=== PATIENT | female | born 2000 | race Caucasian/White ===

== ENCOUNTER 2023-09-09 22:02 | Emergency (ER) | payer OTHER, SELFPAY ==
[2023-09-09] VITALS (13 sets, daily range): BP systolic 96–128; BP diastolic 59–80; PULSE 71–100; TEMP 37.1; O2SAT 96–99; BMI 19.8
--- NOTE | 2023-09-09 22:48 | ECG_ITS ---
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
--- NOTE | 2023-09-09 22:49 | ED_ITS ---
HPI - Dizziness General Chief Complaint: Syncope Stated Complaint: Syncope Time Seen by Provider: 09/09/23 22:14 Source: patient and family Mode of arrival: walk-in History of Present Illness HPI Narrative: This 22-year-old female, nonsmoker who is on control and doubts the possibility of presents for evaluation of several episodes of dizziness/lightheadedness throughout the day. She did not pass out. She did not fall to the ground. Her mother states that she called her at home stating that she was feeling dizzy and has episodes of dizziness when she changes positions. She does not smoke. She is not having any chest pain or shortness of breath. She denies any abdominal pain or back pain. She has no lower extremity pain or swelling. She has not had a fever or any urinary symptoms. The mother states that after having a baby she was told by Dr. Christianson that her iron levels were low. She is not currently taking any iron or other supplements. I asked this patient if she knew what it meant to pass out and she said she did not know. After describing it to her she admits that she did not pass out. She does not have any headache or focal neurologic symptoms. At the time of my exam she denies that she is having any dizziness. Related Data Home Medications ?Medication ?Instructions ?Recorded ?Confirmed norethindrone 1 mg-ethinyl 1 tab PO DAILY 09/09/23 09/09/23 estradiol 20 mcg (21)-iron 75 mg (7) tablet (Marybel Fe 06/19 (28)) Allergies Allergy/AdvReac Type Severity Reaction Status Date / Time No Known Drug Allergies Allergy Verified 09/09/23 22:23 Review of Systems ROS Status of ROS 10 or more systems reviewed and unremark able except as noted in history and below Exam Narrative Exam Narrative: Nurses note and vital signs reviewed and patient is not hypoxic. General: The patient appears well and in no apparent distress. Patient is resting comfortably on cart. Skin: Warm, dry, no pallor noted. There is no rash noted. Head: Normocephalic, atraumatic Eye: Normal conjunctiva, no drainage, EOMI. PERRL Ears, Nose, Mouth, and Throat: oral mucosa is moist. Nares patent. Mouth without vesicles. Cardiovascular: Regular Rate and Rhythm S1S2, no murmurs, rubs or gallops Respiratory: Patient is in no distress, no accessory muscle use, lungs are clear to auscultation, no wheezing, rales or rhonchi Back: non-tender, no CVA tenderness bilaterally to percussion. GI: Normal bowel sounds, no tenderness to palpation, no masses appreciated. No rebound, guarding, or rigidity noted. Musculoskeletal: The patient has no evidence of calf tenderness, no pitting edema, symmetrical pulses noted bilaterally Neurological: A&O x4, normal speech, Upper and lower external he strength and sensation is intact, ambulatory with a steady gaait Psychiatric: Cooperative Constitutional Vital Signs, click to edit/add: Last Vital Signs Temp 98.8 F 09/09/23 22:12 Pulse 93 H 09/09/23 23:00 Resp 16 09/09/23 22:12 BP 128/77 09/09/23 23:00 Pulse Ox 97 09/09/23 22:50 O2 Del Method Room Air 09/09/23 22:12 Course Vital Signs Vital signs: Vital Signs Temperature 98.8 F 09/09/23 22:12 Pulse Rate 90 09/09/23 22:12 Respiratory Rate 16 09/09/23 22:12 Blood Pressure 109/77 09/09/23 22:12 Pulse Oximetry 97 09/09/23 22:12 Oxygen Delivery Method Room Air 09/09/23 22:12 Temperature 98.8 F 09/09/23 22:12 Pulse Rate 93 H 09/09/23 23:00 Respiratory Rate 16 09/09/23 22:12 Blood Pressure 128/77 09/09/23 23:00 Pulse Oximetry 97 09/09/23 22:50 Oxygen Delivery Method Room Air 09/09/23 22:12 MDM - Dizziness MDM Narrative Medical decision making narrative: This 22-year-old female presents for evaluation of several episodes of lightheadedness that occurred throughout the day. She did not pass out. She has no chest pain or shortness of breath. She denies any abdominal pain or back pain. She doubts the possibility of because she is on control maintains compliance on it. Her physical exam and vital signs were normal. She has not had any nausea vomiting or diarrhea and does not appear to be dehydrated. Routine labs are reviewed. She has a normal white count and hemoglobin is stable at 12. test is negative. Electrolytes are normal. D-dimer is normal. Urine shows mild leukocyte esterase and 5-10 white blood cells per high-power field. This may be contributing to some degree of dizziness/lightheadedness although she is not symptomatic. She was medicated in emergency department with a dose of Keflex annd be discharged home with Keflex use for the next several days. I encouraged to stay very hydrated and follow-up with her family physician and [facility] as she has been told in the past that she has iron deficiency anemia. I did explain to her that we do not do iron studies typically in the emergency department as part of screening tool. She verbalized understanding of this. She was with her mother and sister emergency department and did not verbalize any questions after our discussion. Lab Data Labs: Lab Results 09/09/23 09/09/23 Range/Units 22:57 23:01 WBC 7.1 (4.0-11.0) 10^3/uL RBC 4.24 (4.20-5.40) 10^6/uL Hgb 12.5 (12.0-16.0) g/dL Hct 39.0 (36.0-48.0) % MCV 92.0 (81.0-99.0) fL MCH 29.5 (26.7-34.0) pg MCHC 32.1 (29.9-35.2) g/dL RDW 13.2 (11.0-15.0) % Plt Count 240 (150-450) 10^3/uL MPV 12.0 (9.5-13.5) fL Neut % (Auto) 44.1 (43.0-75.0) % Lymph % (Auto) 43.0 (20.5-60.0) % [place] % (Auto) 9.8 (1.7-12.0) % Eos % (Auto) 1.3 (0.9-7.0) % Baso % (Auto) 1.5 (0.2-2.0) % Neut # (Auto) 3.1 (1.4-6.5) 10^3/uL Lymph # (Auto) 3.1 (1.2-3.8) 10^3/uL [place] # (Auto) 0.7 (0.3-0.8) 10^3/uL Eos # (Auto) 0.1 (0.0-0.7) 10^3/uL Baso # (Auto) 0.1 (0.0-0.1) 10^3/uL Abs Immat Gran (auto) 0.02 (0.00-0.03) 10^3/uL Imm/Tot Granulo (auto) 0.3 (0.0-0.5) % D-Dimer <0.19 (<=0.59) mg/L FEU Sodium 142 (136-145) mmol/L Potassium 3.8 (3.5-5.1) mmol/L Chloride 106 (98-107) mmol/L Carbon Dioxide 27.3 (21.0-32.0) mmol/L Anion Gap 12.5 BUN 12.0 (7.0-18.0) mg/dL Creatinine 0.86 (0.55-1.02) mg/dL Est GFR ( Amer) >60 (>=60) Est GFR (Non-Af Amer) >60 (>=60) BUN/Creatinine Ratio 14.0 Glucose 92 (74-106) mg/dL Calcium 9.2 (8.5-10.1) mg/dL Total Bilirubin 0.3 (0.2-1.0) mg/dL AST 9 L (15-37) U/L ALT 18 (14-59) U/L Alkaline Phosphatase 39 L (46-116) U/L Total Protein 7.4 (6.4-8.2) g/dL Albumin 3.8 (3.4-5.0) g/dL Globulin 3.6 g/dL Albumin/Globulin Ratio 1.1 Urine Color Lt. yellow (YELLOW) Urine Clarity Clear (CLEAR) Urine pH 6.0 (5.0-9.0) Ur Specific [place] 1.025 (1.005-1.025) Urine Protein Negative (NEG/TRACE) mg/dL Urine Glucose (UA) Negative (NEGATIVE) mg/dL Urine Ketones Negative (NEGATIVE) mg/dL Urine Occult Blood Negative (NEGATIVE) Urine Nitrite Negative (NEGATIVE) Urine Bilirubin Negative (NEGATIVE) Urine Urobilinogen 1.0 (0.2-1.0) EU/dL Ur Leukocyte Esterase Small A (NEGATIVE) Urine RBC 2-5 A (0-2) #/HPF Urine WBC 5-10 A (NONE SEEN) #/HPF Ur Squamous Epith Cells Few A (NONE/RARE) #/LPF Ur Transition Epith Cell Rare A (NONE SEEN) #/LPF Urine Crystals None seen (None Seen) #/HPF Urine Bacteria None seen (NONE SEEN) #/HPF Urine Casts None seen (NONE SEEN) #/LPF Urine Mucus None seen (NONE SEEN) Ur Culture Indicated? Yes Urine HCG, Qual Negative (NEGATIVE) ECG Data Attestation: I personally reviewed and interpreted this ECG as follows: (Sinus rhythm at 70 beats for minute, normal axis, normal intervals, no acute ST segment elevation or T-wave inversion) Discharge Plan Discharge Stand Alone Forms: Portal Instructions Chief Complaint: Syncope Clinical Impression: UTI (urinary tract infection), Dizziness, nonspecific Patient Disposition: Home, Self-Care Time of Disposition Decision: 00:02 Condition: Good Prescriptions / Home Meds: No Action norethindrone-e.estradiol-iron [Marybel Jarvis 06/19 (28)] 1 mg-20 mcg (21)/75 mg (7) tablet 1 tab PO DAILY Print Language: Hebrew Instructions: Urinary Tract Infection in Women (ED), Lightheadedness (ED) Referrals: [facility] [Primary Care Provider] - 1 week
[2023-09-09 23:27] LABS: Basophils Absolute Auto 0.1 10^3/uL (0.0-0.1); Basophils Percent Auto 1.5 % (0.2-2.0); Eosinophils Absolute Auto 0.1 10^3/uL (0.0-0.7); Eosinophils Percent Auto 1.3 % (0.9-7.0); Hemoglobin 12.5 g/dL (12.0-16.0); Immature Granulocytes Abs Auto 0.02 10^3/uL (0.00-0.03); Immature Granulocytes Pct Auto 0.3 % (0.0-0.5); Lymphocytes Absolute Auto 3.1 10^3/uL (1.2-3.8); Mean Corpuscular HGB Conc 32.1 g/dL (29.9-35.2); Mean Corpuscular Hemoglobin 29.5 pg (26.7-34.0); Monocytes Absolute Auto 0.7 10^3/uL (0.3-0.8); Monocytes Percent Auto 9.8 % (1.7-12.0); Neutrophils Absolute Auto 3.1 10^3/uL (1.4-6.5); Neutrophils Percent Auto 44.1 % (43.0-75.0); Platelet Count 240 10^3/uL (150-450); Red Blood Count 4.24 10^6/uL (4.20-5.40); Red Cell Distribution Width 13.2 % (11.0-15.0); White Blood Count 7.1 10^3/uL (4.0-11.0)
[2023-09-09 23:29] LABS: Bilirubin Urine NEGATIVE (NEGATIVE); Blood Urine NEGATIVE (NEGATIVE); Clarity Urine CLEAR (CLEAR); Color Urine LT. YELLOW (YELLOW); Glucose Urine UA NEGATIVE (NEGATIVE); Ketones Urine NEGATIVE (NEGATIVE); Leukocyte Esterase Urine SMALL (NEGATIVE); Nitrite Urine NEGATIVE (NEGATIVE); Protein Urine NEGATIVE (NEG/TRACE); Specific Gravity Urine 1.025 (1.005-1.025)
[2023-09-09 23:30] LABS: HCG Qualitative Urine* NEGATIVE (NEGATIVE)
[2023-09-09 23:36] LABS: Bacteria Urine NONE SEEN #/HPF (NONE SEEN); Cast Seen? NONE SEEN #/LPF (NONE SEEN); Crystals Seen? None Seen #/HPF (None Seen); Mucus Urine NONE SEEN (NONE SEEN); Squamous Epithelial Cell Urine FEW #/LPF (NONE/RARE); Transitional Epi Cells Urine RARE #/LPF (NONE SEEN); Urine Culture Indicated YES
[2023-09-09 23:43] LABS: Alanine Aminotransferase 18 U/L (14-59); Albumin Globulin Ratio 1.1; Albumin Level 3.8 g/dL (3.4-5.0); Alkaline Phosphatase 39 U/L (46-116); Anion Gap 12.5; Aspartate Amino Transferase 9 U/L (15-37); Bilirubin Total 0.3 mg/dL (0.2-1.0); Calcium 9.2 mg/dL (8.5-10.1); Carbon Dioxide 27.3 mmol/L (21.0-32.0); Chloride 106 mmol/L (98-107); Estimated GFR (African America >60 (>=60); Estimated GFR (Non-African Ame >60 (>=60); Globulin 3.6 g/dL; Glucose 92 mg/dL (74-106); Potassium 3.8 mmol/L (3.5-5.1); Sodium 142 mmol/L (136-145); Total Protein 7.4 g/dL (6.4-8.2)
[2023-09-09 23:48] LABS: D Dimer <0.19 mg/L FEU (<=0.59)
[2023-09-10] VITALS: BP 107/73; PULSE 77
[2023-09-10 00:10] VITALS: PULSE 74
[2023-09-10] MEDS: CEPHALEXIN 500 MG CAPSULE PO (00:12)
== END 2023-09-10 00:23 | disposition home or self-care (01) ==
PROVIDERS: Emergency Provider Emergency Medicine
DX: N39.0 Urinary tract infection, site not specified (principal); R42 Dizziness and giddiness; Z79.3 Long term (current) use of hormonal contraceptives
CPT/HCPCS: 36415; 80053; 81001; 84703; 85025; 85378; 87086; 93005; 99284

== ENCOUNTER 2023-10-19 21:08 | Emergency (ER) | payer OTHER, SELFPAY ==
[2023-10-19 21:13] VITALS: BP 141/84; PULSE 85; O2SAT 98; BMI 22.6
[2023-10-19 21:28] VITALS: TEMP 36.6
--- NOTE | 2023-10-19 21:30 | ED.FEMALEGU1 ---
HPI - Female Genitourinary General Chief complaint: Urogenital-Female Stated complaint: UTI, Earache Time Seen by Provider: 10/19/23 21:21 Source: patient and family Mode of arrival: walk-in Limitations: no limitations History of Present Illness HPI Narrative: presents complaining of dysuria. States it started this AM. Describes suprapubic pain. No flank pain or nausea. No fever or chills Related Data Home Medications ?Medication ?Instructions ?Recorded ?Confirmed norethindrone 1 mg-ethinyl 1 tab PO DAILY 09/09/23 09/09/23 estradiol 20 mcg (21)-iron 75 mg (7) tablet (Marybel Fe 06/19 (28)) Allergies Allergy/AdvReac Type Severity Reaction Status Date / Time No Known Drug Allergies Allergy Verified 10/19/23 21:15 Review of Systems ROS Status of ROS 10 or more systems reviewed and unremarkable except as noted in history and below Exam Constitutional Vital Signs, click to edit/add: Last Vital Signs Temp 98 F 10/19/23 21:28 Pulse 85 10/19/23 21:13 Resp 18 10/19/23 21:13 BP 141/84 10/19/23 21:13 Pulse Ox 98 10/19/23 21:13 O2 Del Method Room Air 10/19/23 21:13 Common normals: no apparent distress, average body habitus, oriented x3, no limitations, healthy appearing, alert and well nourished [facility] Common normals: normocephalic and head/scalp atraumatic Eye Common normals: EOMs intact bilaterally and conjunctivae normal Respiratory Common normals: normal respiratory effort, no retractions, no use of accessory muscles and clear to auscultation bilaterally Cardio Common normals: regular rate, regular rhythm, S1 normal heart sound and S2 normal heart sound GI Other: mild suprapubic tenderness Extremity Common normals: normal to inspection and full ROM Neuro Common normals: oriented x3, CN's II-XII intact bilaterally, moves all extremities, no focal motor deficits and no sensory deficits noted Psych Appearance: grossly normal Course Vital Signs Vital signs: Vital Signs Pulse Rate 85 10/19/23 21:13 Respiratory Rate 18 10/19/23 21:13 Blood Pressure 141/84 10/19/23 21:13 Pulse Oximetry 98 05/21/24 21:13 Oxygen Delivery Method Room Air 10/19/23 21:13 Temperature 98 F 10/19/23 21:28 Pulse Rate 85 10/19/23 21:13 Respiratory Rate 18 10/19/23 21:13 Blood Pressure 141/84 10/19/23 21:13 Pulse Oximetry 98 10/19/23 21:13 Oxygen Delivery Method Room Air 10/19/23 21:13 MDM - Female Genitourinary MDM Narrative Medical decision making narrative: one day history of dysuria. No fever or systemic symptoms. UA positive. patient treated with Bactrim ds and pyridium. Advised to follow up with the family doctor Lab Data Labs: Lab Results 10/19/23 Range/Units 21:16 Urine Color Lt. yellow (YELLOW) Urine Clarity Clear (CLEAR) Urine pH 6.5 (5.0-9.0) Ur Specific [place] 1.010 (1.005-1.025) Urine Protein Negative (NEG/TRACE) mg/dL Urine Glucose (UA) Negative (NEGATIVE) mg/dL Urine Ketones Negative (NEGATIVE) mg/dL Urine Occult Blood Negative (NEGATIVE) Urine Nitrite Negative (NEGATIVE) Urine Bilirubin Negative (NEGATIVE) Urine Urobilinogen 0.2 (0.2-1.0) EU/dL Ur Leukocyte Esterase Small A (NEGATIVE) Urine RBC None seen (0-2) #/HPF Urine WBC 10-20 A (NONE SEEN) #/HPF Ur Squamous Epith Cells Few A (NONE/RARE) #/LPF Urine Crystals None seen (None Seen) #/HPF Amorphous Sediment Few Urine Bacteria Small A (NONE SEEN) #/HPF Urine Casts None seen (NONE SEEN) #/LPF Urine Mucus None seen (NONE SEEN) Ur Culture Indicated? Yes Discharge Plan Discharge Stand Alone Forms: Portal Instructions Chief Complaint: Urogenital-Female Clinical Impression: UTI (urinary tract infection) Patient Disposition: Home, Self-Care Prescriptions / Home Meds: No Action norethindrone-e.estradiol-iron [Marybel Jarvis 06/19 ()] 1 mg-20 mcg (21)/75 mg (7) tablet 1 tab PO DAILY Print Language: [place] Islander Instructions: Urinary Tract Infection in Women (DC) Additional Instructions: follow up with your doctor for a recheck in 2-3 days Referrals: [facility] [Primary Care Provider] - 1 week
[2023-10-19 21:35] LABS: Bilirubin Urine NEGATIVE (NEGATIVE); Blood Urine NEGATIVE (NEGATIVE); Clarity Urine CLEAR (CLEAR); Color Urine LT. YELLOW (YELLOW); Glucose Urine UA NEGATIVE (NEGATIVE); Ketones Urine NEGATIVE (NEGATIVE); Leukocyte Esterase Urine SMALL (NEGATIVE); Nitrite Urine NEGATIVE (NEGATIVE); Protein Urine NEGATIVE (NEG/TRACE); Urobilinogen Urine 0.2 EU/dL (0.2-1.0); pH Urine 6.5 (5.0-9.0)
[2023-10-19 21:36] LABS: Urine Microscopic Indicated YES
[2023-10-19 21:45] LABS: Amorphous Sediment Urine FEW; Bacteria Urine SMALL #/HPF (NONE SEEN); Cast Seen? NONE SEEN #/LPF (NONE SEEN); Crystals Seen? None Seen #/HPF (None Seen); Mucus Urine NONE SEEN (NONE SEEN); RBC Urine NONE SEEN #/HPF (0-2); Squamous Epithelial Cell Urine FEW #/LPF (NONE/RARE); Urine Culture Indicated YES
[2023-10-19] MEDS: PHENAZOPYRIDINE 100 MG TABLET 200 MG PO (22:53)
[2023-10-19] MEDS: SULFAMETHOXAZOLE/TRIMETHOPRIM 800-160 MG TABLET 1 TAB PO (22:54)
[2023-10-19 22:58] VITALS: BP 117/67; PULSE 70; O2SAT 100
== END 2023-10-19 22:58 | disposition home or self-care (01) ==
PROVIDERS: Emergency Provider Internal Medicine
DX: N39.0 Urinary tract infection, site not specified (principal); Z79.3 Long term (current) use of hormonal contraceptives
CPT/HCPCS: 81001; 87086; 99283

== ENCOUNTER 2023-10-28 19:38 | Emergency (ER) | payer OTHER, SELFPAY ==
[2023-10-28 19:43] VITALS: BP 139/86; PULSE 89; TEMP 36.6; O2SAT 98; BMI 18.6
--- NOTE | 2023-10-28 19:47 | XR_ITS ---
The [address] [address] Patient Name: NIRAJ CLIFFORD MRN: [id number] date: 2000 Sex: F Assigned Patient Location: ER Current Patient Location: Accession/Order Number: [id number] Exam Date: 10/28/2023 19:57 Report Date: 10/28/2023 20:56 At the request of: CHERYL PARISH Procedure: XR wrist RT min 3V EXAM: XR wrist RT min 3V HISTORY: The patient is a 23-year-old female. Atraumatic pain COMPARISON: None. FINDINGS: The right wrist is radiographically negative with no evidence of fracture, dislocation, joint space narrowing, or other osseous or articular abnormalities. XR/XR wrist RT min 3V IMPRESSION: Negative. Electronically authenticated by: MILA CHEEMA Date: 10/28/2023 20:56
--- NOTE | 2023-10-28 19:55 | ED.GENADUL1 ---
HPI HPI - General Adult General Chief complaint: Extremity Injury, Upper Stated complaint: wrist pain upper extremity pain Time Seen by Provider: 10/28/23 19:39 Source: patient Mode of arrival: walk-in Limitations: no limitations History of Present Illness HPI narrative: 23-year-old female presents for right wrist pain that she has had for 2 days. No injury. She point circumferentially around her distal right wrist indicate the area of pain. No unusual activity. She saw her doctor yesterday who told her she might have carpal tunnel syndrome. She does not seem to have any weakness or numbness in her fingers. The pain is moderate and worse when she moves it. Related Data Home Medications ?Medication ?Instructions ?Recorded ?Confirmed norethindrone 1 mg-ethinyl 1 tab PO DAILY 09/09/23 10/28/23 estradiol 20 mcg (21)-iron 75 mg (7) tablet (Marybel Fe [birth year])) Allergies Allergy/AdvReac Type Severity Reaction Status Date / Time No Known Drug Allergies Allergy Verified 10/28/23 19:48 Opioid HPI Opioid Management Most Recent Opioid Data: Last Pain Scale 6 10/28/23 20:28 Last ED Pain Assessment 10/28/23 19:50 Review of Systems ROS Narrative A ten point review of systems is negative except as noted above. Exam Narrative Exam Narrative: Nurses note and vital signs reviewed and patient is not hypoxic. General: The patient appears well and in no apparent distress. Patient is resting comfortably on cart. Skin: Warm, dry, no pallor noted. There is no rash noted. Head: Normocephalic, atraumatic Eye: Normal conjunctiva, no drainage Ears, Nose, Mouth, and Throat: oral mucosa is moist. Nares patent. Cardiovascular: Regular Rate and Rhythm Respiratory: Patient is in no distress, no accessory muscle use, lungs are clear to auscultation, no wheezing, rales or rhonchi Back: non-tender GI: Soft and nontender Musculoskeletal: The right wrist is not deformed or swollen and has good range of motion. Fingers also have full range of motion. Capillary refill brisk. Radial pulse 2+. Neurological: Awake and alert Psychiatric: Cooperative Constitutional Vital Signs, click to edit/add: Last Vital Signs Temp 98 F 10/28/23 19:43 Pulse 89 10/28/23 19:43 Resp 16 10/28/23 19:43 BP 139/86 10/28/23 19:43 Pulse Ox 98 10/28/23 19:43 O2 Del Method Room Air 10/28/23 19:43 Course Vital Signs Vital signs: Vital Signs Temperature 98 F 10/28/23 19:43 Pulse Rate 89 10/28/23 19:43 Respiratory Rate 16 10/28/23 19:43 Blood Pressure 139/86 10/28/23 19:43 Pulse Oximetry 98 10/28/23 19:43 Oxygen Delivery Method Room Air 10/28/23 19:43 Temperature 98 F 10/28/23 19:43 Pulse Rate 89 10/28/23 19:43 Respiratory Rate 16 10/28/23 19:43 Blood Pressure 139/86 10/28/23 19:43 Pulse Oximetry 98 10/28/23 19:43 Oxygen Delivery Method Room Air 10/28/23 19:43 Medical Decision Making MDM Narrative Medical decision making narrative: X-rays negative on my interpretation. Splint applied, application checked by me and found to be appropriate and she is referred to orthopedics. I do not have high suspicion of carpal tunnel syndrome. Treatment diagnosis and follow-up were discussed with the patient and her mother. Differential Diagnosis Differential Diagnosis: Wrist sprain, wrist strain, fracture Imaging Data Right wrist x-ray: My impression: No acute findings Discharge Plan Discharge Stand Alone Forms: Portal Instructions Chief Complaint: Extremity Injury, Upper Clinical Impression: Acute pain of right wrist Patient Disposition: Home, Self-Care Time of Disposition Decision: 20:31 Condition: Good Mode of Transportation: Private Vehicle Prescriptions / Home Meds: No Action norethindrone-e.estradiol-iron [Marybel Jarvis [birth year])] 1 mg-20 mcg (21)/75 mg (7) tablet 1 tab PO DAILY Print Language: Croatian Instructions: Wrist Sprain (ED) Additional Instructions: Follow-up with Dr. Werner, November 07 at 10:30 AM Referrals: [facility] [Primary Care Provider] - 1 week Frankie Werner MD [Physician] - 1 week
--- OUTSIDE RECORDS SUMMARY | 2023-10-28 19:55 | XMS_ITS | CCD ---
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 Name Role Phone ALEXANDRIA QUEZADA Admitting Unavailable PILAR ALEXANDRIA Attending Unavailable [facility] Primary Care Unavaila MARYELLEN Woo Consulting Unavailable [facility] Primary Care Unavaila ROSE Mcdowell Admitting Unavailable ROSE MATTHEW Attending Unavailable JOHN MORALES Consulting Unavailable JOSETTE WELCH Consulting Unavailable CALI Blanc Primary Care Provide r MD Dariana Richey Attending Provider CALI Blanc Primary Care Provide r MD Dariana Richey Attending Provider DO Meghan Rizvi Attending Provider NON STAFF Primary Care Provider Unavailabl e [facility], Services Primary Care Provider MD Melo Ritter Attending Provider MD Dariana Richey Referring Provider [phone] DO Celeste Alanis Attending Provider [phone] DO Meghan Rizvi Admit Provider MD Dariana Richey Attending Provider CALI Blanc Attending Provider DO Mich Diaz Emergency Provider [phone] DO Abhay Hendricks Emergency Provider [facility], Services Primary Care Provider DO Mich Diaz Emergency Provider [phone] [facility], Services Primary Care Provider [phone] MD Cuco Nails Attending Provider MD Sergio Zepeda Jr Emergency Provider MD Cuco Nails Referring Provider MD Dannielle Addison Attending Provider NatJv vazqueza Attending Unavailable Nataprawira, Meghan Admitting Unavailable [facility] Primary Care Unavaila ble [facility] Primary Care Unavaila Calli Christensen Attending Unavailab le Calli Blanc Admitting Unavailab le [facility] Primary Care Unavaila ble Dannielle Addison Attending Unavailable Dannielle Addison Admitting Unavailable Cuco Nails Referring Unavai lable Rinsheri Celeste Admitting Unavailable Rinkes Celeste Attending Unavailable [facility] Primary Care Unavaila ble Nataprawira, Meghan Admitting Unavailable Nataprawira, Meghan Attending Unavailable [facility] Primary Care Unavaila ble [facility] Primary Care Unavaila ble Calli Blanc Admitting Unavailab le Calli Blanc Attending Unavailab le [facility] Primary Care Unavaila ble Diaz, Mich Admitting Unavailable Ignacio Diazic Attending Unavailable Nataprawira, Meghan Attending Unavailable Nataprawira, Meghan Admitting Unavailable NON STAFF Primary Care Unavailable [facility] Primary Care Unavaila ble Cuco Nails Attending Unavai labCuco Chi Admitting Unavai lable [facility] Primary Care Unavaila ble Mich Diaz Attending Unavailable Diaz, Mich Admitting Unavailable [facility] Primary Care Unavaila ble Ruthie Abhay A Attending Unavailable Ruthie Abhay A Admitting Unavailable [facility] Primary Care Unavaila Sergio Hodge Jr Attending Unavailable Sergio Zepeda Jr Admitting Unavailable [facility] Primary Care Unavaila ble Cuco Nails Admitting Unavai labCuco Chi Attending Unavai lable Nataprawira, Meghan Attending Unavailable Nataprawira, Meghan Admitting Unavailable [facility] Primary Care Unavaila ble Annabelle, Celeste Attending Unavailable [facility] Primary Care Unavaila ble Rinkes, Celeste Admitting Unavailable [facility] Primary Care Unavaila Melo Mccarty Attending Unavailable Melo Ritter Admitting Unavailable [facility], Services Primary Care Unavaila Dariana Ivy Attending Unavailable Dariana Richey Referring Unavailable Dariana Richey Admitting Unavailable SANDEE LOVE Attending Unavailable Medications Current Medications Medication Drug Class(es) Dates Sig (Normalized) Sig (Original) Norethindrone-E.Est radiol-Iron (5 sources) Estrogen Start: 03-18-2023 take 1 tablet by mouth once daily Norethindrone-E.Es tradiol-Iron Active 1 TAB PO Daily March 18, 2023 12:00am Completed/Discontinued Medications Medication Drug Class(es) Dates Sig (Normalized) Sig (Original) dicyclomine hydrochloride 10 mg oral capsule (18 sources) Anticholinergic Start: 07-12-2021 End: 09-19-2022 take 10 mg by mouth twice daily Dicyclomine Discontinued 10 MG PO Twice daily July 12, 2021 1:00am September 19, 2022 10:16am docusate sodium 100 mg oral capsule (10 sources) Start: 10-01-2022 End: 11-19-2022 take 100 mg by mouth at bedtime Docusate Sodium Discontinued 100 MG PO Bedtime October 01, 2022 12:00am November 19, 2022 8:21pm famotidine 20 mg oral tablet (3 sources) Histamine-2 Receptor Antagonist Start: 08-24-2023 End: 09-22-2023 take 1 tablet by mouth twice daily Famotidine (Pepcid) 20 mg tablet Discontinued 20 MG PO Twice daily August 24, 2023 12:00am September 22, 2023 9:16am ferrous sulfate 325 mg oral tablet (10 sources) Start: 10-03-2022 End: 03-18-2023 take 325 mg by mouth once daily Ferrous Sulfate Discontinued 325 MG PO Daily October 03, 2022 12:00am March 18, 2023 11:06pm ibuprofen 600 mg oral tablet (20 sources) Nonsteroidal Anti-inflammatory Drug Start: 10-03-2022 End: 11-19-2022 Ibuprofen Discontinued 600 MG PO Every 6 hours October 03, 2022 12:00am November 19, 2022 8:21pm do not exceed 4 doses in a 24 hour period Start: 10-01-2022 End: 11-19-2022 take 600 mg by mouth every six hours Ibuprofen Discontinued 600 MG PO Q6H 60 October 01, 2022 12:00am November 19, 2022 8:21pm ondansetron 4 mg disintegrating oral tablet (3 sources) Serotonin-3 Receptor Antagonist Start: 08-24-2023 End: 09-22-2023 take 4 mg by mouth every eight hours Ondansetron Discontinued 4 MG PO Q8H 10 August 24, 2023 12:00am September 22, 2023 9:17am No.144-Folic Acid () 400 mcg Tablet,Chewable (14 sources) Start: 09-24-2022 End: 11-19-2022 No.144-Folic Acid () 400 mcg Tablet,Chewable Discontinued TAB PO September 24, 2022 12:00am November 19, 2022 8:21pm Start: 09-24-2022 No.14 4-Folic Acid () 400 mcg Tablet,Chewable Active TAB PO September 24, 2022 12:00am Problems Active Problems Problem Classification Problem Date Documented Da te Episodic/Chronic External cause codes: Overexertion (1 source) Other slipping, tripping and stumbling without falling, initial encounter; Translations: [OTH SLIP TRIP STUMBL NO FALL INIT] Onset: 01-23-2020 Gastrointestinal hemorrhage (4 sources) Rectal hemorrhage; Translations: [Hemorrhage of anus and rectum] Onset: 08-24-2023 08-24-2023 Episodic Immunizations and screening for infectious disease (1 source) Encounter for immunization; Translations: [ENCOUNTER FOR IMMUNIZATION] Onset: 01-23-2020 Episodic Nausea and vomiting (3 sources) Nausea, vomiting and diarrhea; Translations: [Nausea with vomiting, unspecified] 08-24-2023 Episodic Open wounds of extremities (1 source) Laceration without foreign body of right great toe without damage to nail, initial encounter; Translations: [LAC NO FB RT GRT TOE NO DMG NL INIT] Onset: 01-23-2020 Episodic Other circulatory disease (5 sources) Orthostatic hypotension; Translations: [Orthostatic hypotension] Onset: 08-11-2023 08-10-2023 Episodic Other circulatory disease (6 sources) Orthostatic hypotension; Translations: [Orthostatic hypotension] Onset: 09-08-2023 08-10-2023 Episodic Other female genital disorders (11 sources) History of past delivery; Translations: [Status post vaginal delivery] 10-17-2022 Episodic Other gastrointestinal disorders (18 sources) Diarrhea; Translations: [Diarrhea, unspecified] 07-12-2021 Episodic Other injuries and conditions due to external causes (3 sources) Unspecified injury of right foot, initial encounter; Translations: [UNSPECIFIED INJURY RT FOOT INITIAL] Onset: 01-20-2020 Episodic Superficial injury; contusion (6 sources) Contusion of right great toe without damage to nail, initial encounter; Translations: [Contusion of foot] Onset: 01-23-2020 03-18-2023 Episodic Syncope (20 sources) Vasovagal syncope; Translations: [Syncope and collapse] Onset: 11-21-2022 11-19-2022 Episodic Unclassified (1 source) Pain in right foot; Translations: [Pain in right foot] Onset: 03-19-2023 Unclassified (1 source) Other mental disorders complicating childbirth; Translations: [Other mental disorders complicating childbirth] Onset: 10-04-2022 Unclassified (1 source) Encounter for supervision of normal first , third trimester; Translations: [Encounter for supervision of normal first , third trimester] Onset: 10-01-2022 Unclassified (1 source) Spotting complicating , third trimester; Translations: [Spotting complicating , third trimester] Onset: 09-28-2022 Unclassified (1 source) labor without delivery, third trimester; Translations: [ labor without delivery, third trimester] Onset: 09-28-2022 Unclassified (1 source) Other specified related conditions, third trimester; Translations: [Other specified related conditions, third trimester] Onset: 09-24-2022 Unclassified (1 source) Antepartum hemorrhage, unspecified, third trimester; Translations: [Antepartum hemorrhage, unspecified, third trimester] Onset: 09-16-2022 Unclassified (1 source) Encounter for screening for Streptococcus B; Translations: [Encounter for screening for Streptococcus B] Onset: 09-09-2022 Past or Other Problems Problem Classification Problem Date Documented Da te Episodic/Chronic Other complications of (1 source) Other specified related conditions, unspecified trimester; Translations: [Other specified related conditions, unspecified trimester] Onset: 09-19-2022 Episodic Other ear and sense organ disorders (3 sources) Otalgia, right ear; Translations: [OTALGIA RIGHT EAR] Onset: 07-30-2019 Episodic Other ear and sense organ disorders (1 source) Impacted cerumen, right ear; Translations: [IMPACTED CERUMEN RIGHT EAR] Onset: 08-01-2019 Episodic Residual codes; unclassified (1 source) 36 weeks gestation of ; Translations: [36 weeks gestation of ] Onset: 09-09-2022 Episodic Results Test Name Value Interpretation Reference Range Facility Basic Metabolic Panelon 07-30 Anion gap [Moles/Vol] 15.0 mmol/L Normal 6.0-15.0 [facility] Comment on above: Performed By: #### C BC, BMP, LIPASE, HEPATIC #### [facility] [address] [place] [address] [place] Calcium [Mass/Vol] 9.8 mg/dL Normal 8.6-10.3 [facility] Comment on above: Performed By: #### C BC, BMP, LIPASE, HEPATIC #### [facility] [address] [place] [id number] [place] Chloride [Moles/Vol] 106 mmol/L Normal 98-107 [facility] Comment on above: Performed By: #### C BC, BMP, LIPASE, HEPATIC #### [facility] [address] [place] [id number] [place] CO2 [Moles/Vol] 20.4 mmol/L Low 21.0-31.0 [facility] Comment on above: Performed By: #### C BC, BMP, LIPASE, HEPATIC #### [facility] [address] [place] [id number] [place] Creatinine [Mass/Vol] 1.00 mg/dL Normal 0.60-1.20 [facility] Comment on above: Performed By: #### C BC, BMP, LIPASE, HEPATIC #### [facility] [address] [place] [id number] [place] Creatinine Clr Calc Pharmacy 72.44 Normal [facility] Comment on above: Performed By: #### C BC, BMP, LIPASE, HEPATIC #### [facility] [address] [place] [address] [place] GFR/1.73 sq M.predicted MDRD (S/P/Bld) [Vol rate/Area] mL/min/{1.73_m2} Normal [facility] Comment on above: Performed By: #### C BC, BMP, LIPASE, HEPATIC #### [facility] [address] [place] [address] [place] Glucose [Mass/Vol] 78 mg/dL Normal 70-100 [facility] Comment on above: Result Comment: [facility] Glucose Reference Range is dependent on time and content of last meal. Glucose of more than 200 mg/dL in a nonstressed, ambulatory subject supports the diagnosis of Diabetes Mellitus. ADA recommended reference range Performed By: #### C BC, BMP, LIPASE, HEPATIC #### [facility] [address] Potassium [Moles/Vol] 4.4 mmol/L Normal 3.5-5.1 [facility] Comment on above: Performed By: #### C BC, BMP, LIPASE, HEPATIC #### [place] [address] [place] Sodium [Moles/Vol] 137 mmol/L Normal 136-145 [facility] Comment on above: Performed By: #### C BC, BMP, LIPASE, HEPATIC #### [facility] [address] [place] [address] [place] Urea nitrogen [Mass/Vol] 13 mg/dL Normal 7-25 [facility] Comment on above: Performed By: #### C BC, BMP, LIPASE, HEPATIC #### [facility] [address] Complete Blood Count Auto Di ffon 08-25-2023 Basophils (Bld) [#/Vol] 0.2 10*3/uL Normal 0.0-0.2 [facility] Comment on above: Result Comment: PERF ORMED BY: [place] [address] PATHOLOGIST DIRECTOR OF MECHANICAL ENGINEERING KISHA CHING M.D. Performed By: #### C BC, BMP, LIPASE, HEPATIC #### [address] Basophils/100 WBC (Bld) 1.7 % Normal . T jacqueline [facility] Comment on above: Performed By: #### C BC, BMP, LIPASE, HEPATIC #### [address] Eosinophils (Bld) [#/Vol] 0.0 10*3/uL Normal 0.0-0.45 [facility] Comment on above: Performed By: #### C BC, BMP, LIPASE, HEPATIC #### [address] Eosinophils/100 WBC (Bld) 0.2 % Normal . [facility] Comment on above: Performed By: #### C BC, BMP, LIPASE, HEPATIC #### [address] Erythrocyte distribution width (RBC) [Ratio] 14.1 % Normal 11.9-15.3 [facility] Comment on above: Performed By: #### C BC, BMP, LIPASE, HEPATIC #### [address] Hematocrit (Bld) [Volume fraction] 39.8 % Normal 34.0-46.4 [facility] Comment on above: Performed By: #### C BC, BMP, LIPASE, HEPATIC #### [address] Hemoglobin (Bld) [Mass/Vol] 13.1 g/dL Normal 11.8-15.4 [facility] Comment on above: Performed By: #### C BC, BMP, LIPASE, HEPATIC #### [address] Lymphocytes (Bld) [#/Vol] 3.1 10*3/uL Normal 1.00-4.8 [facility] Comment on above: Performed By: #### C BC, BMP, LIPASE, HEPATIC #### [address] Lymphocytes/100 WBC (Bld) 34.7 % Normal . [facility] Comment on above: Performed By: #### C BC, BMP, LIPASE, HEPATIC #### [address] MCH (RBC) [Entitic mass] 29.0 pg Normal 24.7-34.3 [facility] Comment on above: Performed By: #### C BC, BMP, LIPASE, HEPATIC #### [address] MCV (RBC) [Entitic vol] 88.3 fL Normal 80-100 [facility] Comment on above: Performed By: #### C BC, BMP, LIPASE, HEPATIC #### [address] Mean Corpuscular HGB Conc 32.8 g/dL Normal 32.0-35.0 [facility] Comment on above: Performed By: #### C BC, BMP, LIPASE, HEPATIC #### [address] Monocytes (Bld) [#/Vol] 0.9 10*3/uL High 0.0-0.8 [facility] Comment on above: Performed By: #### C BC, BMP, LIPASE, HEPATIC #### [address] Monocytes/100 WBC (Bld) 16.99 % Normal 0.00-20.00 [facility] Comment on above: Performed By: #### C BC, BMP, LIPASE, HEPATIC #### [address] Monocytes/100 WBC (Bld) 9.8 % Normal . [facility] Comment on above: Performed By: #### C BC, BMP, LIPASE, HEPATIC #### [address] Neutrophils (Bld) [#/Vol] 4.8 10*3/uL Normal 1.8-7.7 [facility] Comment on above: Performed By: #### C BC, BMP, LIPASE, HEPATIC #### [address] Neutrophils/100 WBC (Bld) 53.6 % Normal . [facility] Comment on above: Performed By: #### C BC, BMP, LIPASE, HEPATIC #### [address] NRBC% 0.1 /100{WBC} Normal 0-0.5 [facility] Comment on above: Performed By: #### C BC, BMP, LIPASE, HEPATIC #### [address] Platelet mean volume (Bld) [Entitic vol] 9.9 fL Normal 6.3-10.7 [facility] Comment on above: Performed By: #### C BC, BMP, LIPASE, HEPATIC #### [address] Platelets (Bld) [#/Vol] 258 10*3/uL Normal 150-450 [facility] Comment on above: Performed By: #### C BC, BMP, LIPASE, HEPATIC #### [address] RBC (Bld) [#/Vol] 4.51 10*6/uL Normal 3.60-5.00 [facility] Comment on above: Performed By: #### C BC, BMP, LIPASE, HEPATIC #### [address] WBC (Bld) [#/Vol] 9.0 10*3/uL Normal 3.8-11.6 [facility] Comment on above: Performed By: #### C BC, BMP, LIPASE, HEPATIC #### [address] Dipstick and Microscopicon 0 08-25-2023 Appearance (U) Clear Normal Clear [facility] Comment on above: Order Comment: Name Collection Type:: Clean-Voided Midstream Performed By: #### C BC, CMP, HS TROP, CK #### [address] Bacteria,Urine None Seen Normal None Seen [facility] Comment on above: Order Comment: Name Collection Type:: Clean-Voided Midstream Performed By: #### C BC, CMP, HS TROP, CK #### [facility] [address] [place] [address] [place] Bilirubin,Urine 1+ High Negative [facility] Comment on above: Order Comment: Name Collection Type:: Clean-Voided Midstream Performed By: #### C BC, CMP, HS TROP, CK #### [facility] [address] [place] [address] [place] Color (U) Dark Yellow Critically abnormal Yellow [facility] Comment on above: Order Comment: Name Collection Type:: Clean-Voided Midstream Performed By: #### C BC, CMP, HS TROP, CK #### [facility] [address] [place] [address] [place] Glucose Ql (U) Normal Normal Normal [facility] Comment on above: Order Comment: Name Collection Type:: Clean-Voided Midstream Performed By: #### C BC, CMP, HS TROP, CK #### [facility] [address] [place] [address] [place] Hyaline Casts,Urine 0-8 Normal 0-8 [facility] Comment on above: Order Comment: Name Collection Type:: Clean-Voided Midstream Performed By: #### C BC, CMP, HS TROP, CK #### [facility] [address] [place] [address] [place] Ketones Ql (U) 2+ High Negative [facility] Comment on above: Order Comment: Name Collection Type:: Clean-Voided Midstream Performed By: #### C BC, CMP, HS TROP, CK #### [facility] [address] [place] [id number] [place] Leukocyte esterase Test strip Ql (U) 1+ High Negative [facility] Comment on above: Order Comment: Name Collection Type:: Clean-Voided Midstream Performed By: #### C BC, CMP, HS TROP, CK #### [facility] [address] [place] [address] [place] Nitrite,Urine Negative Normal Negative [facility] Comment on above: Order Comment: Name Collection Type:: Clean-Voided Midstream Performed By: #### C BC, CMP, HS TROP, CK #### [address] Occult Blood,Urine 3+ High Negative [facility] Comment on above: Order Comment: Name Collection Type:: Clean-Voided Midstream Performed By: #### C BC, CMP, HS TROP, CK #### [address] pH (U) 6.0 [pH] Normal 5.0-9.0 [facility] Comment on above: Order Comment: Name Collection Type:: Clean-Voided Midstream Performed By: #### C BC, CMP, HS TROP, CK #### [address] Protein (U) [Mass/Vol] 100 mg/dL High Negative Th e [facility] Comment on above: Order Comment: Name Collection Type:: Clean-Voided Midstream Performed By: #### C BC, CMP, HS TROP, CK #### [address] RBC,Urine 50-100 High 0-4 [facility] Comment on above: Order Comment: Name Collection Type:: Clean-Voided Midstream Performed By: #### C BC, CMP, HS TROP, CK #### [address] Specificy [place],Urine 1.033 High 1.001-1.030 [facility] Comment on above: Order Comment: Name Collection Type:: Clean-Voided Midstream Performed By: #### C BC, CMP, HS TROP, CK #### [address] Squamous Epithelial Cell,Urine 0-1 Normal 0-2 [facility] Comment on above: Order Comment: Name Collection Type:: Clean-Voided Midstream Performed By: #### C BC, CMP, HS TROP, CK #### [address] Urobilinogen,Urine Normal Normal Normal [facility] Comment on above: Order Comment: Name Collection Type:: Clean-Voided Midstream Performed By: #### C BC, CMP, HS TROP, CK #### [address] WBC,Urine 10-19 High 0-4 [facility] Comment on above: Order Comment: Name Collection Type:: Clean-Voided Midstream Performed By: #### C BC, CMP, HS TROP, CK #### [address] HCG,Urineon 08-25-2023 Beta HCG ( test) Ql (U) Negative Normal [facility] Comment on above: Order Comment: Name Collection Type:: Clean-Voided Midstream Result Comment: PERF ORMED BY: [place] [address] PATHOLOGIST DIRECTOR OF MECHANICAL ENGINEERING KISHA CHING M.D. Performed By: #### C BC, CMP, HS TROP, CK #### [address] Hepatic Panelon 08-25-2023 Albumin [Mass/Vol] 4.5 g/dL Normal 3.5-5.7 [facility] Comment on above: Performed By: #### C BC, BMP, LIPASE, HEPATIC #### [address] Albumin/Globulin [Mass ratio] 1.4 {ratio} Normal [facility] Comment on above: Performed By: #### C BC, BMP, LIPASE, HEPATIC #### [address] ALP [Catalytic activity/Vol] 33 U/L Low 34-104 [facility] Comment on above: Performed By: #### C BC, BMP, LIPASE, HEPATIC #### [address] ALT [Catalytic activity/Vol] 11 U/L Normal 7-52 [facility] Comment on above: Performed By: #### C BC, BMP, LIPASE, HEPATIC #### [address] [address] [place] AST [Catalytic activity/Vol] 15 U/L Normal 13-39 [facility] Comment on above: Performed By: #### C BC, BMP, LIPASE, HEPATIC #### [address] Bilirubin [Mass/Vol] 0.7 mg/dL Normal 0.3-1.0 [facility] Comment on above: Performed By: #### C BC, BMP, LIPASE, HEPATIC #### [address] Bilirubin,Indirect 0.6 mg/dL Normal [facility] Comment on above: Performed By: #### C BC, BMP, LIPASE, HEPATIC #### [address] Bilirubin.indirect [Mass/Vol] 0.10 mg/dL Normal 0.03-0.18 [facility] Comment on above: Performed By: #### C BC, BMP, LIPASE, HEPATIC #### [address] Globulin (S) [Mass/Vol] 3.2 g/dL Normal T he [facility] Comment on above: Performed By: #### C BC, BMP, LIPASE, HEPATIC #### [address] Protein [Mass/Vol] 7.7 g/dL Normal 6.4-8.9 [facility] Comment on above: Performed By: #### C BC, BMP, LIPASE, HEPATIC #### [address] Lipaseon 08-25-2023 Lipase [Catalytic activity/Vol] 21.0 U/L Normal 11.0-82.0 [facility] Comment on above: Result Comment: PERF ORMED BY: [place] [address] PATHOLOGIST DIRECTOR OF MECHANICAL ENGINEERING KISHA CHING M.D. Performed By: #### C BC, BMP, LIPASE, HEPATIC #### [address] Urine Cultureon 08-25-2023 Bacteria identified Cx Nom (U) 50,000 colonies/ml mixed bacterial skin contaminants 2 Days PERFORMED BY: [place] [address] PATHOLOGIST DIRECTOR OF MECHANICAL ENGINEERING KISHA Branch [facility] Comment on above: Performed By: #### C BC, CMP, HS TROP, CK #### [address] Alanine aminotransferase [En zymatic activity/volume] in Serum or PlasmaOrdered By: Terry Snowden on 08-24-2023 ALT [Catalytic activity/Vol] 11 U/L 7-52 [facility] Albumin [Mass/volume] in Ser um or Plasma by Bromocresol green (BCG) dye binding methoOrdered By: Terry Snowden on 08-24-2023 Albumin BCG dye [Mass/Vol] 4.5 g/dL 3.5-5.7 [facility] Alkaline phosphatase [Enzyma tic activity/volume] in Serum or PlasmaOrdered By: Terry Snowden on 08-24-2023 ALP [Catalytic activity/Vol] 33 U/L 34-104 [facility] Aspartate aminotransferase [ Enzymatic activity/volume] in Serum or PlasmaOrdered By: Terry Snowden on 08-24-2023 AST [Catalytic activity/Vol] 15 U/L 13-39 [facility] Automated erythrocytes count in urine sediment (number/area)Ordered By: Terry Snowden on 08-24-2023 RBC Auto (Urine sed) [#/Area] 50-100 [HPF] 0-4 [facility] Automated leukocytes count i n urine sediment (number/area)Ordered By: Terry Snowden on 08-24-2023 WBC Auto (Urine sed) [#/Area] 10-19 [HPF] 0-4 [facility] Basophils Auto (Bld) [#/Vol] Ordered By: Terry Snowden on 08-24-2023 Basophils (Bld) [#/Vol] 0.2 10*3/uL 0.0-0.2 [facility] Basophils/100 WBC Auto (Bld) Ordered By: Terry Snowden on 08-24-2023 Basophils/100 WBC (Bld) 1.7 % . F [facility] Bilirubin Test strip Ql (U)O rdered By: Terry Snowden on 08-24-2023 Bilirubin Ql (U) 1+ Negative [facility] Bilirubin.direct [Mass/volum e] in Serum or PlasmaOrdered By: Terry Snowden on 08-24-2023 Bilirubin.direct [Mass/Vol] 0.10 mg/dL 0.03-0.18 [facility] Bilirubin.total [Mass/volume ] in Serum or PlasmaOrdered By: Terry Snowden on 08-24-2023 Bilirubin [Mass/Vol] 0.7 mg/dL 0.3-1.0 [facility] Calcium [Mass/volume] in Ser um or PlasmaOrdered By: Terry Snowden on 08-24-2023 Calcium [Mass/Vol] 9.8 mg/dL 8.6-10.3 [facility] Carbon dioxide, total [Moles /volume] in Serum or PlasmaOrdered By: Terry Snowden on 08-24-2023 CO2 [Moles/Vol] 20.4 mmol/L 21.0-31.0 [facility] Chloride [Moles/volume] in S di or PlasmaOrdered By: Terry Snowden on 08-24-2023 Chloride [Moles/Vol] 106 mmol/L 98-107 [facility] Color Auto (U)Ordered By: Artur red Isi on 08-24-2023 Color (U) Dark yellow Yellow [facility] Creatinine [Mass/volume] in Serum or PlasmaOrdered By: Terry Snowden on 08-24-2023 Creatinine [Mass/Vol] 1.00 mg/dL 0.60-1.20 [facility] Eosinophils Auto (Bld) [#/Vo l]Ordered By: Terry Snowden on 08-24-2023 Eosinophils (Bld) [#/Vol] 0.0 10*3/uL 0.0-0.45 [facility] Eosinophils/100 WBC Auto (Bl d)Ordered By: Terry Snowden on 08-24-2023 Eosinophils/100 WBC (Bld) 0.2 % . [facility] Erythrocyte distribution wid th Auto (RBC) [Ratio]Ordered By: Terry Snowden on 08-24-2023 Erythrocyte distribution width (RBC) [Ratio] 14.1 % 11.9-15.3 [facility] Globulin Calc (S) [Mass/Vol] Ordered By: Terry Snowden on 08-24-2023 Globulin (S) [Mass/Vol] 3.2 g/dL [facility] Glucose [Mass/volume] in Ser um or PlasmaOrdered By: Terry Snowden on 08-24-2023 Glucose [Mass/Vol] 78 mg/dL 70-100 [facility] Comment on above: ADA recommended refe rence rangeRandom Glucose Reference Range is dependent on time and content of last meal. Glucose of more than 200 mg/dL in a nonstressed, ambulatory subject supports the diagnosis of Diabetes Mellitus. HCG ( test) IA.rapi d Ql (U)Ordered By: Terry Snowden on 08-24-2023 HCG ( test) Ql (U) Negative [facility] Hematocrit Auto (Bld) [Volum e fraction]Ordered By: Terry Snowden on 08-24-2023 Hematocrit (Bld) [Volume fraction] 39.8 % 34.0-46.4 [facility] Hemoglobin [Mass/volume] in BloodOrdered By: Terry Snowden on 08-24-2023 Hemoglobin (Bld) [Mass/Vol] 13.1 g/dL 11.8-15.4 [facility] Ketones Auto test strip (U) [Mass/Vol]Ordered By: Terry Snowden on 08-24-2023 Ketones (U) [Mass/Vol] 2+ Negative Fi [facility] - UrinalysisOrder ed By: Terry Snowden on 08-24-2023 Hyaline casts LM Ql (Urine sed) 0-8 [LPF] 0-8 [facility] Leukocytes [#/volume] correc maryam for nucleated erythrocytes in Blood by Automated counOrdered By: Terry Snowden on 08-24-2023 WBC corrected for nucl RBC Auto (Bld) [#/Vol] 9.0 10*3/uL 3.8-11.6 [facility] Lipase [Enzymatic activity/v olume] in Serum or PlasmaOrdered By: Terry Snowden on 08-24-2023 Lipase [Catalytic activity/Vol] 21.0 U/L 11.0-82.0 [facility] Lymphocytes Auto (Bld) [#/Vo l]Ordered By: Terry Snowden on 08-24-2023 Lymphocytes (Bld) [#/Vol] 3.1 10*3/uL 1.00-4.8 [facility] Lymphocytes/100 WBC Auto (Bl d)Ordered By: Terry Snowden on 08-24-2023 Lymphocytes/100 WBC (Bld) 34.7 % . [facility] MCH Auto (RBC) [Entitic mass ]Ordered By: Terry Snowden on 08-24-2023 MCH (RBC) [Entitic mass] 29.0 pg 24.7-34.3 [facility] MCHC Auto (RBC) [Mass/Vol]Or dered By: Terry Snowden on 08-24-2023 MCHC (RBC) [Mass/Vol] 32.8 g/dL 32.0-35.[address] [facility] MCV Auto (RBC) [Entitic vol] Ordered By: Terry Snowden on 08-24-2023 MCV (RBC) [Entitic vol] 88.3 fL 80-100 [facility] Monocyte distribution width [Entitic volume] in Blood by AutomatedOrdered By: Terry Snowden on 08-24-2023 Monocyte distribution width Auto (Bld) [Entitic vol] 16.99 % 0.00-20.00 [facility] Monocytes Auto (Bld) [#/Vol] Ordered By: Terry Snowden on 08-24-2023 Monocytes (Bld) [#/Vol] 0.9 10*3/uL 0.0-0.8 [facility] Monocytes/100 WBC Auto (Bld) Ordered By: Terry Snowden on 08-24-2023 Monocytes/100 WBC (Bld) 9.8 % . [facility] Neutrophils Auto (Bld) [#/Vo l]Ordered By: Terry Snowden on 08-24-2023 Neutrophils (Bld) [#/Vol] 4.8 10*3/uL 1.8-7.7 [facility] Neutrophils/100 WBC Auto (Bl d)Ordered By: Terry Snowden on 08-24-2023 Neutrophils/100 WBC (Bld) 53.6 % . [facility] Nitrite Test strip Ql (U)Ord ered By: Terry Snowden on 08-24-2023 Nitrite Ql (U) Negative Negative [facility] No Panel InformationOrdered By: Terry Snowden on 08-24-2023 Estimated GFR (CKD-EPI) > 60.0 mL/Min [facility] Creatinine Clearance (Chem 72.44 [facility] Nucleated erythrocytes [Pres ence] in Blood by Automated countOrdered By: Terry Snowden on 08-24-2023 Nucleated RBC Auto Ql (Bld) 0.1 /100{WBC} 0-0.5 [facility] Platelet mean volume Auto (B ld) [Entitic vol]Ordered By: Terry Snowden on 08-24-2023 Platelet mean volume (Bld) [Entitic vol] 9.9 fL 6.3-10.7 [facility] Platelets Auto (Bld) [#/Vol] Ordered By: Terry Snowden on 08-24-2023 Platelets (Bld) [#/Vol] 258 10*3/uL 150-450 [facility] Potassium [Moles/volume] in Serum or PlasmaOrdered By: Terry Snowden on 08-24-2023 Potassium [Moles/Vol] 4.4 mmol/L 3.5-5.1 [facility] Protein Auto test strip (U) [Mass/Vol]Ordered By: Terry Snowden on 08-24-2023 Protein (U) [Mass/Vol] 100 mg/dL Negative [facility] Protein [Mass/volume] in Ser um or PlasmaOrdered By: Terry Snowden on 08-24-2023 Protein [Mass/Vol] 7.7 g/dL 6.4-8.9 [facility] RBC Auto (Bld) [#/Vol]Ordere d By: Terry Snowden on 08-24-2023 RBC (Bld) [#/Vol] 4.51 10*6/uL 3.60-5.00 [facility] Serum or plasma albumin/glob ulin mass ratioOrdered By: Terry Snowden on 08-24-2023 Albumin/Globulin [Mass ratio] 1.4 {ratio} [facility] Serum or plasma anion gap de terminationOrdered By: Terry Snowden on 08-24-2023 Anion gap [Moles/Vol] 15.0 mmol/L 6.0-15.0 [facility] Serum or plasma non-glucuron idated bilirubin measurement (mass/volume)Ordered By: Terry Snowden on 08-24-2023 Bilirubin.indirect [Mass/Vol] 0.6 mg/dL [facility] Sodium [Moles/volume] in Ser um or PlasmaOrdered By: Terry Snowden on 08-24-2023 Sodium [Moles/Vol] 137 mmol/L 136-145 [facility] Specific gravity Auto test s trip (U) [Rel density]Ordered By: Terry Snowden on 08-24-2023 Specific gravity (U) [Rel density] 1.033 1.001-1.030 [facility] Squamous epithelial cells de tection in urine sediment by light microscopyOrdered By: Terry Snowden on 08-24-2023 Epithelial cells.squamous LM Ql (Urine sed) 0-1 [HPF] 0-2 [facility] Urea nitrogen [Mass/volume] in Serum or PlasmaOrdered By: Terry Snowden on 08-24-2023 Urea nitrogen [Mass/Vol] 13 mg/dL 7-25 [facility] Urine bacteria detection by automated methodOrdered By: Terry Snowden on 08-24-2023 Bacteria Auto Ql (U) None seen None Seen [facility] Urine clarity by refractomet ry automatedOrdered By: Terry Snowden on 08-24-2023 Clarity Refractometry automated (U) Clear Clear [facility] Urine culture routineOrdered By: Terry Snowden on 08-24-2023 Bacteria identified Cx Nom (U) 2 Days [facility] Urine glucose measurement by automated test strip (mass/volume)Ordered By: Terry Snowden on 08-24-2023 Glucose Auto test strip (U) [Mass/Vol] Normal mg/dL Normal [facility] Urine hemoglobin detection b y automated test stripOrdered By: Terry Snowden on 08-24-2023 Hemoglobin Auto test strip Ql (U) 3+ Negative [facility] Urine leukocyte esterase det ection by automated test stripOrdered By: Terry Snowden on 08-24-2023 Leukocyte esterase Auto test strip Ql (U) 1+ Negative [facility] Urobilinogen Auto test strip (U) [Mass/Vol]Ordered By: Terry Snowden on 08-24-2023 Urobilinogen (U) [Mass/Vol] Normal mg/dL Normal [facility] WBC Auto (Bld) [#/Vol]Ordere d By: Terry Snowden on 08-24-2023 WBC (Bld) [#/Vol] 9.0 10*3/uL 3.8-11.6 [facility] pH Auto test strip (U)Ordere d By: Terry Snowden on 08-24-2023 pH (U) 6.0 [pH] 5.0-9.0 [facility] Alanine aminotransferase [En zymatic activity/volume] in Serum or PlasmaOrdered By: Cuco Nails on 08-11-2023 ALT [Catalytic activity/Vol] 14 U/L 7-52 [facility] Albumin [Mass/volume] in Ser um or Plasma by Bromocresol green (BCG) dye binding methoOrdered By: Cuco Nails on 08-11-2023 Albumin BCG dye [Mass/Vol] 4.5 g/dL 3.5-5.7 [facility] Alkaline phosphatase [Enzyma tic activity/volume] in Serum or PlasmaOrdered By: Cuco Nails on 08-11-2023 ALP [Catalytic activity/Vol] 35 U/L 34-104 [facility] Aspartate aminotransferase [ Enzymatic activity/volume] in Serum or PlasmaOrdered By: Cuco Nails on 08-11-2023 AST [Catalytic activity/Vol] 12 U/L 13-39 [facility] Bilirubin.total [Mass/volume ] in Serum or PlasmaOrdered By: Cuco Nails on 08-11-2023 Bilirubin [Mass/Vol] 0.7 mg/dL 0.3-1.0 [facility] Calcium [Mass/volume] in Ser um or PlasmaOrdered By: Cuco Nails on 08-11-2023 Calcium [Mass/Vol] 9.9 mg/dL 8.6-10.3 [facility] Carbon dioxide, total [Moles /volume] in Serum or PlasmaOrdered By: Cuco Nails on 08-11-2023 CO2 [Moles/Vol] 28.0 mmol/L 21.0-31.0 [facility] Chloride [Moles/volume] in S di or PlasmaOrdered By: Cuco Nails on 08-11-2023 Chloride [Moles/Vol] 105 mmol/L 98-107 [facility] Comprehensive Metabolic Pane obey 08-11-2023 Albumin [Mass/Vol] 4.5 g/dL Normal 3.5-5.7 [facility] Comment on above: Performed By: #### C BC, CMP, HS TROP, CK #### [facility] [address] Albumin/Globulin [Mass ratio] 1.4 {ratio} Normal [facility] Comment on above: Performed By: #### C BC, CMP, HS TROP, CK #### [facility] [address] ALP [Catalytic activity/Vol] 35 U/L Normal 34-104 [facility] Comment on above: Performed By: #### C BC, CMP, HS TROP, CK #### [facility] [address] ALT [Catalytic activity/Vol] 14 U/L Normal 7-52 [facility] Comment on above: Performed By: #### C BC, CMP, HS TROP, CK #### [facility] [address] [place] [id number] [place] Anion gap [Moles/Vol] 11.2 mmol/L Normal 6.0-15.0 [facility] Comment on above: Performed By: #### C BC, CMP, HS TROP, CK #### [facility] [address] [place] [address] [place] AST [Catalytic activity/Vol] 12 U/L Low 13-39 [facility] Comment on above: Performed By: #### C BC, CMP, HS TROP, CK #### [facility] [address] Bilirubin [Mass/Vol] 0.7 mg/dL Normal 0.3-1.0 [facility] Comment on above: Performed By: #### C BC, CMP, HS TROP, CK #### [address] Calcium [Mass/Vol] 9.9 mg/dL Normal 8.6-10.3 [facility] Comment on above: Performed By: #### C BC, CMP, HS TROP, CK #### [address] Chloride [Moles/Vol] 105 mmol/L Normal 98-107 [facility] Comment on above: Performed By: #### C BC, CMP, HS TROP, CK #### [address] CO2 [Moles/Vol] 28.0 mmol/L Normal 21.0-31.0 [facility] Comment on above: Performed By: #### C BC, CMP, HS TROP, CK #### [address] Creatinine [Mass/Vol] 0.89 mg/dL Normal 0.60-1.20 [facility] Comment on above: Performed By: #### C BC, CMP, HS TROP, CK #### [place] [address] [place] GFR/1.73 sq M.predicted MDRD (S/P/Bld) [Vol rate/Area] mL/min/{1.73_m2} Normal [facility] Comment on above: Performed By: #### C BC, CMP, HS TROP, CK #### [place] [address] [place] Globulin (S) [Mass/Vol] 3.3 g/dL Normal [facility] Comment on above: Performed By: #### C BC, CMP, HS TROP, CK #### [place] [address] [place] Glucose [Mass/Vol] 76 mg/dL Normal 70-100 [facility] Comment on above: Result Comment: [facility] Glucose Reference Range is dependent on time and content of last meal. Glucose of more than 200 mg/dL in a nonstressed, ambulatory subject supports the diagnosis of Diabetes Mellitus. ADA recommended reference range Performed By: #### C BC, CMP, HS TROP, CK #### [facility] [address] Potassium [Moles/Vol] 4.2 mmol/L Normal 3.5-5.1 [facility] Comment on above: Performed By: #### C BC, CMP, HS TROP, CK #### [facility] [address] Protein [Mass/Vol] 7.8 g/dL Normal 6.4-8.9 [facility] Comment on above: Performed By: #### C BC, CMP, HS TROP, CK #### [facility] [address] Sodium [Moles/Vol] 140 mmol/L Normal 136-145 [facility] Comment on above: Performed By: #### C BC, CMP, HS TROP, CK #### [facility] [address] [place] [address] [place] Urea nitrogen [Mass/Vol] 12 mg/dL Normal 7-25 [facility] Comment on above: Performed By: #### C BC, CMP, HS TROP, CK #### [facility] [address] Creatinine [Mass/volume] in Serum or PlasmaOrdered By: Cuco Nails on 08-11-2023 Creatinine [Mass/Vol] 0.89 mg/dL 0.60-1.20 [facility] Free T4 (Free Thyroxine)on 0 08-11-2023 Free T4 [Mass/Vol] 0.91 ng/dL Normal 0.61-1.12 [facility] Comment on above: Performed By: #### C BC, CMP, HS TROP, CK #### [facility] [address] [place] [id number] [place] Globulin Calc (S) [Mass/Vol] Ordered By: Cuco Nails on 08-11-2023 Globulin (S) [Mass/Vol] 3.3 g/dL F [facility] Glucose [Mass/volume] in Ser um or PlasmaOrdered By: Cuco Nails on 08-11-2023 Glucose [Mass/Vol] 76 mg/dL 70-100 [facility] Comment on above: ADA recommended refe rence rangeRandom Glucose Reference Range is dependent on time and content of last meal. Glucose of more than 200 mg/dL in a nonstressed, ambulatory subject supports the diagnosis of Diabetes Mellitus. No Panel InformationOrdered By: Cuco Nails on 08-11-2023 Estimated GFR (CKD-EPI) > 60.0 mL/Min [facility] Creatinine Clearance (Chem N/A [facility] Potassium [Moles/volume] in Serum or PlasmaOrdered By: Cuco Nails on 08-11-2023 Potassium [Moles/Vol] 4.2 mmol/L 3.5-5.1 [facility] Protein [Mass/volume] in Ser um or PlasmaOrdered By: Cuco Nails on 08-11-2023 Protein [Mass/Vol] 7.8 g/dL 6.4-8.9 [facility] Serum or plasma albumin/glob ulin mass ratioOrdered By: Cuco Nails on 08-11-2023 Albumin/Globulin [Mass ratio] 1.4 {ratio} [facility] Serum or plasma anion gap de terminationOrdered By: Cuco Nails on 08-11-2023 Anion gap [Moles/Vol] 11.2 mmol/L 6.0-15.0 [facility] Sodium [Moles/volume] in Ser um or PlasmaOrdered By: Cuco Nails on 08-11-2023 Sodium [Moles/Vol] 140 mmol/L 136-145 [facility] Thyroid Stim Hormone w/Rflxo n 08-11-2023 Thyroid Stim Hormone w/Rflx 1.72 u[iU]/mL Normal 0.45-5.33 [facility] Comment on above: Result Comment: PERF ORMED BY: [facility] [address] [place] [address] PATHOLOGIST DIRECTOR OF MECHANICAL ENGINEERING KISHA CHING M.D. Performed By: #### C BC, CMP, HS TROP, CK #### [place] [id number] [place] Thyrotropin [Units/volume] i n Serum or PlasmaOrdered By: Cuco Nails on 08-11-2023 TSH Qn 1.72 m[IU]/L 0.45-5.33 [facility] Thyroxine (T4) free [Mass/vo lume] in Serum or PlasmaOrdered By: Cuco Nails on 08-11-2023 Free T4 [Mass/Vol] 0.91 ng/dL 0.61-1.12 [facility] Urea nitrogen [Mass/volume] in Serum or PlasmaOrdered By: Cuco Nails on 08-11-2023 Urea nitrogen [Mass/Vol] 12 mg/dL 7- [facility] ECG 12 lead ECGon 08-10-2023 ECG 12 lead ECG [facility] Main [place] [address] [place] [address] Electrocardiograph Report Signed Patient: Niraj Jensen MR#: [id number] : 2000 Acct:[id number] Age/Sex: 22 / F ADM Date: 08/10/23 Loc: [facility] Room: Type: [facility] Attending Dr: Cuco Nails MD Ordering Provider: Cuco Nails MD Date of Service: 08/10/2305/23/1050 ECG/ECG 12 lead ECG: R55 - Syncope and collapse Copies to: Test Reason : Blood Pressure : / mmHG Vent. Rate : 075 BPM Atrial Rate : 075 BPM P-R Int : 128 ms QRS Dur : 084 ms QT Int : 362 ms P-R-T Axes : 075 090 064 degrees QTc Int : 404 ms Normal sinus rhythm with sinus arrhythmia Rightward axis Borderline ECG When compared with ECG of 24-NOV-2022 19:47, No significant change was found Confirmed by Cuco Nails ([id number]) on 08/11/2023 2:40:31 PM Referred By: Electronically Signed By:Cuco Nails Transcribed By: MUS Signed By Cuco Nails MD 08/11/23 1440 Normal [facility] XR foot RT min 3V*on 023 XR foot RT min 3V* [facility] Main [address] [address] XRay Report Signed Patient: Niraj Jensen MR#: [id number] : 2000 Acct:[id number] Age/Sex: 22 / F ADM Date: 03/18/23 Loc: ER Room: Type: [facility] ER Attending Dr: Copies to: Mich Diaz DO Ordering Provider: Mich Diaz DO Date of Service: 03/18/23 XR/XR ankle RT min 3V*: Extremity Injury, Lower ([id number]) XR/XR foot RT min 3V*: Extremity Injury, Lower 3 views RIGHT ankle plain film COMPARISON: None HISTORY: Fell injuring dorsum of the foot. ACUTE FINDINGS: None DEGENERATIVE CHANGE: Unremarkable SOFT TISSUE FINDINGS: Unremarkable JOINT EFFUSION: None POSTOP CHANGES: None BONE MINERALIZATION: Adequate XR/XR ankle RT min 3V* IMPRESSION: No acute findings. 3 views RIGHT foot No fracture or dislocation. IMPRESSION: No fracture. Impression dictated by: Dwight Ellington M.D.03/19/2023 8:32 AM Dictation Location: [place] [address] Transcribed By: [facility] 03/19/23831 Dictated By: Dwight Ellington DO 03/19/23830 Signed By: 03/19/23831 Normal [facility] [place] cardiac event monitoron 0 12-22-2022 [place] cardiac event monitor [facility] Main [address] [address] Cardiac Event Monitor Signed Patient: Niraj Jensen MR#: [id number] : 2000 Acct:[id number] Age/Sex: 22 / F ADM Date: 11/21/22 Loc: EL Room: Type: [facility] CLI Attending Dr: Calli Blanc APRN, SHELL WORKER-C Copies to: Jane Salcido MD, [facility] Calli Blanc APRN,TRAPEZE PERFORMER Ordering Provider: Calli Blanc APRN,TRAPEZE PERFORMER Date of Service: 11/21/22 CA/CA cardiac event monitor: Syncope, unspecified syncope type 30-day Event Monitor, started 11/21/2022, ended 12/20/2022, for syncope. All tracings were reviewed. All of them demonstrated normal sinus rhythm with a heart rate between 78 beats per minute and 173 beats per minute. The patient's diary had symptoms for lightheadedness and heart racing, which were associated with sinus tachycardia. CONCLUSION: A 30-day event monitor revealed no arrhythmias with sinus tachycardia seen intermittently with a heart rate as fast as 173 beats per minute. Occasional palpitations and heart racing and feeling dizzy and fainting were noted associated with sinus tachycardia; however, when the patient has the fastest heart rate of 173 beats per minute, she was totally asymptomatic. The findings of the 30-day event monitor do not explain the patient's symptoms of syncope. Transcribed By: NTS 12/22/22 1808 Dictated By: Jane Salcido MD, [facility] 12/22/22 1702 Signed By: 12/23/22 1617 Normal [facility] CT angio chest PE protocolon 11-25-2022 CT angio chest PE protocol [facility] [place] [address] CT Scan Report Signed Patient: Niraj Jensen MR#: [id number] : 2000 Acct:[id number] Age/Sex: 22 / F ADM Date: 11/24/22 Loc: ER Room: Type: [facility] ER Attending Dr: Copies to: bAhay Hendricks DO Ordering Provider: Abhay Hendricks DO Date of Service: 11/24/22 CT/CT angio chest PE protocol: tachy, presyncopal CT ANGIOGRAM OF THE CHEST, PULMONARY EMBOLISM PROTOCOL: CLINICAL INFORMATION: Tachycardia, presyncope, vomiting. COMPARISON: None TECHNIQUE: Following intravenous injection of contrast CT scans of the chest were obtained using pulmonary embolism protocol. Coronal and sagittal reconstructed images, as well as volume rendered CT pulmonary angiographic images were also submitted.The CT exam was performed using one or more of the following dose reduction techniques: Automated exposure control, adjustment of the MA and/or Kv according to patient size, or use of the iterative reconstruction technique. FINDINGS: Pulmonary Vasculature: Contrast bolus is adequate for evaluation of pulmonary embolism. Pulmonary trunk appears nondilated. No filling defects are identified to suggest pulmonary embolism. Mediastinum : Thoracic aorta is normal in caliber. No pericardial effusion. No lymphadenopathy. The esophagus is grossly unremarkable. Lungs: No focal consolidation, pneumothorax or pleural effusion. Upper abdomen: No acute findings Soft tissue/bones: Soft tissues surrounding the chest wall demonstrate no acute findings. Osseous structures no acute findings. CT/CT angio chest PE protocol IMPRESSION: NO EVIDENCE OF ACUTE PULMONARY EMBOLISM OR PROCESS. Impression dictated by: Marc Dumont Jr., D.OMarlena11/25/2022 8:21 AM Dictation Location: [place] [address] Transcribed By: [facility] 11/25/22820 Dictated By: Marc Dumont Jr, DO 11/25/22809 Signed By: 11/25/22820 Normal [facility] Alanine aminotransferase [En zymatic activity/volume] in Serum or PlasmaOrdered By: Abhay Hendricks on 11-24-2022 ALT [Catalytic activity/Vol] 12 U/L 7-52 [facility] Albumin [Mass/volume] in Ser um or Plasma by Bromocresol green (BCG) dye binding methoOrdered By: Abhay Hendricks on 11-24-2022 Albumin BCG dye [Mass/Vol] 4.7 g/dL 3.5-5.7 [facility] Alkaline phosphatase [Enzyma tic activity/volume] in Serum or PlasmaOrdered By: Abhay Hendricks on 11-24-2022 ALP [Catalytic activity/Vol] 40 U/L 34-104 [facility] Aspartate aminotransferase [ Enzymatic activity/volume] in Serum or PlasmaOrdered By: Abhay Hendricks on 11-24-2022 AST [Catalytic activity/Vol] 15 U/L 13-39 [facility] Automated erythrocytes count in urine sediment (number/area)Ordered By: Abhay Hendricks on 11-24-2022 RBC Auto (Urine sed) [#/Area] 20-49 [HPF] 0-4 [facility] Automated leukocytes count i n urine sediment (number/area)Ordered By: Abhay Hendricks on 11-24-2022 WBC Auto (Urine sed) [#/Area] 5-9 [HPF] 0-4 [facility] Basophils Auto (Bld) [#/Vol] Ordered By: Abhay Hendricks on 11-24-2022 Basophils (Bld) [#/Vol] 0.1 10*3/uL 0.0-0.2 [facility] Basophils/100 WBC Auto (Bld) Ordered By: Abhay Hendricks on 11-24-2022 Basophils/100 WBC (Bld) 1.1 % . [facility] Bilirubin Test strip Ql (U)O rdered By: Abhay Hendricks on 11-24-2022 Bilirubin Ql (U) Negative Negative [facility] Bilirubin.total [Mass/volume ] in Serum or PlasmaOrdered By: Abhay Hendricks on 11-24-2022 Bilirubin [Mass/Vol] 0.2 mg/dL 0.3-1.0 [facility] Calcium [Mass/volume] in Ser um or PlasmaOrdered By: Abhay Hendricks on 11-24-2022 Calcium [Mass/Vol] 9.3 mg/dL 8.6-10.3 [facility] Carbon dioxide, total [Moles /volume] in Serum or PlasmaOrdered By: Abhay Hendricks on 11-24-2022 CO2 [Moles/Vol] 22.1 mmol/L 21.0-31.0 [facility] Chloride [Moles/volume] in S id or PlasmaOrdered By: Abhay Hendricks on 11-24-2022 Chloride [Moles/Vol] 110 mmol/L 98-107 [facility] Color Auto (U)Ordered By: Fernando Hendricks on 11-24-2022 Color (U) Yellow Yellow [facility] Complete Blood Count Auto Di ffon 11-24-2022 Basophils (Bld) [#/Vol] 0.1 10*3/uL Normal 0.0-0.2 [facility] Comment on above: Result Comment: PERF ORMED BY: [facility] [address] [place] [address] PATHOLOGIST DIRECTOR OF MECHANICAL ENGINEERING KISHA CHING M.D. Performed By: #### C BC, CMP, HS TROP, CK #### [facility] [address] Basophils/100 WBC (Bld) 1.1 % Normal . T jacqueline [facility] Comment on above: Performed By: #### C BC, CMP, HS TROP, CK #### [address] Eosinophils (Bld) [#/Vol] 0.0 10*3/uL Normal 0.0-0.45 [facility] Comment on above: Performed By: #### C BC, CMP, HS TROP, CK #### [address] Eosinophils/100 WBC (Bld) 0.4 % Normal . [facility] Comment on above: Performed By: #### C BC, CMP, HS TROP, CK #### [address] Erythrocyte distribution width (RBC) [Ratio] 13.0 % Normal 11.9-15.3 [facility] Comment on above: Performed By: #### C BC, CMP, HS TROP, CK #### [address] Hematocrit (Bld) [Volume fraction] 37.4 % Normal 34.0-46.4 [facility] Comment on above: Performed By: #### C BC, CMP, HS TROP, CK #### [address] Hemoglobin (Bld) [Mass/Vol] 12.5 g/dL Normal 11.8-15.4 [facility] Comment on above: Performed By: #### C BC, CMP, HS TROP, CK #### [address] Lymphocytes (Bld) [#/Vol] 1.1 10*3/uL Normal 1.00-4.8 [facility] Comment on above: Performed By: #### C BC, CMP, HS TROP, CK #### [address] Lymphocytes/100 WBC (Bld) 12.4 % Normal . [facility] Comment on above: Performed By: #### C BC, CMP, HS TROP, CK #### [address] MCH (RBC) [Entitic mass] 29.7 pg Normal 24.7-34.3 [facility] Comment on above: Performed By: #### C BC, CMP, HS TROP, CK #### [address] MCV (RBC) [Entitic vol] 89.4 fL Normal 80-100 [facility] Comment on above: Performed By: #### C BC, CMP, HS TROP, CK #### [address] Mean Corpuscular HGB Conc 33.3 g/dL Normal 32.0-35.0 [facility] Comment on above: Performed By: #### C BC, CMP, HS TROP, CK #### [address] Monocytes (Bld) [#/Vol] 0.9 10*3/uL High 0.0-0.8 [facility] Comment on above: Performed By: #### C BC, CMP, HS TROP, CK #### [address] Monocytes/100 WBC (Bld) 18.86 % Normal 0.00-20.00 [facility] Comment on above: Performed By: #### C BC, CMP, HS TROP, CK #### [address] Monocytes/100 WBC (Bld) 9.7 % Normal . [facility] Comment on above: Performed By: #### C BC, CMP, HS TROP, CK #### [address] Neutrophils (Bld) [#/Vol] 6.9 10*3/uL Normal 1.8-7.7 [facility] Comment on above: Performed By: #### C BC, CMP, HS TROP, CK #### [place] [address] [place] Neutrophils/100 WBC (Bld) 76.4 % Normal . [facility] Comment on above: Performed By: #### C BC, CMP, HS TROP, CK #### [address] NRBC% 0.1 /100{WBC} Normal 0-0.5 [facility] Comment on above: Performed By: #### C BC, CMP, HS TROP, CK #### [address] Platelet mean volume (Bld) [Entitic vol] 9.3 fL Normal 6.3-10.7 [facility] Comment on above: Performed By: #### C BC, CMP, HS TROP, CK #### [address] Platelets (Bld) [#/Vol] 271 10*3/uL Normal 150-450 [facility] Comment on above: Performed By: #### C BC, CMP, HS TROP, CK #### [address] RBC (Bld) [#/Vol] 4.19 10*6/uL Normal 3.60-5.00 [facility] Comment on above: Performed By: #### C BC, CMP, HS TROP, CK #### [address] WBC (Bld) [#/Vol] 9.0 10*3/uL Normal 3.8-11.6 [facility] Comment on above: Performed By: #### C BC, CMP, HS TROP, CK #### [address] Comprehensive Metabolic Pane obey 11-24-2022 Albumin [Mass/Vol] 4.7 g/dL Normal 3.5-5.7 [facility] Comment on above: Performed By: #### C BC, CMP, HS TROP, CK #### [address] Albumin/Globulin [Mass ratio] 1.9 {ratio} Normal [facility] Comment on above: Performed By: #### C BC, CMP, HS TROP, CK #### [facility] [address] ALP [Catalytic activity/Vol] 40 U/L Normal 34-104 [facility] Comment on above: Performed By: #### C BC, CMP, HS TROP, CK #### [facility] [address] [place] [address] [place] ALT [Catalytic activity/Vol] 12 U/L Normal 7-52 [facility] Comment on above: Performed By: #### C BC, CMP, HS TROP, CK #### [facility] [address] Anion gap [Moles/Vol] 13.1 mmol/L Normal 6.0-15.0 [facility] e [facility] Comment on above: Performed By: #### C BC, CMP, HS TROP, CK #### [facility] [address] AST [Catalytic activity/Vol] 15 U/L Normal 13-39 [facility] Comment on above: Performed By: #### C BC, CMP, HS TROP, CK #### [facility] [address] [place] [address] [place] Bilirubin [Mass/Vol] 0.2 mg/dL Low 0.3-1.0 [facility] Comment on above: Performed By: #### C BC, CMP, HS TROP, CK #### [facility] [address] [place] [address] [place] Calcium [Mass/Vol] 9.3 mg/dL Normal 8.6-10.3 [facility] Comment on above: Performed By: #### C BC, CMP, HS TROP, CK #### [facility] [address] [place] [address] [place] Chloride [Moles/Vol] 110 mmol/L High 98-107 [facility] Comment on above: Performed By: #### C BC, CMP, HS TROP, CK #### [facility] [address] [place] [address] [place] CO2 [Moles/Vol] 22.1 mmol/L Normal 21.0-31.0 [facility] Comment on above: Performed By: #### C BC, CMP, HS TROP, CK #### [address] Creatinine [Mass/Vol] 0.89 mg/dL Normal 0.60-1.20 [facility] Comment on above: Performed By: #### C BC, CMP, HS TROP, CK #### [place] [address] [place] Creatinine Clr Calc Pharmacy 90.32 Normal [facility] Comment on above: Result Comment: PERF ORMED BY: [place] [address] PATHOLOGIST DIRECTOR OF MECHANICAL ENGINEERING KISHA CHING M.D. Performed By: #### C BC, CMP, HS TROP, CK #### [address] GFR/1.73 sq M.predicted MDRD (S/P/Bld) [Vol rate/Area] mL/min/{1.73_m2} Normal [facility] Comment on above: Performed By: #### C BC, CMP, HS TROP, CK #### [address] Globulin (S) [Mass/Vol] 2.5 g/dL Normal T he [facility] Comment on above: Performed By: #### C BC, CMP, HS TROP, CK #### [address] Glucose [Mass/Vol] 114 mg/dL High 70-100 [facility] Comment on above: Result Comment: [place] Glucose Reference Range is dependent on time and content of last meal. Glucose of more than 200 mg/dL in a nonstressed, ambulatory subject supports the diagnosis of Diabetes Mellitus. ADA recommended reference range Performed By: #### C BC, CMP, HS TROP, CK #### [address] Potassium [Moles/Vol] 4.2 mmol/L Normal 3.5-5.1 [facility] Comment on above: Performed By: #### C BC, CMP, HS TROP, CK #### [facility] [address] Protein [Mass/Vol] 7.2 g/dL Normal 6.4-8.9 [facility] Comment on above: Performed By: #### C BC, CMP, HS TROP, CK #### [facility] [address] Sodium [Moles/Vol] 141 mmol/L Normal 136-145 [facility] Comment on above: Performed By: #### C BC, CMP, HS TROP, CK #### [facility] [address] Urea nitrogen [Mass/Vol] 13 mg/dL Normal 7-25 [facility] Comment on above: Performed By: #### C BC, CMP, HS TROP, CK #### [place] [address] [place] Creatine Kinaseon 11-24-2022 CK [Catalytic activity/Vol] 50 U/L Normal 30-223 [facility] Comment on above: Performed By: #### C BC, CMP, HS TROP, CK #### [address] Creatine kinase [Enzymatic a ctivity/volume] in Serum or PlasmaOrdered By: Abhay Hendricks on 11-24-2022 CK [Catalytic activity/Vol] 50 U/L 30-223 [facility] Creatinine [Mass/volume] in Serum or PlasmaOrdered By: Abhay Hendricks on 11-24-2022 Creatinine [Mass/Vol] 0.89 mg/dL 0.60-1.20 [facility] Dipstick and Microscopicon 0 11-24-2022 Appearance (U) Clear Normal Clear [facility] Comment on above: Order Comment: Name Collection Type:: Clean-Voided Midstream Performed By: #### C BC, CMP, HS TROP, CK #### [address] Bacteria,Urine None Seen Normal None Seen [facility] Comment on above: Order Comment: Name Collection Type:: Clean-Voided Midstream Performed By: #### C BC, CMP, HS TROP, CK #### [address] Bilirubin,Urine Negative Normal Negative [facility] Comment on above: Order Comment: Name Collection Type:: Clean-Voided Midstream Performed By: #### C BC, CMP, HS TROP, CK #### [address] Color (U) Yellow Normal Yellow [facility] Comment on above: Order Comment: Name Collection Type:: Clean-Voided Midstream Performed By: #### C BC, CMP, HS TROP, CK #### [address] Glucose Ql (U) Normal Normal Normal [facility] Comment on above: Order Comment: Name Collection Type:: Clean-Voided Midstream Performed By: #### C BC, CMP, HS TROP, CK #### [address] Hyaline Casts,Urine None Seen Normal 0-8 [facility] Comment on above: Order Comment: Name Collection Type:: Clean-Voided Midstream Performed By: #### C BC, CMP, HS TROP, CK #### [address] Ketones Ql (U) Trace High Negative [facility] Comment on above: Order Comment: Name Collection Type:: Clean-Voided Midstream Performed By: #### C BC, CMP, HS TROP, CK #### [address] Leukocyte esterase Test strip Ql (U) 1+ High Negative [facility] Comment on above: Order Comment: Name Collection Type:: Clean-Voided Midstream Performed By: #### C BC, CMP, HS TROP, CK #### [address] Nitrite,Urine Negative Normal Negative [facility] Comment on above: Order Comment: Name Collection Type:: Clean-Voided Midstream Performed By: #### C BC, CMP, HS TROP, CK #### [address] Occult Blood,Urine 3+ High Negative [facility] Comment on above: Order Comment: Name Collection Type:: Clean-Voided Midstream Performed By: #### C BC, CMP, HS TROP, CK #### [address] pH (U) 5.5 [pH] Normal 5.0-9.0 [facility] Comment on above: Order Comment: Name Collection Type:: Clean-Voided Midstream Performed By: #### C BC, CMP, HS TROP, CK #### [address] Protein,Urine Trace High Negative [facility] Comment on above: Order Comment: Name Collection Type:: Clean-Voided Midstream Performed By: #### C BC, CMP, HS TROP, CK #### [address] RBC,Urine 20-49 High 0-4 [facility] Comment on above: Order Comment: Name Collection Type:: Clean-Voided Midstream Performed By: #### C BC, CMP, HS TROP, CK #### [address] Specificy [place],Urine 1.028 Normal 1.001-1.030 [facility] Comment on above: Order Comment: Name Collection Type:: Clean-Voided Midstream Performed By: #### C BC, CMP, HS TROP, CK #### [address] Squamous Epithelial Cell,Urine 0-1 Normal 0-2 [facility] Comment on above: Order Comment: Name Collection Type:: Clean-Voided Midstream Performed By: #### C BC, CMP, HS TROP, CK #### [address] Urobilinogen,Urine Normal Normal Normal [facility] Comment on above: Order Comment: Name Collection Type:: Clean-Voided Midstream Performed By: #### C BC, CMP, HS TROP, CK #### [address] [place] [address] [place] WBC,Urine 5-9 High 0-4 [facility] Comment on above: Order Comment: Name Collection Type:: Clean-Voided Midstream Performed By: #### C BC, CMP, HS TROP, CK #### [facility] [address] [place] [id number] [place] ECG 12 lead ECGon 11-24-2022 ECG 12 lead ECG [facility] [place] [address] [place] [address] Electrocardiograph Report Signed Patient: Niraj Jensen MR#: [id number] : 2000 Acct:[id number] Age/Sex: 22 / F ADM Date: 11/24/22 Loc: ER Room: Type: [facility] ER Attending Dr: Ordering Provider: Abhay Hendricks DO Date of Service: 11/24/22 ECG/ECG 12 lead ECG: Syncope Copies to: Test Reason : Blood Pressure : 154/086 mmHG Vent. Rate : 105 BPM Atrial Rate : 105 BPM P-R Int : 124 ms QRS Dur : 076 ms QT Int : 318 ms P-R-T Axes : 081 091 048 degrees QTc Int : 420 ms Sinus tachycardia When compared with ECG of 19-NOV-2022 20:27, No significant change was found Confirmed by Abhay HENDRICKS DO ([id number]) on 11/24/2022 10:09:13 PM Referred By: Electronically Signed By:Abhay HENDRICKS DO Transcribed By: MUS Signed By Abhay Hendricks DO 0 11/24/222208 Normal [facility] Eosinophils Auto (Bld) [#/Vo l]Ordered By: Abhay Hendricks on 11-24-2022 Eosinophils (Bld) [#/Vol] 0.0 10*3/uL 0.0-0.45 [facility] Eosinophils/100 WBC Auto (Bl d)Ordered By: Abhay Hendricks on 11-24-2022 Eosinophils/100 WBC (Bld) 0.4 % . [facility] Erythrocyte distribution wid th Auto (RBC) [Ratio]Ordered By: Abhay Hendricks on 11-24-2022 Erythrocyte distribution width (RBC) [Ratio] 13.0 % 11.9-15.3 [facility] Globulin Calc (S) [Mass/Vol] Ordered By: Abhay Hendricks on 11-24-2022 Globulin (S) [Mass/Vol] 2.5 g/dL F [facility] Glucose [Mass/volume] in Ser um or PlasmaOrdered By: Abhay Hendricks on 11-24-2022 Glucose [Mass/Vol] 114 mg/dL 70-100 [facility] Comment on above: ADA recommended refe rence rangeRandom Glucose Reference Range is dependent on time and content of last meal. Glucose of more than 200 mg/dL in a nonstressed, ambulatory subject supports the diagnosis of Diabetes Mellitus. HCG ( test) IA.rapi d Ql (U)Ordered By: Abhay Hendricks on 11-24-2022 HCG ( test) Ql (U) Negative [facility] HCG,Urineon 11-24-2022 Beta HCG ( test) Ql (U) Negative Normal [facility] Comment on above: Order Comment: Name Collection Type:: Clean-Voided Midstream Result Comment: PERF ORMED BY: [place] [address] PATHOLOGIST DIRECTOR OF MECHANICAL ENGINEERING KISHA CHING M.D. Performed By: #### C BC, CMP, HS TROP, CK #### [address] Hematocrit Auto (Bld) [Volum e fraction]Ordered By: Abhay Hendricks on 11-24-2022 Hematocrit (Bld) [Volume fraction] 37.4 % 34.0-46.4 [facility] Hemoglobin [Mass/volume] in BloodOrdered By: Abhay Hendricks on 11-24-2022 Hemoglobin (Bld) [Mass/Vol] 12.5 g/dL 11.8-15.4 [facility] Ketones Auto test strip (U) [Mass/Vol]Ordered By: Abhay Hendricks on 11-24-2022 Ketones (U) [Mass/Vol] Trace Negative [facility] Laboratory - UrinalysisOrder ed By: Abhay Hendricks on 11-24-2022 Hyaline casts LM Ql (Urine sed) None seen [LPF] 0-8 [facility] Leukocytes [#/volume] correc maryam for nucleated erythrocytes in Blood by Automated counOrdered By: Abhay Hendricks on 11-24-2022 WBC corrected for nucl RBC Auto (Bld) [#/Vol] 9.0 10*3/uL 3.8-11.6 [facility] Lymphocytes Auto (Bld) [#/Vo l]Ordered By: Abhay Hendricks on 11-24-2022 Lymphocytes (Bld) [#/Vol] 1.1 10*3/uL 1.00-4.8 [facility] Lymphocytes/100 WBC Auto (Bl d)Ordered By: Abhay Hendricks on 11-24-2022 Lymphocytes/100 WBC (Bld) 12.4 % . [facility] MCH Auto (RBC) [Entitic mass ]Ordered By: Abhay Hendricks on 11-24-2022 MCH (RBC) [Entitic mass] 29.7 pg 24.7-34.3 [facility] MCHC Auto (RBC) [Mass/Vol]Or dered By: Abhay Hendricks on 11-24-2022 MCHC (RBC) [Mass/Vol] 33.3 g/dL 32.0-35.[address] [facility] MCV Auto (RBC) [Entitic vol] Ordered By: Abhay Hendricks on 11-24-2022 MCV (RBC) [Entitic vol] 89.4 fL 80-100 F [facility] Monocyte distribution width [Entitic volume] in Blood by AutomatedOrdered By: Abhay Hendricks on 11-24-2022 Monocyte distribution width Auto (Bld) [Entitic vol] 18.86 % 0.00-20.00 [facility] Monocytes Auto (Bld) [#/Vol] Ordered By: Abhay Hendricks on 11-24-2022 Monocytes (Bld) [#/Vol] 0.9 10*3/uL 0.0-0.8 [facility] Monocytes/100 WBC Auto (Bld) Ordered By: Abhay Hendricks on 11-24-2022 Monocytes/100 WBC (Bld) 9.7 % . [facility] Neutrophils Auto (Bld) [#/Vo l]Ordered By: Abhay Hendricks on 11-24-2022 Neutrophils (Bld) [#/Vol] 6.9 10*3/uL 1.8-7.7 [facility] Neutrophils/100 WBC Auto (Bl d)Ordered By: Abhay Hendricks on 11-24-2022 Neutrophils/100 WBC (Bld) 76.4 % . [facility] Nitrite Test strip Ql (U)Ord ered By: Abhay Hendricks on 11-24-2022 Nitrite Ql (U) Negative Negative [facility] No Panel InformationOrdered By: Abhay Hendricks on 11-24-2022 Estimated GFR (CKD-EPI) > 60.0 mL/Min [facility] Creatinine Clearance (Chem 90.32 [facility] Nucleated erythrocytes [Pres ence] in Blood by Automated countOrdered By: Abhay Hendricks on 11-24-2022 Nucleated RBC Auto Ql (Bld) 0.1 /100{WBC} 0-0.5 [facility] Platelet mean volume Auto (B ld) [Entitic vol]Ordered By: Abhay Hendricks on 11-24-2022 Platelet mean volume (Bld) [Entitic vol] 9.3 fL 6.3-10.7 [facility] Platelets Auto (Bld) [#/Vol] Ordered By: Abhay Hendricks on 11-24-2022 Platelets (Bld) [#/Vol] 271 10*3/uL 150-450 [facility] Potassium [Moles/volume] in Serum or PlasmaOrdered By: Abhay Hendricks on 11-24-2022 Potassium [Moles/Vol] 4.2 mmol/L 3.5-5.1 [facility] Protein Auto test strip (U) [Mass/Vol]Ordered By: Abhay Hendricks on 11-24-2022 Protein (U) [Mass/Vol] Trace mg/dL Negative F [facility] Protein [Mass/volume] in Ser um or PlasmaOrdered By: Abhay Hendricks on 11-24-2022 Protein [Mass/Vol] 7.2 g/dL 6.4-8.9 [facility] RBC Auto (Bld) [#/Vol]Ordere d By: Abhay Hendricks on 11-24-2022 RBC (Bld) [#/Vol] 4.19 10*6/uL 3.60-5.00 [facility] Serum or plasma albumin/glob ulin mass ratioOrdered By: Abhay Hendricks on 11-24-2022 Albumin/Globulin [Mass ratio] 1.9 {ratio} [facility] Serum or plasma anion gap de terminationOrdered By: Abhay Hendricks on 11-24-2022 Anion gap [Moles/Vol] 13.1 mmol/L 6.0-15.0 [facility] Sodium [Moles/volume] in Ser um or PlasmaOrdered By: Abhay Hendricks on 11-24-2022 Sodium [Moles/Vol] 141 mmol/L 136-145 [facility] Specific gravity Auto test s trip (U) [Rel density]Ordered By: Abhay Hendricks on 11-24-2022 Specific gravity (U) [Rel density] 1.028 1.001-1.030 [facility] Squamous epithelial cells de tection in urine sediment by light microscopyOrdered By: Abhay Hendricks on 11-24-2022 Epithelial cells.squamous LM Ql (Urine sed) 0-1 [HPF] 0-2 [facility] Troponin I High Sensitivityo n 11-24-2022 Troponin I High Sensitivity 3.9 pg/mL Normal 0.0-15.0 [facility] Comment on above: Result Comment: PERF ORMED BY: [place] [address] PATHOLOGIST DIRECTOR OF MECHANICAL ENGINEERING KISHA CHING M.D. Performed By: #### C BC, CMP, HS TROP, CK #### [address] Troponin I.cardiac [Mass/vol ume] in Serum or Plasma by Detection limit <= 0.01 ng/Ordered By: Abhay Hendricks on 11-24-2022 Troponin I.cardiac DL <= 0.01 ng/mL [Mass/Vol] 3.9 pg/mL 0.0-15.0 [facility] Urea nitrogen [Mass/volume] in Serum or PlasmaOrdered By: Abhay Hendricks on 11-24-2022 Urea nitrogen [Mass/Vol] 13 mg/dL 7-25 [facility] Urine Cultureon 11-24-2022 Bacteria identified Cx Nom (U) 75,000 colonies/ml mixed bacterial skin contaminants 2 Days PERFORMED BY: [address] [place] [address] PATHOLOGIST DIRECTOR OF MECHANICAL ENGINEERING KISHA CHING M.D. Normal [facility] Comment on above: Performed By: #### C BC, CMP, HS TROP, CK #### [address] Urine bacteria detection by automated methodOrdered By: Abhay Hendricks on 11-24-2022 Bacteria Auto Ql (U) None seen None Seen [facility] Urine clarity by refractomet ry automatedOrdered By: Abhay Hendricks on 11-24-2022 Clarity Refractometry automated (U) Clear Clear [facility] Urine glucose measurement by automated test strip (mass/volume)Ordered By: Abhay Hendricks on 11-24-2022 Glucose Auto test strip (U) [Mass/Vol] Normal mg/dL Normal [facility] Urine hemoglobin detection b y automated test stripOrdered By: Abhay Hendricks on 11-24-2022 Hemoglobin Auto test strip Ql (U) 3+ Negative [facility] Urine leukocyte esterase det ection by automated test stripOrdered By: Abhay Hendricks on 11-24-2022 Leukocyte esterase Auto test strip Ql (U) 1+ Negative [facility] Urobilinogen Auto test strip (U) [Mass/Vol]Ordered By: Abhay Hendricks on 11-24-2022 Urobilinogen (U) [Mass/Vol] Normal mg/dL Normal [facility] WBC Auto (Bld) [#/Vol]Ordere d By: Abhay Hendricks on 11-24-2022 WBC (Bld) [#/Vol] 9.0 10*3/uL 3.8-11.6 [facility] pH Auto test strip (U)Ordere d By: Abhay Hendricks on 11-24-2022 pH (U) 5.5 [pH] 5.0-9.0 [facility] Complete Blood Count Auto Di ffon 11-20-2022 Basophils (Bld) [#/Vol] 0.1 10*3/uL Normal 0.0-0.2 [facility] Comment on above: Result Comment: PERF ORMED BY: [place] [address] PATHOLOGIST DIRECTOR OF MECHANICAL ENGINEERING KISHA CHING M.D. Performed By: #### C BC, CMP, HS TROP, CK #### [address] Basophils/100 WBC (Bld) 1.3 % Normal . T jacqueline [facility] Comment on above: Performed By: #### C BC, CMP, HS TROP, CK #### [address] Eosinophils (Bld) [#/Vol] 0.1 10*3/uL Normal 0.0-0.45 [facility] Comment on above: Performed By: #### C BC, CMP, HS TROP, CK #### [address] Eosinophils/100 WBC (Bld) 0.6 % Normal . [facility] Comment on above: Performed By: #### C BC, CMP, HS TROP, CK #### [address] Erythrocyte distribution width (RBC) [Ratio] 13.2 % Normal 11.9-15.3 [facility] Comment on above: Performed By: #### C BC, CMP, HS TROP, CK #### [address] Hematocrit (Bld) [Volume fraction] 39.6 % Normal 34.0-46.4 [facility] Comment on above: Performed By: #### C BC, CMP, HS TROP, CK #### [address] Hemoglobin (Bld) [Mass/Vol] 13.2 g/dL Normal 11.8-15.4 [facility] Comment on above: Performed By: #### C BC, CMP, HS TROP, CK #### [address] Lymphocytes (Bld) [#/Vol] 2.0 10*3/uL Normal 1.00-4.8 [facility] Comment on above: Performed By: #### C BC, CMP, HS TROP, CK #### [address] Lymphocytes/100 WBC (Bld) 21.4 % Normal . [facility] Comment on above: Performed By: #### C BC, CMP, HS TROP, CK #### [address] MCH (RBC) [Entitic mass] 29.7 pg Normal 24.7-34.3 [facility] Comment on above: Performed By: #### C BC, CMP, HS TROP, CK #### [address] MCV (RBC) [Entitic vol] 89.0 fL Normal 80-100 [facility] Comment on above: Performed By: #### C BC, CMP, HS TROP, CK #### [address] Mean Corpuscular HGB Conc 33.3 g/dL Normal 32.0-35.0 [facility] Comment on above: Performed By: #### C BC, CMP, HS TROP, CK #### [address] Monocytes (Bld) [#/Vol] 0.9 10*3/uL High 0.0-0.8 [facility] Comment on above: Performed By: #### C BC, CMP, HS TROP, CK #### [place] [address] [place] Monocytes/100 WBC (Bld) 17.34 % Normal 0.00-20.00 [facility] Comment on above: Performed By: #### C BC, CMP, HS TROP, CK #### [place] [address] [place] Monocytes/100 WBC (Bld) 9.6 % Normal . [facility] Comment on above: Performed By: #### C BC, CMP, HS TROP, CK #### [place] [address] [place] Neutrophils (Bld) [#/Vol] 6.3 10*3/uL Normal 1.8-7.7 [facility] Comment on above: Performed By: #### C BC, CMP, HS TROP, CK #### [address] Neutrophils/100 WBC (Bld) 67.1 % Normal . [facility] Comment on above: Performed By: #### C BC, CMP, HS TROP, CK #### [address] NRBC% 0.1 /100{WBC} Normal 0-0.5 [facility] Comment on above: Performed By: #### C BC, CMP, HS TROP, CK #### [address] Platelet mean volume (Bld) [Entitic vol] 9.4 fL Normal 6.3-10.7 [facility] Comment on above: Performed By: #### C BC, CMP, HS TROP, CK #### [address] Platelets (Bld) [#/Vol] 319 10*3/uL Normal 150-450 [facility] Comment on above: Performed By: #### C BC, CMP, HS TROP, CK #### [address] RBC (Bld) [#/Vol] 4.45 10*6/uL Normal 3.60-5.00 [facility] Comment on above: Performed By: #### C BC, CMP, HS TROP, CK #### [address] WBC (Bld) [#/Vol] 9.4 10*3/uL Normal 3.8-11.6 [facility] Comment on above: Performed By: #### C BC, CMP, HS TROP, CK #### [address] Comprehensive Metabolic Pane obey 11-20-2022 Albumin [Mass/Vol] 4.9 g/dL Normal 3.5-5.7 [facility] Comment on above: Performed By: #### C BC, CMP, HS TROP, CK #### [facility] [address] [place] [address] [place] Albumin/Globulin [Mass ratio] 1.8 {ratio} Normal [facility] Comment on above: Performed By: #### C BC, CMP, HS TROP, CK #### [facility] [address] [place] [address] [place] ALP [Catalytic activity/Vol] 43 U/L Normal 34-104 [facility] Comment on above: Performed By: #### C BC, CMP, HS TROP, CK #### [facility] [address] ALT [Catalytic activity/Vol] 12 U/L Normal 7-52 [facility] Comment on above: Performed By: #### C BC, CMP, HS TROP, CK #### [facility] [address] Anion gap [Moles/Vol] 14.5 mmol/L Normal 6.0-15.0 [facility] Comment on above: Performed By: #### C BC, CMP, HS TROP, CK #### [facility] [address] [place] [address] [place] AST [Catalytic activity/Vol] 14 U/L Normal 13-39 [facility] Comment on above: Performed By: #### C BC, CMP, HS TROP, CK #### [place] [address] [place] Bilirubin [Mass/Vol] 0.4 mg/dL Normal 0.3-1.0 [facility] Comment on above: Performed By: #### C BC, CMP, HS TROP, CK #### [facility] [address] [place] [address] [place] Calcium [Mass/Vol] 9.7 mg/dL Normal 8.6-10.3 [facility] Comment on above: Performed By: #### C BC, CMP, HS TROP, CK #### [facility] [address] [place] [address] [place] Chloride [Moles/Vol] 107 mmol/L Normal 98-107 [facility] Comment on above: Performed By: #### C BC, CMP, HS TROP, CK #### [address] CO2 [Moles/Vol] 23.6 mmol/L Normal 21.0-31.0 [facility] Comment on above: Performed By: #### C BC, CMP, HS TROP, CK #### [address] Creatinine [Mass/Vol] 0.88 mg/dL Normal 0.60-1.20 [facility] Comment on above: Performed By: #### C BC, CMP, HS TROP, CK #### [address] Creatinine Clr Calc Pharmacy 90.26 Normal [facility] Comment on above: Result Comment: PERF ORMED BY: [place] [address] PATHOLOGIST DIRECTOR OF MECHANICAL ENGINEERING KISHA CHING M.D. Performed By: #### C BC, CMP, HS TROP, CK #### [address] GFR/1.73 sq M.predicted MDRD (S/P/Bld) [Vol rate/Area] mL/min/{1.73_m2} Normal [facility] Comment on above: Performed By: #### C BC, CMP, HS TROP, CK #### [place] [address] [place] Globulin (S) [Mass/Vol] 2.7 g/dL Normal T [facility] Comment on above: Performed By: #### C BC, CMP, HS TROP, CK #### [address] Glucose [Mass/Vol] 87 mg/dL Normal 70-100 [facility] Comment on above: Result Comment: [place] Glucose Reference Range is dependent on time and content of last meal. Glucose of more than 200 mg/dL in a nonstressed, ambulatory subject supports the diagnosis of Diabetes Mellitus. ADA recommended reference range Performed By: #### C BC, CMP, HS TROP, CK #### [facility] [address] Potassium [Moles/Vol] 4.1 mmol/L Normal 3.5-5.1 [facility] Comment on above: Performed By: #### C BC, CMP, HS TROP, CK #### [address] Protein [Mass/Vol] 7.6 g/dL Normal 6.4-8.9 [facility] Comment on above: Performed By: #### C BC, CMP, HS TROP, CK #### [address] Sodium [Moles/Vol] 141 mmol/L Normal 136-145 [facility] Comment on above: Performed By: #### C BC, CMP, HS TROP, CK #### [place] [address] [place] Urea nitrogen [Mass/Vol] 14 mg/dL Normal 7-25 [facility] Comment on above: Performed By: #### C BC, CMP, HS TROP, CK #### [place] [address] [place] Creatine Kinaseon 11-20-2022 CK [Catalytic activity/Vol] 61 U/L Normal 30-223 [facility] Comment on above: Performed By: #### C BC, CMP, HS TROP, CK #### [place] [address] [place] Troponin I High Sensitivityo n 11-20-2022 Troponin I High Sensitivity < 2.3 Normal 0.0-15.0 [facility] Comment on above: Result Comment: PERF ORMED BY: [place] [address] PATHOLOGIST DIRECTOR OF MECHANICAL ENGINEERING KISHA CHING M.D. Performed By: #### C BC, CMP, HS TROP, CK #### [place] [address] [place] Alanine aminotransferase [En zymatic activity/volume] in Serum or PlasmaOrdered By: Mich Diaz on 11-19-2022 ALT [Catalytic activity/Vol] 12 U/L 7-52 [facility] Albumin [Mass/volume] in Ser um or Plasma by Bromocresol green (BCG) dye binding methoOrdered By: Mich Diaz on 11-19-2022 Albumin BCG dye [Mass/Vol] 4.9 g/dL 3.5-5.7 [facility] Alkaline phosphatase [Enzyma tic activity/volume] in Serum or PlasmaOrdered By: Mich Diaz on 11-19-2022 ALP [Catalytic activity/Vol] 43 U/L 34-104 [facility] Aspartate aminotransferase [ Enzymatic activity/volume] in Serum or PlasmaOrdered By: Mich Diaz on 11-19-2022 AST [Catalytic activity/Vol] 14 U/L 13-39 [facility] Automated erythrocytes count in urine sediment (number/area)Ordered By: Mich Diaz on 11-19-2022 RBC Auto (Urine sed) [#/Area] 50-100 [HPF] 0-4 [facility] Automated leukocytes count i n urine sediment (number/area)Ordered By: Mich Diaz on 11-19-2022 WBC Auto (Urine sed) [#/Area] 10-19 [HPF] 0-4 [facility] Basophils Auto (Bld) [#/Vol] Ordered By: Mich Diaz on 11-19-2022 Basophils (Bld) [#/Vol] 0.1 10*3/uL 0.0-0.2 [facility] Basophils/100 WBC Auto (Bld) Ordered By: Mich Diaz on 11-19-2022 Basophils/100 WBC (Bld) 1.3 % . [facility] Bilirubin Auto test strip Ql (U)Ordered By: Mich Diaz on 11-19-2022 Bilirubin Ql (U) Negative Negative [facility] Bilirubin.total [Mass/volume ] in Serum or PlasmaOrdered By: Mich Diaz on 11-19-2022 Bilirubin [Mass/Vol] 0.4 mg/dL 0.3-1.0 [facility] Calcium [Mass/volume] in Ser um or PlasmaOrdered By: Mich Diaz on 11-19-2022 Calcium [Mass/Vol] 9.7 mg/dL 8.6-10.3 [facility] Carbon dioxide, total [Moles /volume] in Serum or PlasmaOrdered By: Mich Diaz on 11-19-2022 CO2 [Moles/Vol] 23.6 mmol/L 21.0-31.0 [facility] Chloride [Moles/volume] in S di or PlasmaOrdered By: Mich Diaz on 11-19-2022 Chloride [Moles/Vol] 107 mmol/L 98-107 [facility] Creatine kinase [Enzymatic a ctivity/volume] in Serum or PlasmaOrdered By: Mich Diaz on 11-19-2022 CK [Catalytic activity/Vol] 61 U/L 30-223 [facility] Creatinine [Mass/volume] in Serum or PlasmaOrdered By: Mich Diaz on 11-19-2022 Creatinine [Mass/Vol] 0.88 mg/dL 0.60-1.20 [facility] Dipstick and Microscopicon 0 11-19-2022 Appearance (U) Clear Normal Clear [facility] Comment on above: Order Comment: Name Collection Type:: Clean-Voided Midstream Performed By: #### C BC, CMP, HS TROP, CK #### [facility] [address] [place] [address] [place] Bacteria,Urine None Seen Normal None Seen [facility] Comment on above: Order Comment: Name Collection Type:: Clean-Voided Midstream Performed By: #### C BC, CMP, HS TROP, CK #### [facility] [address] [place] [id number] [place] Bilirubin,Urine Negative Normal Negative [facility] Comment on above: Order Comment: Name Collection Type:: Clean-Voided Midstream Performed By: #### C BC, CMP, HS TROP, CK #### [facility] [address] [place] [id number] [place] Color (U) Yellow Normal Yellow [facility] Comment on above: Order Comment: Name Collection Type:: Clean-Voided Midstream Performed By: #### C BC, CMP, HS TROP, CK #### [facility] [address] [place] [id number] [place] Glucose Ql (U) Normal Normal Normal [facility] Comment on above: Order Comment: Name Collection Type:: Clean-Voided Midstream Performed By: #### C BC, CMP, HS TROP, CK #### [facility] [address] [place] [address] [place] Hyaline Casts,Urine None Seen Normal 0-8 [facility] Comment on above: Order Comment: Name Collection Type:: Clean-Voided Midstream Performed By: #### C BC, CMP, HS TROP, CK #### [facility] [address] [place] [address] [place] Ketones Ql (U) Negative Normal Negative [facility] Comment on above: Order Comment: Name Collection Type:: Clean-Voided Midstream Performed By: #### C BC, CMP, HS TROP, CK #### [place] [address] [place] Leukocyte esterase Test strip Ql (U) 2+ High Negative [facility] Comment on above: Order Comment: Name Collection Type:: Clean-Voided Midstream Performed By: #### C BC, CMP, HS TROP, CK #### [place] [address] [place] Nitrite,Urine Negative Normal Negative [facility] Comment on above: Order Comment: Name Collection Type:: Clean-Voided Midstream Performed By: #### C BC, CMP, HS TROP, CK #### [place] [id number] [place] Occult Blood,Urine 3+ High Negative [facility] Comment on above: Order Comment: Name Collection Type:: Clean-Voided Midstream Performed By: #### C BC, CMP, HS TROP, CK #### [place] [id number] [place] pH (U) 6.5 [pH] Normal 5.0-9.0 [facility] Comment on above: Order Comment: Name Collection Type:: Clean-Voided Midstream Performed By: #### C BC, CMP, HS TROP, CK #### [facility] [address] [place] [address] [place] Protein,Urine Negative Normal Negative [facility] Comment on above: Order Comment: Name Collection Type:: Clean-Voided Midstream Performed By: #### C BC, CMP, HS TROP, CK #### [address] RBC,Urine 50-100 High 0-4 [facility] Comment on above: Order Comment: Name Collection Type:: Clean-Voided Midstream Performed By: #### C BC, CMP, HS TROP, CK #### [place] [address] [place] Specificy [place],Urine 1.010 Normal 1.001-1.030 [facility] Comment on above: Order Comment: Name Collection Type:: Clean-Voided Midstream Performed By: #### C BC, CMP, HS TROP, CK #### [address] Squamous Epithelial Cell,Urine 1-2 Normal 0-2 [facility] Comment on above: Order Comment: Name Collection Type:: Clean-Voided Midstream Performed By: #### C BC, CMP, HS TROP, CK #### [address] Urobilinogen,Urine Normal Normal Normal [facility] Comment on above: Order Comment: Name Collection Type:: Clean-Voided Midstream Performed By: #### C BC, CMP, HS TROP, CK #### [address] WBC,Urine 10-19 High 0-4 [facility] Comment on above: Order Comment: Name Collection Type:: Clean-Voided Midstream Performed By: #### C BC, CMP, HS TROP, CK #### [address] ECG 12 lead ECGon 11-19-2022 ECG 12 lead ECG [facility] [place] [address] [place] [address] Electrocardiograph Report Signed Patient: Niraj Jensen MR#: [id number] : 2000 Acct:[id number] Age/Sex: 22 / F ADM Date: 11/19/22 Loc: ER Room: Type: DEP ER Attending Dr: Ordering Provider: Mich Diaz DO Date of Service: 11/19/22 ECG/ECG 12 lead ECG: Syncope Copies to: Test Reason : Blood Pressure : 141/084 mmHG Vent. Rate : 109 BPM Atrial Rate : 109 BPM P-R Int : 114 ms QRS Dur : 080 ms QT Int : 312 ms P-R-T Axes : 076 092 028 degrees QTc Int : 420 ms Sinus tachycardia Rightward axis Borderline ECG No previous ECGs available Confirmed by MICH IDAZ DO ([id number]) on 11/20/2022 1:41:24 AM Referred By: Electronically Signed By:MICH DIAZ DO Transcribed By: MUS Signed By Mich Diaz DO 11/20 0141 Normal [facility] Eosinophils Auto (Bld) [#/Vo l]Ordered By: Mich Diaz on 11-19-2022 Eosinophils (Bld) [#/Vol] 0.1 10*3/uL 0.0-0.45 [facility] Eosinophils/100 WBC Auto (Bl d)Ordered By: Mich Diaz on 11-19-2022 Eosinophils/100 WBC (Bld) 0.6 % . [facility] Erythrocyte distribution wid th Auto (RBC) [Ratio]Ordered By: Mihc Diaz on 11-19-2022 Erythrocyte distribution width (RBC) [Ratio] 13.2 % 11.9-15.3 [facility] Globulin Calc (S) [Mass/Vol] Ordered By: Mich Diaz on 11-19-2022 Globulin (S) [Mass/Vol] 2.7 g/dL F [facility] Glucose [Mass/volume] in Ser um or PlasmaOrdered By: Mich Diaz on 11-19-2022 Glucose [Mass/Vol] 87 mg/dL 70-100 [facility] Comment on above: ADA recommended refe rence rangeRandom Glucose Reference Range is dependent on time and content of last meal. Glucose of more than 200 mg/dL in a nonstressed, ambulatory subject supports the diagnosis of Diabetes Mellitus. HCG ( test) IA.rapi d Ql (U)Ordered By: Mich Diaz on 11-19-2022 HCG ( test) Ql (U) Negative [facility] HCG,Urineon 11-19-2022 Beta HCG ( test) Ql (U) Negative Normal [facility] Comment on above: Order Comment: Name Collection Type:: Clean-Voided Midstream Result Comment: PERF ORMED BY: [place] [address] PATHOLOGIST DIRECTOR OF MECHANICAL ENGINEERING KISHA CHING M.D. Performed By: #### C BC, CMP, HS TROP, CK #### [address] Hematocrit Auto (Bld) [Volum e fraction]Ordered By: Mich Diaz on 11-19-2022 Hematocrit (Bld) [Volume fraction] 39.6 % 34.0-46.4 [facility] Hemoglobin [Mass/volume] in BloodOrdered By: Mich Diaz on 11-19-2022 Hemoglobin (Bld) [Mass/Vol] 13.2 g/dL 11.8-15.4 [facility] Ketones Auto test strip (U) [Mass/Vol]Ordered By: Mich Diaz on 11-19-2022 Ketones (U) [Mass/Vol] Negative Negative [facility] Laboratory - UrinalysisOrder ed By: Mich Diaz on 11-19-2022 Hyaline casts LM Ql (Urine sed) None seen [LPF] 0-8 [facility] Leukocytes [#/volume] correc maryam for nucleated erythrocytes in Blood by Automated counOrdered By: Mich Diaz on 11-19-2022 WBC corrected for nucl RBC Auto (Bld) [#/Vol] 9.4 10*3/uL 3.8-11.6 [facility] Lymphocytes Auto (Bld) [#/Vo l]Ordered By: Mich Diaz on 11-19-2022 Lymphocytes (Bld) [#/Vol] 2.0 10*3/uL 1.00-4.8 [facility] Lymphocytes/100 WBC Auto (Bl d)Ordered By: Mich Diaz on 11-19-2022 Lymphocytes/100 WBC (Bld) 21.4 % . [facility] MCH Auto (RBC) [Entitic mass ]Ordered By: Mich Diaz on 11-19-2022 MCH (RBC) [Entitic mass] 29.7 pg 24.7-34.3 [facility] MCHC Auto (RBC) [Mass/Vol]Or dered By: Mich Diaz on 11-19-2022 MCHC (RBC) [Mass/Vol] 33.3 g/dL 32.0-35.0 [facility] MCV Auto (RBC) [Entitic vol] Ordered By: Mich Diaz on 11-19-2022 MCV (RBC) [Entitic vol] 89.0 fL 80-100 [facility] Monocyte distribution width [Entitic volume] in Blood by AutomatedOrdered By: Mich Diaz on 11-19-2022 Monocyte distribution width Auto (Bld) [Entitic vol] 17.34 % 0.00-20.00 [facility] Monocytes Auto (Bld) [#/Vol] Ordered By: Mich Diaz on 11-19-2022 Monocytes (Bld) [#/Vol] 0.9 10*3/uL 0.0-0.8 [facility] Monocytes/100 WBC Auto (Bld) Ordered By: Mich Diaz on 11-19-2022 Monocytes/100 WBC (Bld) 9.6 % . [facility] Neutrophils Auto (Bld) [#/Vo l]Ordered By: Mich Diaz on 11-19-2022 Neutrophils (Bld) [#/Vol] 6.3 10*3/uL 1.8-7.7 [facility] Neutrophils/100 WBC Auto (Bl d)Ordered By: Mich Diaz on 11-19-2022 Neutrophils/100 WBC (Bld) 67.1 % . [facility] No Panel InformationOrdered By: Mich Diaz on 11-19-2022 Estimated GFR (CKD-EPI) > 60.0 mL/Min [facility] Creatinine Clearance (Chem 90.26 [facility] Nucleated erythrocytes [Pres ence] in Blood by Automated countOrdered By: Mich Diaz on 11-19-2022 Nucleated RBC Auto Ql (Bld) 0.1 /100{WBC} 0-0.5 [facility] Platelet mean volume Auto (B ld) [Entitic vol]Ordered By: Mich Diaz on 11-19-2022 Platelet mean volume (Bld) [Entitic vol] 9.4 fL 6.3-10.7 [facility] Platelets Auto (Bld) [#/Vol] Ordered By: Mich Diaz on 11-19-2022 Platelets (Bld) [#/Vol] 319 10*3/uL 150-450 [facility] Potassium [Moles/volume] in Serum or PlasmaOrdered By: Mich Daiz on 11-19-2022 Potassium [Moles/Vol] 4.1 mmol/L 3.5-5.1 [facility] Protein Auto test strip (U) [Mass/Vol]Ordered By: Mich Diaz on 11-19-2022 Protein (U) [Mass/Vol] Negative Negative Fi [facility] Protein [Mass/volume] in Ser um or PlasmaOrdered By: Mich Diaz on 11-19-2022 Protein [Mass/Vol] 7.6 g/dL 6.4-8.9 [facility] RBC Auto (Bld) [#/Vol]Ordere d By: Mich Diaz on 11-19-2022 RBC (Bld) [#/Vol] 4.45 10*6/uL 3.60-5.00 [facility] Serum or plasma albumin/glob ulin mass ratioOrdered By: Mich Diaz on 11-19-2022 Albumin/Globulin [Mass ratio] 1.8 {ratio} [facility] Serum or plasma anion gap de terminationOrdered By: Mich Diaz on 11-19-2022 Anion gap [Moles/Vol] 14.5 mmol/L 6.0-15.0 [facility] Sodium [Moles/volume] in Ser um or PlasmaOrdered By: Mich Diaz on 11-19-2022 Sodium [Moles/Vol] 141 mmol/L 136-145 [facility] Squamous epithelial cells de tection in urine sediment by light microscopyOrdered By: Mich Diaz on 11-19-2022 Epithelial cells.squamous LM Ql (Urine sed) 1-2 [HPF] 0-2 [facility] Troponin I.cardiac [Mass/vol ume] in Serum or Plasma by Detection limit <= 0.01 ng/Ordered By: Mich Diaz on 11-19-2022 Troponin I.cardiac DL <= 0.01 ng/mL [Mass/Vol] < 2.3 pg/mL 0.0-15.0 [facility] Urea nitrogen [Mass/volume] in Serum or PlasmaOrdered By: Mich Diaz on 11-19-2022 Urea nitrogen [Mass/Vol] 14 mg/dL 7-25 [facility] Urine Cultureon 11-19-2022 Bacteria identified Cx Nom (U) >100,000 colonies/ml mixed bacterial skin contaminants 2 Days PERFORMED BY: [place] [address] PATHOLOGIST DIRECTOR OF MECHANICAL ENGINEERING KISHA CHING M.D. Normal [facility] Comment on above: Performed By: #### C BC, CMP, HS TROP, CK #### [address] Urine appearanceOrdered By: Mich Diaz on 11-19-2022 Appearance (U) Clear Clear [facility] Urine bacteria detection by automated methodOrdered By: Mich Diaz on 11-19-2022 Bacteria Auto Ql (U) None seen None Seen [facility] Urine colorOrdered By: Mich Diaz on 11-19-2022 Color (U) Yellow Yellow [facility] Urine culture routineOrdered By: Mich Diaz on 11-19-2022 Bacteria identified Cx Nom (U) 2 Days [facility] Urine glucose measurement by automated test strip (mass/volume)Ordered By: Mich Diaz on 11-19-2022 Glucose Auto test strip (U) [Mass/Vol] Normal mg/dL Normal [facility] Urine hemoglobin detection b y automated test stripOrdered By: Mich Diaz on 11-19-2022 Hemoglobin Auto test strip Ql (U) 3+ Negative [facility] Urine leukocyte esterase det ection by automated test stripOrdered By: Mich Diaz on 11-19-2022 Leukocyte esterase Auto test strip Ql (U) 2+ Negative [facility] Urine nitrite detection by a utomated test stripOrdered By: Mich Diaz on 11-19-2022 Nitrite Auto test strip Ql (U) Negative Negative [facility] Urobilinogen Auto test strip (U) [Mass/Vol]Ordered By: Mich Diaz on 11-19-2022 Urobilinogen (U) [Mass/Vol] Normal mg/dL Normal [facility] WBC Auto (Bld) [#/Vol]Ordere d By: Mich Diaz on 11-19-2022 WBC (Bld) [#/Vol] 9.4 10*3/uL 3.8-11.6 [facility] pH Auto test strip (U)Ordere d By: Mich Diaz on 11-19-2022 pH (U) 1.010 [pH] 1.001-1.030 [facility] pH (U) 6.5 [pH] 5.0-9.0 [facility] Alanine aminotransferase [En zymatic activity/volume] in Serum or PlasmaOrdered By: Calli Blanc on 11-10-2022 ALT [Catalytic activity/Vol] 11 U/L 7-52 [facility] Albumin [Mass/volume] in Ser um or Plasma by Bromocresol green (BCG) dye binding methoOrdered By: Calli Blanc on 11-10-2022 Albumin BCG dye [Mass/Vol] 4.9 g/dL 3.5-5.7 [facility] Alkaline phosphatase [Enzyma tic activity/volume] in Serum or PlasmaOrdered By: Calli Blanc on 11-10-2022 ALP [Catalytic activity/Vol] 45 U/L 34-104 [facility] Aspartate aminotransferase [ Enzymatic activity/volume] in Serum or PlasmaOrdered By: Calli Blanc on 11-10-2022 AST [Catalytic activity/Vol] 14 U/L 13-39 [facility] Basophils Auto (Bld) [#/Vol] Ordered By: Calli Blanc on 11-10-2022 Basophils (Bld) [#/Vol] 0.1 10*3/uL 0.0-0.2 [facility] Basophils/100 WBC Auto (Bld) Ordered By: Calli Blanc on 11-10-2022 Basophils/100 WBC (Bld) 2.1 % . [facility] Bilirubin.total [Mass/volume ] in Serum or PlasmaOrdered By: Calli Blanc on 11-10-2022 Bilirubin [Mass/Vol] 0.4 mg/dL 0.3-1.0 [facility] Calcium [Mass/volume] in Ser um or PlasmaOrdered By: Calli Blanc on 11-10-2022 Calcium [Mass/Vol] 9.9 mg/dL 8.6-10.3 [facility] Carbon dioxide, total [Moles /volume] in Serum or PlasmaOrdered By: Calli Blanc on 11-10-2022 CO2 [Moles/Vol] 25.7 mmol/L 21.0-31.0 [facility] Chloride [Moles/volume] in S di or PlasmaOrdered By: Calli Blanc on 11-10-2022 Chloride [Moles/Vol] 107 mmol/L 98-107 [facility] Complete Blood Count Auto Di ffon 11-10-2022 Basophils (Bld) [#/Vol] 0.1 10*3/uL Normal 0.0-0.2 [facility] Comment on above: Order Comment: Reaso n for Exam Syncope, unspecified syncope type Result Comment: PERF ORMED BY: [place] [address] PATHOLOGIST DIRECTOR OF MECHANICAL ENGINEERING KISHA CHING M.D. Performed By: #### C MP, TSH3 wRFLX, CBC #### [facility] [address] [place] [address] [place] Basophils/100 WBC (Bld) 2.1 % Normal . [facility] Comment on above: Order Comment: Reaso n for Exam Syncope, unspecified syncope type Performed By: #### C MP, TSH3 wRFLX, CBC #### [facility] [address] [place] [address] [place] Eosinophils (Bld) [#/Vol] 0.1 10*3/uL Normal 0.0-0.45 [facility] Comment on above: Order Comment: Reaso n for Exam Syncope, unspecified syncope type Performed By: #### C MP, TSH3 wRFLX, CBC #### [facility] [address] [place] [address] [place] Eosinophils/100 WBC (Bld) 1.3 % Normal . [facility] Comment on above: Order Comment: Reaso n for Exam Syncope, unspecified syncope type Performed By: #### C MP, TSH3 wRFLX, CBC #### [address] Erythrocyte distribution width (RBC) [Ratio] 13.7 % Normal 11.9-15.3 [facility] Comment on above: Order Comment: Reaso n for Exam Syncope, unspecified syncope type Performed By: #### C MP, TSH3 wRFLX, CBC #### [address] Hematocrit (Bld) [Volume fraction] 39.8 % Normal 34.0-46.4 [facility] Comment on above: Order Comment: Reaso n for Exam Syncope, unspecified syncope type Performed By: #### C MP, TSH3 wRFLX, CBC #### [address] Hemoglobin (Bld) [Mass/Vol] 13.0 g/dL Normal 11.8-15.4 [facility] Comment on above: Order Comment: Reaso n for Exam Syncope, unspecified syncope type Performed By: #### C MP, TSH3 wRFLX, CBC #### [address] Lymphocytes (Bld) [#/Vol] 2.0 10*3/uL Normal 1.00-4.8 [facility] Comment on above: Order Comment: Reaso n for Exam Syncope, unspecified syncope type Performed By: #### C MP, TSH3 wRFLX, CBC #### [place] [address] [place] Lymphocytes/100 WBC (Bld) 28.2 % Normal . [facility] Comment on above: Order Comment: Reaso n for Exam Syncope, unspecified syncope type Performed By: #### C MP, TSH3 wRFLX, CBC #### [address] MCH (RBC) [Entitic mass] 29.7 pg Normal 24.7-34.3 [facility] Comment on above: Order Comment: Reaso n for Exam Syncope, unspecified syncope type Performed By: #### C MP, TSH3 wRFLX, CBC #### [facility] [address] [place] [address] MCV (RBC) [Entitic vol] 90.5 fL Normal 80-100 [facility] Comment on above: Order Comment: Reaso n for Exam Syncope, unspecified syncope type Performed By: #### C MP, TSH3 wRFLX, CBC #### [address] Mean Corpuscular HGB Conc 32.8 g/dL Normal 32.0-35.0 [facility] Comment on above: Order Comment: Reaso n for Exam Syncope, unspecified syncope type Performed By: #### C MP, TSH3 wRFLX, CBC #### [address] Monocytes (Bld) [#/Vol] 0.7 10*3/uL Normal 0.0-0.8 [facility] Comment on above: Order Comment: Reaso n for Exam Syncope, unspecified syncope type Performed By: #### C MP, TSH3 wRFLX, CBC #### [address] Monocytes/100 WBC (Bld) 9.3 % Normal . [facility] Comment on above: Order Comment: Reaso n for Exam Syncope, unspecified syncope type Performed By: #### C MP, TSH3 wRFLX, CBC #### [place] [address] [place] Neutrophils (Bld) [#/Vol] 4.2 10*3/uL Normal 1.8-7.7 [facility] Comment on above: Order Comment: Reaso n for Exam Syncope, unspecified syncope type Performed By: #### C MP, TSH3 wRFLX, CBC #### [place] [address] [place] Neutrophils/100 WBC (Bld) 59.1 % Normal . [facility] Comment on above: Order Comment: Reaso n for Exam Syncope, unspecified syncope type Performed By: #### C MP, TSH3 wRFLX, CBC #### [address] NRBC% 0.2 /100{WBC} Normal 0-0.5 [facility] Comment on above: Order Comment: Reaso n for Exam Syncope, unspecified syncope type Performed By: #### C MP, TSH3 wRFLX, CBC #### [address] Platelet mean volume (Bld) [Entitic vol] 10.3 fL Normal 6.3-10.7 [facility] Comment on above: Order Comment: Reaso n for Exam Syncope, unspecified syncope type Performed By: #### C MP, TSH3 wRFLX, CBC #### [address] Platelets (Bld) [#/Vol] 267 10*3/uL Normal 150-450 [facility] Comment on above: Order Comment: Reaso n for Exam Syncope, unspecified syncope type Performed By: #### C MP, TSH3 wRFLX, CBC #### [address] RBC (Bld) [#/Vol] 4.39 10*6/uL Normal 3.60-5.00 [facility] Comment on above: Order Comment: Reaso n for Exam Syncope, unspecified syncope type Performed By: #### C MP, TSH3 wRFLX, CBC #### [address] WBC (Bld) [#/Vol] 7.2 10*3/uL Normal 3.8-11.6 [facility] Comment on above: Order Comment: Reaso n for Exam Syncope, unspecified syncope type Performed By: #### C MP, TSH3 wRFLX, CBC #### [address] Comprehensive Metabolic Pane obey 11-10-2022 Albumin [Mass/Vol] 4.9 g/dL Normal 3.5-5.7 [facility] Comment on above: Order Comment: Reaso n for Exam Syncope, unspecified syncope type Performed By: #### C BC, CMP, HS TROP, CK #### [address] Albumin/Globulin [Mass ratio] 2.0 {ratio} Normal [facility] Comment on above: Order Comment: Reaso n for Exam Syncope, unspecified syncope type Performed By: #### C BC, CMP, HS TROP, CK #### [address] ALP [Catalytic activity/Vol] 45 U/L Normal 34-104 [facility] Comment on above: Order Comment: Reaso n for Exam Syncope, unspecified syncope type Performed By: #### C BC, CMP, HS TROP, CK #### [address] ALT [Catalytic activity/Vol] 11 U/L Normal 7-52 [facility] Comment on above: Order Comment: Reaso n for Exam Syncope, unspecified syncope type Performed By: #### C BC, CMP, HS TROP, CK #### [address] Anion gap [Moles/Vol] 11.8 mmol/L Normal 6.0-15.0 [facility] Comment on above: Order Comment: Reaso n for Exam Syncope, unspecified syncope type Performed By: #### C BC, CMP, HS TROP, CK #### [facility] [address] [place] [address] AST [Catalytic activity/Vol] 14 U/L Normal 13-39 [facility] Comment on above: Order Comment: Reaso n for Exam Syncope, unspecified syncope type Performed By: #### C BC, CMP, HS TROP, CK #### [address] Bilirubin [Mass/Vol] 0.4 mg/dL Normal 0.3-1.0 [facility] Comment on above: Order Comment: Reaso n for Exam Syncope, unspecified syncope type Performed By: #### C BC, CMP, HS TROP, CK #### [facility] [address] Calcium [Mass/Vol] 9.9 mg/dL Normal 8.6-10.3 [facility] Comment on above: Order Comment: Reaso n for Exam Syncope, unspecified syncope type Performed By: #### C BC, CMP, HS TROP, CK #### [address] Chloride [Moles/Vol] 107 mmol/L Normal 98-107 [facility] Comment on above: Order Comment: Reaso n for Exam Syncope, unspecified syncope type Performed By: #### C BC, CMP, HS TROP, CK #### [address] CO2 [Moles/Vol] 25.7 mmol/L Normal 21.0-31.0 [facility] Comment on above: Order Comment: Reaso n for Exam Syncope, unspecified syncope type Performed By: #### C BC, CMP, HS TROP, CK #### [address] Creatinine [Mass/Vol] 0.86 mg/dL Normal 0.60-1.20 [facility] Comment on above: Order Comment: Reaso n for Exam Syncope, unspecified syncope type Performed By: #### C BC, CMP, HS TROP, CK #### [address] GFR/1.73 sq M.predicted MDRD (S/P/Bld) [Vol rate/Area] mL/min/{1.73_m2} Normal [facility] Comment on above: Order Comment: Reaso n for Exam Syncope, unspecified syncope type Performed By: #### C BC, CMP, HS TROP, CK #### [place] [address] [place] Globulin (S) [Mass/Vol] 2.4 g/dL Normal [facility] Comment on above: Order Comment: Reaso n for Exam Syncope, unspecified syncope type Performed By: #### C BC, CMP, HS TROP, CK #### [address] [place] [address] [place] Glucose [Mass/Vol] 70 mg/dL Normal 70-100 [facility] Comment on above: Order Comment: Reaso n for Exam Syncope, unspecified syncope type Result Comment: [facility] Glucose Reference Range is dependent on time and content of last meal. Glucose of more than 200 mg/dL in a nonstressed, ambulatory subject supports the diagnosis of Diabetes Mellitus. ADA recommended reference range Performed By: #### C BC, CMP, HS TROP, CK #### [facility] [address] Potassium [Moles/Vol] 4.5 mmol/L Normal 3.5-5.1 [facility] Comment on above: Order Comment: Reaso n for Exam Syncope, unspecified syncope type Performed By: #### C BC, CMP, HS TROP, CK #### [address] Protein [Mass/Vol] 7.3 g/dL Normal 6.4-8.9 [facility] Comment on above: Order Comment: Reaso n for Exam Syncope, unspecified syncope type Performed By: #### C BC, CMP, HS TROP, CK #### [place] [address] [place] Sodium [Moles/Vol] 140 mmol/L Normal 136-145 [facility] Comment on above: Order Comment: Reaso n for Exam Syncope, unspecified syncope type Performed By: #### C BC, CMP, HS TROP, CK #### [place] [address] [place] Urea nitrogen [Mass/Vol] 13 mg/dL Normal 7-25 [facility] Comment on above: Order Comment: Reaso n for Exam Syncope, unspecified syncope type Performed By: #### C BC, CMP, HS TROP, CK #### [place] [address] [place] Creatinine [Mass/volume] in Serum or PlasmaOrdered By: Calli Blanc on 11-10-2022 Creatinine [Mass/Vol] 0.86 mg/dL 0.60-1.20 [facility] Eosinophils Auto (Bld) [#/Vo l]Ordered By: Calli Blanc on 11-10-2022 Eosinophils (Bld) [#/Vol] 0.1 10*3/uL 0.0-0.45 [facility] Eosinophils/100 WBC Auto (Bl d)Ordered By: Calli Blanc on 11-10-2022 Eosinophils/100 WBC (Bld) 1.3 % . [facility] Erythrocyte distribution wid th Auto (RBC) [Ratio]Ordered By: Calli Blanc on 11-10-2022 Erythrocyte distribution width (RBC) [Ratio] 13.7 % 11.9-15.3 [facility] Globulin Calc (S) [Mass/Vol] Ordered By: Calli Blanc on 11-10-2022 Globulin (S) [Mass/Vol] 2.4 g/dL [facility] Glucose [Mass/volume] in Ser um or PlasmaOrdered By: Calli Blanc on 11-10-2022 Glucose [Mass/Vol] 70 mg/dL 70-100 [facility] Comment on above: ADA recommended refe rence rangeRandom Glucose Reference Range is dependent on time and content of last meal. Glucose of more than 200 mg/dL in a nonstressed, ambulatory subject supports the diagnosis of Diabetes Mellitus. Hematocrit Auto (Bld) [Volum e fraction]Ordered By: Calli Blanc on 11-10-2022 Hematocrit (Bld) [Volume fraction] 39.8 % 34.0-46.4 [facility] Hemoglobin [Mass/volume] in BloodOrdered By: Calli Blanc on 11-10-2022 Hemoglobin (Bld) [Mass/Vol] 13.0 g/dL 11.8-15.4 [facility] Leukocytes [#/volume] correc maryam for nucleated erythrocytes in Blood by Automated counOrdered By: Calli Blanc on 11-10-2022 WBC corrected for nucl RBC Auto (Bld) [#/Vol] 7.2 10*3/uL 3.8-11.6 [facility] Lymphocytes Auto (Bld) [#/Vo l]Ordered By: Calli Blanc on 11-10-2022 Lymphocytes (Bld) [#/Vol] 2.0 10*3/uL 1.00-4.8 [facility] Lymphocytes/100 WBC Auto (Bl d)Ordered By: Calli Blanc on 11-10-2022 Lymphocytes/100 WBC (Bld) 28.2 % . [facility] MCH Auto (RBC) [Entitic mass ]Ordered By: Calli Blanc on 11-10-2022 MCH (RBC) [Entitic mass] 29.7 pg 24.7-34.3 [facility] MCHC Auto (RBC) [Mass/Vol]Or dered By: Calli Blanc on 11-10-2022 MCHC (RBC) [Mass/Vol] 32.8 g/dL 32.0-35.[address] [facility] MCV Auto (RBC) [Entitic vol] Ordered By: Calli Blanc on 11-10-2022 MCV (RBC) [Entitic vol] 90.5 fL 80-100 [facility] Monocytes Auto (Bld) [#/Vol] Ordered By: Calli Blanc on 11-10-2022 Monocytes (Bld) [#/Vol] 0.7 10*3/uL 0.0-0.8 [facility] Monocytes/100 WBC Auto (Bld) Ordered By: Calli Blanc on 11-10-2022 Monocytes/100 WBC (Bld) 9.3 % . [facility] Neutrophils Auto (Bld) [#/Vo l]Ordered By: Calli Blanc on 11-10-2022 Neutrophils (Bld) [#/Vol] 4.2 10*3/uL 1.8-7.7 [facility] Neutrophils/100 WBC Auto (Bl d)Ordered By: Calli Blanc on 11-10-2022 Neutrophils/100 WBC (Bld) 59.1 % . [facility] No Panel InformationOrdered By: Calli Blanc on 11-10-2022 Estimated GFR (CKD-EPI) > 60.0 mL/Min [facility] Creatinine Clearance (Chem N/A [facility] Nucleated erythrocytes [Pres ence] in Blood by Automated countOrdered By: Calli Blanc on 11-10-2022 Nucleated RBC Auto Ql (Bld) 0.2 /100{WBC} 0-0.5 [facility] Platelet mean volume Auto (B ld) [Entitic vol]Ordered By: Calli Blanc on 11-10-2022 Platelet mean volume (Bld) [Entitic vol] 10.3 fL 6.3-10.7 [facility] Platelets Auto (Bld) [#/Vol] Ordered By: Calli Blanc on 11-10-2022 Platelets (Bld) [#/Vol] 267 10*3/uL 150-450 [facility] Potassium [Moles/volume] in Serum or PlasmaOrdered By: Calli Blanc on 11-10-2022 Potassium [Moles/Vol] 4.5 mmol/L 3.5-5.1 [facility] Protein [Mass/volume] in Ser um or PlasmaOrdered By: Calli Blanc on 11-10-2022 Protein [Mass/Vol] 7.3 g/dL 6.4-8.9 [facility] RBC Auto (Bld) [#/Vol]Ordere d By: Calli Blanc on 11-10-2022 RBC (Bld) [#/Vol] 4.39 10*6/uL 3.60-5.00 [facility] Serum or plasma albumin/glob ulin mass ratioOrdered By: Calli Blanc on 11-10-2022 Albumin/Globulin [Mass ratio] 2.0 {ratio} [facility] Serum or plasma anion gap de terminationOrdered By: Calli Blanc on 11-10-2022 Anion gap [Moles/Vol] 11.8 mmol/L 6.0-15.0 [facility] Sodium [Moles/volume] in Ser um or PlasmaOrdered By: Calli Blanc on 11-10-2022 Sodium [Moles/Vol] 140 mmol/L 136-145 [facility] Thyroid Stim Hormone w/Rflxo n 11-10-2022 Thyroid Stim Hormone w/Rflx 1.20 u[iU]/mL Normal 0.45-5.33 [facility] Comment on above: Order Comment: Reaso n for Exam Syncope, unspecified syncope type Result Comment: PERF ORMED BY: [place] [address] PATHOLOGIST DIRECTOR OF MECHANICAL ENGINEERING KISHA CHING M.D. Performed By: #### C BC, CMP, HS TROP, CK #### [address] Thyrotropin [Units/volume] i n Serum or PlasmaOrdered By: Calli Blanc on 11-10-2022 TSH Qn 1.20 m[IU]/L 0.45-5.33 [facility] Urea nitrogen [Mass/volume] in Serum or PlasmaOrdered By: Calli Blanc on 11-10-2022 Urea nitrogen [Mass/Vol] 13 mg/dL 7 [facility] WBC Auto (Bld) [#/Vol]Ordere d By: Calli Blanc on 11-10-2022 WBC (Bld) [#/Vol] 7.2 10*3/uL 3.8-11.6 [facility] Basophils Auto (Bld) [#/Vol] Ordered By: MEGHAN RIZVI on 10-02-2022 Basophils (Bld) [#/Vol] 0.1 10*3/uL 0.0-0.2 [facility] Basophils/100 WBC Auto (Bld) Ordered By: MEGHAN RIZVI on 10-02-2022 Basophils/100 WBC (Bld) 0.5 % . [facility] Complete Blood Count Auto Di ffon 10-02-2022 Basophils (Bld) [#/Vol] 0.1 10*3/uL Normal 0.0-0.2 [facility] Comment on above: Order Comment: Comme nt Draw at 630 am Result Comment: PERF ORMED BY: [address] [address] PATHOLOGIST DIRECTOR OF MECHANICAL ENGINEERING KISHA CHING M.D. Performed By: #### C BC, CMP, HS TROP, CK #### [address] Basophils/100 WBC (Bld) 0.5 % Normal . Shahid phillips [facility] Comment on above: Order Comment: Comme nt Draw at 630 am Performed By: #### C BC, CMP, HS TROP, CK #### [place] [address] [place] Eosinophils (Bld) [#/Vol] 0.1 10*3/uL Normal 0.0-0.45 [facility] Comment on above: Order Comment: Comme nt Draw at 630 am Performed By: #### C BC, CMP, HS TROP, CK #### [address] Eosinophils/100 WBC (Bld) 0.3 % Normal . [facility] Comment on above: Order Comment: Comme nt Draw at 630 am Performed By: #### C BC, CMP, HS TROP, CK #### [address] Erythrocyte distribution width (RBC) [Ratio] 13.8 % Normal 11.9-15.3 [facility] Comment on above: Order Comment: Comme nt Draw at 630 am Performed By: #### C BC, CMP, HS TROP, CK #### [address] Hematocrit (Bld) [Volume fraction] 28.9 % Low 34.0-46.4 [facility] Comment on above: Order Comment: Comme nt Draw at 630 am Performed By: #### C BC, CMP, HS TROP, CK #### [address] Hemoglobin (Bld) [Mass/Vol] 9.8 g/dL Low 11.8-15.4 [facility] Comment on above: Order Comment: Comme nt Draw at 630 am Performed By: #### C BC, CMP, HS TROP, CK #### [place] [address] [place] Lymphocytes (Bld) [#/Vol] 2.4 10*3/uL Normal 1.00-4.8 [facility] Comment on above: Order Comment: Comme nt Draw at 630 am Performed By: #### C BC, CMP, HS TROP, CK #### [address] Lymphocytes/100 WBC (Bld) 13.8 % Normal . [facility] Comment on above: Order Comment: Comme nt Draw at 630 am Performed By: #### C BC, CMP, HS TROP, CK #### [address] MCH (RBC) [Entitic mass] 30.0 pg Normal 24.7-34.3 [facility] Comment on above: Order Comment: Comme nt Draw at 630 am Performed By: #### C BC, CMP, HS TROP, CK #### [address] MCV (RBC) [Entitic vol] 88.6 fL Normal 80-100 [facility] Comment on above: Order Comment: Comme nt Draw at 630 am Performed By: #### C BC, CMP, HS TROP, CK #### [address] Mean Corpuscular HGB Conc 33.8 g/dL Normal 32.0-35.0 [facility] Comment on above: Order Comment: Comme nt Draw at 630 am Performed By: #### C BC, CMP, HS TROP, CK #### [address] Monocytes (Bld) [#/Vol] 1.7 10*3/uL High 0.0-0.8 [facility] Comment on above: Order Comment: Comme nt Draw at 630 am Performed By: #### C BC, CMP, HS TROP, CK #### [address] Monocytes/100 WBC (Bld) 9.5 % Normal . [facility] Comment on above: Order Comment: Comme nt Draw at 630 am Performed By: #### C BC, CMP, HS TROP, CK #### [facility] [address] [place] [address] Neutrophils (Bld) [#/Vol] 13.5 10*3/uL High 1.8-7.7 [facility] Comment on above: Order Comment: Comme nt Draw at 630 am Performed By: #### C BC, CMP, HS TROP, CK #### [place] [address] [place] Neutrophils/100 WBC (Bld) 75.9 % Normal . [facility] Comment on above: Order Comment: Comme nt Draw at 630 am Performed By: #### C BC, CMP, HS TROP, CK #### [address] NRBC% 0.1 /100{WBC} Normal 0-0.5 [facility] Comment on above: Order Comment: Comme nt Draw at 630 am Performed By: #### C BC, CMP, HS TROP, CK #### [address] Platelet mean volume (Bld) [Entitic vol] 8.2 fL Normal 6.3-10.7 [facility] Comment on above: Order Comment: Comme nt Draw at 630 am Performed By: #### C BC, CMP, HS TROP, CK #### [address] Platelets (Bld) [#/Vol] 200 10*3/uL Signific ant change down 150-450 [facility] Comment on above: Order Comment: Comme nt Draw at 630 am Performed By: #### C BC, CMP, HS TROP, CK #### [facility] [address] [place] [address] [place] RBC (Bld) [#/Vol] 3.26 10*6/uL Low 3.60-5.00 [facility] Comment on above: Order Comment: Comme nt Draw at 630 am Performed By: #### C BC, CMP, HS TROP, CK #### [facility] [address] [place] [address] [place] WBC (Bld) [#/Vol] 17.8 10*3/uL High 3.8-11.6 [facility] Comment on above: Order Comment: Comme nt Draw at 630 am Performed By: #### C BC, CMP, HS TROP, CK #### [facility] [address] Eosinophils Auto (Bld) [#/Vo l]Ordered By: MEGHAN RIZVI on 10-02-2022 Eosinophils (Bld) [#/Vol] 0.1 10*3/uL 0.0-0.45 [facility] Eosinophils/100 WBC Auto (Bl d)Ordered By: MEGHAN RIZVI on 10-02-2022 Eosinophils/100 WBC (Bld) 0.3 % . [facility] Erythrocyte distribution wid th Auto (RBC) [Ratio]Ordered By: MEGHAN RIZVI on 10-02-2022 Erythrocyte distribution width (RBC) [Ratio] 13.8 % 11.9-15.3 [facility] Hematocrit Auto (Bld) [Volum e fraction]Ordered By: MEGHAN RIZVI on 10-02-2022 Hematocrit (Bld) [Volume fraction] 28.9 % 34.0-46.4 [facility] Hemoglobin [Mass/volume] in BloodOrdered By: MEGHAN RIZVI on 10-02-2022 Hemoglobin (Bld) [Mass/Vol] 9.8 g/dL 11.8-15.4 [facility] Leukocytes [#/volume] correc maryam for nucleated erythrocytes in Blood by Automated counOrdered By: MEGHAN RIZVI on 10-02-2022 WBC corrected for nucl RBC Auto (Bld) [#/Vol] 17.8 10*3/uL 3.8-11.6 [facility] Lymphocytes Auto (Bld) [#/Vo l]Ordered By: MEGHAN RIZVI on 10-02-2022 Lymphocytes (Bld) [#/Vol] 2.4 10*3/uL 1.00-4.8 [facility] Lymphocytes/100 WBC Auto (Bl d)Ordered By: MEGHAN RIZVI on 10-02-2022 Lymphocytes/100 WBC (Bld) 13.8 % . [facility] MCH Auto (RBC) [Entitic mass ]Ordered By: MEGHAN RIZVI on 10-02-2022 MCH (RBC) [Entitic mass] 30.0 pg 24.7-34.3 [facility] MCHC Auto (RBC) [Mass/Vol]Or dered By: MEGHAN RIZVI on 10-02-2022 MCHC (RBC) [Mass/Vol] 33.8 g/dL 32.0-35.0 [facility] MCV Auto (RBC) [Entitic vol] Ordered By: MEGHAN RIZVI on 10-02-2022 MCV (RBC) [Entitic vol] 88.6 fL 80-100 F [facility] Monocytes Auto (Bld) [#/Vol] Ordered By: MEGHAN RIZVI on 10-02-2022 Monocytes (Bld) [#/Vol] 1.7 10*3/uL 0.0-0.8 [facility] Monocytes/100 WBC Auto (Bld) Ordered By: MEGHAN RIZVI on 10-02-2022 Monocytes/100 WBC (Bld) 9.5 % . [facility] Neutrophils Auto (Bld) [#/Vo l]Ordered By: MEGHAN RIZVI on 10-02-2022 Neutrophils (Bld) [#/Vol] 13.5 10*3/uL 1.8-7.7 [facility] Neutrophils/100 WBC Auto (Bl d)Ordered By: MEGHAN RIZVI on 10-02-2022 Neutrophils/100 WBC (Bld) 75.9 % . [facility] Nucleated erythrocytes [Pres ence] in Blood by Automated countOrdered By: MEGHAN RIZVI on 10-02-2022 Nucleated RBC Auto Ql (Bld) 0.1 /100{WBC} 0-0.5 [facility] Platelet mean volume Auto (B ld) [Entitic vol]Ordered By: MEGHAN RIZVI on 10-02-2022 Platelet mean volume (Bld) [Entitic vol] 8.2 fL 6.3-10.7 [facility] Platelets Auto (Bld) [#/Vol] Ordered By: MEGHAN RIZVI on 10-02-2022 Platelets (Bld) [#/Vol] 200 10*3/uL 150-450 [facility] Comment on above: Delta: 254 on RBC Auto (Bld) [#/Vol]Ordere d By: MEGHAN RIZVI on 10-02-2022 RBC (Bld) [#/Vol] 3.26 10*6/uL 3.60-5.00 [facility] WBC Auto (Bld) [#/Vol]Ordere d By: MEGHAN RIZVI on 10-02-2022 WBC (Bld) [#/Vol] 17.8 10*3/uL 3.8-11.6 [facility] ABO/RH Typeon 10-01-2022 ABO and Rh group Nom (Bld) Blood group A Rh(D) positive Normal [facility] Comment on above: Result Comment: PERF ORMED BY: [place] [address] PATHOLOGIST DIRECTOR OF MECHANICAL ENGINEERING KISHA CHING M.D. ABO/Rh Retypeon 10-01-2022 ABO/RH Recheck Result Positive Normal [facility] Comment on above: Result Comment: PERF ORMED BY: [place] [address] PATHOLOGIST DIRECTOR OF MECHANICAL ENGINEERING KISHA CHING M.D. Complete Blood Count Auto Di ffon 10-01-2022 Basophils (Bld) [#/Vol] 0.1 10*3/uL Normal 0.0-0.2 [facility] Comment on above: Result Comment: PERF ORMED BY: [place] [id number] PATHOLOGIST DIRECTOR OF MECHANICAL ENGINEERING KISHA CHING M.D. Performed By: #### C BC, CMP, HS TROP, CK #### [place] [id number] [place] Basophils/100 WBC (Bld) 1.0 % Normal . [facility] Comment on above: Performed By: #### C BC, CMP, HS TROP, CK #### [place] [address] Eosinophils (Bld) [#/Vol] 0.1 10*3/uL Normal 0.0-0.45 [facility] Comment on above: Performed By: #### C BC, CMP, HS TROP, CK #### [address] Eosinophils/100 WBC (Bld) 0.7 % Normal . [facility] Comment on above: Performed By: #### C BC, CMP, HS TROP, CK #### [address] Erythrocyte distribution width (RBC) [Ratio] 14.0 % Normal 11.9-15.3 [facility] Comment on above: Performed By: #### C BC, CMP, HS TROP, CK #### [address] Hematocrit (Bld) [Volume fraction] 36.2 % Normal 34.0-46.4 [facility] Comment on above: Performed By: #### C BC, CMP, HS TROP, CK #### [address] Hemoglobin (Bld) [Mass/Vol] 12.2 g/dL Normal 11.8-15.4 [facility] Comment on above: Performed By: #### C BC, CMP, HS TROP, CK #### [place] [address] [place] Lymphocytes (Bld) [#/Vol] 2.6 10*3/uL Normal 1.00-4.8 [facility] Comment on above: Performed By: #### C BC, CMP, HS TROP, CK #### [place] [address] [place] Lymphocytes/100 WBC (Bld) 19.0 % Normal . [facility] Comment on above: Performed By: #### C BC, CMP, HS TROP, CK #### [address] MCH (RBC) [Entitic mass] 29.8 pg Normal 24.7-34.3 [facility] Comment on above: Performed By: #### C BC, CMP, HS TROP, CK #### [address] MCV (RBC) [Entitic vol] 88.5 fL Normal 80-100 [facility] Comment on above: Performed By: #### C BC, CMP, HS TROP, CK #### [address] Mean Corpuscular HGB Conc 33.7 g/dL Normal 32.0-35.0 [facility] Comment on above: Performed By: #### C BC, CMP, HS TROP, CK #### [address] Monocytes (Bld) [#/Vol] 1.2 10*3/uL High 0.0-0.8 [facility] Comment on above: Performed By: #### C BC, CMP, HS TROP, CK #### [address] Monocytes/100 WBC (Bld) 9.0 % Normal . [facility] Comment on above: Performed By: #### C BC, CMP, HS TROP, CK #### [address] Neutrophils (Bld) [#/Vol] 9.5 10*3/uL High 1.8-7.7 [facility] Comment on above: Performed By: #### C BC, CMP, HS TROP, CK #### [address] Neutrophils/100 WBC (Bld) 70.3 % Normal . [facility] Comment on above: Performed By: #### C BC, CMP, HS TROP, CK #### [address] NRBC% 0.0 /100{WBC} Normal 0-0.5 [facility] Comment on above: Performed By: #### C BC, CMP, HS TROP, CK #### [address] Platelet mean volume (Bld) [Entitic vol] 8.3 fL Normal 6.3-10.7 [facility] Comment on above: Performed By: #### C BC, CMP, HS TROP, CK #### [address] Platelets (Bld) [#/Vol] 254 10*3/uL Normal 150-450 [facility] Comment on above: Performed By: #### C BC, CMP, HS TROP, CK #### [address] RBC (Bld) [#/Vol] 4.09 10*6/uL Normal 3.60-5.00 [facility] Comment on above: Performed By: #### C BC, CMP, HS TROP, CK #### [address] WBC (Bld) [#/Vol] 13.5 10*3/uL High 3.8-11.6 [facility] Comment on above: Performed By: #### C BC, CMP, HS TROP, CK #### [address] 10-01-2022 L Specimen: [id number] Received: 10/02/22 Status: ADAM Go Num: [id number] Spec Type: Surgical Subm Dr: MEGHAN RIZVI DO Tissues: A Placenta - 3rd Trimester (Greater than 28 weeks) (PLACENTA AND CORD) Procedures: HE/2, Gross/Micro L5 Age/ Patient Sex Location Account Attending Physician Niraj Jensen [id number] MEGHAN RIZVI DO SPEC NUM: [id number] RECD: 10/02/22 STATUS: ADAM GO NUM: [id number] CRISTINE: 10/01/[address] [facility] [address]: MEGHAN RIZVI DO ENTERED: 10/02/22 ROSALES BOWLES: ANDREA TYPE: Surgical DEPT: S ORDERED: HE/2, Gross/Micro L5 ORDERED: HE/2, Gross/Micro L5 Pathological Diagnosis Placenta, vaginal delivery: - Three vessel umbilical cord within normal limits. - membranes within normal limits. - Placental disc with third trimester villi within normal limits. Clinical Information 39 week three day IUP Gross Description Received in formalin labeled with the patient's name, number and placenta and cord per requisition is an 18.5 x 14.5 x 1.8 cm placenta with an attached umbilical cord and attached membranes. The 34.7 x 1.2 x 0.6 cm umbilical cord inserts para marginally, 2.2 cm from the closest disc margin, and contains three vessels on cut section. The trimmed weight is 414 g. The surface is blue boo. The maternal surface is trinh red and appears intact the cut surface is spongy, purple-red without discrete lesion. Supervisor Nurse sections are submitted in 2 cassettes as follows: A1 - Cord and central disc A2 - Membranes and marginal disc Specimen: [id number] Received: 10/02/22 Status: ADAM Go Num: [id number] Spec Type: Surgical Subm Dr: MEGHAN RIZVI DO Tissues: A Placenta - 3rd Trimester (Greater than 28 weeks) (PLACENTA AND CORD) Procedures: HE/2, Gross/Micro L5 Patient: Niraj Jensen [id number] (Continued) Specimen: [id number] Received: 10/02/22 (Continued) Signed (signatur e on file) Denise Villafuerte MD 10/05/22 1343 Specimen: [id number] Received: 10/02/22 Status: ADAM Go Num: [id number] Spec Type: Surgical Subm Dr: MEGHAN RIZVI DO Tissues: A Placenta - 3rd Trimester (Greater than 28 weeks) (PLACENTA AND CORD) Procedures: HE/2, Gross/Micro L5 Patient: Niraj Jensen [id number] (Continued) Specimen: [id number] Received: 10/02/22 (Continued) Microscopic Description Two glass slides with H E stained material have been examined. The microscopic findings support the above pathologic diagnosis. CPT Codes 47831 Specimen: [id number] Received: 10/02/22 Status: ADAM Nicolesilvia Num: [id number] Spec Type: Surgical Subm Dr: MEGHAN RIZVI DO Tissues: A Placenta - 3rd Trimester (Greater than 28 weeks) (PLACENTA AND CORD) Procedures: HE/2, Gross/Micro L5 Patient: Niraj Jensen [id number] (Continued) Signed (signatur e on file) Denise Villafuerte MD 10/05/22 1343 Normal [facility] RPR w/rfx to Quant TP Abson 10-01-2022 RPR, Rfx Quant RPR Non-Reactive Normal Non Reactive [facility] Comment on above: Result Comment: Perf ormed at: - [facility], [place], [place] [id number] Medical Insurance Collector: Pancho Beasley PhD, Phone: [phone] PERFORMED BY: [facility] [address] [place] [id number] PATHOLOGIST DIRECTOR OF MECHANICAL ENGINEERING KISHA CHING M.D. Performed By: #### C BC, CMP, HS TROP, CK #### [facility] [address] [place] [address] [place] Reagin Ab [Presence] in Seru m by RPROrdered By: MEGHAN RIZVI on 10-01-2022 Reagin Ab RPR Ql (S) Non-Reactive Non Reactive [facility] Comment on above: Performed at: - [facility] [address] [id number] Director: Pancho Beasley PhD, Phone: [phone] Amphetamine Screen Ql (U)Ord ered By: Celeste Alanis on 09-28-2022 Amphetamines Ql (U) Negative Negative [facility] Automated erythrocytes count in urine sediment (number/area)Ordered By: Celeste Alanis on 09-28-2022 RBC Auto (Urine sed) [#/Area] 10-19 [HPF] 0-4 [facility] Automated leukocytes count i n urine sediment (number/area)Ordered By: Celeste Alanis on 09-28-2022 WBC Auto (Urine sed) [#/Area] 20-49 [HPF] 0-4 [facility] Barbiturates [Presence] in U rine by Screen methodOrdered By: Celeste Alanis on 09-28-2022 Barbiturates Screen Ql (U) Negative Negative [facility] Benzodiazepines Screen Ql (U )Ordered By: Celeste Alanis on 09-28-2022 Benzodiazepines Ql (U) Negative Negative [facility] Benzoylecgonine [Presence] i n Urine by Screen methodOrdered By: Celeste Aalnis on 09-28-2022 Benzoylecgonine Screen Ql (U) Negative Negative [facility] Bilirubin Test strip Ql (U)O rdered By: Celeste Alanis on 09-28-2022 Bilirubin Ql (U) Negative Negative [facility] Color Auto (U)Ordered By: Mikey Alanis on 09-28-2022 Color (U) Yellow Yellow [facility] Dipstick and Microscopicon 0 5-01-2023 Appearance (U) Clear Normal Clear [facility] Comment on above: Order Comment: Name Collection Type:: Clean-Voided Midstream Performed By: #### C BC, CMP, HS TROP, CK #### [facility] [address] [place] [id number] [place] Bacteria,Urine None Seen Normal None Seen [facility] Comment on above: Order Comment: Name Collection Type:: Clean-Voided Midstream Performed By: #### C BC, CMP, HS TROP, CK #### [facility] [address] [place] [address] [place] Bilirubin,Urine Negative Normal Negative [facility] Comment on above: Order Comment: Name Collection Type:: Clean-Voided Midstream Performed By: #### C BC, CMP, HS TROP, CK #### [facility] [address] [place] [address] [place] Color (U) Yellow Normal Yellow [facility] Comment on above: Order Comment: Name Collection Type:: Clean-Voided Midstream Performed By: #### C BC, CMP, HS TROP, CK #### [facility] [address] [place] [id number] [place] Glucose Ql (U) Normal Normal Normal [facility] Comment on above: Order Comment: Name Collection Type:: Clean-Voided Midstream Performed By: #### C BC, CMP, HS TROP, CK #### [facility] [address] [place] [address] [place] Hyaline Casts,Urine None Seen Normal 0-8 [facility] Comment on above: Order Comment: Name Collection Type:: Clean-Voided Midstream Result Comment: PERF ORMED BY: [place] [address] PATHOLOGIST DIRECTOR OF MECHANICAL ENGINEERING KISHA CHING M.D. Performed By: #### C BC, CMP, HS TROP, CK #### [facility] [address] [place] [id number] [place] Ketones Ql (U) Negative Normal Negative [facility] Comment on above: Order Comment: Name Collection Type:: Clean-Voided Midstream Performed By: #### C BC, CMP, HS TROP, CK #### [address] Leukocyte esterase Test strip Ql (U) 3+ High Negative [facility] Comment on above: Order Comment: Name Collection Type:: Clean-Voided Midstream Performed By: #### C BC, CMP, HS TROP, CK #### [place] [address] [place] Nitrite,Urine Negative Normal Negative [facility] Comment on above: Order Comment: Name Collection Type:: Clean-Voided Midstream Performed By: #### C BC, CMP, HS TROP, CK #### [address] Occult Blood,Urine 1+ High Negative [facility] Comment on above: Order Comment: Name Collection Type:: Clean-Voided Midstream Result Comment: PERF ORMED BY: [place] [address] PATHOLOGIST DIRECTOR OF MECHANICAL ENGINEERING KISHA CHING M.D. Performed By: #### C BC, CMP, HS TROP, CK #### [address] pH (U) 7.0 [pH] Normal 5.0-9.0 [facility] Comment on above: Order Comment: Name Collection Type:: Clean-Voided Midstream Performed By: #### C BC, CMP, HS TROP, CK #### [address] Protein,Urine Negative Normal Negative [facility] Comment on above: Order Comment: Name Collection Type:: Clean-Voided Midstream Performed By: #### C BC, CMP, HS TROP, CK #### [place] [address] [place] RBC,Urine 10-19 High 0-4 [facility] Comment on above: Order Comment: Name Collection Type:: Clean-Voided Midstream Performed By: #### C BC, CMP, HS TROP, CK #### [place] [address] [place] Specificy Chris[place],Urine 1.015 Normal 1.001-1.030 [facility] Comment on above: Order Comment: Name Collection Type:: Clean-Voided Midstream Performed By: #### C BC, CMP, HS TROP, CK #### [facility] [address] Squamous Epithelial Cell,Urine 1-2 Normal 0-2 [facility] Comment on above: Order Comment: Name Collection Type:: Clean-Voided Midstream Performed By: #### C BC, CMP, HS TROP, CK #### [facility] [address] Urobilinogen,Urine Normal Normal Normal [facility] Comment on above: Order Comment: Name Collection Type:: Clean-Voided Midstream Performed By: #### C BC, CMP, HS TROP, CK #### [address] WBC,Urine 20-49 High 0-4 [facility] Comment on above: Order Comment: Name Collection Type:: Clean-Voided Midstream Performed By: #### C BC, CMP, HS TROP, CK #### [address] Ketones Auto test strip (U) [Mass/Vol]Ordered By: Celeste Alanis on 09-28-2022 Ketones (U) [Mass/Vol] Negative Negative [facility] Laboratory - UrinalysisOrder ed By: Celeste Alanis on 09-28-2022 Hyaline casts LM Ql (Urine sed) None seen [LPF] 0-8 [facility] Nitrite Test strip Ql (U)Ord ered By: Celeste Alanis on 09-28-2022 Nitrite Ql (U) Negative Negative [facility] OB Urine Drug Screen (NO THC )on 09-28-2022 Amphetamine Screen,Urine Negative Normal Negative [facility] Comment on above: Performed By: #### C BC, CMP, HS TROP, CK #### [address] Barbiturate Screen,Urine Negative Normal Negative [facility] Comment on above: Performed By: #### C BC, CMP, HS TROP, CK #### [facility] [address] Benzodiazepines Screen,Urine Negative Normal Negative [facility] Comment on above: Performed By: #### C BC, CMP, HS TROP, CK #### [facility] [address] Cocaine Screen,Urine Negative Normal Negative [facility] Comment on above: Performed By: #### C BC, CMP, HS TROP, CK #### [facility] [address] Opiate Screen,Urine Negative Normal Negative [facility] Comment on above: Performed By: #### C BC, CMP, HS TROP, CK #### [address] Phencyclidine Screen, Urine Negative Normal Negative [facility] Comment on above: Result Comment: Thes e are unconfirmed results and should not be used for legal purposes. Drug Cut-Off Concentration: AMPH 1000 ng/mL FAVIAN 200 ng/mL KIM 200 ng/mL COCM 300 ng/mL OP 300 ng/mL PCP 25 ng/mL PERFORMED BY: [place] [address] PATHOLOGIST DIRECTOR OF MECHANICAL ENGINEERING KISHA CHING M.D. Performed By: #### C BC, CMP, HS TROP, CK #### [address] Opiates [Presence] in Urine by Screen methodOrdered By: Celeste Alanis on 09-28-2022 Opiates Screen Ql (U) Negative Negative [facility] Phencyclidine Screen Ql (U)O rdered By: Celeste Alanis on 09-28-2022 Phencyclidine Ql (U) Negative Negative [facility] Comment on above: These are unconfirme d results and should not be used for legal purposes. Drug Cut-Off Concentration: AMPH 1000 ng/mL FAVIAN 200 ng/mL KIM 200 ng/mL COCM 300 ng/mL OP 300 ng/mL PCP 25 ng/mL Protein Auto test strip (U) [Mass/Vol]Ordered By: Celeste Alanis on 09-28-2022 Protein (U) [Mass/Vol] Negative Negative [facility] Specific gravity Auto test s trip (U) [Rel density]Ordered By: Celeste Alanis on 09-28-2022 Specific gravity (U) [Rel density] 1.015 1.001-1.030 [facility] Squamous epithelial cells de tection in urine sediment by light microscopyOrdered By: Celeste Alanis on 09-28-2022 Epithelial cells.squamous LM Ql (Urine sed) 1-2 [HPF] 0-2 [facility] Urine Cultureon 09-28-2022 Bacteria identified Cx Nom (U) >100,000 colonies/ml mixed bacterial skin contaminants 2 Days PERFORMED BY: [place] [address] PATHOLOGIST DIRECTOR OF MECHANICAL ENGINEERING KISHA CHING M.D. Normal [facility] Comment on above: Performed By: #### C BC, CMP, HS TROP, CK #### [address] Urine bacteria detection by automated methodOrdered By: Celeste Alanis on 09-28-2022 Bacteria Auto Ql (U) None seen None Seen [facility] Urine clarity by refractomet ry automatedOrdered By: Celeste Alanis on 09-28-2022 Clarity Refractometry automated (U) Clear Clear [facility] Urine culture routineOrdered By: Celeste Alanis on 09-28-2022 Bacteria identified Cx Nom (U) 2 Days [facility] Urine glucose measurement by automated test strip (mass/volume)Ordered By: Celeste Alanis on 09-28-2022 Glucose Auto test strip (U) [Mass/Vol] Normal mg/dL Normal [facility] Urine hemoglobin detection b y automated test stripOrdered By: Celeste Alanis on 09-28-2022 Hemoglobin Auto test strip Ql (U) 1+ Negative [facility] Urine leukocyte esterase det ection by automated test stripOrdered By: Celeste Aalnis on 09-28-2022 Leukocyte esterase Auto test strip Ql (U) 3+ Negative [facility] Urobilinogen Auto test strip (U) [Mass/Vol]Ordered By: Celeste Alanis on 09-28-2022 Urobilinogen (U) [Mass/Vol] Normal mg/dL Normal [facility] pH Auto test strip (U)Ordere d By: Celeste Alanis on 09-28-2022 pH (U) 7.0 [pH] 5.0-9.0 [facility] Amphetamine Screen Ql (U)Ord ered By: MELO RITTER on 09-16-2022 Amphetamines Ql (U) Negative Negative [facility] Automated erythrocytes count in urine sediment (number/area)Ordered By: MELO RITTER on 09-16-2022 RBC Auto (Urine sed) [#/Area] 0-1 [HPF] 0-4 [facility] Automated leukocytes count i n urine sediment (number/area)Ordered By: MELO RITTER on 09-16-2022 WBC Auto (Urine sed) [#/Area] 3-4 [HPF] 0-4 [facility] Barbiturates [Presence] in U rine by Screen methodOrdered By: MELO RITTER on 09-16-2022 Barbiturates Screen Ql (U) Negative Negative [facility] Benzodiazepines Screen Ql (U )Ordered By: MELO RITTER on 09-16-2022 Benzodiazepines Ql (U) Negative Negative [facility] Benzoylecgonine [Presence] i n Urine by Screen methodOrdered By: MELO RITTER on 09-16-2022 Benzoylecgonine Screen Ql (U) Negative Negative [facility] Bilirubin Test strip Ql (U)O rdered By: MELO RITTER on 09-16-2022 Bilirubin Ql (U) Negative Negative [facility] Color Auto (U)Ordered By: KELVIN RITTER on 09-16-2022 Color (U) Yellow Yellow [facility] Dipstick and Microscopicon 0 09-16-2022 Appearance (U) Clear Normal Clear [facility] Comment on above: Order Comment: Name Collection Type:: Voided Performed By: #### C BC, CMP, HS TROP, CK #### [facility] [address] Bacteria,Urine None Seen Normal None Seen [facility] Comment on above: Order Comment: Name Collection Type:: Voided Performed By: #### C BC, CMP, HS TROP, CK #### [address] Bilirubin,Urine Negative Normal Negative [facility] Comment on above: Order Comment: Name Collection Type:: Voided Performed By: #### C BC, CMP, HS TROP, CK #### [address] Color (U) Yellow Normal Yellow [facility] Comment on above: Order Comment: Name Collection Type:: Voided Performed By: #### C BC, CMP, HS TROP, CK #### [address] Glucose Ql (U) Normal Normal Normal [facility] Comment on above: Order Comment: Name Collection Type:: Voided Performed By: #### C BC, CMP, HS TROP, CK #### [place] [address] [place] Hyaline Casts,Urine 0-8 Normal 0-8 [facility] Comment on above: Order Comment: Name Collection Type:: Voided Result Comment: PERF ORMED BY: [place] [address] PATHOLOGIST DIRECTOR OF MECHANICAL ENGINEERING KISHA CHING M.D. Performed By: #### C BC, CMP, HS TROP, CK #### [address] Ketones Ql (U) Negative Normal Negative [facility] Comment on above: Order Comment: Name Collection Type:: Voided Performed By: #### C BC, CMP, HS TROP, CK #### [address] Leukocyte esterase Test strip Ql (U) 1+ High Negative [facility] Comment on above: Order Comment: Name Collection Type:: Voided Performed By: #### C BC, CMP, HS TROP, CK #### [address] Nitrite,Urine Negative Normal Negative [facility] Comment on above: Order Comment: Name Collection Type:: Voided Performed By: #### C BC, CMP, HS TROP, CK #### [address] Occult Blood,Urine Trace High Negative [facility] Comment on above: Order Comment: Name Collection Type:: Voided Result Comment: PERF ORMED BY: [place] [address] PATHOLOGIST DIRECTOR OF MECHANICAL ENGINEERING KISHA CHING M.D. Performed By: #### C BC, CMP, HS TROP, CK #### [address] pH (U) 7.5 [pH] Normal 5.0-9.0 [facility] Comment on above: Order Comment: Name Collection Type:: Voided Performed By: #### C BC, CMP, HS TROP, CK #### [address] Protein,Urine Negative Normal Negative [facility] Comment on above: Order Comment: Name Collection Type:: Voided Performed By: #### C BC, CMP, HS TROP, CK #### [address] RBC LM.HPF (Urine sed) [#/Area] 0 /[HPF] Normal 0-4 [facility] Comment on above: Order Comment: Name Collection Type:: Voided Performed By: #### C BC, CMP, HS TROP, CK #### [address] Specificy [place],Urine 1.008 Normal 1.001-1.030 [facility] Comment on above: Order Comment: Name Collection Type:: Voided Performed By: #### C BC, CMP, HS TROP, CK #### [address] Squamous Epithelial Cell,Urine None Seen Normal 0-2 [facility] Comment on above: Order Comment: Name Collection Type:: Voided Performed By: #### C BC, CMP, HS TROP, CK #### [place] [id number] [place] Urobilinogen,Urine Normal Normal Normal [facility] Comment on above: Order Comment: Name Collection Type:: Voided Performed By: #### C BC, CMP, HS TROP, CK #### [place] [address] [place] WBC,Urine 3-4 Normal 0-4 [facility] Comment on above: Order Comment: Name Collection Type:: Voided Performed By: #### C BC, CMP, HS TROP, CK #### [address] Ketones Auto test strip (U) [Mass/Vol]Ordered By: MELO RITTER on 09-16-2022 Ketones (U) [Mass/Vol] Negative Negative [facility] Laboratory - UrinalysisOrder ed By: MELO RITTER on 09-16-2022 Hyaline casts LM Ql (Urine sed) 0-8 [LPF] 0-8 [facility] Nitrite Test strip Ql (U)Ord ered By: MELO RITTER on 09-16-2022 Nitrite Ql (U) Negative Negative [facility] OB Urine Drug Screen (NO THC )on 09-16-2022 Amphetamine Screen,Urine Negative Normal Negative [facility] Comment on above: Performed By: #### C BC, CMP, HS TROP, CK #### [address] Barbiturate Screen,Urine Negative Normal Negative [facility] Comment on above: Performed By: #### C BC, CMP, HS TROP, CK #### [place] [address] [place] Benzodiazepines Screen,Urine Negative Normal Negative [facility] Comment on above: Performed By: #### C BC, CMP, HS TROP, CK #### [place] [address] [place] Cocaine Screen,Urine Negative Normal Negative [facility] Comment on above: Performed By: #### C BC, CMP, HS TROP, CK #### [place] [address] [place] Opiate Screen,Urine Negative Normal Negative [facility] Comment on above: Performed By: #### C BC, CMP, HS TROP, CK #### [facility] [address] Phencyclidine Screen, Urine Negative Normal Negative [facility] Comment on above: Result Comment: Thes e are unconfirmed results and should not be used for legal purposes. Drug Cut-Off Concentration: AMPH 1000 ng/mL FAVIAN 200 ng/mL KIM 200 ng/mL COCM 300 ng/mL OP 300 ng/mL PCP 25 ng/mL PERFORMED BY: [facility] [address] [place] [address] PATHOLOGIST DIRECTOR OF MECHANICAL ENGINEERING KISHA CHING M.D. Performed By: #### C BC, CMP, HS TROP, CK #### [facility] [address] Opiates [Presence] in Urine by Screen methodOrdered By: MELO RITTER on 09-16-2022 Opiates Screen Ql (U) Negative Negative [facility] Phencyclidine Screen Ql (U)O rdered By: MELO RITTER on 09-16-2022 Phencyclidine Ql (U) Negative Negative [facility] Comment on above: These are unconfirme d results and should not be used for legal purposes. Drug Cut-Off Concentration: AMPH 1000 ng/mL FAVIAN 200 ng/mL KIM 200 ng/mL COCM 300 ng/mL OP 300 ng/mL PCP 25 ng/mL Protein Auto test strip (U) [Mass/Vol]Ordered By: MELO RITTER on 09-16-2022 Protein (U) [Mass/Vol] Negative Negative [facility] Specific gravity Auto test s trip (U) [Rel density]Ordered By: MELO RITTER on 09-16-2022 Specific gravity (U) [Rel density] 1.008 1.001-1.030 [facility] Squamous epithelial cells de tection in urine sediment by light microscopyOrdered By: MELO RITTER on 09-16-2022 Epithelial cells.squamous LM Ql (Urine sed) None seen [HPF] 0-2 [facility] Urine bacteria detection by automated methodOrdered By: MELO RITTER on 09-16-2022 Bacteria Auto Ql (U) None seen None Seen [facility] Urine clarity by refractomet ry automatedOrdered By: MELO RITTER on 09-16-2022 Clarity Refractometry automated (U) Clear Clear [facility] Urine glucose measurement by automated test strip (mass/volume)Ordered By: MELO RITTER on 09-16-2022 Glucose Auto test strip (U) [Mass/Vol] Normal mg/dL Normal [facility] Urine hemoglobin detection b y automated test stripOrdered By: MELO RITTER on 09-16-2022 Hemoglobin Auto test strip Ql (U) Trace Negative [facility] Urine leukocyte esterase det ection by automated test stripOrdered By: MELO RITTER on 09-16-2022 Leukocyte esterase Auto test strip Ql (U) 1+ Negative [facility] Urobilinogen Auto test strip (U) [Mass/Vol]Ordered By: MELO RITTER on 09-16-2022 Urobilinogen (U) [Mass/Vol] Normal mg/dL Normal [facility] pH Auto test strip (U)Ordere d By: MELO RITTER on 09-16-2022 pH (U) 7.5 [pH] 5.0-9.0 [facility] Group B Streptococcus cultur eOrdered By: MEGHAN RIZVI on 09-09-2022 S. agalactiae Org specific cx Ql (Unsp spec) [facility] Strep B Cultureon 09-09-2022 Strep B Culture Reason for Exam 36 weeks gestation of ; screening for stre Vaginal/Rectal Strep B Only Cult No Group B Beta Streptococcus Isolated 3 Days PERFORMED BY: [place] [address] PATHOLOGIST DIRECTOR OF MECHANICAL ENGINEERING KISHA CHING M.D. Normal [facility] Comment on above: Performed By: #### C BC, CMP, HS TROP, CK #### [address] Choriogonadotropin.beta subu nit [Units/volume] in Serum or PlasmaOrdered By: MEGHAN RIZVI on 07-17-2022 [place] [address].00 m[IU]/mL [facility] Comment on above: Approximate Approxim ate hCG Gestational Age Range (mIU/ml) (weeks)0.2-1 5-50 1-2 50-500 2-3 100-5,000 3-4 500-10,000 4-5 1,000-50,000 5-6 10,000-100,000 6-8 15,000-200,000 8-12 10,000-100,000 XR FOOT RT MIN 3 VIEWSon XR FOOT RT MIN 3 VIEWS IMAGES REVIEWED: XR FOOT RT MIN 3 VIEWS COMPARISON: None available. CLINICAL INDICATION: Laceration to the tip of the first toe after acute injury today, pain. FINDINGS/IMPRESSION : No radiopaque foreign bodies identified in the soft tissues. No radiographic evidence of acute osseous abnormality. Electronically authenticated by: JOSETTE WELCH Date: 2020-01-20 19:15 Normal [facility] Vital Signs Date Time Vital Sign Value Performing Clinician Yeseniai derian 09-22-2023 09:19-0400 Body height 167.64 cm Services [employer] Work Phone: [facility] 09-22-2023 09:19-0400 Body mass index (BMI) [Ratio] 18.1 kg/m2 Services [facility] Phone: [facility] 09-22-2023 09:19-0400 Body weight 50.8 kg [facility] Phone: [facility] 09-22-2023 09:19-0400 Diastolic blood pressure 64 mm[Hg] Services [employer] Work Phone: [facility] 09-22-2023 09:19-0400 Heart rate 86 /min [facility] Phone: [facility] 09-22-2023 09:19-0400 Respiratory rate 18 /min [facility] Phone: [facility] 09-22-2023 09:19-0400 SaO2% (BldA) [Mass fraction] 94 % Services [facility] Phone: [facility] 09-22-2023 09:19-0400 Systolic blood pressure 102 mm[Hg] Services [facility] Phone: [facility] 09-08-2023 15:37-0400 Body height 167.64 cm [facility] Work Phone: [facility] 09-08-2023 15:37-0400 Body weight 53.97 kg [facility] Work Phone: [facility] 09-08-2023 14:29-0400 Diastolic blood pressure 68 mm[Hg] [facility] Work Phone: [facility] 09-08-2023 14:29-0400 Heart rate 90 /min [facility] Work Phone: [facility] 09-08-2023 14:29-0400 Systolic blood pressure 130 mm[Hg] [facility] Work Phone: [facility] 08-25-2023 00:52-0400 Diastolic blood pressure 73 mm[Hg] [facility] Work Phone: [facility] 08-25-2023 00:52-0400 Heart rate 87 /min [facility] Work Phone: [facility] 08-25-2023 00:52-0400 Respiratory rate 20 /min [facility] Work Phone: [facility] 08-25-2023 00:52-0400 SaO2% (BldA) [Mass fraction] 99 % [facility] Work Phone: [facility] 08-25-2023 00:52-0400 Systolic blood pressure 114 mm[Hg] [facility] Work Phone: [facility] 08-24-2023 19:07-0400 Body height 167.64 cm [facility] Work Phone: [facility] 08-24-2023 19:07-0400 Body temperature 98.2 [degF] [facility] Work Phone: [facility] 08-24-2023 19:07-0400 Body weight 52.9 kg [facility] Work Phone: [facility] 08-10-2023 11:06-0400 Diastolic blood pressure 50 mm[Hg] [facility] Work Phone: [facility] 08-10-2023 11:06-0400 Heart rate 93 /min [facility] Work Phone: [facility] 08-10-2023 11:06-0400 Systolic blood pressure 84 mm[Hg] [facility] Work Phone: [facility] 08-10-2023 11:05-0400 Body height 167.64 cm [facility] Work Phone: [facility] 08-10-2023 11:05-0400 Body mass index (BMI) [Ratio] 19.2 kg/m2 [facility] Work Phone: [facility] 08-10-2023 11:05-0400 Body weight 53.97 kg [facility] Work Phone: [facility] 08-10-2023 11:05-0400 Respiratory rate 18 /min [facility] Work Phone: [facility] 08-10-2023 11:05-0400 SaO2% (BldA) [Mass fraction] 99 % [facility] Work Phone: [facility] 03-18-2023 23:02-0400 Body height 167.64 cm [facility] Work Phone: [facility] 03-18-2023 23:02-0400 Body temperature 99.1 [degF] [facility] Work Phone: [facility] 03-18-2023 23:02-0400 Body weight 54.4 kg [facility] Work Phone: [facility] 03-18-2023 23:02-0400 Diastolic blood pressure 84 mm[Hg] [facility] Work Phone: [facility] 03-18-2023 23:02-0400 Heart rate 110 /min [facility] Work Phone: [facility] 03-18-2023 23:02-0400 Respiratory rate 18 /min Services [facility] Work Phone: [facility] 03-18-2023 23:02-0400 SaO2% (BldA) [Mass fraction] 95 % Services [facility] Work Phone: [facility] 03-18-2023 23:02-0400 Systolic blood pressure 143 mm[Hg] Services [facility] Work Phone: [facility] 11-24-2022 21:55-0400 Heart rate 98 /min DO Meghan Nataprawira Work Phone: [facility] 11-24-2022 21:55-0400 Respiratory rate 18 /min DO Meghan Nataprawira Work Phone: [facility] 11-24-2022 21:55-0400 SaO2% (BldA) [Mass fraction] 98 % DO Meghan Nataprawira Work Phone: [facility] 11-24-2022 19:38-0400 Body height 167.64 cm DO Meghan Nataprawira Work Phone: [facility] 11-24-2022 19:38-0400 Body temperature 98.6 [degF] DO Meghan Nataprawira Work Phone: [facility] 11-24-2022 19:38-0400 Body weight 58.7 kg DO Meghan Nataprawira Work Phone: [facility] 11-24-2022 19:38-0400 Diastolic blood pressure 86 mm[Hg] DO Meghan Nataprawira Work Phone: [facility] 11-24-2022 19:38-0400 Systolic blood pressure 154 mm[Hg] DO Meghan Nataprawira Work Phone: [facility] 11-19-2022 23:42-0400 Diastolic blood pressure 74 mm[Hg] DO Meghan Nataprawira Work Phone: [facility] 11-19-2022 23:42-0400 Heart rate 89 /min DO Meghan Nataprawira Work Phone: [facility] 11-19-2022 23:42-0400 Respiratory rate 16 /min DO Meghan Nataprawira Work Phone: [facility] 11-19-2022 23:42-0400 SaO2% (BldA) [Mass fraction] 98 % DO Meghan Nataprawira Work Phone: [facility] 11-19-2022 23:42-0400 Systolic blood pressure 122 mm[Hg] DO Meghan Nataprawira Work Phone: [facility] 11-19-2022 20:24-0400 Body height 167.64 cm DO Meghan Nataprawira Work Phone: [facility] 11-19-2022 20:24-0400 Body temperature 98.9 [degF] DO Meghan Nataprawira Work Phone: [facility] 11-19-2022 20:24-0400 Body weight 58 kg DO Meghan Nataprawira Work Phone: [facility] 10-03-2022 15:55-0400 Body temperature 96.8 [degF] EXHIBITS CURATOR Calli Myerholtz Work Phone: [facility] 10-03-2022 15:55-0400 Diastolic blood pressure 80 mm[Hg] EXHIBITS CURATOR Calli Myerholtz Work Phone: [facility] 10-03-2022 15:55-0400 Heart rate 96 /min EXHIBITS CURATOR Calli Myerholtz Work Phone: [facility] 10-03-2022 15:55-0400 Respiratory rate 18 /min EXHIBITS CURATOR Calli Myerholtz Work Phone: [facility] 10-03-2022 15:55-0400 SaO2% (BldA) [Mass fraction] 98 % EXHIBITS CURATOR Calli Myerholtz Work Phone: [facility] 10-03-2022 15:55-0400 Systolic blood pressure 120 mm[Hg] EXHIBITS CURATOR Calli Myerholtz Work Phone: [facility] 10-01-2022 07:15-0400 Body height 170.18 cm EXHIBITS CURATOR Calli Myerholtz Work Phone: [facility] 10-01-2022 07:15-0400 Body weight 63.95 kg EXHIBITS CURATOR Calli Myerholtz Work Phone: [facility] 09-28-2022 15:41-0400 Body temperature 98.1 [degF] EXHIBITS CURATOR Calli Myerholtz Work Phone: [facility] 09-28-2022 15:40-0400 Diastolic blood pressure 90 mm[Hg] EXHIBITS CURATOR Calli Myerholtz Work Phone: [facility] 09-28-2022 15:40-0400 Heart rate 105 /min EXHIBITS CURATOR Calli Myerholtz Work Phone: [facility] 09-28-2022 15:40-0400 Systolic blood pressure 137 mm[Hg] EXHIBITS CURATOR Calli Myerholtz Work Phone: [facility] 09-28-2022 13:02-0400 Body temperature 97.2 [degF] EXHIBITS CURATOR Calli Myerholtz Work Phone: [facility] 09-28-2022 13:02-0400 Diastolic blood pressure 85 mm[Hg] EXHIBITS CURATOR Calli Myerholtz Work Phone: [facility] 09-28-2022 13:02-0400 Heart rate 92 /min EXHIBITS CURATOR Calli Myerholtz Work Phone: [facility] 09-28-2022 13:02-0400 Respiratory rate 16 /min EXHIBITS CURATOR Calli Myerholtz Work Phone: [facility] 09-28-2022 13:02-0400 SaO2% (BldA) [Mass fraction] 97 % EXHIBITS CURATOR Calli Myerholtz Work Phone: [facility] 09-28-2022 13:02-0400 Systolic blood pressure 135 mm[Hg] EXHIBITS CURATOR Calli Myerholtz Work Phone: [facility] 09-28-2022 11:51-0400 Body height 167.64 cm EXHIBITS CURATOR Calli Myerholtz Work Phone: [facility] 09-28-2022 11:51-0400 Body weight 63.5 kg EXHIBITS CURATOR Calli Myerholtz Work Phone: [facility] 09-24-2022 10:32-0400 Respiratory rate 16 /min EXHIBITS CURATOR Calli Myerholtz Work Phone: [facility] 09-24-2022 10:23-0400 Body weight 63.5 kg EXHIBITS CURATOR Calli Myerholtz Work Phone: [facility] 09-24-2022 10:18-0400 Body height 166.37 cm EXHIBITS CURATOR Calli Myerholtz Work Phone: [facility] 09-24-2022 10:16-0400 Body temperature 97.2 [degF] EXHIBITS CURATOR Calli Myerholtz Work Phone: [facility] 09-24-2022 10:16-0400 Diastolic blood pressure 79 mm[Hg] EXHIBITS CURATOR Calli Myerholtz Work Phone: [facility] 09-24-2022 10:16-0400 Heart rate 92 /min EXHIBITS CURATOR Calli Myerholtz Work Phone: [facility] 09-24-2022 10:16-0400 SaO2% (BldA) [Mass fraction] 97 % EXHIBITS CURATOR Calli Myerholtz Work Phone: [facility] 09-24-2022 10:16-0400 Systolic blood pressure 134 mm[Hg] EXHIBITS CURATOR Calli Myerholtz Work Phone: [facility] 09-19-2022 11:00-0400 Respiratory rate 18 /min EXHIBITS CURATOR Calli Myerholtz Work Phone: [facility] 09-19-2022 10:53-0400 Body height 167.64 cm EXHIBITS CURATOR Calli Myerholtz Work Phone: [facility] 09-19-2022 10:53-0400 Body weight 63.5 kg EXHIBITS CURATOR Calli Myerholtz Work Phone: [facility] 09-19-2022 10:36-0400 Diastolic blood pressure 82 mm[Hg] EXHIBITS CURATOR Calli Myerholtz Work Phone: [facility] 09-19-2022 10:36-0400 Heart rate 104 /min EXHIBITS CURATOR Calli Myerholtz Work Phone: [facility] 09-19-2022 10:36-0400 Systolic blood pressure 125 mm[Hg] EXHIBITS CURATOR Calli Myerholtz Work Phone: [facility] 09-19-2022 10:19-0400 Body temperature 97.5 [degF] EXHIBITS CURATOR Calli Myerholtz Work Phone: [facility] 09-16-2022 20:00-0400 Body temperature 96.6 [degF] EXHIBITS CURATOR Calli Myerholtz Work Phone: [facility] 09-16-2022 19:59-0400 Diastolic blood pressure 78 mm[Hg] EXHIBITS CURATOR Calli Myerholtz Work Phone: [facility] 09-16-2022 19:59-0400 Heart rate 70 /min EXHIBITS CURATOR Aclli Myerholtz Work Phone: [facility] 09-16-2022 19:59-0400 Respiratory rate 16 /min CALI Blanc Work Phone: [facility] 09-16-2022 19:59-0400 SaO2% (BldA) [Mass fraction] 99 % CALI Blanc Work Phone: [facility] 09-16-2022 19:59-0400 Systolic blood pressure 133 mm[Hg] CALI Blanc Work Phone: [facility] Encounters Encounter Date Encounter Type Care Provider Facility Start: 09-29-2023 End: 09-29-2023 ambulatory SANDEE LOVE Not Available Start: 09-22-2023 End: 09-22-2023 ambulatory Services [facility] Work Phone: [facility] Work Phone: Start: 09-22-2023 End: 09-22-2023 Patient encounter procedure Services [facility] Work Phone: [facility] Work Phone: Start: 09-08-2023 End: 09-08-2023 ambulatory Services [facility] Start: 09-08-2023 End: 09-08-2023 ambulatory Services [facility] Work Phone: [facility] Work Phone: Start: 09-08-2023 End: 09-08-2023 Patient encounter procedure Services [facility] Work Phone: [facility]-Electrodiagnostics Work Phone: Start: 08-24-2023 End: 08-25-2023 Emergency department patient visit Services [facility] Start: 08-24-2023 End: 08-25-2023 Emergency department patient visit Services [facility] Work Phone: [facility]-Emergency Room Work Phone: Start: 08-11-2023 End: 08-11-2023 ambulatory Services [facility] Start: 08-11-2023 End: 08-11-2023 ambulatory Services Family [facility] Work Phone: [facility] Work Phone: Start: 08-11-2023 End: 08-11-2023 Patient encounter procedure Services [facility] Work Phone: [facility]-Lab [facility] [place] Work Phone: Start: 08-10-2023 End: 08-10-2023 ambulatory Services [facility] Facility:[facility] Start: 08-10-2023 End: 08-10-2023 Patient encounter procedure Services [facility] Work Phone: [facility] Work Phone: Start: 03-19-2023 End: 03-19-2023 Emergency department patient visit Services [facility] Start: 03-18-2023 End: 03-19-2023 Emergency department patient visit Services [facility] Work Phone: [facility]-Emergency Room Work Phone: Start: 12-25-2022 ambulatory Facility:U Start: 12-22-2022 ambulatory Facility:[id number] Start: 11-24-2022 End: 11-25-2022 Emergency department patient visit [facility] [place] Hospital:[facility] Start: 11-24-2022 End: 11-24-2022 Emergency department patient visit DO Meghan Nataprawira Work Phone: [facility]-Emergency Room Work Phone: Start: 11-21-2022 End: 11-21-2022 ambulatory Services [facility] Facility:[facility] Start: 11-21-2022 End: 11-21-2022 ambulatory NON STAFF [facility] Work Phone: Start: 11-21-2022 End: 11-21-2022 Patient encounter procedure DO Meghan Nataprawira Work Phone: [facility]-Electrodiagnostics Work Phone: Start: 11-19-2022 End: 11-20-2022 Emergency department patient visit Services [facility] Facility:[facility] Start: 11-19-2022 End: 11-19-2022 Emergency department patient visit DO Meghan Rizvi Work Phone: [facility]-Emergency Room Work Phone: Start: 11-10-2022 End: 11-10-2022 ambulatory Services [facility] Facility:[facility] Start: 11-10-2022 End: 11-10-2022 Patient encounter procedure DO Meghan Nataprawira Work Phone: [facility]-Lab [place] Work Phone: Start: 10-04-2022 End: 10-04-2022 ambulatory Meghan Nataprawira Facility:[facility] Start: 10-04-2022 End: 10-04-2022 ambulatory EXHIBITS CURATOR Calli Blanc Work Phone: [facility] Work Phone: Start: 10-04-2022 End: 10-04-2022 Patient encounter procedure EXHIBITS CURATOR Calli Blanc Work Phone: [facility]-Lab [facility] [place] Work Phone: Start: 10-01-2022 End: 10-03-2022 Evaluation and management of inpatient Meghan Nataprawira Facility:[facility] Start: 10-01-2022 End: 10-03-2022 Evaluation and management of inpatient EXHIBITS CURATOR Calli Blanc Work Phone: [facility]-[address] [place] Work Phone: Start: 09-28-2022 End: 09-28-2022 ambulatory Celeste Alanis Facility:[facility] Start: 09-28-2022 End: 09-28-2022 ambulatory EXHIBITS CURATOR Calli Blanc Work Phone: [facility] Work Phone: Start: 09-28-2022 End: 09-28-2022 Patient encounter procedure EXHIBITS CURATOR Calli Myerholtz Work Phone: [facility]-3 [facility] Labor - O/P Start: 09-28-2022 End: 09-28-2022 ambulatory Celeste Alanis Facility:[facility] Start: 09-28-2022 End: 09-28-2022 ambulatory EXHIBITS CURATOR Calli K Myerholtz Work Phone: [facility] Work Phone: Start: 09-28-2022 End: 09-28-2022 Patient encounter procedure EXHIBITS CURATOR Calli Myerholtz Work Phone: [facility]-3 [facility] Labor - O/P Start: 09-24-2022 End: 09-24-2022 ambulatory Meghan Nataprawira Facility:[facility] Start: 09-24-2022 End: 09-24-2022 ambulatory EXHIBITS CURATOR Calli K Myerholtz Work Phone: [facility] Work Phone: Start: 09-24-2022 End: 09-24-2022 Patient encounter procedure EXHIBITS CURATOR Calli Myerholtz Work Phone: [facility]-3 [facility] Labor - O/P Start: 09-19-2022 End: 09-19-2022 ambulatory Services [facility] Facility:[facility] Start: 09-19-2022 End: 09-19-2022 ambulatory EXHIBITS CURATOR Calli K Myerholtz Work Phone: [facility] Work Phone: Start: 09-19-2022 End: 09-19-2022 Patient encounter procedure EXHIBITS CURATOR Calli Myerholtz Work Phone: [facility]-3 [facility] Labor - O/P Start: 09-16-2022 End: 09-16-2022 ambulatory Services [facility] Facility:[facility] Start: 09-16-2022 End: 09-16-2022 ambulatory EXHIBITS CURATOR Calli Parth Jayashree Work Phone: [facility] Work Phone: Start: 09-16-2022 End: 09-16-2022 Patient encounter procedure CALI Mccurdy Jayashree Work Phone: [facility]-3 [place] Labor - O/P Start: 09-09-2022 End: 09-09-2022 ambulatory Meghan Nataprawira Facility:[facility] Start: 09-09-2022 End: 09-09-2022 ambulatory EXHIBITS CURATOR Calli Parth Jayashree Work Phone: [facility] Work Phone: Start: 09-09-2022 End: 09-09-2022 Departed Referred CALI Blanc Work Phone: [facility]-Lab Main [place] Work Phone: Start: 07-17-2022 End: 07-17-2022 ambulatory EXHIBITS CURATOR Calli Parth Jayashree Work Phone: [facility] Work Phone: Start: 07-17-2022 End: 07-17-2022 Patient encounter procedure EXHIBITS CURATOR Callideepika Blanc Work Phone: [facility]-Lab Main [place] Work Phone: Start: 01-20-2020 End: 01-20-2020 Patient encounter procedure [facility] Facility:[facility] Start: 07-30-2019 End: 07-30-2019 Patient encounter procedure [facility] Facility:[facility] Procedures Date Procedure Procedure Detail Performing Clinician Start: 08-24-2023 Urine culture Services [facility] Work Phone: Start: 11-19-2022 Urine culture DO Meghan N ataprawira Work Phone: Start: 09-28-2022 Urine culture EXHIBITS CURATOR Ronit ignacioshai Blanc Work Phone: Start: 09-09-2022 Streptococcus agalac tiae culture EXHIBITS CURATOR Calli Blanc Work Phone: Plan of Treatment Date Care Activity Detail Author Start: 08-24-2023 Bacteria identified in Urine by Culture [facility] Start: 03-18-2023 X-ray of right ankle XR ankle RT min 3V* [facility] Start: 03-18-2023 X-ray of right foot XR foot RT min 3V* [facility] Start: 03-18-2023 XR Ankle - right GE 3 Views [facility] Start: 03-18-2023 XR Foot - right GE 3 Views [facility] Start: 11-24-2022 CT angiography of thorax CT angio chest PE protocol [facility] Start: 11-24-2022 CT Chest [facility] Start: 11-24-2022 Bacteria identified in Urine by Culture [facility] Start: 11-19-2022 Bacteria identified in Urine by Culture [facility] Start: 11-19-2022 Urine culture Urine Culture [facility] Start: 10-04-2022 [facility] Start: 10-03-2022 [facility] Start: 10-02-2022 Referral to Jewel Sawyer [facility] Start: 10-01-2022 Division of Female Perineum, External Approach Division of Female Perineum, External Approach [facility] Start: 10-01-2022 Drainage of Amniotic Fluid, Therapeutic from Products of Conception, Via Natural or Artificial Opening Drainage of Amniotic Fluid, Therapeutic from Products of Conception, Via Natural or Artificial Opening [facility] Start: 10-01-2022 Extraction of Products of Conception, Low Forceps, Via Natural or Artificial Opening Extraction of Products of Conception, Low Forceps, Via Natural or Artificial Opening [facility] Start: 10-01-2022 Repair Perineum Skin, External Approach Repair Perineum Skin, External Approach [facility] Start: 09-28-2022 Hospital admission [facility] Start: 09-28-2022 End: 09-28-2022 [facility] Start: 09-28-2022 Bacteria identified in Urine by Culture Urine Culture [facility] Start: 09-28-2022 [facility] Start: 09-28-2022 Hospital admission [facility] Start: 09-24-2022 [facility] Start: 09-19-2022 [facility] Start: 09-16-2022 [facility] Start: 09-16-2022 Hospital admission [facility] Start: 09-09-2022 Group B Streptococcus Culture Group B Streptococcus Culture [facility] Patient Education [facility] Work Phone: Patient referral [facility] Work Phone: Tilt table test [facility] Payers Date Payer Category Payer Self-pay [id number] 2017 Medicaid [id number] 1998 Unknown [id number] 2.16.84 [id number] 1998 Unknown [id number] 2.16.84 0.1.842865.3.579.2.593 1998 Unknown [id number] 2.16. 840.1.681970.3.579.2.356 1998 Unknown [id number] 2.16.84 0.1.751842.3.579.2.1259 1959 Unknown [id number] Unknown [id number] 2.16.8 40.1.444581.3.579.2.531 Unknown [id number] 2.16.8 40.1.672987.3.579.2.531 Unknown [id number] 2.16.8 40.1.382692.3.579.2.531 Unknown [id number] 2.16.8 40.1.729501.3.579.2.531 Unknown [id number] 2.16.8 40.1.204042.3.579.2.531 Unknown [id number] 2.16.8 40.1.518611.3.579.2.531 Unknown [id number] 2.16.8 40.1.314644.3.579.2.531 Unknown [id number] 2.16.8 40.1.939222.3.579.2.531 Unknown [id number] 2.16.8 40.1.163956.3.579.2.531 Unknown [id number] 2.16.8 40.1.010625.3.579.2.531 Unknown [id number] 2.16.8 40.1.158959.3.579.2.531 Unknown [id number] 2.16.8 40.1.150121.3.579.2.531 Unknown [id number] 2.16.8 40.1.190728.3.579.2.531 Unknown [id number] 2.16.8 40.1.478239.3.579.2.531 Unknown [id number] 2.16.8 40.1.736552.3.579.2.531 Unknown [id number] 2.16.8 40.1.985605.3.579.2.531 Unknown [id number] 2.16.8 40.1.417987.3.579.2.531 Social History Date Type Detail Facility Start: 07-12-2021 End: 08-25-2023 Tobacco smoking status NHIS Never smoked tobacco (finding) [facility] Start: 2000 Sex Assigned At Female F [facility] Goals Date Patient Goal Desired Activity /State Functional Status Date Assessment Result Facility 10-03-2022 Functional status Patient is Pro gressing Toward Baseline [facility] Work Phone: Mental Status Date Assessment Result Facility 10-03-2022 Cognitive function Cognitive Sta tus Patient is Progressing Toward Baseline [facility] Work Phone: Progress note 10-03-2022 Note Date & Type Note Facility 10-03-2022 Progress note Note Date/Time October 03, 2022 11:33a m [facility] [address] [place] [id number] [employer] SOFTWARE ARCHITECT Progress Note Signed Patient: Niraj Jensen MR#: [id number] : 2000 Acct:[id number] Age/Sex: 21 / F Adm Date: 3 Loc: 3S Room: [address] [place] [address] Type: ADM IN Attending Dr: Meghan Rizvi DO Copies to: ~ Date of Service: 10/03/2022 OB - PN: Subj Subjective Post Delivery Day #: Day 2 Patient comments: no complaints and pain well controlled [place] baby status: doing well feeding status: exclusively bottle feeding OB - PN: Obj Exam Physical Exam Vital signs: Vital Signs - 8 hr 10/03/22 07:48 Temperature 98.7 F Pulse Rate [Monitor] 84 Respiratory Rate 18 Blood Pressure [Right Arm] 108/73 02 Sat by Pulse Oximetry 97 Oxygen Delivery Method Room Air Constitutional Constitutional: no acute distress and cooperative HEENT Exam Head: Present normocephalic and atraumatic ENT: Present mucous membranes moist Respiratory Exam Respiratory: Present CTA bilaterally; Absent accessory muscle use Cardiovascular Exam Cardiovascular: Present RRR, S1 and S2; Absent murmur Abdominal Exam Abdominal: Present soft; Absent distended or guarding Fundus: Present firm (U-2) Extremities Exam Extremities: Absent cyanosis, edema, calf tenderness, palpable cord or Sanford's sign Skin Exam Skin: Present intact, dry and warm; Absent rash Neurological Exam Neurological: Present alert, oriented X3 and normal speech Psychiatric Exam Psychiatric: Present normal affect OB - PN: Obj Data Labs 10/02/22 07:19 Assessment/Plan Plan day: 2 Vaginal delivery plan (if applicable): routine care (Due to Pt's mental capacity CPS will be evaluating the situation on Wednesday. For now she willborder and her Mother will stay with her.) Documented By: Bernardino Prajapati DO 10/03/22 1131 Signed By: <Electronically signed by Bernardino Prajapati DO> 10/03/22 1133 [facility] Work Phone: Progress note 10-02-2022 Note Date & Type Note Facility 10-02-2022 Progress note Note Date/Time October 02, 2022 9:59am [facility] [address] [place] [address] [employer] SOFTWARE ARCHITECT Progress Note Signed Patient: Niraj Jensen MR#: [id number] : 2000 Acct:[id number] Age/Sex: 21 / F Adm Date: 3 Loc: 3S Room: [address] [place] [address] Type: ADM IN Attending Dr: Meghan Rizvi DO Copies to: ~ Date of Service: 10/02/2022 OB - PN: Subj Subjective Post Delivery Day #: Day 1 Patient comments: no complaints (per RN-Pt is nonverbal to me) [place] baby status: doing well [place] feeding status: exclusively breast feeding OB - PN: Obj Exam Physical Exam Vital signs: Vital Signs - 8 hr 10/02/22 04:00 Temperature 98.2 F Pulse Rate 74 Respiratory Rate 16 Blood Pressure 122/78 02 Sat by Pulse Oximetry 98 Oxygen Delivery Method Room Air Constitutional Constitutional: no acute distress Respiratory Exam Comments: good effort Extremities Exam Extremities: Absent edema Skin Exam Skin: Present intact Neurological Exam Neurological: Present alert and oriented X3 Psychiatric Exam Psychiatric: Present normal affect OB - PN: Obj Data Labs 10/02/22 07:19 Labs: 10/02/22 07:19: Uncorrected WBC Count 17.8 H, MCV 88.6, MCH 30.0, MCHC 33.8, RDW13.8, Plt Count 200 D, MPV 8.2, Neut % (Auto) 75.9, Lymph % (Auto) 13.8, [place] %(Auto) 9.5, Eos % (Auto) 0.3, Baso % (Auto) 0.5, Nucleat RBC Rel Count 0.1, Neut# (Auto) 13.5 H, Lymph # (Auto) 2.4, [place] # (Auto) 1.7 H, Eos # (Auto) 0.1, Baso# (Auto) 0.1 10/01/22 09:38: Blood Type Recheck A Positive 10/01/22 06:30: RPR w/Rflx to Titer Non reactive Assessment/Plan Plan day: 1 Vaginal delivery plan (if applicable): routine care Documented By: PETERSON Phillips 10/02/22 09 58 Signed By: <Electronically signed by PETERSON Richey> 10/02/22 0959 [facility] Work Phone: Procedure note 10-01-2022 Note Date & Type Note Facility 10-01-2022 Procedure note [facility] Evaluation note Note Date & Type Note Facility Evaluation note No assessment information availa ble [facility] Work Phone: Evaluation note Note Date & Type Note Facility Evaluation note Diagnosis Onset Date Status post vaginal delivery acute [facility] Work Phone: Evaluation note Note Date & Type Note Facility Evaluation note Diagnosis Onset Date Orthostatic hypotension acut e Pre-syncope acute [facility] Work Phone: Evaluation note Note Date & Type Note Facility Evaluation note Diagnosis Onset Date Orthostatic hypotension acut e Pre-syncope acute Orthostatic hypotension acut e Pre-syncope acute [facility] Work Phone: Hospital Discharge instructions Note Date & Type Note Facility Hospital Discharge instructions Additional Instructions Please return 09/19 at 10:00 for Non-stress test at [facility]. [facility] Work Phone: Hospital Discharge instructions Note Date & Type Note Facility Hospital Discharge instructions Additional Instructions If your symptoms return/worsen or you develop any further concerns or symptoms please see your doctor or return to the emergency department immediately. [facility] Work Phone: Hospital Discharge instructions Note Date & Type Note Facility Hospital Discharge instructions Additional Instructions Follow-up with your primary care doctor. You may need to be referred to the ship's carpenter. We are happy to see you if there are any significant problems or concerns. The most likely cause for the bleeding with bowel movements is bleeding from internal hemorrhoids. If this persists, you may need specialist referral for endoscopy. [facility] Work Phone: Summary Purpose Family History No Family History Records Found Relationship Condition Age at Onset Recorded Date/T mario Not Specified Hypertension Unknown Gout Unknown Vertigo Unknown father Heart disease Unknown Advance Directives No Advanced Directives Records Found Advance Directive Response Recorded Date/ Time Advance Directives No November 18 2:38pm Advance Directive Response Recorded Date/ Time Advance Directives No November 18 3:38pm Chief Complaint and Reason for Visit Chief Complaint Z34.90 Chief Complaint Z34.90 36 weeks gestation of ; screenin Chief Complaint Z34.90 36 weeks gestation of ; screenin bleeding Chief Complaint Z34.90 36 weeks gestation of ; screenin bleeding monitoring Chief Complaint Z34.90 36 weeks gestation of ; screenin bleeding monitoring NST Chief Complaint Z34.90 36 weeks gestation of ; screenin bleeding monitoring NST having contractions due may 4 Chief Complaint Z34.90 36 weeks gestation of ; screenin bleeding monitoring NST having contractions due may 4 IUP (Intrauterine ) Chief Complaint Z34.90 36 weeks gestation of ; screenin bleeding monitoring NST having contractions due may 4 IUP (Intrauterine ) IUP (Intrauterine ) Chief Complaint Z34.90 36 weeks gestation of ; screenin bleeding monitoring NST having contractions due may 4 IUP (Intrauterine ) IUP (Intrauterine ) See order -shot Chief Complaint 36 weeks gestation o f ; screenin bleeding monitoring NST having contractions due may 4 IUP (Intrauterine ) IUP (Intrauterine ) See order -shot R55 passed out Reason for Visit Status post vaginal delivery Chief Complaint 36 weeks gestation o f ; screenin bleeding monitoring NST having contractions due may 4 IUP (Intrauterine ) IUP (Intrauterine ) See order -shot R55 passed out r55 Reason for Visit Status post vaginal delivery Chief Complaint 36 weeks gestation o f ; screenin bleeding monitoring NST having contractions due may 4 IUP (Intrauterine ) IUP (Intrauterine ) See order -shot R55 passed out r55 heart racing, passed out Reason for Visit Status post vaginal delivery Chief Complaint R Foot Injury Chief Complaint Vasovagal Syncope R55;I95.1 Reason for Visit Orthostatic hypotens ion Pre-syncope Chief Complaint Vasovagal Syncope R55;I95.1 vomiting/blood in stool Reason for Visit Orthostatic hypotens ion Pre-syncope Chief Complaint Vasovagal Syncope R55;I95.1 vomiting/blood in stool R55 I95.1 Reason for Visit Orthostatic hypotens ion Pre-syncope Chief Complaint Vasovagal Syncope R55;I95.1 vomiting/blood in stool R55 I95.1 f/u after tilt table Reason for Visit Orthostatic hypotens ion Pre-syncope Orthostatic hypotension Pre-syncope Additional Source Comments INFORMATION SOURCE (unrecogn ized section and content) DATE CREATED AUTHOR 01/24/2020 [facility] DATE CREATED AUTHOR AUTHOR'S ORGANIZ ATION 02/04/2023 [facility] DATE CREATED AUTHOR AUTHOR'S ORGANIZ ATION 09/09/2023 [facility] DATE CREATED AUTHOR AUTHOR'S ORGANIZ ATION 09/30/2023 [facility] EPIC Care Teams (unrecognized sec tion and content) Team Status: Inactive Member Role Status Dates Calli Blanc APRN SHELL WORKER-C Primary Care Provide r Active Dariana Richey MD Attending Provider Active Team Status: Active Member Role Status Caitlyn Blanc APRN SHELL WORKER-C Primary Care Provide r Active Team Status: Inactive Member Role Status Caitlyn Rizvi DO Attending Provider Active Team Status: Active Member Role Status Dates Services [facility] Primary Care Provider Active Team Status: Inactive Member Role Status Caitlyn Rizvi DO Attending Provider Active NON STAFF Primary Care Provider Active Team Status: Inactive Member Role Status Dates Services [facility] Primary Care Provider Active Melo Ritter MD Attending Provider Active Team Status: Inactive Member Role Status Dates Services [facility] Primary Care Provider Active Dariana Richey MD Attending Provider, Referring Prov ider Active Team Status: Inactive Member Role Status Dates Services [facility] Primary Care Provider Active Meghan Rizvi DO Attending Provider Active Team Status: Inactive Member Role Status Dates Services [facility] Primary Care Provider Active Celeste Alanis DO Attending Provider Active Team Status: Inactive Member Role Status Dates Services [facility] Primary Care Provider Active Meghan Rizvi DO Admit Provider, Attending Provid er Active Team Status: Inactive Member Role Status Dates Services [facility] Primary Care Provider Active Calli Blanc APRN SHELL WORKER-C Attending Provider A ctive Team Status: Inactive Member Role Status Dates Services [facility] Primary Care Provider Active Mich Diaz DO Emergency Provider Active Team Status: Inactive Member Role Status Dates Services [facility] Primary Care Provider Active Abhay Hendricks DO Emergency Provider Active Team Status: Inactive Member Role Status Dates Services [facility] Primary Care Provider Active Start: August 10, 2023 End: August 10, 2023 Cuco Nails MD Attending Provider Activ e Start: August 10, 2023 End: August 10, 2023 Team Status: Inactive Member Role Status Dates Services [facility] Primary Care Provider Active Start: August 11, 2023 End: August 11, 2023 Cuco Nails MD Attending Provider Activ e Start: August 11, 2023 End: August 11, 2023 Team Status: Inactive Member Role Status Dates Services [facility] Primary Care Provider Active Start: August 24, 2023 End: August 25, 2023 Sergio Zepeda Jr, MD Emergency Provider Active Start: August 24, 2023 End: August 25, 2023 Team Status: Inactive Member Role Status Dates Services [facility] Primary Care Provider Active Start: September 08, 2023 End: September 08, 2023 Cuco Nails MD Referring Provider Activ e Start: September 08, 2023 End: September 08, 2023 Dannielle Addison MD Attending Provider Active Sta rt: September 08, 2023 End: September 08, 2023 Team Status: Inactive Member Role Status Dates [facility] Primary Care Provider Active Start: September 22, 2023 End: September 22, 2023 Cuco Nails MD Attending Provider Activ e Start: September 22, 2023 End: September 22, 2023 Goals (unrecognized section and content) Goals may be documented in a n alternate sectionGoals may be documented in an alternate sectionGoals may be documented in an alternate sectionGoals may be documented in an alternate sectionGoals may be documented in an alternate sectionGoals may be documented in an alternate sectionGoals may be documented in an alternate sectionGoals may be documented in an alternate sectionGoals may be documented in an alternate sectionGoals may be documented in an alternate sectionGoals may be documented in an alternate sectionGoals may be documented in an alternate sectionGoals may be documented in an alternate section FOR RECORDS PERTAINING TO PATIENTS WHO ARE OR HAVE BEEN ENROLLED IN A CHEMICAL DEPENDENCY/SUBSTANCEABUSE PROGRAM, SOME INFORMATION MAY BE OMITTED. This clinical summary was aggregated from multiple sources. Caution should be exercised in using it in the provision of clinical care. This summary normalizes information from multiple sources, and as a consequence, information in this document may materially change the coding, format and clinical context of patient data. In addition, data may be omitted in some cases. CLINICAL DECISIONS SHOULD BE BASED ON THE PRIMARY CLINICAL RECORDS. [facility] [employer]. provides no warranty or guarantee of the accuracy or completeness of information in this document.
[2023-10-28] MEDS: IBUPROFEN 400 MG TABLET 800 MG PO (20:28)
[2023-10-28 20:48] VITALS: BP 123/68; PULSE 81; O2SAT 100
== END 2023-10-28 20:51 | disposition home or self-care (01) ==
PROVIDERS: Emergency Provider Emergency Medicine
DX: M25.531 Pain in right wrist (principal)
CPT/HCPCS: 73110; 99283

== ENCOUNTER 2023-11-18 21:19 | Emergency (ER) | payer OTHER, SELFPAY ==
--- OUTSIDE RECORDS SUMMARY | 2023-11-18 21:24 | XMS_ITS ---
Patient Summarization (C-CDA 2.1 CCD) Created on: November 18, 2023 TERRELL JENSENYOHANA Renteria : 2000 Sex: Female Author Organization Sample organization Care Team Providers Care Civil Design Specialist Name Role Phone ALEXANDRIA QUEZADA Admitting Unavailable ALEXANDRIA QUEZADA Attending Unavailable [facility] Primary Care Unavaila MARYELLEN Woo Consulting Unavailable [facility] Primary Care Unavaila ROSE Mcdowell Admitting Unavailable ROSE MATTHEW Attending Unavailable JOHN MORALES Consulting Unavailable JOSETTE WELCH Consulting Unavailable CALI Blanc Primary Care Provide r MD Dariana Richey Attending Provider [phone] CALI Blanc Primary Care Provide r MD Dariana Richey Attending Provider DO Meghan Rizvi Attending Provider NON STAFF Primary Care Provider Unavailabl e [facility], Services Primary Care Provider MD Melo Ritter Attending Provider [phone] MD Dariana Richey Referring Provider DO Celeste Alanis Attending Provider [phone] DO Meghan Rizvi Admit Provider MD Dariana Richey Attending Provider CALI Blanc Attending Provider DO Mich Diaz Emergency Provider DO Abhay Hendricks Emergency Provider [phone] [facility] Services Primary Care Provider [phone] DO Mich Diaz Emergency Provider [facility] Services Primary Care Provider MD Cuco Nails Attending Provider MD Sergio Zepeda Jr Emergency Provider MD Cuco Nails Referring Provider MD Dannielle Addison Attending Provider SANDEE LOVE Attending Unavailable Diaz, Mich Admitting Unavailable Diaz Mich Attending Unavailable [facility], Services Primary Care Unavaila ble Abhay Hendricks Admitting Unavailable KeAbhay sauer Attending Unavailable [facility], Services Primary Care Unavaila ble Diaz, Mich Admitting Unavailable Diaz, Mich Attending Unavailable [facility], Services Primary Care Unavaila ble [facility], Services Primary Care Unavaila ble Koromia, Cuco Gauthier Admitting [facility] [place] Koromtamanna, Cuco Gauthier Attending [facility], Services Primary Care Unavaila ble Koromia, Cuco Gauthier Admitting Unavai lable Koromia, Cuco Gauthier Attending [facility] Dannielle Addison Admitting Unavailable Dannielle Addison Attending Unavailable [facility], Services Primary Care Unavaila ble Gracieomtamanna, Cuco Gauthier Referring [facility], Services Primary Care Unavaila ble Calli Blanc Admitting Unavailab Calli Vargas Attending Unavailab Calli Vargas Attending Unavailab le [facility], Services Primary Care Unavaila ble Calli Blanc Admitting Unavailab Sergio Almeida Jr Admitting Unavailable Sergio Zepeda Jr Attending Unavailable [facility], Services Primary Care Unavaila ble Encounters Encounter Date Encounter Type Care Provider Facility Start: 09-29-2023 End: 09-29-2023 ambulatory SANDEE LOVE Not Available Start: 09-22-2023 End: 09-22-2023 ambulatory Services [facility] Work Phone: [facility] Work Phone: Start: 09-22-2023 End: 09-22-2023 Patient encounter procedure Services [facility] Work Phone: [facility] Cardiology Work Phone: Start: 09-08-2023 End: 09-08-2023 Patient encounter procedure Services [facility] Work Phone: [facility]Electrodiagnostics Work Phone: Start: 09-08-2023 End: 09-08-2023 ambulatory Services [facility] Work Phone: [facility] Work Phone: Start: 08-24-2023 End: 08-25-2023 Emergency department patient visit Services [facility] Work Phone: [facility]Emergency Room Work Phone: Start: 08-11-2023 End: 08-11-2023 Patient encounter procedure Services [facility] Work Phone: [facility] [place] Work Phone: Start: 08-11-2023 End: 08-11-2023 ambulatory Services [facility] Work Phone: [facility] Work Phone: Start: 08-10-2023 End: 08-10-2023 ambulatory Services [facility] Facility:[facility] Start: 08-10-2023 End: 08-10-2023 Patient encounter procedure Services [facility] Work Phone: [facility] Cardiology Work Phone: Start: 03-18-2023 End: 03-19-2023 Emergency department patient visit Services [facility] Work Phone: [facility]-Emergency Room Work Phone: Start: 12-25-2022 ambulatory Facility:[facility] Start: 12-22-2022 ambulatory Facility:[id number] Start: 11-24-2022 End: 11-24-2022 Emergency department patient visit DO Meghan Natabhijitawira Work Phone: [facility]Emer[facility] Work Phone: Start: 11-21-2022 End: 11-21-2022 Patient encounter procedure DO Meghan Nataprawira Work Phone: [facility]Electro[facility]ostics Work Phone: Start: 11-21-2022 End: 11-21-2022 ambulatory NON STAFF [facility] Work Phone: Start: 11-19-2022 End: 11-19-2022 Emergency department patient visit DO Meghan Rizvi Work Phone: [facility]-Emergency Room Work Phone: Start: 11-10-2022 End: 11-10-2022 Patient encounter procedure DO Meghan Rizvi Work Phone: [facility] [place] Work Phone: Start: 11-10-2022 End: 11-10-2022 ambulatory Calli Blanc Facility:[facility] Start: 10-04-2022 End: 10-04-2022 ambulatory UNDERGROUND UTILITY LOCATOR Calli Blanc Work Phone: [facility] Work Phone: Start: 10-04-2022 End: 10-04-2022 Patient encounter procedure UNDERGROUND UTILITY LOCATOR Calli Blanc Work Phone: [facility] [place] Work Phone: Start: 10-01-2022 End: 10-03-2022 Evaluation and management of inpatient UNDERGROUND UTILITY LOCATOR Calli Blanc Work Phone: [facility] [place] Work Phone: Start: 09-28-2022 End: 09-28-2022 ambulatory UNDERGROUND UTILITY LOCATOR Calli Blanc Work Phone: [facility] Work Phone: Start: 09-28-2022 End: 09-28-2022 Patient encounter procedure UNDERGROUND UTILITY LOCATOR Calli Blanc Work Phone: [facility] - [facility] Start: 09-28-2022 End: 09-28-2022 ambulatory UNDERGROUND UTILITY LOCATOR Calli K Myerholtz Work Phone: [facility] Work Phone: Start: 09-28-2022 End: 09-28-2022 Patient encounter procedure UNDERGROUND UTILITY LOCATOR Calli Myerholtz Work Phone: [facility] Labor - O/P Start: 09-24-2022 End: 09-24-2022 ambulatory UNDERGROUND UTILITY LOCATOR Calli K Myerholtz Work Phone: [facility] Work Phone: Start: 09-24-2022 End: 09-24-2022 Patient encounter procedure UNDERGROUND UTILITY LOCATOR Calli Myerholtz Work Phone: [facility] Labor - O/P Start: 09-19-2022 End: 09-19-2022 ambulatory UNDERGROUND UTILITY LOCATOR Calli K Myerholtz Work Phone: [facility] Work Phone: Start: 09-19-2022 End: 09-19-2022 Patient encounter procedure UNDERGROUND UTILITY LOCATOR Calli Myerholtz Work Phone: [facility] Labor - O/P Start: 09-16-2022 End: 09-16-2022 ambulatory UNDERGROUND UTILITY LOCATOR Calli K Myerholtz Work Phone: [facility] Work Phone: Start: 09-16-2022 End: 09-16-2022 Patient encounter procedure UNDERGROUND UTILITY LOCATOR Calli Myerholtz Work Phone: [facility] Labor - O/P Start: 09-09-2022 End: 09-09-2022 ambulatory UNDERGROUND UTILITY LOCATOR Calli K Myerholtz Work Phone: [facility] Work Phone: Start: 09-09-2022 End: 09-09-2022 Departed Referred UNDERGROUND UTILITY LOCATOR Clali Myerholtz Work Phone: [facility] [place] Work Phone: Start: 07-17-2022 End: 07-17-2022 ambulatory CALI Jesusine Parth Jayashree Work Phone: [facility] Work Phone: Start: 07-17-2022 End: 07-17-2022 Patient encounter procedure CALI Jesusshai Blnac Work Phone: [facility] [place] Work Phone: Start: 01-20-2020 End: 01-20-2020 Patient encounter procedure [facility] Facility:[facility] Start: 07-30-2019 End: 07-30-2019 Patient encounter procedure [facility] Facility: Goals Date Patient Goal Desired Activity /State Medications Current Medications Medication Drug Class(es) Dates [...] hours Ibuprofen Discontinued 600 MG PO Q6H October 01, 2022 12:00am November 19, 2022 8:21pm ondansetron 4 mg disintegrating oral tablet (3 sources) Serotonin-3 Receptor Antagonist Start: 08-24-2023 End: 09-22-2023 take 4 mg by mouth every eight hours Ondansetron Discontinued 4 MG PO Q8H August 24, 2023 12:00am September 22, 2023 9:17am No.144-Folic Acid () 400 mcg Tablet,Chewable (14 sources) Start: 09-24-2022 End: 11-19-2022 No.144-Folic Acid () 400 mcg Tablet,Chewable Discontinued TAB PO September 24, 2022 12:00am November 19, 2022 8:21pm Start: 09-24-2022 No.14 4-Folic Acid () 400 mcg Tablet,Chewable Active TAB PO September 24, 2022 12:00am Payers Date Payer Category Payer Self-pay [id number] 2017 Medicaid [id number] 60 [id number] 2000 Unknown [id number] 2.16.84 [id number] 2000 Unknown [id number] 2.16.84 [id number] 2000 Unknown [id number] 2.16. [id number] 2000 Unknown [id number] 2.16.84 [id number] 1959 Unknown [id number] Unknown [id number] 2.16.8 [id number] Unknown [id number] 2.16.8 [id number] Unknown [id number] 2.16.8 [id number] Unknown [id number] 2.16.8 [id number] Unknown [id number] 2.16.8 [id number] Unknown [id number] 2.16.8 [id number] Unknown [id number] 2.16.8 [id number] Unknown [id number] 2.16.8 [id number] Unknown [id number] 2.16.8 [id number] Plan of Treatment Date Care Activity Detail Author Start: 08-24-2023 Bacteria identified in Urine by Culture [facility] Start: 03-18-2023 X-ray of right ankle XR ankle RT min 3V* [facility] Start: 03-18-2023 X-ray of right foot XR foot RT min 3V* [facility] Start: 03-18-2023 XR Ankle - right GE 3 Views [facility] Start: 03-18-2023 XR Foot - right GE 3 Views [facility] Start: 11-24-2022 CT angiography of thorax CT angio chest PE protocol [facility] Start: 11-24-2022 CT Chest [facility] Start: 11-24-2022 Bacteria identified in Urine by Culture [facility] Start: 11-19-2022 Bacteria identified in Urine by Culture [facility] Start: 11-19-2022 Urine culture Urine Culture [facility] Start: 10-04-2022 [facility] Start: 10-03-2022 [facility] Start: 10-02-2022 Referral to Lace Mender [facility] Start: 10-01-2022 Division of Female Perineum, External Approach Division of Female Perineum, External Approach [facility] Start: 10-01-2022 Drainage of Amniotic Fluid, Therapeutic from Products of Conception, Via Natural or Artificial Opening Drainage of Amniotic Fluid, Therapeutic from Products of Conception, Via Natural or Artificial Opening [facility] Start: 10-01-2022 Extraction of Products of Conception, Low Forceps, Via Natural or Artificial Opening Extraction of Products of Conception, Low Forceps, Via Natural or Artificial Opening [facility] Start: 10-01-2022 Repair Perineum Skin, External Approach Repair Perineum Skin, External Approach [facility] Start: 09-28-2022 Hospital admission [facility] Start: 09-28-2022 End: 09-28-2022 [facility] Start: 09-28-2022 Bacteria identified in Urine by Culture Urine Culture [facility] Start: 09-28-2022 [facility] Start: 09-28-2022 [facility] admission [facility] Start: 09-24-2022 [facility] Start: 09-19-2022 [facility] Start: 09-16-2022 [facility] Start: 09-16-2022 Hospital admission [facility] Start: 09-09-2022 Group B Streptococcus Culture Group B Streptococcus Culture [facility] Patient Education [facility] Work Phone: Patient referral [facility] Work Phone: Tilt table test [facility] Problems Active Problems Problem Classification Problem Date [...] Vasovagal syncope; Translations: [Syncope and collapse] Onset: 11-19-2022 11-19-2022 Episodic Unclassified (1 source) Pain in right foot; Translations: [Pain in right foot] Onset: 03-18-2023 Past or Other Problems Problem Classification Problem Date Documented Da te Episodic/Chronic Other ear and sense organ disorders (3 sources) Otalgia, right ear; Translations: [OTALGIA RIGHT EAR] Onset: 07-30-2019 Episodic Other ear and sense organ disorders (1 source) Impacted cerumen, right ear; Translations: [IMPACTED CERUMEN RIGHT EAR] Onset: 08-01-2019 Episodic Procedures Date Procedure Procedure Detail Performing Clinician Start: 08-24-2023 Urine culture Services [facility] Work Phone: Start: 11-19-2022 Urine culture DO Meghan jung Work Phone: Start: 09-28-2022 Urine culture CALI mack Jayashree Work Phone: Start: 09-09-2022 Streptococcus agalac tiae culture CALI Mccurdy Jayashree Work Phone: Results Test Name Value Interpretation Reference Range Facility Alanine aminotransferase [En zymatic activity/volume] in Serum or PlasmaOrdered By: Terry Snowden on 08-24-2023 ALT [Catalytic activity/Vol] 11 U/L Normal 7-52 [facility] Comment on above: Performed By: #### H EPATIC, BMP, CBC, LIPASE ####[place] [id number] [place] [id number] [facility] Albumin [Mass/volume] in Ser um or Plasma by Bromocresol green (BCG) dye binding methoOrdered By: Terry Snowden on 08-24-2023 Albumin BCG dye [Mass/Vol] 4.5 g/dL 3.5-5.7 [facility] Alkaline phosphatase [Enzyma tic activity/volume] in Serum or PlasmaOrdered By: Terry Snowden on 08-24-2023 ALP [Catalytic activity/Vol] 33 U/L Low 34-104 [facility] Comment on above: Performed By: #### H EPATIC, BMP, CBC, LIPASE ####[facility] [id number] [place] [id number] [facility] Aspartate aminotransferase [ Enzymatic activity/volume] in Serum or PlasmaOrdered By: Terry Snowden on 08-24-2023 AST [Catalytic activity/Vol] 15 U/L Normal 13-39 [facility] Comment on above: Performed By: #### H EPATIC, BMP, CBC, LIPASE ####[facility] [id number] [place] [address] [facility] Automated basophil %Ordered By: Terry Snowden on 08-24-2023 Basophils/100 WBC (Bld) 1.7 % Normal . [facility] Comment on above: Performed By: #### H EPATIC, BMP, CBC, LIPASE ####[address] Automated basophil countOrde red By: Terry Snowden on 08-24-2023 Basophils (Bld) [#/Vol] 0.2 10*3/uL Normal 0.0-0.2 [facility] Comment on above: Result Comment: PERF ORMED BY: [facility] [address] [place] [address] PATHOLOGIST EARLY CHILDHOOD COORDINATOR KISHA CHING M.D. Performed By: #### H EPATIC, BMP, CBC, LIPASE ####[address] Automated blood monocyte cou ntOrdered By: Terry Snowden on 08-24-2023 Monocytes (Bld) [#/Vol] 0.9 10*3/uL High 0.0-0.8 [facility] Comment on above: Performed By: #### H EPATIC, BMP, CBC, LIPASE ####[address] Automated eosinophil %Ordere d By: Terry Snowden on 08-24-2023 Eosinophils/100 WBC (Bld) 0.2 % Normal . [facility] Comment on above: Performed By: #### H EPATIC, BMP, CBC, LIPASE ####[address] Automated eosinophil countOr dered By: Terry Snowden on 08-24-2023 Eosinophils (Bld) [#/Vol] 0.0 10*3/uL Normal 0.0-0.45 [facility] Comment on above: Performed By: #### H EPATIC, BMP, CBC, LIPASE ####[address] Automated erythrocytes count in urine sediment (number/area)Ordered By: Terry Snowden on 08-24-2023 RBC Auto (Urine sed) [#/Area] 50-100 [HPF] 0-4 [facility] Automated leukocytes count i n urine sediment (number/area)Ordered By: Terry Snowden on 08-24-2023 WBC Auto (Urine sed) [#/Area] 10-19 [HPF] 0-4 [facility] Automated monocyte %Ordered By: Terry Snowden on 08-24-2023 Monocytes/100 WBC (Bld) 9.8 % Normal . [facility] Comment on above: Performed By: #### H EPATIC, BMP, CBC, LIPASE ####[place] [id number] Automated neutrophil %Ordere d By: Terry Snowden on 08-24-2023 Neutrophils/100 WBC (Bld) 53.6 % Normal . [facility] Comment on above: Performed By: #### H EPATIC, BMP, CBC, LIPASE ####[place] [id number] Automated urine color determ inationOrdered By: Terry Snowden on 08-24-2023 Color (U) Dark yellow Critically abnormal Yellow [facility] Comment on above: Order Comment: Name Collection Type:: Clean-Voided Midstream Performed By: #### A DDONUAPLUS, UHCG, CUU #### [facility] [address] Basic Metabolic Panelon 07-30 Creatinine Clr Calc Pharmacy 72.44 Normal [facility] Comment on above: Performed By: #### H EPATIC, BMP, CBC, LIPASE ####[address] GFR/1.73 sq M.predicted MDRD (S/P/Bld) [Vol rate/Area] mL/min/{1.73_m2} Normal [facility] Comment on above: Performed By: #### H EPATIC, BMP, CBC, LIPASE ####[place] [id number] Bilirubin Test strip Ql (U)O rdered By: Terry Snowden on 08-24-2023 Bilirubin Ql (U) 1+ Negative [facility] Bilirubin.direct [Mass/volum e] in Serum or PlasmaOrdered By: Terry Snowden on 08-24-2023 Bilirubin.direct [Mass/Vol] 0.10 mg/dL 0.03-0.18 [facility] Bilirubin.total [Mass/volume ] in Serum or PlasmaOrdered By: Terry Snowden on 08-24-2023 Bilirubin [Mass/Vol] 0.7 mg/dL Normal 0.3-1.0 [facility] Comment on above: Performed By: #### H EPATIC, BMP, CBC, LIPASE ####[address] Calcium [Mass/volume] in Ser um or PlasmaOrdered By: Terry Snowden on 08-24-2023 Calcium [Mass/Vol] 9.8 mg/dL Normal 8.6-10.3 [facility] Comment on above: Performed By: #### H EPATIC, BMP, CBC, LIPASE ####[address] Carbon dioxide, total [Moles /volume] in Serum or PlasmaOrdered By: Terry Snowden on 08-24-2023 CO2 [Moles/Vol] 20.4 mmol/L Low 21.0-31.0 [facility] Comment on above: Performed By: #### H EPATIC, BMP, CBC, LIPASE ####[address] Chloride [Moles/volume] in S di or PlasmaOrdered By: Terry Snowden on 08-24-2023 Chloride [Moles/Vol] 106 mmol/L Normal 98-107 [facility] Comment on above: Performed By: #### H EPATIC, BMP, CBC, LIPASE ####[address] Complete Blood Count Auto Di ffon 08-24-2023 Mean Corpuscular HGB Conc 32.8 g/dL Normal 32.0-35.0 [facility] Comment on above: Performed By: #### H EPATIC, BMP, CBC, LIPASE ####[address] Monocytes/100 WBC (Bld) 16.99 % Normal 0.00-20.00 [facility] Comment on above: Performed By: #### H EPATIC, BMP, CBC, LIPASE ####[facility] NRBC% 0.1 /100{WBC} Normal 0-0.5 [facility] Comment on above: Performed By: #### H EPATIC, BMP, CBC, LIPASE ####[address] Creatinine [Mass/volume] in Serum or PlasmaOrdered By: Terry Snowden on 08-24-2023 Creatinine [Mass/Vol] 1.00 mg/dL Normal 0.60-1.20 [facility] Comment on above: Performed By: #### H EPATIC, BMP, CBC, LIPASE ####[address] Dipstick and Microscopicon 0 08-24-2023 Appearance (U) Clear Normal Clear [facility] Comment on above: Order Comment: Name Collection Type:: Clean-Voided Midstream Performed By: #### A DDONUAPLUS, UHCG, CUU #### [address] Bacteria,Urine None Seen Normal None Seen [facility] Comment on above: Order Comment: Name Collection Type:: Clean-Voided Midstream Performed By: #### A DDONUAPLUS, UHCG, CUU #### [address] Bilirubin,Urine 1+ High Negative [facility] Comment on above: Order Comment: Name Collection Type:: Clean-Voided Midstream Performed By: #### A DDONUAPLUS, UHCG, CUU #### [address] Glucose Ql (U) Normal Normal Normal [facility] Comment on above: Order Comment: Name Collection Type:: Clean-Voided Midstream Performed By: #### A DDONUAPLUS, UHCG, CUU #### [address] Hyaline Casts,Urine 0-8 Normal 0-8 [facility] Comment on above: Order Comment: Name Collection Type:: Clean-Voided Midstream Performed By: #### A DDONUAPLUS, UHCG, CUU #### [address] Ketones Ql (U) 2+ High Negative [facility] Comment on above: Order Comment: Name Collection Type:: Clean-Voided Midstream Performed By: #### A DDONUAPLUS, UHCG, CUU #### [address] Leukocyte esterase Test strip Ql (U) 1+ High Negative [facility] Comment on above: Order Comment: Name Collection Type:: Clean-Voided Midstream Performed By: #### A DDONUAPLUS, UHCG, CUU #### [address] Nitrite,Urine Negative Normal Negative [facility] Comment on above: Order Comment: Name Collection Type:: Clean-Voided Midstream Performed By: #### A DDONUAPLUS, UHCG, CUU #### [address] Occult Blood,Urine 3+ High Negative [facility] Comment on above: Order Comment: Name Collection Type:: Clean-Voided Midstream Performed By: #### A DDONUAPLUS, UHCG, CUU #### [address] RBC,Urine 50-100 High 0-4 [facility] Comment on above: Order Comment: Name Collection Type:: Clean-Voided Midstream Performed By: #### A DDONUAPLUS, UHCG, CUU #### [address] Specificy Colon,Urine 1.033 High 1.001-1.030 [facility] Comment on above: Order Comment: Name Collection Type:: Clean-Voided Midstream Performed By: #### A DDONUAPLUS, UHCG, CUU #### [address] Squamous Epithelial Cell,Urine 0-1 Normal 0-2 [facility] Comment on above: Order Comment: Name Collection Type:: Clean-Voided Midstream Performed By: #### A DDONUAPLUS, UHCG, CUU #### [address] Urobilinogen,Urine Normal Normal Normal [facility] Comment on above: Order Comment: Name Collection Type:: Clean-Voided Midstream Performed By: #### A DDONUAPLUS, UHCG, CUU #### [address] WBC,Urine 10-19 High 0-4 [facility] Comment on above: Order Comment: Name Collection Type:: Clean-Voided Midstream Performed By: #### A DDONUAPLUS, UHCG, CUU #### [address] Erythrocyte distribution wid th [Ratio] by Automated countOrdered By: Terry Snowden on 08-24-2023 Erythrocyte distribution width (RBC) [Ratio] 14.1 % Normal 11.9-15.3 [facility] Comment on above: Performed By: #### H EPATIC, BMP, CBC, LIPASE ####[address] Erythrocytes [#/volume] in B lood by Automated countOrdered By: Terry Snowden on 08-24-2023 RBC (Bld) [#/Vol] 4.51 10*6/uL Normal 3.60-5.00 [facility] Comment on above: Performed By: #### H EPATIC, BMP, CBC, LIPASE ####[address] Glucose [Mass/volume] in Ser um or PlasmaOrdered By: Terry Snowden on 08-24-2023 Glucose [Mass/Vol] 78 mg/dL Normal 70-100 [facility] Comment on above: ADA recommended refe rence rangeRandom Glucose Reference Range is dependent on time and content of last meal. Glucose of more than 200 mg/dL in a nonstressed, ambulatory subject supports the diagnosis of Diabetes Mellitus. Result Comment: [place] Glucose Reference Range is dependent on time and content of last meal. Glucose of more than 200 mg/dL in a nonstressed, ambulatory subject supports the diagnosis of Diabetes Mellitus. ADA recommended reference range Performed By: #### H EPATIC, BMP, CBC, LIPASE ####[facility] HCG ( test) IA.rapi d Ql (U)Ordered By: Terry Snowden on 08-24-2023 HCG ( test) Ql (U) Negative [facility] HCG,Urineon 08-24-2023 Beta HCG ( test) Ql (U) Negative Normal [facility] Comment on above: Order Comment: Name Collection Type:: Clean-Voided Midstream Result Comment: PERF ORMED BY: [facility] [address] [place] [address] PATHOLOGIST EARLY CHILDHOOD COORDINATOR KISHA CHING M.D. Performed By: #### A HIPOLITO, HEAVENLY, SHAMEKAU #### [address] Hematocrit [Volume Fraction] of Blood by Automated countOrdered By: Terry Snowden on 08-24-2023 Hematocrit (Bld) [Volume fraction] 39.8 % Normal 34.0-46.4 [facility] Comment on above: Performed By: #### H EPATIC, BMP, CBC, LIPASE ####[place] [id number] [address] Hemoglobin [Mass/volume] in BloodOrdered By: Terry Snowden on 08-24-2023 Hemoglobin (Bld) [Mass/Vol] 13.1 g/dL Normal 11.8-15.4 [facility] Comment on above: Performed By: #### H EPATIC, BMP, CBC, LIPASE ####[place] [id number] [address] Hepatic Panelon 08-24-2023 Albumin [Mass/Vol] 4.5 g/dL Normal 3.5-5.7 [facility] Comment on above: Performed By: #### H EPATIC, BMP, CBC, LIPASE ####[place] [id number] [address] Bilirubin,Indirect 0.6 mg/dL Normal [facility] Comment on above: Performed By: #### H EPATIC, BMP, CBC, LIPASE ####[address] Bilirubin.indirect [Mass/Vol] 0.10 mg/dL Normal 0.03-0.18 [facility] Comment on above: Performed By: #### H BOLA, BMP, CBC, LIPASE ####[address] Ketones Auto test strip (U) [Mass/Vol]Ordered By: Terry Snowden on 08-24-2023 Ketones (U) [Mass/Vol] 2+ Negative [facility] - UrinalysisOrder ed By: Terry Snowden on 08-24-2023 Hyaline casts LM Ql (Urine sed) 0-8 [LPF] 0-8 [facility] Leukocytes [#/volume] correc maryam for nucleated erythrocytes in Blood by Automated counOrdered By: Terry Snowden on 08-24-2023 WBC corrected for nucl RBC Auto (Bld) [#/Vol] 9.0 10*3/uL 3.8-11.6 [facility] Leukocytes [#/volume] in Blo od by Automated countOrdered By: Terry Snowden on 08-24-2023 WBC (Bld) [#/Vol] 9.0 10*3/uL Normal 3.8-11.6 [facility] Comment on above: Performed By: #### H EPATIC, BMP, CBC, LIPASE ####[address] Lipase [Enzymatic activity/v olume] in Serum or PlasmaOrdered By: Terry Snowden on 08-24-2023 Lipase [Catalytic activity/Vol] 21.0 U/L Normal 11.0-82.0 [facility] Comment on above: Result Comment: PERF ORMED BY: [facility] [address] [place] [address] PATHOLOGIST EARLY CHILDHOOD COORDINATOR KISHA CHING M.D. Performed By: #### H EPATIC, BMP, CBC, LIPASE ####[address] Lymphocytes [#/volume] in Bl ood by Automated countOrdered By: Terry Snowden on 08-24-2023 Lymphocytes (Bld) [#/Vol] 3.1 10*3/uL Normal 1.00-4.8 [facility] Comment on above: Performed By: #### H EPATIC, BMP, CBC, LIPASE ####[address] Lymphocytes/100 leukocytes i n Blood by Automated countOrdered By: Terry Snowden on 08-24-2023 Lymphocytes/100 WBC (Bld) 34.7 % Normal . [facility] Comment on above: Performed By: #### H EPATIC, BMP, CBC, LIPASE ####[address] MCH [Entitic mass] by Automa maryam countOrdered By: Terry Snowden on 08-24-2023 MCH (RBC) [Entitic mass] 29.0 pg Normal 24.7-34.3 [facility] Comment on above: Performed By: #### H EPATIC, BMP, CBC, LIPASE ####[address] MCHC Auto (RBC) [Mass/Vol]Or dered By: Terry Snowden on 08-24-2023 MCHC (RBC) [Mass/Vol] 32.8 g/dL 32.0-35.0 [facility] MCV [Entitic volume] by Auto mated countOrdered By: Terry Snowden on 08-24-2023 MCV (RBC) [Entitic vol] 88.3 fL Normal 80-100 [facility] Comment on above: Performed By: #### H EPATIC, BMP, CBC, LIPASE ####[facility] Monocyte distribution width [Entitic volume] in Blood by AutomatedOrdered By: Terry Snowden on 08-24-2023 Monocyte distribution width Auto (Bld) [Entitic vol] 16.99 % 0.00-20.00 [facility] Neutrophils [#/volume] in Bl ood by Automated countOrdered By: Terry Snowden on 08-24-2023 Neutrophils (Bld) [#/Vol] 4.8 10*3/uL Normal 1.8-7.7 [facility] Comment on above: Performed By: #### H EPATIC, BMP, CBC, LIPASE ####[place] [id number] [address] Nitrite Test strip Ql (U)Ord ered By: Terry Snowden on 08-24-2023 Nitrite Ql (U) Negative Negative [facility] No Panel InformationOrdered By: Terry Snowden on 08-24-2023 Estimated GFR (CKD-EPI) > 60.0 mL/Min [facility] Creatinine Clearance (Chem 72.44 [facility] Nucleated erythrocytes [Pres ence] in Blood by Automated countOrdered By: Terry Snowden on 08-24-2023 Nucleated RBC Auto Ql (Bld) 0.1 /100{WBC} 0-0.5 [facility] Platelet mean volume [Entiti c volume] in Blood by Automated countOrdered By: Terry Snowden on 08-24-2023 Platelet mean volume (Bld) [Entitic vol] 9.9 fL Normal 6.3-10.7 [facility] Comment on above: Performed By: #### H EPATIC, BMP, CBC, LIPASE ####[place] [id number] Platelets [#/volume] in Bloo d by Automated countOrdered By: Terry Snowden on 08-24-2023 Platelets (Bld) [#/Vol] 258 10*3/uL Normal 150-450 [facility] Comment on above: Performed By: #### H EPATIC, BMP, CBC, LIPASE ####[facility] [address] Potassium [Moles/volume] in Serum or PlasmaOrdered By: Terry Snowden on 08-24-2023 Potassium [Moles/Vol] 4.4 mmol/L Normal 3.5-5.1 [facility] Comment on above: Performed By: #### H EPATIC, BMP, CBC, LIPASE ####[address] Protein [Mass/volume] in Ser um or PlasmaOrdered By: Terry Snowden on 08-24-2023 Protein [Mass/Vol] 7.7 g/dL Normal 6.4-8.9 [facility] Comment on above: Performed By: #### H EPATIC, BMP, CBC, LIPASE ####[address] Serum globulin measurement b y calculation (mass/volume)Ordered By: Terry Snowden on 08-24-2023 Globulin (S) [Mass/Vol] 3.2 g/dL Normal [facility] Comment on above: Performed By: #### H EPATIC, BMP, CBC, LIPASE ####[address] Serum or plasma albumin/glob ulin mass ratioOrdered By: Terry Snowden on 08-24-2023 Albumin/Globulin [Mass ratio] 1.4 {ratio} Normal [facility] Comment on above: Performed By: #### H EPATIC, BMP, CBC, LIPASE ####[address] Serum or plasma anion gap de terminationOrdered By: Terry Snowden on 08-24-2023 Anion gap [Moles/Vol] 15.0 mmol/L Normal 6.0-15.0 [facility] Comment on above: Performed By: #### H EPATIC, BMP, CBC, LIPASE ####[address] Serum or plasma non-glucuron idated bilirubin measurement (mass/volume)Ordered By: Terry Snowden on 08-24-2023 Bilirubin.indirect [Mass/Vol] 0.6 mg/dL [facility] Sodium [Moles/volume] in Ser um or PlasmaOrdered By: Terry Snowden on 08-24-2023 Sodium [Moles/Vol] 137 mmol/L Normal 136-145 [facility] Comment on above: Performed By: #### H EPATIC, BMP, CBC, LIPASE ####[place] [address] [place] [id number] [facility] Specific gravity Auto test s trip (U) [Rel density]Ordered By: Terry Snowden on 08-24-2023 Specific gravity (U) [Rel density] 1.033 1.001-1.030 [facility] Squamous epithelial cells de tection in urine sediment by light microscopyOrdered By: Terry Snowden on 08-24-2023 Epithelial cells.squamous LM Ql (Urine sed) 0-1 [HPF] 0-2 [facility] Urea nitrogen [Mass/volume] in Serum or PlasmaOrdered By: Terry Snowden on 08-24-2023 Urea nitrogen [Mass/Vol] 13 mg/dL Normal 7-25 [facility] Comment on above: Performed By: #### H EPATIC, BMP, CBC, LIPASE ####[place] [id number] [address] Urine Cultureon 08-24-2023 Bacteria identified Cx Nom (U) 50,000 colonies/ml mixed bacterial skin contaminants 2 Days PERFORMED BY: [facility] [address] [place] [address] PATHOLOGIST EARLY CHILDHOOD COORDINATOR KISHA CHING M.D. Normal [facility] Comment on above: Performed By: #### A DDONUAPLUS, UHCG, CUU ####[address] Urine bacteria detection by automated methodOrdered By: Terry Snowden on 08-24-2023 Bacteria Auto Ql (U) None seen None Seen [facility] Urine clarity by refractomet ry automatedOrdered By: Terry Snowden on 08-24-2023 Clarity Refractometry automated (U) Clear Clear [facility] Urine culture routineOrdered By: Terry Snowden on 08-24-2023 Bacteria identified Cx Nom (U) 2 Days [facility] Urine glucose measurement by automated test strip (mass/volume)Ordered By: Terry Snowden on 08-24-2023 Glucose Auto test strip (U) [Mass/Vol] Normal mg/dL Normal [facility] Urine hemoglobin detection b y automated test stripOrdered By: Terry Snowden on 08-24-2023 Hemoglobin Auto test strip Ql (U) 3+ Negative [facility] Urine leukocyte esterase det ection by automated test stripOrdered By: Terry Snowden on 08-24-2023 Leukocyte esterase Auto test strip Ql (U) 1+ Negative [facility] Urine pH measurement by auto mated test stripOrdered By: Terry Snowden on 08-24-2023 pH (U) 6.0 [pH] Normal 5.0-9.0 [facility] Comment on above: Order Comment: Name Collection Type:: Clean-Voided Midstream Performed By: #### A DDONUAPLUS, UHCG, CUU #### [facility] [address] Urine protein measurement by automated test strip (mass/volume)Ordered By: Terry Snowden on 08-24-2023 Protein (U) [Mass/Vol] 100 mg/dL High Negative [facility] Comment on above: Order Comment: Name Collection Type:: Clean-Voided Midstream Performed By: #### A DDONUAPLUS, UHCG, CUU #### [facility] [address] [place] [address] [place] Urobilinogen Auto test strip (U) [Mass/Vol]Ordered By: Terry Snowden on 08-24-2023 Urobilinogen (U) [Mass/Vol] Normal mg/dL Normal [facility] Alanine aminotransferase [En zymatic activity/volume] in Serum or PlasmaOrdered By: Cuco Nails on 08-11-2023 ALT [Catalytic activity/Vol] 14 U/L Normal 7-52 [facility] Comment on above: Performed By: #### T SH3 wRFLX, T4F, CMP ####[facility] [address] [place] [address] [place] Albumin [Mass/volume] in Ser um or Plasma by Bromocresol green (BCG) dye binding methoOrdered By: Cuco Nails on 08-11-2023 Albumin BCG dye [Mass/Vol] 4.5 g/dL 3.5-5.7 [facility] Alkaline phosphatase [Enzyma tic activity/volume] in Serum or PlasmaOrdered By: Cuco Nails on 08-11-2023 ALP [Catalytic activity/Vol] 35 U/L Normal 34-104 [facility] Comment on above: Performed By: #### T MELANY SenX, T4F, CMP ####[place] [address] [place] [id number] [facility] Aspartate aminotransferase [ Enzymatic activity/volume] in Serum or PlasmaOrdered By: Cuco Nails on 08-11-2023 AST [Catalytic activity/Vol] 12 U/L Low 13-39 [facility] Comment on above: Performed By: #### T MELANY Mg T4F, CMP ####[place] [address] [place] [id number] [facility] Bilirubin.total [Mass/volume ] in Serum or PlasmaOrdered By: Cuco Nails on 08-11-2023 Bilirubin [Mass/Vol] 0.7 mg/dL Normal 0.3-1.0 [facility] Comment on above: Performed By: #### T MELANY Mg, T4F, CMP ####[place] [id number] [facility] Calcium [Mass/volume] in Ser um or PlasmaOrdered By: Cuco Nails on 08-11-2023 Calcium [Mass/Vol] 9.9 mg/dL Normal 8.6-10.3 [facility] Comment on above: Performed By: #### T MELANY Mg T4F, CMP ####[place] [address] [place] [id number] [place] Carbon dioxide, total [Moles /volume] in Serum or PlasmaOrdered By: Cuco Nails on 08-11-2023 CO2 [Moles/Vol] 28.0 mmol/L Normal 21.0-31.0 [facility] Comment on above: Performed By: #### T SH3 SujeyFLX, T4F, CMP ####[place] [address] [place] [address] [facility] Chloride [Moles/volume] in S di or PlasmaOrdered By: Cuco Nails on 08-11-2023 Chloride [Moles/Vol] 105 mmol/L Normal 98-107 [facility] Comment on above: Performed By: #### T SH3 SujeyFLX, T4F, CMP ####[address] [address] [facility] Comprehensive Metabolic Pane obey 08-11-2023 Albumin [Mass/Vol] 4.5 g/dL Normal 3.5-5.7 [facility] Comment on above: Performed By: #### T MELANY Mg, T4F, CMP ####[address] [address] [facility] GFR/1.73 sq M.predicted MDRD (S/P/Bld) [Vol rate/Area] mL/min/{1.73_m2} Normal [facility] Comment on above: Performed By: #### T SH3 SujeyFLX, T4F, CMP ####[place] [id number] [facility] Creatinine [Mass/volume] in Serum or PlasmaOrdered By: Cuco Nails on 08-11-2023 Creatinine [Mass/Vol] 0.89 mg/dL Normal 0.60-1.20 [facility] Comment on above: Performed By: #### T SH3 SujeyFLX, T4F, CMP ####[address] [address] [facility] Glucose [Mass/volume] in Ser um or PlasmaOrdered By: Cuco Nails on 08-11-2023 Glucose [Mass/Vol] 76 mg/dL Normal 70-100 [facility] Comment on above: ADA recommended refe rence rangeRandom Glucose Reference Range is dependent on time and content of last meal. Glucose of more than 200 mg/dL in a nonstressed, ambulatory subject supports the diagnosis of Diabetes Mellitus. Result Comment: [place] Glucose Reference Range is dependent on time and content of last meal. Glucose of more than 200 mg/dL in a nonstressed, ambulatory subject supports the diagnosis of Diabetes Mellitus. ADA recommended reference range Performed By: #### T MELANY Mg T4F, CMP ####[place] [address] No Panel InformationOrdered By: Cuco Nails on 08-11-2023 Estimated GFR (CKD-EPI) > 60.0 mL/Min [facility] Creatinine Clearance (Chem N/A [facility] Potassium [Moles/volume] in Serum or PlasmaOrdered By: Cuco Nials on 08-11-2023 Potassium [Moles/Vol] 4.2 mmol/L Normal 3.5-5.1 [facility] Comment on above: Performed By: #### T MELANY Mg, T4F, CMP ####[address] Protein [Mass/volume] in Ser um or PlasmaOrdered By: Cuco Nails on 08-11-2023 Protein [Mass/Vol] 7.8 g/dL Normal 6.4-8.9 [facility] Comment on above: Performed By: #### T MELANY Mg T4F, CMP ####[address] Serum globulin measurement b y calculation (mass/volume)Ordered By: Cuco Nails on 08-11-2023 Globulin (S) [Mass/Vol] 3.3 g/dL Normal [facility] Comment on above: Performed By: #### T MELANY SenX, T4F, CMP ####[place] [id number] [facility] Serum or plasma albumin/glob ulin mass ratioOrdered By: Cuco Nails on 08-11-2023 Albumin/Globulin [Mass ratio] 1.4 {ratio} Normal [facility] Comment on above: Performed By: #### T MELANY SenX, T4F, CMP ####[address] Serum or plasma anion gap de terminationOrdered By: Cuco Nails on 08-11-2023 Anion gap [Moles/Vol] 11.2 mmol/L Normal 6.0-15.0 [facility] Comment on above: Performed By: #### T SH3 wRFLX, T4F, CMP ####[place] [address] [place] [id number] [facility] Sodium [Moles/volume] in Ser um or PlasmaOrdered By: Cuco Nails on 08-11-2023 Sodium [Moles/Vol] 140 mmol/L Normal 136-145 [facility] Comment on above: Performed By: #### T SH3 wRFLX, T4F, CMP ####[place] [address] [place] [id number] [facility] Thyroid Stim Hormone w/Rflxo n 08-11-2023 Thyroid Stim Hormone w/Rflx 1.72 u[iU]/mL Normal 0.45-5.33 [facility] Comment on above: Result Comment: PERF ORMED BY: [facility] [address] [facility] [place] [id number] PATHOLOGIST EARLY CHILDHOOD COORDINATOR KISHA CHING M.D. Performed By: #### T SH3 FrancyX, T4F, CMP ####[place] [id number] [facility] Thyrotropin [Units/volume] i n Serum or PlasmaOrdered By: Cuco Nails on 08-11-2023 TSH Qn 1.72 m[IU]/L 0.45-5.33 [facility] Thyroxine (T4) free [Mass/vo lume] in Serum or PlasmaOrdered By: Cuco Nails on 08-11-2023 Free T4 [Mass/Vol] 0.91 ng/dL Normal 0.61-1.12 [facility] Comment on above: Performed By: #### T SH3 SujeyFLX, T4F, CMP ####[place] [id number] [place] Urea nitrogen [Mass/volume] in Serum or PlasmaOrdered By: Cuco Nails on 08-11-2023 Urea nitrogen [Mass/Vol] 12 mg/dL Normal 7-25 [facility] Comment on above: Performed By: #### T SH3 wRFLX, T4F, CMP ####[facility] [id number] [place] [id number] [facility] ECG 12 lead ECGon 08-10-2023 ECG 12 lead ECG [facility] [place] [address] Electrocardiograph Report Signed Patient: Niraj Jensen MR#: [id number] : 2000 Acct:[id number] Age/Sex: 22 / F ADM Date: 08/10/23 Loc: EKGCARDIO Room: Type: DEP CLI Attending Dr: Cuco Nails MD Ordering Provider: [...] change was found Confirmed by Cuco Nails ([id number]) on 08/11/2023 2:40:31 PM Referred By: Electronically Signed By:Cuco Nails Transcribed By: MUS Signed By Cuco Nails MD 08/11/23 1440 Normal [facility] XR foot RT min 3V*on 023 XR foot RT min 3V* [facility] Main [place] [id number] XRay Report Signed Patient: Niraj Jensen MR#: [id number] : 2000 Acct:[id number] Age/Sex: 22 / F ADM Date: 03/18/23 Loc: ER Room: Type: [facility] ER Attending Dr: Copies to: Mich Diaz DO Ordering Provider: Mich Diaz DO Date of Service: 03/18/23 XR/XR ankle RT min 3V*: Extremity Injury, Lower ([id number]) XR/XR foot RT min 3V*: Extremity Injury, [...] Dwight Ellington M.D.03/19/2023 8:32 AM Dictation Location: [place] [address] Transcribed By: [facility] 03/19/23831 Dictated By: Dwight Ellington DO 03/19/23830 Signed By: 03/19/23831 Normal [facility] CA cardiac event monitoron 0 12-22-2022 CA cardiac event monitor [facility] [address] [place] [address] [place] [address] Cardiac Event Monitor Signed Patient: Niraj Jensen MR#: [id number] : 2000 Acct:[id number] Age/Sex: 22 / F ADM Date: 11/21/22 Loc: Room: Type: [facility] Attending Dr: Calli Blanc APRN [employer]-C Copies to: Jane Salcido MD, [facility] Calli Blanc APRN, CNP Ordering Provider: Calli Blanc APRN, CNP Date of Service: 11/21/22 CA/CA cardiac event [...] the patient's symptoms of syncope. Transcribed By: SANTHOSH 12/22/22 1808 Dictated By: Jane Salcido MD, [facility] 12/22/22 1702 Signed By: 12/23/22 1617 Normal [facility] CT angio chest PE protocolon 11-25-2022 CT angio chest PE protocol [facility] [address] [place] [address] [place] [address] CT Scan Report Signed Patient: Niraj Jensen MR#: [id number] : 2000 Acct:[id number] Age/Sex: 22 / F ADM Date: 11/24/22 Loc: ER Room: Type: [facility] ER Attending Dr: Copies to: Abhay Hendricks DO Ordering Provider: Abhay Hendricks DO [...] Dumont Jr., D.OMarlena11/25/2022 8:21 AM Dictation Location: [place] [address] Transcribed By: [facility] 11/25/22820 Dictated By: Marc Dumont Jr, 11/25/22809 Signed By: 11/25/22820 Normal [facility] Alanine aminotransferase [En zymatic activity/volume] in Serum or PlasmaOrdered By: Abhay Hendricks on 11-24-2022 ALT [Catalytic activity/Vol] 12 U/L Normal 7-52 [facility] Comment on above: Performed By: #### H S TROP, CMP, CK, CBC ####[place] [address] [address] Albumin [Mass/volume] in Ser um or Plasma by Bromocresol green (BCG) dye binding methoOrdered By: Abhay Hendricks on 11-24-2022 Albumin BCG dye [Mass/Vol] 4.7 g/dL 3.5-5.7 [facility] Alkaline phosphatase [Enzyma tic activity/volume] in Serum or PlasmaOrdered By: Abhay Hendricks on 11-24-2022 ALP [Catalytic activity/Vol] 40 U/L Normal 34-104 [facility] Comment on above: Performed By: #### H S TROP, CMP, CK, CBC ####[address] Aspartate aminotransferase [ Enzymatic activity/volume] in Serum or PlasmaOrdered By: Abhay Hendricks on 11-24-2022 AST [Catalytic activity/Vol] 15 U/L Normal 13-39 [facility] Comment on above: Performed By: #### H S TROP, CMP, CK, CBC ####[place] [id number] [facility] Automated basophil %Ordered By: Abhay Hendricks on 11-24-2022 Basophils/100 WBC (Bld) 1.1 % Normal . [facility] Comment on above: Performed By: #### H S TROP, CMP, CK, CBC ####[place] [id number] [facility] Automated basophil countOrde red By: Abhay Hendricks on 11-24-2022 Basophils (Bld) [#/Vol] 0.1 10*3/uL Normal 0.0-0.2 [facility] Comment on above: Result Comment: PERF ORMED BY: [facility] [address] [place] [address] PATHOLOGIST EARLY CHILDHOOD COORDINATOR KISHA CHING M.D. Performed By: #### H S TROP, CMP, CK, CBC ####[address] Automated blood monocyte cou ntOrdered By: Abhay Hendricks on 11-24-2022 Monocytes (Bld) [#/Vol] 0.9 10*3/uL High 0.0-0.8 [facility] Comment on above: Performed By: #### H S TROP, CMP, CK, CBC ####[address] Automated eosinophil %Ordere d By: Abhay Hendricks on 11-24-2022 Eosinophils/100 WBC (Bld) 0.4 % Normal . [facility] Comment on above: Performed By: #### H S TROP, CMP, CK, CBC ####[address] Automated eosinophil countOr dered By: Abhay Hendricks on 11-24-2022 Eosinophils (Bld) [#/Vol] 0.0 10*3/uL Normal 0.0-0.45 [facility] Comment on above: Performed By: #### H S TROP, CMP, CK, CBC ####[address] Automated erythrocytes count in urine sediment (number/area)Ordered By: Abhay Hendricks on 11-24-2022 RBC Auto (Urine sed) [#/Area] 20-49 [HPF] 0-4 [facility] Automated leukocytes count i n urine sediment (number/area)Ordered By: Abhay Hendricks on 11-24-2022 WBC Auto (Urine sed) [#/Area] 5-9 [HPF] 0-4 [facility] Automated monocyte %Ordered By: Abhay Hendricks on 11-24-2022 Monocytes/100 WBC (Bld) 9.7 % Normal . [facility] Comment on above: Performed By: #### H S TROP, CMP, CK, CBC ####[address] Automated neutrophil %Ordere d By: Abhay Hendricks on 11-24-2022 Neutrophils/100 WBC (Bld) 76.4 % Normal . [facility] Comment on above: Performed By: #### H S TROP, CMP, CK, CBC ####[address] Automated urine color determ inationOrdered By: Abhay Hendricks on 11-24-2022 Color (U) Yellow Normal Yellow [facility] Comment on above: Order Comment: Name Collection Type:: Clean-Voided Midstream Performed By: #### A DDONUAPLUS, UHCG, CUU ####[address] Bilirubin Test strip Ql (U)O rdered By: Abhay Hendricks on 11-24-2022 Bilirubin Ql (U) Negative Negative [facility] Bilirubin.total [Mass/volume ] in Serum or PlasmaOrdered By: Abhay Hendricks on 11-24-2022 Bilirubin [Mass/Vol] 0.2 mg/dL Low 0.3-1.0 [facility] Comment on above: Performed By: #### H S TROP, CMP, CK, CBC ####[address] Calcium [Mass/volume] in Ser um or PlasmaOrdered By: Abhay Hendricks on 11-24-2022 Calcium [Mass/Vol] 9.3 mg/dL Normal 8.6-10.3 [facility] Comment on above: Performed By: #### H S TROP, CMP, CK, CBC ####[address] Carbon dioxide, total [Moles /volume] in Serum or PlasmaOrdered By: Abhay Hendricks on 11-24-2022 CO2 [Moles/Vol] 22.1 mmol/L Normal 21.0-31.0 [facility] Comment on above: Performed By: #### H S TROP, CMP, CK, CBC ####[address] [address] Chloride [Moles/volume] in S di or PlasmaOrdered By: Abhay Hendricks on 11-24-2022 Chloride [Moles/Vol] 110 mmol/L High 98-107 [facility] Comment on above: Performed By: #### H S TROP, CMP, CK, CBC ####[address] Complete Blood Count Auto Di ffon 11-24-2022 Mean Corpuscular HGB Conc 33.3 g/dL Normal 32.0-35.0 [facility] Comment on above: Performed By: #### H S TROP, CMP, CK, CBC ####[address] Monocytes/100 WBC (Bld) 18.86 % Normal 0.00-20.00 T [facility] Comment on above: Performed By: #### H S TROP, CMP, CK, CBC ####[address] NRBC% 0.1 /100{WBC} Normal 0-0.5 [facility] Comment on above: Performed By: #### H S TROP, CMP, CK, CBC ####[address] Comprehensive Metabolic Pane obey 11-24-2022 Albumin [Mass/Vol] 4.7 g/dL Normal 3.5-5.7 [facility] Comment on above: Performed By: #### H S TROP, CMP, CK, CBC ####[address] Creatinine Clr Calc Pharmacy 90.32 Normal [facility] Comment on above: Result Comment: PERF ORMED BY: [facility] [address] [facility] [place] [address] PATHOLOGIST EARLY CHILDHOOD COORDINATOR KISHA CHING M.D. Performed By: #### H S TROP, CMP, CK, CBC ####[address] [place] [address] [place] GFR/1.73 sq M.predicted MDRD (S/P/Bld) [Vol rate/Area] mL/min/{1.73_m2} Normal [facility] Comment on above: Performed By: #### H S TROP, CMP, CK, CBC ####[place] [id number] [facility] Creatine kinase [Enzymatic a ctivity/volume] in Serum or PlasmaOrdered By: Abhay Hendricks on 11-24-2022 CK [Catalytic activity/Vol] 50 U/L Normal 30-223 [facility] Comment on above: Performed By: #### H S TROP, CMP, CK, CBC ####[address] Creatinine [Mass/volume] in Serum or PlasmaOrdered By: Abhay Hendricks on 11-24-2022 Creatinine [Mass/Vol] 0.89 mg/dL Normal 0.60-1.20 [facility] Comment on above: Performed By: #### H S TROP, CMP, CK, CBC ####[place] [id number] [facility] Dipstick and Microscopicon 0 11-24-2022 Appearance (U) Clear Normal Clear [facility] Comment on above: Order Comment: Name Collection Type:: Clean-Voided Midstream Performed By: #### A DDONUAPLUS, UHCG, CUU ####[place] [id number] [facility] Bacteria,Urine None Seen Normal None Seen [facility] Comment on above: Order Comment: Name Collection Type:: Clean-Voided Midstream Performed By: #### A DDONUAPLUS, UHCG, CUU ####[place] [id number] [facility] Bilirubin,Urine Negative Normal Negative [facility] Comment on above: Order Comment: Name Collection Type:: Clean-Voided Midstream Performed By: #### A DDONUAPLUS, UHCG, CUU ####[place] [id number] [facility] Glucose Ql (U) Normal Normal Normal [facility] Comment on above: Order Comment: Name Collection Type:: Clean-Voided Midstream Performed By: #### A DDONUAPLUS, UHCG, CUU ####[address] [address] [facility] Hyaline Casts,Urine None Seen Normal 0-8 [facility] Comment on above: Order Comment: Name Collection Type:: Clean-Voided Midstream Performed By: #### A DDONUAPLUS, UHCG, CUU ####[address] [address] [facility] Ketones Ql (U) Trace High Negative [facility] Comment on above: Order Comment: Name Collection Type:: Clean-Voided Midstream Performed By: #### A DDONUAPLUS, UHCG, CUU ####[place] [id number] [facility] Leukocyte esterase Test strip Ql (U) 1+ High Negative [facility] Comment on above: Order Comment: Name Collection Type:: Clean-Voided Midstream Performed By: #### A DDONUAPLUS, UHCG, CUU ####[place] [id number] [facility] Nitrite,Urine Negative Normal Negative [facility] Comment on above: Order Comment: Name Collection Type:: Clean-Voided Midstream Performed By: #### A DDONUAPLUS, UHCG, CUU ####[place] [id number] [facility] Occult Blood,Urine 3+ High Negative [facility] Comment on above: Order Comment: Name Collection Type:: Clean-Voided Midstream Performed By: #### A DDONUAPLUS, UHCG, CUU ####[place] [id number] [facility] Protein,Urine Trace High Negative [facility] Comment on above: Order Comment: Name Collection Type:: Clean-Voided Midstream Performed By: #### A DDONUAPLUS, UHCG, CUU ####[address] [place] [address] [facility] RBC,Urine 20-49 High 0-4 [facility] Comment on above: Order Comment: Name Collection Type:: Clean-Voided Midstream Performed By: #### A DDONUAPLUS, UHCG, CUU ####[place] [id number] [facility] Specificy Colon,Urine 1.028 Normal 1.001-1.030 [facility] Comment on above: Order Comment: Name Collection Type:: Clean-Voided Midstream Performed By: #### A DDONUAPLUS, UHCG, CUU ####[place] [id number] [facility] Squamous Epithelial Cell,Urine 0-1 Normal 0-2 [facility] Comment on above: Order Comment: Name Collection Type:: Clean-Voided Midstream Performed By: #### A DDONUAPLUS, UHCG, CUU ####[address] Urobilinogen,Urine Normal Normal Normal [facility] Comment on above: Order Comment: Name Collection Type:: Clean-Voided Midstream Performed By: #### A DDONUAPLUS, UHCG, CUU ####[place] [id number] [facility] WBC,Urine 5-9 High 0-4 [facility] Comment on above: Order Comment: Name Collection Type:: Clean-Voided Midstream Performed By: #### A DDONUAPLUS, UHCG, CUU ####[place] [id number] [facility] ECG 12 lead ECGon 11-24-2022 ECG 12 lead ECG [facility] [address] [place] [address] Electrocardiograph Report Signed Patient: Niraj Jensen MR#: [id number] : 2000 Acct:[id number] Age/Sex: 22 / F ADM Date: 11/24/22 Loc: ER Room: Type: [facility] ER Attending Dr: Ordering Provider: Abhay [...] was found Confirmed by Abhay HENDRICKS DO ([id number]) on 11/24/2022 10:09:13 PM Referred By: Electronically Signed By:Abhay HENDRICKS DO Transcribed By: MUS Signed By Abhay Hendricks DO 0 11/24/222208 Normal [facility] Erythrocyte distribution wid th [Ratio] by Automated countOrdered By: Abhay Hendricks on 11-24-2022 Erythrocyte distribution width (RBC) [Ratio] 13.0 % Normal 11.9-15.3 [facility] Comment on above: Performed By: #### H S TROP, CMP, CK, CBC ####[facility] [id number] [place] [id number] [facility] Erythrocytes [#/volume] in B lood by Automated countOrdered By: Abhay Hendricks on 11-24-2022 RBC (Bld) [#/Vol] 4.19 10*6/uL Normal 3.60-5.00 [facility] Comment on above: Performed By: #### H S TROP, CMP, CK, CBC ####[facility] [id number] [place] [id number] [facility] Glucose [Mass/volume] in Ser um or PlasmaOrdered By: Abhay Hendricks on 11-24-2022 Glucose [Mass/Vol] 114 mg/dL High 70-100 [facility] Comment on above: ADA recommended refe rence rangeRandom Glucose Reference Range is dependent on time and content of last meal. Glucose of more than 200 mg/dL in a nonstressed, ambulatory subject supports the diagnosis of Diabetes Mellitus. Result Comment: [place] Glucose Reference Range is dependent on time and content of last meal. Glucose of more than 200 mg/dL in a nonstressed, ambulatory subject supports the diagnosis of Diabetes Mellitus. ADA recommended reference range Performed By: #### H S TROP, CMP, CK, CBC ####[place] [id number] [facility] HCG ( test) IA.rapi d Ql (U)Ordered By: Abhay Hendricks on 11-24-2022 HCG ( test) Ql (U) Negative [facility] HCG,Urineon 11-24-2022 Beta HCG ( test) Ql (U) Negative Normal [facility] Comment on above: Order Comment: Name Collection Type:: Clean-Voided Midstream Result Comment: PERF ORMED BY: [facility] [address] [place] [address] PATHOLOGIST EARLY CHILDHOOD COORDINATOR KISHA CHING M.D. Performed By: #### A DDVENKATA, [facility], CUU ####[place] [id number] [facility] Hematocrit [Volume Fraction] of Blood by Automated countOrdered By: Abhay Hendricks on 11-24-2022 Hematocrit (Bld) [Volume fraction] 37.4 % Normal 34.0-46.4 [facility] Comment on above: Performed By: #### H S TROP, CMP, CK, CBC ####[place] [id number] [facility] Hemoglobin [Mass/volume] in BloodOrdered By: Abhay Hendricks on 11-24-2022 Hemoglobin (Bld) [Mass/Vol] 12.5 g/dL Normal 11.8-15.4 [facility] Comment on above: Performed By: #### H S TROP, CMP, CK, CBC ####[place] [id number] [facility] Ketones Auto test strip (U) [Mass/Vol]Ordered By: Abhay Hendricks on 11-24-2022 Ketones (U) [Mass/Vol] Trace Negative [facility] - UrinalysisOrder ed By: Abhay Hendricks on 11-24-2022 Hyaline casts LM Ql (Urine sed) None seen [LPF] 0-8 [facility] Leukocytes [#/volume] correc maryam for nucleated erythrocytes in Blood by Automated counOrdered By: Ahbay Hendricks on 11-24-2022 WBC corrected for nucl RBC Auto (Bld) [#/Vol] 9.0 10*3/uL 3.8-11.6 [facility] Leukocytes [#/volume] in Blo od by Automated countOrdered By: Abhay Hendricks on 11-24-2022 WBC (Bld) [#/Vol] 9.0 10*3/uL Normal 3.8-11.6 [facility] Comment on above: Performed By: #### H S TROP, CMP, CK, CBC ####[address] Lymphocytes [#/volume] in Bl ood by Automated countOrdered By: Abhay Hendricks on 11-24-2022 Lymphocytes (Bld) [#/Vol] 1.1 10*3/uL Normal 1.00-4.8 [facility] Comment on above: Performed By: #### H S TROP, CMP, CK, CBC ####[address] Lymphocytes/100 leukocytes i n Blood by Automated countOrdered By: Abhay Hendricks on 11-24-2022 Lymphocytes/100 WBC (Bld) 12.4 % Normal . [facility] Comment on above: Performed By: #### H S TROP, CMP, CK, CBC ####[address] MCH [Entitic mass] by Automa maryam countOrdered By: Abhay Hendricks on 11-24-2022 MCH (RBC) [Entitic mass] 29.7 pg Normal 24.7-34.3 [facility] Comment on above: Performed By: #### H S TROP, CMP, CK, CBC ####[address] MCHC Auto (RBC) [Mass/Vol]Or dered By: Abhay Hendricks on 11-24-2022 MCHC (RBC) [Mass/Vol] 33.3 g/dL 32.0-35.0 [facility] MCV [Entitic volume] by Auto mated countOrdered By: bAhay Hendricks on 11-24-2022 MCV (RBC) [Entitic vol] 89.4 fL Normal 80-100 [facility] Comment on above: Performed By: #### H S TROP, CMP, CK, CBC ####[facility] [id number] Monocyte distribution width [Entitic volume] in Blood by AutomatedOrdered By: Abhay Hendricks on 11-24-2022 Monocyte distribution width Auto (Bld) [Entitic vol] 18.86 % 0.00-20.00 [facility] Neutrophils [#/volume] in Bl ood by Automated countOrdered By: Abhay Hendricks on 11-24-2022 Neutrophils (Bld) [#/Vol] 6.9 10*3/uL Normal 1.8-7.7 [facility] Comment on above: Performed By: #### H S TROP, CMP, CK, CBC ####[address] Nitrite Test strip Ql (U)Ord ered By: Abhay Hendricks on 11-24-2022 Nitrite Ql (U) Negative Negative [facility] No Panel InformationOrdered By: Abhay Hendricks on 11-24-2022 Estimated GFR (CKD-EPI) > 60.0 mL/Min [facility] Creatinine Clearance (Chem 90.32 [facility] Nucleated erythrocytes [Pres ence] in Blood by Automated countOrdered By: Abhay Hendricks on 11-24-2022 Nucleated RBC Auto Ql (Bld) 0.1 /100{WBC} 0-0.5 [facility] Platelet mean volume [Entiti c volume] in Blood by Automated countOrdered By: Abhay Hendricks on 11-24-2022 Platelet mean volume (Bld) [Entitic vol] 9.3 fL Normal 6.3-10.7 [facility] Comment on above: Performed By: #### H S TROP, CMP, CK, CBC ####[address] Platelets [#/volume] in Bloo d by Automated countOrdered By: Abhay Hendricks on 11-24-2022 Platelets (Bld) [#/Vol] 271 10*3/uL Normal 150-450 [facility] Comment on above: Performed By: #### H S TROP, CMP, CK, CBC ####[place] [id number] [address] Potassium [Moles/volume] in Serum or PlasmaOrdered By: Abhay Hendricks on 11-24-2022 Potassium [Moles/Vol] 4.2 mmol/L Normal 3.5-5.1 [facility] Comment on above: Performed By: #### H S TROP, CMP, CK, CBC ####[place] [id number] Protein Auto test strip (U) [Mass/Vol]Ordered By: Abhay Hendricks on 11-24-2022 Protein (U) [Mass/Vol] Trace mg/dL Negative [facility] Protein [Mass/volume] in Ser um or PlasmaOrdered By: Abhay Hendricks on 11-24-2022 Protein [Mass/Vol] 7.2 g/dL Normal 6.4-8.9 [facility] Comment on above: Performed By: #### H S TROP, CMP, CK, CBC ####[address] Serum globulin measurement b y calculation (mass/volume)Ordered By: Abhay Hendricks on 11-24-2022 Globulin (S) [Mass/Vol] 2.5 g/dL Normal [facility] Comment on above: Performed By: #### H S TROP, CMP, CK, CBC ####[address] Serum or plasma albumin/glob ulin mass ratioOrdered By: Abhay Hendricks on 11-24-2022 Albumin/Globulin [Mass ratio] 1.9 {ratio} Normal [facility] Comment on above: Performed By: #### H S TROP, CMP, CK, CBC ####[address] Serum or plasma anion gap de terminationOrdered By: Abhay Hendricks on 11-24-2022 Anion gap [Moles/Vol] 13.1 mmol/L Normal 6.0-15.0 [facility] Comment on above: Performed By: #### H S TROP, CMP, CK, CBC ####[place] [id number] [place] [id number] [facility] Sodium [Moles/volume] in Ser um or PlasmaOrdered By: Abhay Hendricks on 11-24-2022 Sodium [Moles/Vol] 141 mmol/L Normal 136-145 [facility] Comment on above: Performed By: #### H S TROP, CMP, CK, CBC ####[place] [id number] [place] [id number] [facility] Specific gravity Auto test s trip (U) [Rel density]Ordered By: Abhay Hendricks on 11-24-2022 Specific gravity (U) [Rel density] 1.028 1.001-1.030 [facility] Squamous epithelial cells de tection in urine sediment by light microscopyOrdered By: Abhay Hendricks on 11-24-2022 Epithelial cells.squamous LM Ql (Urine sed) 0-1 [HPF] 0-2 [facility] Troponin I High Sensitivityo n 11-24-2022 Troponin I High Sensitivity 3.9 pg/mL Normal 0.0-15.0 [facility] Comment on above: Result Comment: PERF ORMED BY: [facility] [address] [facility] [place] [id number] PATHOLOGIST EARLY CHILDHOOD COORDINATOR KISHA CHING M.D. Performed By: #### H S TROP, CMP, CK, CBC ####[place] [id number] [place] [id number] [facility] Troponin I.cardiac [Mass/vol ume] in Serum or Plasma by Detection limit <= 0.01 ng/Ordered By: Abhay Hendricks on 11-24-2022 Troponin I.cardiac DL <= 0.01 ng/mL [Mass/Vol] 3.9 pg/mL 0.0-15.0 [facility] Urea nitrogen [Mass/volume] in Serum or PlasmaOrdered By: Abhay Hendricks on 11-24-2022 Urea nitrogen [Mass/Vol] 13 mg/dL Normal 7-25 [facility] Comment on above: Performed By: #### H S TROP, CMP, CK, CBC ####[place] [id number] [place] [id number] [facility] Urine Cultureon 11-24-2022 Bacteria identified Cx Nom (U) 75,000 colonies/ml mixed bacterial skin contaminants 2 Days PERFORMED BY: [facility] [address] [place] [id number] PATHOLOGIST EARLY CHILDHOOD COORDINATOR KISHA CHING M.D. Normal [facility] Comment on above: Performed By: #### A MARITZA MCMILLAN, CUU ####[place] [id number] [place] [id number] [facility] Urine bacteria detection by automated methodOrdered By: Abhay Hendricks on 11-24-2022 Bacteria Auto Ql (U) None seen None Seen [facility] Urine clarity by refractomet ry automatedOrdered By: Abhay Hendricks on 11-24-2022 Clarity Refractometry automated (U) Clear Clear [facility] Urine glucose measurement by automated test strip (mass/volume)Ordered By: Abhay Hendricks on 11-24-2022 Glucose Auto test strip (U) [Mass/Vol] Normal mg/dL Normal [facility] Urine hemoglobin detection b y automated test stripOrdered By: Abhay Hendricks on 11-24-2022 Hemoglobin Auto test strip Ql (U) 3+ Negative [facility] Urine leukocyte esterase det ection by automated test stripOrdered By: Abhay Hendricks on 11-24-2022 Leukocyte esterase Auto test strip Ql (U) 1+ Negative [facility] Urine pH measurement by auto mated test stripOrdered By: Abhay Hendricks on 11-24-2022 pH (U) 5.5 [pH] Normal 5.0-9.0 [facility] Comment on above: Order Comment: Name Collection Type:: Clean-Voided Midstream Performed By: #### A MARITZA MCMILLAN, CUU ####[place] [id number] [place] [id number] [facility] Urobilinogen Auto test strip (U) [Mass/Vol]Ordered By: Abhay Hendricks on 11-24-2022 Urobilinogen (U) [Mass/Vol] Normal mg/dL Normal [facility] Alanine aminotransferase [En zymatic activity/volume] in Serum or PlasmaOrdered By: Mich Diaz on 11-19-2022 ALT [Catalytic activity/Vol] 12 U/L Normal 7-52 [facility] Comment on above: Performed By: #### C K, CBC, CMP, HS TROP #### [facility] [address] Albumin [Mass/volume] in Ser um or Plasma by Bromocresol green (BCG) dye binding methoOrdered By: Mich Diaz on 11-19-2022 Albumin BCG dye [Mass/Vol] 4.9 g/dL 3.5-5.7 [facility] Alkaline phosphatase [Enzyma tic activity/volume] in Serum or PlasmaOrdered By: Mich Diaz on 11-19-2022 ALP [Catalytic activity/Vol] 43 U/L Normal 34-104 [facility] Comment on above: Performed By: #### C K, CBC, CMP, HS TROP #### [facility] [address] Aspartate aminotransferase [ Enzymatic activity/volume] in Serum or PlasmaOrdered By: Mich Diaz on 11-19-2022 AST [Catalytic activity/Vol] 14 U/L Normal 13-39 [facility] Comment on above: Performed By: #### C K, CBC, CMP, HS TROP #### [address] Automated basophil %Ordered By: Mich Diaz on 11-19-2022 Basophils/100 WBC (Bld) 1.3 % Normal . [facility] Comment on above: Performed By: #### C K, CBC, CMP, HS TROP #### [facility] [address] [place] [address] Automated basophil countOrde red By: Mich Diaz on 11-19-2022 Basophils (Bld) [#/Vol] 0.1 10*3/uL Normal 0.0-0.2 [facility] Comment on above: Result Comment: PERF ORMED BY: [place] [address] PATHOLOGIST EARLY CHILDHOOD COORDINATOR KISHA CHING M.D. Performed By: #### C K, CBC, CMP, HS TROP #### [facility] [address] Automated blood monocyte cou ntOrdered By: Mich Diaz on 11-19-2022 Monocytes (Bld) [#/Vol] 0.9 10*3/uL High 0.0-0.8 [facility] Comment on above: Performed By: #### C K, CBC, CMP, HS TROP #### [facility] [address] Automated eosinophil %Ordere d By: Mich Diaz on 11-19-2022 Eosinophils/100 WBC (Bld) 0.6 % Normal . [facility] Comment on above: Performed By: #### C K, CBC, CMP, HS TROP #### [address] Automated eosinophil countOr dered By: Mich Diaz on 11-19-2022 Eosinophils (Bld) [#/Vol] 0.1 10*3/uL Normal 0.0-0.45 [facility] Comment on above: Performed By: #### C K, CBC, CMP, HS TROP #### [address] Automated erythrocytes count in urine sediment (number/area)Ordered By: Mich Diaz on 11-19-2022 RBC Auto (Urine sed) [#/Area] 50-100 [HPF] 0-4 [facility] Automated leukocytes count i n urine sediment (number/area)Ordered By: Mich Diaz on 11-19-2022 WBC Auto (Urine sed) [#/Area] 10-19 [HPF] 0-4 [facility] Automated monocyte %Ordered By: Mich Diaz on 11-19-2022 Monocytes/100 WBC (Bld) 9.6 % Normal . [facility] Comment on above: Performed By: #### C K, CBC, CMP, HS TROP #### [address] Automated neutrophil %Ordere d By: Mich Diaz on 11-19-2022 Neutrophils/100 WBC (Bld) 67.1 % Normal . [facility] Comment on above: Performed By: #### C K, CBC, CMP, HS TROP #### [facility] [address] Bilirubin Auto test strip Ql (U)Ordered By: Mich Diaz on 11-19-2022 Bilirubin Ql (U) Negative Negative [facility] Bilirubin.total [Mass/volume ] in Serum or PlasmaOrdered By: Mich Diaz on 11-19-2022 Bilirubin [Mass/Vol] 0.4 mg/dL Normal 0.3-1.0 [facility] Comment on above: Performed By: #### C K, CBC, CMP, HS TROP #### [facility] [address] [place] [address] [place] Calcium [Mass/volume] in Ser um or PlasmaOrdered By: Mich Diaz on 11-19-2022 Calcium [Mass/Vol] 9.7 mg/dL Normal 8.6-10.3 [facility] Comment on above: Performed By: #### C K, CBC, CMP, HS TROP #### [facility] [address] Carbon dioxide, total [Moles /volume] in Serum or PlasmaOrdered By: Mich Diaz on 11-19-2022 CO2 [Moles/Vol] 23.6 mmol/L Normal 21.0-31.0 [facility] Comment on above: Performed By: #### C K, CBC, CMP, HS TROP #### [facility] [address] [place] [address] [place] Chloride [Moles/volume] in S di or PlasmaOrdered By: Mich Diaz on 11-19-2022 Chloride [Moles/Vol] 107 mmol/L Normal 98-107 [facility] Comment on above: Performed By: #### C K, CBC, CMP, HS TROP #### [facility] [address] [place] [address] [place] Complete Blood Count Auto Di ffon 11-19-2022 Mean Corpuscular HGB Conc 33.3 g/dL Normal 32.0-35.0 [facility] Comment on above: Performed By: #### C K, CBC, CMP, HS TROP #### [address] Monocytes/100 WBC (Bld) 17.34 % Normal 0.00-20.00 [facility] Comment on above: Performed By: #### C K, CBC, CMP, HS TROP #### [address] NRBC% 0.1 /100{WBC} Normal 0-0.5 [facility] Comment on above: Performed By: #### C K, CBC, CMP, HS TROP #### [address] Comprehensive Metabolic Pane obey 11-19-2022 Albumin [Mass/Vol] 4.9 g/dL Normal 3.5-5.7 [facility] Comment on above: Performed By: #### C K, CBC, CMP, HS TROP #### [address] Creatinine Clr Calc Pharmacy 90.26 Normal [facility] Comment on above: Result Comment: PERF ORMED BY: [place] [address] PATHOLOGIST EARLY CHILDHOOD COORDINATOR KISHA CHING M.D. Performed By: #### C K, CBC, CMP, HS TROP #### [address] GFR/1.73 sq M.predicted MDRD (S/P/Bld) [Vol rate/Area] mL/min/{1.73_m2} Normal [facility] Comment on above: Performed By: #### C K, CBC, CMP, HS TROP #### [address] Creatine kinase [Enzymatic a ctivity/volume] in Serum or PlasmaOrdered By: Mich Diaz on 11-19-2022 CK [Catalytic activity/Vol] 61 U/L Normal 30-223 [facility] Comment on above: Performed By: #### C K, CBC, CMP, HS TROP #### [address] [place] [address] [place] Creatinine [Mass/volume] in Serum or PlasmaOrdered By: Mich Diaz on 11-19-2022 Creatinine [Mass/Vol] 0.88 mg/dL Normal 0.60-1.20 [facility] Comment on above: Performed By: #### C K, CBC, CMP, HS TROP #### [facility] [address] [place] [address] [place] Dipstick and Microscopicon 0 11-19-2022 Bacteria,Urine None Seen Normal None Seen [facility] Comment on above: Order Comment: Name Collection Type:: Clean-Voided Midstream Performed By: #### C UU, UHCG, ADDONUAPLUS ####[address] Bilirubin,Urine Negative Normal Negative [facility] Comment on above: Order Comment: Name Collection Type:: Clean-Voided Midstream Performed By: #### C UU, UHCG, ADDONUAPLUS ####[address] Glucose Ql (U) Normal Normal Normal [facility] Comment on above: Order Comment: Name Collection Type:: Clean-Voided Midstream Performed By: #### C UU, UHCG, ADDONUAPLUS ####[address] Hyaline Casts,Urine None Seen Normal 0-8 [facility] Comment on above: Order Comment: Name Collection Type:: Clean-Voided Midstream Performed By: #### C UU, UHCG, ADDONUAPLUS ####[place] [id number] [facility] Ketones Ql (U) Negative Normal Negative [facility] Comment on above: Order Comment: Name Collection Type:: Clean-Voided Midstream Performed By: #### C UU, UHCG, ADDONUAPLUS ####[address] Leukocyte esterase Test strip Ql (U) 2+ High Negative [facility] Comment on above: Order Comment: Name Collection Type:: Clean-Voided Midstream Performed By: #### C UU, UHCG, ADDONUAPLUS ####[place] [id number] [facility] Nitrite,Urine Negative Normal Negative [facility] Comment on above: Order Comment: Name Collection Type:: Clean-Voided Midstream Performed By: #### C UU, UHCG, ADDONUAPLUS ####[address] Occult Blood,Urine 3+ High Negative [facility] Comment on above: Order Comment: Name Collection Type:: Clean-Voided Midstream Performed By: #### C UU, UHCG, ADDONUAPLUS ####[address] Protein,Urine Negative Normal Negative [facility] Comment on above: Order Comment: Name Collection Type:: Clean-Voided Midstream Performed By: #### C UU, UHCG, ADDONUAPLUS ####[address] RBC,Urine 50-100 High 0-4 [facility] Comment on above: Order Comment: Name Collection Type:: Clean-Voided Midstream Performed By: #### C UU, UHCG, ADDONUAPLUS ####[place] [id number] [facility] Specificy Colon,Urine 1.010 Normal 1.001-1.030 [facility] Comment on above: Order Comment: Name Collection Type:: Clean-Voided Midstream Performed By: #### C UU, UHCG, ADDONUAPLUS ####[place] [id number] [facility] Squamous Epithelial Cell,Urine 1-2 Normal 0-2 [facility] Comment on above: Order Comment: Name Collection Type:: Clean-Voided Midstream Performed By: #### C UU, UHCG, ADDONUAPLUS ####[place] [id number] [facility] Urobilinogen,Urine Normal Normal Normal [facility] Comment on above: Order Comment: Name Collection Type:: Clean-Voided Midstream Performed By: #### C UU, UHCG, ADDONUAPLUS ####[facility] [id number] WBC,Urine 10-19 High 0-4 [facility] Comment on above: Order Comment: Name Collection Type:: Clean-Voided Midstream Performed By: #### C UU, UHCG, ADDONUAPLUS ####[facility] ECG 12 lead ECGon 11-19-2022 ECG 12 lead ECG [facility] [place] [address] [place] [address] Electrocardiograph Report Signed Patient: Niraj Jensen MR#: [id number] : 2000 Acct:[id number] Age/Sex: 22 / F ADM Date: 11/19/22 Loc: ER Room: Type: [facility] ER Attending Dr: Ordering Provider: Mich Diaz [...] No previous ECGs available Confirmed by MICH DIAZ DO ([id number]) on 11/20/2022 1:41:24 AM Referred By: Electronically Signed By:MICH DIAZ DO Transcribed By: MUS Signed By Mich Diaz DO 11/20 0141 Normal [facility] Erythrocyte distribution wid th [Ratio] by Automated countOrdered By: Mich Diaz on 11-19-2022 Erythrocyte distribution width (RBC) [Ratio] 13.2 % Normal 11.9-15.3 [facility] Comment on above: Performed By: #### C K, CBC, CMP, HS TROP #### [facility] [address] [place] [address] Erythrocytes [#/volume] in B lood by Automated countOrdered By: Mich Diaz on 11-19-2022 RBC (Bld) [#/Vol] 4.45 10*6/uL Normal 3.60-5.00 [facility] Comment on above: Performed By: #### C K, CBC, CMP, HS TROP #### [facility] [address] [place] [address] [place] Glucose [Mass/volume] in Ser um or PlasmaOrdered By: Mich Diaz on 11-19-2022 Glucose [Mass/Vol] 87 mg/dL Normal 70-100 [facility] Comment on above: ADA recommended refe rence rangeRandom Glucose Reference Range is dependent on time and content of last meal. Glucose of more than 200 mg/dL in a nonstressed, ambulatory subject supports the diagnosis of Diabetes Mellitus. Result Comment: [place] Glucose Reference Range is dependent on time and content of last meal. Glucose of more than 200 mg/dL in a nonstressed, ambulatory subject supports the diagnosis of Diabetes Mellitus. ADA recommended reference range Performed By: #### C K, CBC, CMP, HS TROP #### [facility] [address] HCG ( test) IA.rapi d Ql (U)Ordered By: Mich Diaz on 11-19-2022 HCG ( test) Ql (U) Negative [facility] HCG,Urineon 11-19-2022 Beta HCG ( test) Ql (U) Negative Normal [facility] Comment on above: Order Comment: Name Collection Type:: Clean-Voided Midstream Result Comment: PERF ORMED BY: [facility] [address] [place] [address] PATHOLOGIST EARLY CHILDHOOD COORDINATOR KISHA CHING M.D. Performed By: #### C UU, UHCG, ADDONUAPLUS ####[facility] [id number] [address] Hematocrit [Volume Fraction] of Blood by Automated countOrdered By: Mich Diaz on 11-19-2022 Hematocrit (Bld) [Volume fraction] 39.6 % Normal 34.0-46.4 [facility] Comment on above: Performed By: #### C K, CBC, CMP, HS TROP #### [facility] [address] [place] [address] [place] Hemoglobin [Mass/volume] in BloodOrdered By: Mich Diaz on 11-19-2022 Hemoglobin (Bld) [Mass/Vol] 13.2 g/dL Normal 11.8-15.4 [facility] Comment on above: Performed By: #### C K, CBC, CMP, HS TROP #### [facility] [address] Ketones Auto test strip (U) [Mass/Vol]Ordered By: Mich Diaz on 11-19-2022 Ketones (U) [Mass/Vol] Negative Negative [facility] - UrinalysisOrder ed By: Mich Diaz on 11-19-2022 Hyaline casts LM Ql (Urine sed) None seen [LPF] 0-8 [facility] Leukocytes [#/volume] correc maryam for nucleated erythrocytes in Blood by Automated counOrdered By: Mich Diaz on 11-19-2022 WBC corrected for nucl RBC Auto (Bld) [#/Vol] 9.4 10*3/uL 3.8-11.6 [facility] Leukocytes [#/volume] in Blo od by Automated countOrdered By: Mich Diaz on 11-19-2022 WBC (Bld) [#/Vol] 9.4 10*3/uL Normal 3.8-11.6 [facility] Comment on above: Performed By: #### C K, CBC, CMP, HS TROP #### [facility] [address] [place] [address] [place] Lymphocytes [#/volume] in Bl ood by Automated countOrdered By: Mich Diaz on 11-19-2022 Lymphocytes (Bld) [#/Vol] 2.0 10*3/uL Normal 1.00-4.8 [facility] Comment on above: Performed By: #### C K, CBC, CMP, HS TROP #### [facility] [address] [place] [address] [place] Lymphocytes/100 leukocytes i n Blood by Automated countOrdered By: Mich Diaz on 11-19-2022 Lymphocytes/100 WBC (Bld) 21.4 % Normal . [facility] Comment on above: Performed By: #### C K, CBC, CMP, HS TROP #### [facility] [address] MCH [Entitic mass] by Automa maryam countOrdered By: Mich Diaz on 11-19-2022 MCH (RBC) [Entitic mass] 29.7 pg Normal 24.7-34.3 [facility] Comment on above: Performed By: #### C K, CBC, CMP, HS TROP #### [facility] [address] [place] [address] MCHC Auto (RBC) [Mass/Vol]Or dered By: Mich Diaz on 11-19-2022 MCHC (RBC) [Mass/Vol] 33.3 g/dL 32.0-35.0 [facility] MCV [Entitic volume] by Auto mated countOrdered By: Mich Diaz on 11-19-2022 MCV (RBC) [Entitic vol] 89.0 fL Normal 80-100 [facility] Comment on above: Performed By: #### C K, CBC, CMP, HS TROP #### [facility] [address] [place] [address] Monocyte distribution width [Entitic volume] in Blood by AutomatedOrdered By: Mich Diaz on 11-19-2022 Monocyte distribution width Auto (Bld) [Entitic vol] 17.34 % 0.00-20.00 [facility] Neutrophils [#/volume] in Bl ood by Automated countOrdered By: Mich Diaz on 11-19-2022 Neutrophils (Bld) [#/Vol] 6.3 10*3/uL Normal 1.8-7.7 [facility] Comment on above: Performed By: #### C K, CBC, CMP, HS TROP #### [address] No Panel InformationOrdered By: Mich Diaz on 11-19-2022 Estimated GFR (CKD-EPI) > 60.0 mL/Min [facility] Creatinine Clearance (Chem 90.26 [facility] Nucleated erythrocytes [Pres ence] in Blood by Automated countOrdered By: Mich Diaz on 11-19-2022 Nucleated RBC Auto Ql (Bld) 0.1 /100{WBC} 0-0.5 [facility] Platelet mean volume [Entiti c volume] in Blood by Automated countOrdered By: Mich Diaz on 11-19-2022 Platelet mean volume (Bld) [Entitic vol] 9.4 fL Normal 6.3-10.7 [facility] Comment on above: Performed By: #### C K, CBC, CMP, HS TROP #### [facility] [address] [place] [address] [place] Platelets [#/volume] in Bloo d by Automated countOrdered By: Mich Diaz on 11-19-2022 Platelets (Bld) [#/Vol] 319 10*3/uL Normal 150-450 [facility] Comment on above: Performed By: #### C K, CBC, CMP, HS TROP #### [facility] [address] [place] [address] [place] Potassium [Moles/volume] in Serum or PlasmaOrdered By: Mich Diaz on 11-19-2022 Potassium [Moles/Vol] 4.1 mmol/L Normal 3.5-5.1 [facility] Comment on above: Performed By: #### C K, CBC, CMP, HS TROP #### [facility] [address] [place] [address] [place] Protein Auto test strip (U) [Mass/Vol]Ordered By: Mich Diaz on 11-19-2022 Protein (U) [Mass/Vol] Negative Negative [facility] Protein [Mass/volume] in Ser um or PlasmaOrdered By: Mich Diaz on 11-19-2022 Protein [Mass/Vol] 7.6 g/dL Normal 6.4-8.9 [facility] Comment on above: Performed By: #### C K, CBC, CMP, HS TROP #### [facility] [address] Serum globulin measurement b y calculation (mass/volume)Ordered By: Mich Diaz on 11-19-2022 Globulin (S) [Mass/Vol] 2.7 g/dL Normal [facility] Comment on above: Performed By: #### C K, CBC, CMP, HS TROP #### [address] Serum or plasma albumin/glob ulin mass ratioOrdered By: Mich Diaz on 11-19-2022 Albumin/Globulin [Mass ratio] 1.8 {ratio} Normal [facility] Comment on above: Performed By: #### C K, CBC, CMP, HS TROP #### [address] Serum or plasma anion gap de terminationOrdered By: Mich Diaz on 11-19-2022 Anion gap [Moles/Vol] 14.5 mmol/L Normal 6.0-15.0 [facility] Comment on above: Performed By: #### C K, CBC, CMP, HS TROP #### [address] Sodium [Moles/volume] in Ser um or PlasmaOrdered By: Mich Diaz on 11-19-2022 Sodium [Moles/Vol] 141 mmol/L Normal 136-145 [facility] Comment on above: Performed By: #### C K, CBC, CMP, HS TROP #### [address] Squamous epithelial cells de tection in urine sediment by light microscopyOrdered By: Mich Diaz on 11-19-2022 Epithelial cells.squamous LM Ql (Urine sed) 1-2 [HPF] 0-2 [facility] Troponin I High Sensitivityo n 11-19-2022 Troponin I High Sensitivity < 2.3 Normal 0.0-15.0 [facility] Comment on above: Result Comment: PERF ORMED BY: [place] [address] PATHOLOGIST EARLY CHILDHOOD COORDINATOR KISHA CHING M.D. Performed By: #### C K, CBC, CMP, HS TROP #### [address] Troponin I.cardiac [Mass/vol ume] in Serum or Plasma by Detection limit <= 0.01 ng/Ordered By: Mich Diaz on 11-19-2022 Troponin I.cardiac DL <= 0.01 ng/mL [Mass/Vol] < 2.3 pg/mL 0.0-15.0 [facility] Urea nitrogen [Mass/volume] in Serum or PlasmaOrdered By: Mich Diaz on 11-19-2022 Urea nitrogen [Mass/Vol] 14 mg/dL Normal 7-25 [facility] Comment on above: Performed By: #### C K, CBC, CMP, HS TROP #### [facility] [address] Urine Cultureon 11-19-2022 Bacteria identified Cx Nom (U) >100,000 colonies/ml mixed bacterial skin contaminants 2 Days PERFORMED BY: [place] [address] PATHOLOGIST EARLY CHILDHOOD COORDINATOR KISHA CHING M.D. Normal [facility] Comment on above: Performed By: #### C UU, UHCG, ADDONUAPLUS ####[facility] [id number] Urine appearanceOrdered By: Mich Diaz on 11-19-2022 Appearance (U) Clear Normal Clear [facility] Comment on above: Order Comment: Name Collection Type:: Clean-Voided Midstream Performed By: #### C UU, UHCG, ADDONUAPLUS ####[facility] [id number] Urine bacteria detection by automated methodOrdered By: Mich Diaz on 11-19-2022 Bacteria Auto Ql (U) None seen None Seen [facility] Urine colorOrdered By: Mich Diaz on 11-19-2022 Color (U) Yellow Normal Yellow [facility] Comment on above: Order Comment: Name Collection Type:: Clean-Voided Midstream Performed By: #### C UU, UHCG, ADDONUAPLUS ####[facility] [id number] [address] Urine culture routineOrdered By: Mich Diaz on 11-19-2022 Bacteria identified Cx Nom (U) 2 Days [facility] Urine glucose measurement by automated test strip (mass/volume)Ordered By: Mich Diaz on 11-19-2022 Glucose Auto test strip (U) [Mass/Vol] Normal mg/dL Normal [facility] Urine hemoglobin detection b y automated test stripOrdered By: Mich Diaz on 11-19-2022 Hemoglobin Auto test strip Ql (U) 3+ Negative [facility] Urine leukocyte esterase det ection by automated test stripOrdered By: Mich Diaz on 11-19-2022 Leukocyte esterase Auto test strip Ql (U) 2+ Negative [facility] Urine nitrite detection by a utomated test stripOrdered By: Mich Diaz on 11-19-2022 Nitrite Auto test strip Ql (U) Negative Negative [facility] Urine pH measurement by auto mated test stripOrdered By: Mich Diaz on 11-19-2022 pH (U) 6.5 [pH] Normal 5.0-9.0 [facility] Comment on above: Order Comment: Name Collection Type:: Clean-Voided Midstream Performed By: #### C UU, UHCG, ADDONUAPLUS ####[facility] [id number] Urobilinogen Auto test strip (U) [Mass/Vol]Ordered By: Mihc Diaz on 11-19-2022 Urobilinogen (U) [Mass/Vol] Normal mg/dL Normal [facility] pH Auto test strip (U)Ordere d By: Mich Diaz on 11-19-2022 pH (U) 1.010 [pH] 1.001-1.030 [facility] Alanine aminotransferase [En zymatic activity/volume] in Serum or PlasmaOrdered By: Calli Blanc on 11-10-2022 ALT [Catalytic activity/Vol] 11 U/L Normal 7-52 [facility] Comment on above: Order Comment: Reaso n for Exam Syncope, unspecified syncope type Performed By: #### T SH3 wRFLX, CBC, CMP ####[facility] [id number] [place] [address] [place] Albumin [Mass/volume] in Ser um or Plasma by Bromocresol green (BCG) dye binding methoOrdered By: Calli Blanc on 11-10-2022 Albumin BCG dye [Mass/Vol] 4.9 g/dL 3.5-5.7 [facility] Alkaline phosphatase [Enzyma tic activity/volume] in Serum or PlasmaOrdered By: Calli Blanc on 11-10-2022 ALP [Catalytic activity/Vol] 45 U/L Normal 34-104 [facility] Comment on above: Order Comment: Reaso n for Exam Syncope, unspecified syncope type Performed By: #### T SH3 wRFLX, CBC, CMP ####[place] [id number] Aspartate aminotransferase [ Enzymatic activity/volume] in Serum or PlasmaOrdered By: Calli Blanc on 11-10-2022 AST [Catalytic activity/Vol] 14 U/L Normal 13-39 [facility] Comment on above: Order Comment: Reaso n for Exam Syncope, unspecified syncope type Performed By: #### T SH3 wRFLX, CBC, CMP ####[place] [id number] [place] [id number] [facility] Automated basophil %Ordered By: Calli Blanc on 11-10-2022 Basophils/100 WBC (Bld) 2.1 % Normal . [facility] Comment on above: Order Comment: Reaso n for Exam Syncope, unspecified syncope type Performed By: #### T SH3 wRFLX, CBC, CMP ####[place] [id number] [facility] Automated basophil countOrde red By: Calli Blanc on 11-10-2022 Basophils (Bld) [#/Vol] 0.1 10*3/uL Normal 0.0-0.2 [facility] Comment on above: Order Comment: Reaso n for Exam Syncope, unspecified syncope type Result Comment: PERF ORMED BY: [facility] [address] [place] [address] PATHOLOGIST EARLY CHILDHOOD COORDINATOR KISHA CHING M.D. Performed By: #### T SH3 wRFLX, CBC, CMP ####[address] Automated blood monocyte cou ntOrdered By: Calli Blanc on 11-10-2022 Monocytes (Bld) [#/Vol] 0.7 10*3/uL Normal 0.0-0.8 [facility] Comment on above: Order Comment: Reaso n for Exam Syncope, unspecified syncope type Performed By: #### T SH3 wRFLX, CBC, CMP ####[address] Automated eosinophil %Ordere d By: Calli Blanc on 11-10-2022 Eosinophils/100 WBC (Bld) 1.3 % Normal . [facility] Comment on above: Order Comment: Reaso n for Exam Syncope, unspecified syncope type Performed By: #### T SH3 wRFLX, CBC, CMP ####[address] Automated eosinophil countOr dered By: Calli Blanc on 11-10-2022 Eosinophils (Bld) [#/Vol] 0.1 10*3/uL Normal 0.0-0.45 [facility] Comment on above: Order Comment: Reaso n for Exam Syncope, unspecified syncope type Performed By: #### T SH3 wRFLX, CBC, CMP ####[address] Automated monocyte %Ordered By: Calli Blanc on 11-10-2022 Monocytes/100 WBC (Bld) 9.3 % Normal . [facility] Comment on above: Order Comment: Reaso n for Exam Syncope, unspecified syncope type Performed By: #### T SH3 wRFLX, CBC, CMP ####[address] Automated neutrophil %Ordere d By: Calli Blanc on 11-10-2022 Neutrophils/100 WBC (Bld) 59.1 % Normal . [facility] Comment on above: Order Comment: Reaso n for Exam Syncope, unspecified syncope type Performed By: #### T SH3 wRFLX, CBC, CMP ####[place] [id number] [facility] Bilirubin.total [Mass/volume ] in Serum or PlasmaOrdered By: Calli Blanc on 11-10-2022 Bilirubin [Mass/Vol] 0.4 mg/dL Normal 0.3-1.0 [facility] Comment on above: Order Comment: Reaso n for Exam Syncope, unspecified syncope type Performed By: #### T SH3 wRFLX, CBC, CMP ####[place] [id number] [facility] Calcium [Mass/volume] in Ser um or PlasmaOrdered By: Calli Blanc on 11-10-2022 Calcium [Mass/Vol] 9.9 mg/dL Normal 8.6-10.3 [facility] Comment on above: Order Comment: Reaso n for Exam Syncope, unspecified syncope type Performed By: #### T SH3 wRFLX, CBC, CMP ####[place] [id number] [facility] Carbon dioxide, total [Moles /volume] in Serum or PlasmaOrdered By: aClli Blanc on 11-10-2022 CO2 [Moles/Vol] 25.7 mmol/L Normal 21.0-31.0 [facility] Comment on above: Order Comment: Reaso n for Exam Syncope, unspecified syncope type Performed By: #### T SH3 wRFLX, CBC, CMP ####[facility] [address] [place], [place] [id number] [facility] Chloride [Moles/volume] in S di or PlasmaOrdered By: Calli Blanc on 11-10-2022 Chloride [Moles/Vol] 107 mmol/L Normal 98-107 [facility] Comment on above: Order Comment: Reaso n for Exam Syncope, unspecified syncope type Performed By: #### T SH3 wRFLX, CBC, CMP ####[place] [id number] [facility] Complete Blood Count Auto Di ffon 11-10-2022 Mean Corpuscular HGB Conc 32.8 g/dL Normal 32.0-35.0 [facility] Comment on above: Order Comment: Reaso n for Exam Syncope, unspecified syncope type Performed By: #### T SH3 wRFLX, CBC, CMP ####[place] [id number] NRBC% 0.2 /100{WBC} Normal 0-0.5 [facility] Comment on above: Order Comment: Reaso n for Exam Syncope, unspecified syncope type Performed By: #### T SH3 wRFLX, CBC, CMP ####[address] Comprehensive Metabolic Pane obey 11-10-2022 Albumin [Mass/Vol] 4.9 g/dL Normal 3.5-5.7 [facility] Comment on above: Order Comment: Reaso n for Exam Syncope, unspecified syncope type Performed By: #### T SH3 wRFLX, CBC, CMP ####[address] GFR/1.73 sq M.predicted MDRD (S/P/Bld) [Vol rate/Area] mL/min/{1.73_m2} Normal [facility] Comment on above: Order Comment: Reaso n for Exam Syncope, unspecified syncope type Performed By: #### T SH3 wRFLX, CBC, CMP ####[address] Creatinine [Mass/volume] in Serum or PlasmaOrdered By: Calli Blanc on 11-10-2022 Creatinine [Mass/Vol] 0.86 mg/dL Normal 0.60-1.20 [facility] Comment on above: Order Comment: Reaso n for Exam Syncope, unspecified syncope type Performed By: #### T SH3 wRFLX, CBC, CMP ####[address] Erythrocyte distribution wid th [Ratio] by Automated countOrdered By: Calli Blanc on 11-10-2022 Erythrocyte distribution width (RBC) [Ratio] 13.7 % Normal 11.9-15.3 [facility] Comment on above: Order Comment: Reaso n for Exam Syncope, unspecified syncope type Performed By: #### T SH3 wRFLX, CBC, CMP ####[place] [id number] [place] [address] [facility] Erythrocytes [#/volume] in B lood by Automated countOrdered By: Calli Blanc on 11-10-2022 RBC (Bld) [#/Vol] 4.39 10*6/uL Normal 3.60-5.00 [facility] Comment on above: Order Comment: Reaso n for Exam Syncope, unspecified syncope type Performed By: #### T SH3 wRFLX, CBC, CMP ####[place] [id number] [place] [id number] [facility] Glucose [Mass/volume] in Ser um or PlasmaOrdered By: Calli Blanc on 11-10-2022 Glucose [Mass/Vol] 70 mg/dL Normal 70-100 [facility] Comment on above: ADA recommended refe rence rangeRandom Glucose Reference Range is dependent on time and content of last meal. Glucose of more than 200 mg/dL in a nonstressed, ambulatory subject supports the diagnosis of Diabetes Mellitus. Order Comment: Reaso n for Exam Syncope, unspecified syncope type Result Comment: [place] Glucose Reference Range is dependent on time and content of last meal. Glucose of more than 200 mg/dL in a nonstressed, ambulatory subject supports the diagnosis of Diabetes Mellitus. ADA recommended reference range Performed By: #### T SH3 wRFLX, CBC, CMP ####[facility] [place] [id number] [facility] Hematocrit [Volume Fraction] of Blood by Automated countOrdered By: Calli Blanc on 11-10-2022 Hematocrit (Bld) [Volume fraction] 39.8 % Normal 34.0-46.4 [facility] Comment on above: Order Comment: Reaso n for Exam Syncope, unspecified syncope type Performed By: #### T SH3 wRFLX, CBC, CMP ####[place] [id number] [place] [address] [place] Hemoglobin [Mass/volume] in BloodOrdered By: Calli Blanc on 11-10-2022 Hemoglobin (Bld) [Mass/Vol] 13.0 g/dL Normal 11.8-15.4 [facility] Comment on above: Order Comment: Reaso n for Exam Syncope, unspecified syncope type Performed By: #### T SH3 wRFLX, CBC, CMP ####[facility] [id number] [place] [id number] [facility] Leukocytes [#/volume] correc maryam for nucleated erythrocytes in Blood by Automated counOrdered By: Calli Blanc on 11-10-2022 WBC corrected for nucl RBC Auto (Bld) [#/Vol] 7.2 10*3/uL 3.8-11.6 [facility] Leukocytes [#/volume] in Blo od by Automated countOrdered By: Calli Blanc on 11-10-2022 WBC (Bld) [#/Vol] 7.2 10*3/uL Normal 3.8-11.6 [facility] Comment on above: Order Comment: Reaso n for Exam Syncope, unspecified syncope type Performed By: #### T SH3 wRFLX, CBC, CMP ####[place] [address] [place] Lymphocytes [#/volume] in Bl ood by Automated countOrdered By: Calli Blanc on 11-10-2022 Lymphocytes (Bld) [#/Vol] 2.0 10*3/uL Normal 1.00-4.8 [facility] Comment on above: Order Comment: Reaso n for Exam Syncope, unspecified syncope type Performed By: #### T SH3 wRFLX, CBC, CMP ####[facility] [id number] [place] [id number] [place] Lymphocytes/100 leukocytes i n Blood by Automated countOrdered By: aClli Blanc on 11-10-2022 Lymphocytes/100 WBC (Bld) 28.2 % Normal . [facility] Comment on above: Order Comment: Reaso n for Exam Syncope, unspecified syncope type Performed By: #### T SH3 wRFLX, CBC, CMP ####[place] [id number] [address] MCH [Entitic mass] by Automa maryam countOrdered By: Calli Blanc on 11-10-2022 MCH (RBC) [Entitic mass] 29.7 pg Normal 24.7-34.3 [facility] Comment on above: Order Comment: Reaso n for Exam Syncope, unspecified syncope type Performed By: #### T SH3 wRFLX, CBC, CMP ####[address] MCHC Auto (RBC) [Mass/Vol]Or dered By: Calli Blanc on 11-10-2022 MCHC (RBC) [Mass/Vol] 32.8 g/dL 32.0-35.0 [facility] MCV [Entitic volume] by Auto mated countOrdered By: Calli Blanc on 11-10-2022 MCV (RBC) [Entitic vol] 90.5 fL Normal 80-100 [facility] Comment on above: Order Comment: Reaso n for Exam Syncope, unspecified syncope type Performed By: #### T SH3 wRFLX, CBC, CMP ####[address] Neutrophils [#/volume] in Bl ood by Automated countOrdered By: Calli Blanc on 11-10-2022 Neutrophils (Bld) [#/Vol] 4.2 10*3/uL Normal 1.8-7.7 [facility] Comment on above: Order Comment: Reaso n for Exam Syncope, unspecified syncope type Performed By: #### T SH3 wRFLX, CBC, CMP ####[address] No Panel InformationOrdered By: Calli Blanc on 11-10-2022 Estimated GFR (CKD-EPI) > 60.0 mL/Min [facility] Creatinine Clearance (Chem N/A [facility] Nucleated erythrocytes [Pres ence] in Blood by Automated countOrdered By: Calli Blanc on 11-10-2022 Nucleated RBC Auto Ql (Bld) 0.2 /100{WBC} 0-0.5 [facility] Platelet mean volume [Entiti c volume] in Blood by Automated countOrdered By: Calli Blanc on 11-10-2022 Platelet mean volume (Bld) [Entitic vol] 10.3 fL Normal 6.3-10.7 [facility] Comment on above: Order Comment: Reaso n for Exam Syncope, unspecified syncope type Performed By: #### T SH3 wRFLX, CBC, CMP ####[place] [id number] [facility] Platelets [#/volume] in Bloo d by Automated countOrdered By: Calli Blanc on 11-10-2022 Platelets (Bld) [#/Vol] 267 10*3/uL Normal 150-450 [facility] Comment on above: Order Comment: Reaso n for Exam Syncope, unspecified syncope type Performed By: #### T SH3 wRFLX, CBC, CMP ####[address] Potassium [Moles/volume] in Serum or PlasmaOrdered By: Calli Blanc on 11-10-2022 Potassium [Moles/Vol] 4.5 mmol/L Normal 3.5-5.1 [facility] Comment on above: Order Comment: Reaso n for Exam Syncope, unspecified syncope type Performed By: #### T SH3 wRFLX, CBC, CMP ####[place] [id number] [facility] Protein [Mass/volume] in Ser um or PlasmaOrdered By: Calli Blanc on 11-10-2022 Protein [Mass/Vol] 7.3 g/dL Normal 6.4-8.9 [facility] Comment on above: Order Comment: Reaso n for Exam Syncope, unspecified syncope type Performed By: #### T SH3 wRFLX, CBC, CMP ####[address] [address] [facility] Serum globulin measurement b y calculation (mass/volume)Ordered By: Calli Blanc on 11-10-2022 Globulin (S) [Mass/Vol] 2.4 g/dL Normal [facility] Comment on above: Order Comment: Reaso n for Exam Syncope, unspecified syncope type Performed By: #### T SH3 wRFLX, CBC, CMP ####[facility] [id number] [place] [id number] [facility] Serum or plasma albumin/glob ulin mass ratioOrdered By: Calli Blanc on 11-10-2022 Albumin/Globulin [Mass ratio] 2.0 {ratio} Normal [facility] Comment on above: Order Comment: Reaso n for Exam Syncope, unspecified syncope type Performed By: #### T SH3 wRFLX, CBC, CMP ####[facility] [id number] Serum or plasma anion gap de terminationOrdered By: Calli Blanc on 11-10-2022 Anion gap [Moles/Vol] 11.8 mmol/L Normal 6.0-15.0 [facility] Comment on above: Order Comment: Reaso n for Exam Syncope, unspecified syncope type Performed By: #### T SH3 wRFLX, CBC, CMP ####[facility] [id number] Sodium [Moles/volume] in Ser um or PlasmaOrdered By: Calli Blanc on 11-10-2022 Sodium [Moles/Vol] 140 mmol/L Normal 136-145 [facility] Comment on above: Order Comment: Reaso n for Exam Syncope, unspecified syncope type Performed By: #### T SH3 wRFLX, CBC, CMP ####[facility] [id number] [place] [id number] [facility] Thyroid Stim Hormone w/Rflxo n 11-10-2022 Thyroid Stim Hormone w/Rflx 1.20 u[iU]/mL Normal 0.45-5.33 [facility] Comment on above: Order Comment: Reaso n for Exam Syncope, unspecified syncope type Result Comment: PERF ORMED BY: [facility] [address] [place] [address] PATHOLOGIST EARLY CHILDHOOD COORDINATOR KISHA CHING M.D. Performed By: #### T SH3 wRFLX, CBC, CMP ####[facility] [id number] Thyrotropin [Units/volume] i n Serum or PlasmaOrdered By: Calli Blanc on 11-10-2022 TSH Qn 1.20 m[IU]/L 0.45-5.33 [facility] Urea nitrogen [Mass/volume] in Serum or PlasmaOrdered By: Calli Blanc on 11-10-2022 Urea nitrogen [Mass/Vol] 13 mg/dL Normal 7-25 [facility] Comment on above: Order Comment: Reaso n for Exam Syncope, unspecified syncope type Performed By: #### T SH3 wRFLX, CBC, CMP ####[facility] [id number] Basophils Auto (Bld) [#/Vol] Ordered By: MEGHAN RIZVI on 10-02-2022 Basophils (Bld) [#/Vol] 0.1 10*3/uL 0.0-0.2 [facility] Basophils/100 WBC Auto (Bld) Ordered By: MEGHAN RIZVI on 10-02-2022 Basophils/100 WBC (Bld) 0.5 % . [facility] Eosinophils Auto (Bld) [#/Vo l]Ordered By: MEGHAN RIZVI on 10-02-2022 Eosinophils (Bld) [#/Vol] 0.1 10*3/uL 0.0-0.45 [facility] Eosinophils/100 WBC Auto (Bl d)Ordered By: MEGHAN RIZVI on 10-02-2022 Eosinophils/100 WBC (Bld) 0.3 % . [facility] Erythrocyte distribution wid th Auto (RBC) [Ratio]Ordered By: MEGHAN RIZVI on 10-02-2022 Erythrocyte distribution width (RBC) [Ratio] 13.8 % 11.9-15.3 [facility] Hematocrit Auto (Bld) [Volum e fraction]Ordered By: MEGHAN RIZVI on 10-02-2022 Hematocrit (Bld) [Volume fraction] 28.9 % 34.0-46.4 [facility] Hemoglobin [Mass/volume] in BloodOrdered By: MEGHAN RIZVI on 10-02-2022 Hemoglobin (Bld) [Mass/Vol] 9.8 g/dL 11.8-15.4 [facility] Leukocytes [#/volume] correc maryam for nucleated erythrocytes in Blood by Automated counOrdered By: MEGHAN RIZVI on 10-02-2022 WBC corrected for nucl RBC Auto (Bld) [#/Vol] 17.8 10*3/uL 3.8-11.6 [facility] Lymphocytes Auto (Bld) [#/Vo l]Ordered By: MEGHAN RIZVI on 10-02-2022 Lymphocytes (Bld) [#/Vol] 2.4 10*3/uL 1.00-4.8 [facility] Lymphocytes/100 WBC Auto (Bl d)Ordered By: MEGHAN RIZVI on 10-02-2022 Lymphocytes/100 WBC (Bld) 13.8 % . [facility] MCH Auto (RBC) [Entitic mass ]Ordered By: MEGHAN RIZIV on 10-02-2022 MCH (RBC) [Entitic mass] 30.0 pg 24.7-34.3 [facility] MCHC Auto (RBC) [Mass/Vol]Or dered By: MEGHAN RIZVI on 10-02-2022 MCHC (RBC) [Mass/Vol] 33.8 g/dL 32.0-35.0 [facility] MCV Auto (RBC) [Entitic vol] Ordered By: MEGHAN RIZVI on 10-02-2022 MCV (RBC) [Entitic vol] 88.6 fL 80-100 [facility] Monocytes Auto (Bld) [#/Vol] Ordered By: MEGHAN RIZVI on 10-02-2022 Monocytes (Bld) [#/Vol] 1.7 10*3/uL 0.0-0.8 [facility] Monocytes/100 WBC Auto (Bld) Ordered By: MEGHAN RIZVI on 10-02-2022 Monocytes/100 WBC (Bld) 9.5 % . [facility] Neutrophils Auto (Bld) [#/Vo l]Ordered By: MEGHAN RIZVI on 10-02-2022 Neutrophils (Bld) [#/Vol] 13.5 10*3/uL 1.8-7.7 [facility] Neutrophils/100 WBC Auto (Bl d)Ordered By: MEGHAN RIZVI on 10-02-2022 Neutrophils/100 WBC (Bld) 75.9 % . [facility] Nucleated erythrocytes [Pres ence] in Blood by Automated countOrdered By: MEGHAN RIZVI on 10-02-2022 Nucleated RBC Auto Ql (Bld) 0.1 /100{WBC} 0-0.5 [facility] Platelet mean volume Auto (B ld) [Entitic vol]Ordered By: MEGHAN RIZVI on 10-02-2022 Platelet mean volume (Bld) [Entitic vol] 8.2 fL 6.3-10.7 [facility] Platelets Auto (Bld) [#/Vol] Ordered By: MEGHAN RIZVI on 10-02-2022 Platelets (Bld) [#/Vol] 200 10*3/uL 150-450 [facility] Comment on above: Delta: 254 on -30 RBC Auto (Bld) [#/Vol]Ordere d By: MEGHAN RIZVI on 10-02-2022 RBC (Bld) [#/Vol] 3.26 10*6/uL 3.60-5.00 [facility] WBC Auto (Bld) [#/Vol]Ordere d By: MEGHAN RIZVI on 10-02-2022 WBC (Bld) [#/Vol] 17.8 10*3/uL 3.8-11.6 [facility] Reagin Ab [Presence] in Seru m by RPROrdered By: MEGHAN RIZVI on 10-01-2022 Reagin Ab RPR Ql (S) Non-Reactive Non Reactive [facility] Comment on above: Performed at: [address] [id number] Director: Pancho Beasley PhD, Phone: [phone] Amphetamine Screen Ql (U)Ord ered By: Celeste Alanis on 09-28-2022 Amphetamines Ql (U) Negative Negative [facility] Automated erythrocytes count in urine sediment (number/area)Ordered By: Celeste Alanis on 09-28-2022 RBC Auto (Urine sed) [#/Area] 10-19 [HPF] 0-4 [facility] Automated leukocytes count i n urine sediment (number/area)Ordered By: Celeste Alanis on 09-28-2022 WBC Auto (Urine sed) [#/Area] 20-49 [HPF] 0-4 [facility] Barbiturates [Presence] in U rine by Screen methodOrdered By: Celeste Alanis on 09-28-2022 Barbiturates Screen Ql (U) Negative Negative [facility] Benzodiazepines Screen Ql (U )Ordered By: Celeste Alanis on 09-28-2022 Benzodiazepines Ql (U) Negative Negative [facility] Benzoylecgonine [Presence] i n Urine by Screen methodOrdered By: Celeste Alanis on 09-28-2022 Benzoylecgonine Screen Ql (U) Negative Negative [facility] Bilirubin Test strip Ql (U)O rdered By: Celeste Alanis on 09-28-2022 Bilirubin Ql (U) Negative Negative [facility] Color Auto (U)Ordered By: Mikey Alanis on 09-28-2022 Color (U) Yellow Yellow [facility] Ketones Auto test strip (U) [Mass/Vol]Ordered By: Celeste Alanis on 09-28-2022 Ketones (U) [Mass/Vol] Negative Negative [facility] - UrinalysisOrder ed By: Celeste Alanis on 09-28-2022 Hyaline casts LM Ql (Urine sed) None seen [LPF] 0-8 [facility] Nitrite Test strip Ql (U)Ord ered By: Celeste Alanis on 09-28-2022 Nitrite Ql (U) Negative Negative [facility] Opiates [Presence] in Urine by Screen methodOrdered By: Celeste Alanis on 09-28-2022 Opiates Screen Ql (U) Negative Negative [facility] Phencyclidine Screen Ql (U)O rdered By: Celeste Alanis on 09-28-2022 Phencyclidine Ql (U) Negative Negative [facility] Comment on above: These are unconfirme d results and should not be used for legal purposes. Drug Cut-Off Concentration: AMPH 1000 ng/mL FAVIAN 200 ng/mL KIM 200 ng/mL COCM 300 ng/mL OP 300 ng/mL PCP 25 ng/mL Protein Auto test strip (U) [Mass/Vol]Ordered By: Celeste Alanis on 09-28-2022 Protein (U) [Mass/Vol] Negative Negative [facility] Specific gravity Auto test s trip (U) [Rel density]Ordered By: Celeste Alanis on 09-28-2022 Specific gravity (U) [Rel density] 1.015 1.001-1.030 [facility] Squamous epithelial cells de tection in urine sediment by light microscopyOrdered By: Celeste Alanis on 09-28-2022 Epithelial cells.squamous LM Ql (Urine sed) 1-2 [HPF] 0-2 [facility] Urine bacteria detection by automated methodOrdered By: Celeste Alanis on 09-28-2022 Bacteria Auto Ql (U) None seen None Seen [facility] Urine clarity by refractomet ry automatedOrdered By: Celeste Alanis on 09-28-2022 Clarity Refractometry automated (U) Clear Clear [facility] Urine culture routineOrdered By: Celeste Alanis on 09-28-2022 Bacteria identified Cx Nom (U) 2 Days [facility] Urine glucose measurement by automated test strip (mass/volume)Ordered By: Celeste Alanis on 09-28-2022 Glucose Auto test strip (U) [Mass/Vol] Normal mg/dL Normal [facility] Urine hemoglobin detection b y automated test stripOrdered By: Celeste Alanis on 09-28-2022 Hemoglobin Auto test strip Ql (U) 1+ Negative [facility] Urine leukocyte esterase det ection by automated test stripOrdered By: Celeste Alanis on 09-28-2022 Leukocyte esterase Auto test strip Ql (U) 3+ Negative [facility] Urobilinogen Auto test strip (U) [Mass/Vol]Ordered By: Celeste Alanis on 09-28-2022 Urobilinogen (U) [Mass/Vol] Normal mg/dL Normal [facility] pH Auto test strip (U)Ordere d By: Celeste Alanis on 09-28-2022 pH (U) 7.0 [pH] 5.0-9.0 [facility] Amphetamine Screen Ql (U)Ord ered By: MELO RITTER on 09-16-2022 Amphetamines Ql (U) Negative Negative [facility] Automated erythrocytes count in urine sediment (number/area)Ordered By: MELO RITTER on 09-16-2022 RBC Auto (Urine sed) [#/Area] 0-1 [HPF] 0-4 [facility] Automated leukocytes count i n urine sediment (number/area)Ordered By: MELO RITTER on 09-16-2022 WBC Auto (Urine sed) [#/Area] 3-4 [HPF] 0-4 [facility] Barbiturates [Presence] in U rine by Screen methodOrdered By: MELO RITTER on 09-16-2022 Barbiturates Screen Ql (U) Negative Negative [facility] Benzodiazepines Screen Ql (U )Ordered By: MELO RITTER on 09-16-2022 Benzodiazepines Ql (U) Negative Negative [facility] Benzoylecgonine [Presence] i n Urine by Screen methodOrdered By: MELO RITTER on 09-16-2022 Benzoylecgonine Screen Ql (U) Negative Negative [facility] Bilirubin Test strip Ql (U)O rdered By: MELO RITTER on 09-16-2022 Bilirubin Ql (U) Negative Negative [facility] Color Auto (U)Ordered By: KELVIN RITTER on 09-16-2022 Color (U) Yellow Yellow [facility] Ketones Auto test strip (U) [Mass/Vol]Ordered By: MELO RITTER on 09-16-2022 Ketones (U) [Mass/Vol] Negative Negative [facility] - UrinalysisOrder ed By: MELO RITTER on 09-16-2022 Hyaline casts LM Ql (Urine sed) 0-8 [LPF] 0-8 [facility] Nitrite Test strip Ql (U)Ord ered By: MELO RITTER on 09-16-2022 Nitrite Ql (U) Negative Negative [facility] Opiates [Presence] in Urine by Screen methodOrdered By: MELO RITTER on 09-16-2022 Opiates Screen Ql (U) Negative Negative [facility] Phencyclidine Screen Ql (U)O rdered By: MELO RITTER on 09-16-2022 Phencyclidine Ql (U) Negative Negative [facility] Comment on above: These are unconfirme d results and should not be used for legal purposes. Drug Cut-Off Concentration: AMPH 1000 ng/mL FAVIAN 200 ng/mL KIM 200 ng/mL COCM 300 ng/mL OP 300 ng/mL PCP 25 ng/mL Protein Auto test strip (U) [Mass/Vol]Ordered By: MELO RITTER on 09-16-2022 Protein (U) [Mass/Vol] Negative Negative [facility] Specific gravity Auto test s trip (U) [Rel density]Ordered By: MELO RITTER on 09-16-2022 Specific gravity (U) [Rel density] 1.008 1.001-1.030 [facility] Squamous epithelial cells de tection in urine sediment by light microscopyOrdered By: MELO RITTER on 09-16-2022 Epithelial cells.squamous LM Ql (Urine sed) None seen [HPF] 0-2 [facility] Urine bacteria detection by automated methodOrdered By: MELO RITTER on 09-16-2022 Bacteria Auto Ql (U) None seen None Seen [facility] Urine clarity by refractomet ry automatedOrdered By: MELO RITTER on 09-16-2022 Clarity Refractometry automated (U) Clear Clear [facility] Urine glucose measurement by automated test strip (mass/volume)Ordered By: MEOL RITTER on 09-16-2022 Glucose Auto test strip (U) [Mass/Vol] Normal mg/dL Normal [facility] Urine hemoglobin detection b y automated test stripOrdered By: MELO RITTER on 09-16-2022 Hemoglobin Auto test strip Ql (U) Trace Negative [facility] Urine leukocyte esterase det ection by automated test stripOrdered By: MELO RITTER on 04-19-2023 Leukocyte esterase Auto test strip Ql (U) 1+ Negative [facility] Urobilinogen Auto test strip (U) [Mass/Vol]Ordered By: MELO RITTER on 09-16-2022 Urobilinogen (U) [Mass/Vol] Normal mg/dL Normal [facility] pH Auto test strip (U)Ordere d By: MELO RITTER on 09-16-2022 pH (U) 7.5 [pH] 5.0-9.0 [facility] B Streptococcus cultur eOrdered By: MEGHAN RIZVI on 09-09-2022 S. agalactiae Org specific cx Ql (Unsp spec) [facility] Choriogonadotropin.beta subu nit [Units/volume] in Serum or PlasmaOrdered By: MEGHAN RIZVI on 07-17-2022 [place] [address].00 m[IU]/mL [facility] Comment on above: Approximate Approxim ate hCG [...] by: JOSETTE WELCH Date: 2020-01-20 19:15 Normal [facility] Social History Date Type Detail Facility Start: 07-12-2021 End: 08-25-2023 Tobacco smoking status NHIS Never smoked tobacco (finding) [facility] Start: 2000 Sex Assigned At Female [facility] Vital Signs Date Time Vital Sign Value Performing Clinician Faci lity 09-22-2023 09:19-0400 Body height 167.64 cm [facility] Work Phone: [facility] 09-22-2023 09:19-0400 Body mass index (BMI) [Ratio] 18.1 kg/m2 [facility] Work Phone: [facility] 09-22-2023 09:19-0400 Body weight 50.8 kg [facility] Work Phone: [facility] 09-22-2023 09:19-0400 Diastolic blood pressure 64 mm[Hg] [facility] Work Phone: [facility] 09-22-2023 09:19-0400 Heart rate 86 /min [facility] Work Phone: [facility] 09-22-2023 09:19-0400 Respiratory rate 18 /min [facility] Work Phone: [facility] 09-22-2023 09:19-0400 SaO2% (BldA) [Mass fraction] 94 % [facility] Work Phone: [facility] 09-22-2023 09:19-0400 Systolic blood pressure 102 mm[Hg] [facility] Work Phone: [facility] 09-08-2023 15:37-0400 Body height 167.64 cm [facility] Work Phone: [facility] 09-08-2023 15:37-0400 Body weight 53.97 kg [facility] Work Phone: [facility] 09-08-2023 14:29-0400 Diastolic blood pressure 68 mm[Hg] [facility] Work Phone: [facility] 09-08-2023 14:29-0400 Heart rate 90 /min [facility] Work Phone: [facility] 09-08-2023 14:29-0400 Systolic blood pressure 130 mm[Hg] [facility] Work Phone: [facility] 08-25-2023 00:52-0400 Diastolic blood pressure 73 mm[Hg] [facility] Work Phone: [facility] 08-25-2023 00:52-0400 Heart rate 87 /min [facility] Work Phone: [facility] 08-25-2023 00:52-0400 Respiratory rate 20 /min [facility] Work Phone: [facility] 08-25-2023 00:52-0400 SaO2% (BldA) [Mass fraction] 99 % [facility] Work Phone: [facility] 08-25-2023 00:52-0400 Systolic blood pressure 114 mm[Hg] [facility] Work Phone: [facility] 08-24-2023 19:07-0400 Body height 167.64 cm [facility] Work Phone: [facility] 08-24-2023 19:07-0400 Body temperature 98.2 [degF] [facility] Work Phone: [facility] 08-24-2023 19:07-0400 Body weight 52.9 kg [facility] Work Phone: [facility] 08-10-2023 11:06-0400 Diastolic blood pressure 50 mm[Hg] [facility] Work Phone: [facility] 08-10-2023 11:06-0400 Heart rate 93 /min [facility] Work Phone: [facility] 08-10-2023 11:06-0400 Systolic blood pressure 84 mm[Hg] [facility] Work Phone: [facility] 08-10-2023 11:05-0400 Body height 167.64 cm [facility] Work Phone: [facility] 08-10-2023 11:05-0400 Body mass index (BMI) [Ratio] 19.2 kg/m2 [facility] Work Phone: [facility] 08-10-2023 11:05-0400 Body weight 53.97 kg [facility] Work Phone: [facility] 08-10-2023 11:05-0400 Respiratory rate 18 /min [facility] Work Phone: [facility] 08-10-2023 11:05-0400 SaO2% (BldA) [Mass fraction] 99 % [facility] Work Phone: [facility] 03-18-2023 23:02-0400 Body height 167.64 cm [facility] Work Phone: [facility] 03-18-2023 23:02-0400 Body temperature 99.1 [degF] [facility] Work Phone: [facility] 03-18-2023 23:02-0400 Body weight 54.4 kg [facility] Work Phone: [facility] 03-18-2023 23:02-0400 Diastolic blood pressure 84 mm[Hg] [facility] Work Phone: [facility] 03-18-2023 23:02-0400 Heart rate 110 /min [facility] Work Phone: [facility] 03-18-2023 23:02-0400 Respiratory rate 18 /min [facility] Work Phone: [facility] 03-18-2023 23:02-0400 SaO2% (BldA) [Mass fraction] 95 % [facility] Work Phone: [facility] 03-18-2023 23:02-0400 Systolic blood pressure 143 mm[Hg] [facility] Work Phone: [facility] 11-24-2022 21:55-0400 Heart rate 98 /min DO Meghan Nataprawira Work Phone: [facility] 11-24-2022 21:55-0400 Respiratory rate 18 /min DO Meghan Nataprawira Work Phone: [facility] 11-24-2022 21:55-0400 SaO2% (BldA) [Mass fraction] 98 % DO Meghan Nataprawira Work Phone: [facility] 11-24-2022 19:38-0400 Body height 167.64 cm DO Meghan Nataprawira Work Phone: [facility] 11-24-2022 19:38-0400 Body temperature 98.6 [degF] DO Meghan Nataprawira Work Phone: [facility] 11-24-2022 19:38-0400 Body weight 58.7 kg DO Meghan Nataprawira Work Phone: [facility] 11-24-2022 19:38-0400 Diastolic blood pressure 86 mm[Hg] DO Meghan Nataprawira Work Phone: [facility] 11-24-2022 19:38-0400 Systolic blood pressure 154 mm[Hg] DO Meghan Nataprawira Work Phone: [facility] 11-19-2022 23:42-0400 Diastolic blood pressure 74 mm[Hg] DO Meghan Nataprawira Work Phone: [facility] 11-19-2022 23:42-0400 Heart rate 89 /min DO Meghan Nataprawira Work Phone: [facility] 11-19-2022 23:42-0400 Respiratory rate 16 /min DO Meghan Nataprawira Work Phone: [facility] 11-19-2022 23:42-0400 SaO2% (BldA) [Mass fraction] 98 % DO Meghan Nataprawira Work Phone: [facility] 11-19-2022 23:42-0400 Systolic blood pressure 122 mm[Hg] DO Meghan Nataprawira Work Phone: [facility] 11-19-2022 20:24-0400 Body height 167.64 cm DO Meghan Nataprawira Work Phone: [facility] 11-19-2022 20:24-0400 Body temperature 98.9 [degF] DO Meghan Nataprpeterra Work Phone: [facility] 11-19-2022 20:24-0400 Body weight 58 kg DO Meghan Nataprawira Work Phone: [facility] 10-03-2022 15:55-0400 Body temperature 96.8 [degF] UNDERGROUND UTILITY LOCATOR Calli Myerholtz Work Phone: [facility] 10-03-2022 15:55-0400 Diastolic blood pressure 80 mm[Hg] UNDERGROUND UTILITY LOCATOR Calli Myerholtz Work Phone: [facility] 10-03-2022 15:55-0400 Heart rate 96 /min UNDERGROUND UTILITY LOCATOR Calli Myerholtz Work Phone: [facility] 10-03-2022 15:55-0400 Respiratory rate 18 /min UNDERGROUND UTILITY LOCATOR Calli Myerholtz Work Phone: [facility] 10-03-2022 15:55-0400 SaO2% (BldA) [Mass fraction] 98 % UNDERGROUND UTILITY LOCATOR Calli Myerholtz Work Phone: [facility] 10-03-2022 15:55-0400 Systolic blood pressure 120 mm[Hg] UNDERGROUND UTILITY LOCATOR Calli Myerholtz Work Phone: [facility] 10-01-2022 07:15-0400 Body height 170.18 cm UNDERGROUND UTILITY LOCATOR Calli Myerholtz Work Phone: [facility] 10-01-2022 07:15-0400 Body weight 63.95 kg UNDERGROUND UTILITY LOCATOR Calli Myerholtz Work Phone: [facility] 09-28-2022 15:41-0400 Body temperature 98.1 [degF] UNDERGROUND UTILITY LOCATOR Calli Myerholtz Work Phone: [facility] 09-28-2022 15:40-0400 Diastolic blood pressure 90 mm[Hg] UNDERGROUND UTILITY LOCATOR Calli Myerholtz Work Phone: [facility] 09-28-2022 15:40-0400 Heart rate 105 /min UNDERGROUND UTILITY LOCATOR Calli Myerholtz Work Phone: [facility] 09-28-2022 15:40-0400 Systolic blood pressure 137 mm[Hg] UNDERGROUND UTILITY LOCATOR Calli Myerholtz Work Phone: [facility] 09-28-2022 13:02-0400 Body temperature 97.2 [degF] UNDERGROUND UTILITY LOCATOR Calli Myerholtz Work Phone: [facility] 09-28-2022 13:02-0400 Diastolic blood pressure 85 mm[Hg] UNDERGROUND UTILITY LOCATOR Calli Myerholtz Work Phone: [facility] 09-28-2022 13:02-0400 Heart rate 92 /min UNDERGROUND UTILITY LOCATOR Calli Myerholtz Work Phone: [facility] 09-28-2022 13:02-0400 Respiratory rate 16 /min UNDERGROUND UTILITY LOCATOR Calli Myerholtz Work Phone: [facility] 09-28-2022 13:02-0400 SaO2% (BldA) [Mass fraction] 97 % UNDERGROUND UTILITY LOCATOR Calli Myerholtz Work Phone: [facility] 09-28-2022 13:02-0400 Systolic blood pressure 135 mm[Hg] UNDERGROUND UTILITY LOCATOR Calli Myerholtz Work Phone: [facility] 09-28-2022 11:51-0400 Body height 167.64 cm UNDERGROUND UTILITY LOCATOR Calli Myerholtz Work Phone: [facility] 09-28-2022 11:51-0400 Body weight 63.5 kg UNDERGROUND UTILITY LOCATOR Calli Myerholtz Work Phone: [facility] 09-24-2022 10:32-0400 Respiratory rate 16 /min UNDERGROUND UTILITY LOCATOR Calli Myerholtz Work Phone: [facility] 09-24-2022 10:23-0400 Body weight 63.5 kg UNDERGROUND UTILITY LOCATOR Calli Myerholtz Work Phone: [facility] 09-24-2022 10:18-0400 Body height 166.37 cm UNDERGROUND UTILITY LOCATOR Calli Myerholtz Work Phone: [facility] 09-24-2022 10:16-0400 Body temperature 97.2 [degF] UNDERGROUND UTILITY LOCATOR Calli Myerholtz Work Phone: [facility] 09-24-2022 10:16-0400 Diastolic blood pressure 79 mm[Hg] UNDERGROUND UTILITY LOCATOR Calli Myerholtz Work Phone: [facility] 09-24-2022 10:16-0400 Heart rate 92 /min UNDERGROUND UTILITY LOCATOR Calli Myerholtz Work Phone: [facility] 09-24-2022 10:16-0400 SaO2% (BldA) [Mass fraction] 97 % UNDERGROUND UTILITY LOCATOR Calli Myerholtz Work Phone: [facility] 09-24-2022 10:16-0400 Systolic blood pressure 134 mm[Hg] UNDERGROUND UTILITY LOCATOR Calli Myerholtz Work Phone: [facility] 09-19-2022 11:00-0400 Respiratory rate 18 /min UNDERGROUND UTILITY LOCATOR Calli Myerholtz Work Phone: [facility] 09-19-2022 10:53-0400 Body height 167.64 cm UNDERGROUND UTILITY LOCATOR Calli Myerholtz Work Phone: [facility] 09-19-2022 10:53-0400 Body weight 63.5 kg UNDERGROUND UTILITY LOCATOR Calli Myerholtz Work Phone: [facility] 09-19-2022 10:36-0400 Diastolic blood pressure 82 mm[Hg] UNDERGROUND UTILITY LOCATOR Calli Myerholtz Work Phone: [facility] 09-19-2022 10:36-0400 Heart rate 104 /min UNDERGROUND UTILITY LOCATOR Calli Myerholtz Work Phone: [facility] 09-19-2022 10:36-0400 Systolic blood pressure 125 mm[Hg] UNDERGROUND UTILITY LOCATOR Calli Myerholtz Work Phone: [facility] 09-19-2022 10:19-0400 Body temperature 97.5 [degF] UNDERGROUND UTILITY LOCATOR Calli Myerholtz Work Phone: [facility] 09-16-2022 20:00-0400 Body temperature 96.6 [degF] UNDERGROUND UTILITY LOCATOR Calli Myerholtz Work Phone: [facility] 09-16-2022 19:59-0400 Diastolic blood pressure 78 mm[Hg] UNDERGROUND UTILITY LOCATOR Calli Myerholtz Work Phone: [facility] 09-16-2022 19:59-0400 Heart rate 70 /min UNDERGROUND UTILITY LOCATOR Calli Myerholtz Work Phone: [facility] 09-16-2022 19:59-0400 Respiratory rate 16 /min UNDERGROUND UTILITY LOCATOR Calli Myerholtz Work Phone: [facility] 09-16-2022 19:59-0400 SaO2% (BldA) [Mass fraction] 99 % UNDERGROUND UTILITY LOCATOR Calli Myerholtz Work Phone: [facility] 09-16-2022 19:59-0400 Systolic blood pressure 133 mm[Hg] UNDERGROUND UTILITY LOCATOR Calli Myerholtz Work Phone: [facility] Functional Status Date Assessment Result Facility 10-03-2022 Functional status Patient is Pro gressing Toward Baseline [facility] Work Phone: Mental Status Date Assessment Result Facility 10-03-2022 Cognitive function Cognitive Sta tus Patient is Progressing Toward Baseline [facility] Work Phone: Progress note 10-03-2022 Note Date & Type Note Facility 10-03-2022 Progress note Note Date/Time October 03, 2022 11:33a m [facility] [address] [place] [address] 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 Signed Patient: Niraj Jensen MR#: [id number] : 2000 Acct:[id number] Age/Sex: 21 / F Adm Date: 3 Loc: Room: [address] [place] [address] Type: ADM IN Attending Dr: Meghan Rizvi DO Copies to: ~ Date of Service: 10/03/2022 OB - PN: Subj Subjective Post Delivery Day #: Day 2 Patient comments: no complaints and pain well controlled baby status: doing well [place] feeding status: exclusively bottle feeding OB - [...] with her.) Documented By: Bernardino Prajapati DO 10/03/221130 Signed By: <Electronically signed by Bernardino Prajapati DO> 10/03/221132 [facility] Work Phone: Progress note 10-02-2022 Note Date & Type Note Facility 10-02-2022 Progress note Note Date/Time October 02, 2022 9:59am [facility] [address] [place] [address] 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 Patient: Niraj Jensen MR#: [id number] : 2000 Acct:[id number] Age/Sex: 21 / F Adm Date: 3 Loc: 3S Room: [address] [place] [address] Type: ADM IN Attending Dr: Meghan Rizvi DO Copies to: ~ Date of Service: 10/02/2022 OB - PN: Subj Subjective Post Delivery Day #: Day 1 Patient comments: no complaints (per RN-Pt is nonverbal to me) baby status: doing well feeding status: exclusively breast feeding OB - [...] % (Auto) 75.9, Lymph % (Auto) 13.8, Pickett %(Auto) 9.5, Eos % (Auto) 0.3, Baso % (Auto) 0.5, Nucleat RBC Rel Count 0.1, Neut# (Auto) 13.5 H, Lymph # (Auto) 2.4, Pickett # (Auto) 1.7 H, Eos # (Auto) 0.1, Baso# (Auto) 0.1 10/01/22 09:38: Blood Type Recheck A Positive 10/01/22 06:30: RPR w/Rflx to Titer Non reactive Assessment/Plan Plan day: 1 Vaginal delivery plan (if applicable): routine care Documented By: Dariana Richey MD-NOMS 10/02/22 09 58 Signed By: <Electronically signed by PETERSON Richey> 10/02/22 0959 [facility] Work Phone: Procedure note 10-01-2022 Note Date & Type Note Facility 10-01-2022 Procedure note [facility] Evaluation note Note Date & Type Note Facility Evaluation note No assessment information availa ble [facility] Work Phone: Evaluation note Note Date & Type Note Facility Evaluation note Diagnosis Onset Date Status post vaginal delivery acute [facility] Work Phone: Evaluation note Note Date & Type Note Facility Evaluation note Diagnosis Onset Date Orthostatic hypotension acut e Pre-syncope acute [facility] Work Phone: Evaluation note Note Date & Type Note Facility Evaluation note Diagnosis Onset Date Orthostatic hypotension acut e Pre-syncope acute Orthostatic hypotension acut e Pre-syncope acute [facility] Work Phone: Hospital Discharge instructions Note Date & Type Note Facility Hospital Discharge instructions Additional Instructions Please return 09/19 at 10:00 for Non-stress test at [facility]. [facility] Work Phone: Hospital Discharge instructions Note Date & Type Note Facility Hospital Discharge instructions Additional Instructions If your symptoms return/worsen or you develop any further concerns or symptoms please see your doctor or return to the emergency department immediately. [facility] Work Phone: Hospital Discharge instructions Note Date & Type Note Facility Hospital Discharge instructions Additional Instructions Follow-up with your primary care doctor. You may need to be referred to the museum host/hostess. We are happy to see you if there are any significant problems or concerns. The most likely cause for the bleeding with bowel movements is bleeding from internal hemorrhoids. If this persists, you may need specialist referral for endoscopy. [facility] Work Phone: Summary Purpose Family History No [...] DATE CREATED AUTHOR AUTHOR'S ORGANIZ ATION 02/04/2023 [facility] DATE CREATED AUTHOR AUTHOR'S ORGANIZ ATION 09/30/2023 [facility] DATE CREATED AUTHOR AUTHOR'S ORGANIZ ATION 11/04/2023 [facility] Care Teams (unrecognized sec tion and content) Team Status: Inactive Member Role Status Dates Calli Blanc APRN [employer] Primary Care Provide r Active Dariana Richey MD Attending Provider Active Team Status: Active Member Role Status Dates Calli Blanc APRN [employer] Primary Care Provide r Active Team Status: Inactive Member Role Status Dates Meghan Rizvi DO Attending Provider Active Team Status: Active Member Role Status Dates Services [facility] Primary Care Provider Active Team Status: Inactive Member Role Status Dates Meghan Rizvi DO Attending Provider Active NON STAFF [...] Primary Care Provider Active Calli Blanc APRN [employer] Attending Provider A ctive Team Status: Inactive [...] Status: Inactive Member Role Status Dates Services [facility] Primary Care Provider Active Start: August 11, 2023 End: August 11, 2023 Cuco Nails MD Attending Provider Activ e Start: August 11, 2023 End: August 11, 2023 Team Status: Inactive Member Role Status Dates Services [facility] Primary Care Provider Active Start: August 24, 2023 End: August 25, 2023 Sergio Zepeda Jr, MD Emergency Provider Active Start: August 24, 2023 End: August 25, 2023 Team Status: Inactive Member Role Status Dates Services [facility] Primary Care Provider Active Start: September 08, 2023 End: September 08, 2023 Cuco Nails MD Referring Provider Activ e Start: September 08, 2023 End: September 08, 2023 Dannielle Addison MD Attending Provider Active Sta rt: September 08, 2023 End: September 08, 2023 Team Status: Inactive Member Role Status Dates Services [facility] Primary Care Provider Active Start: September 22, [...] BE BASED ON THE PRIMARY CLINICAL RECORDS. [facility] provides no warranty or guarantee of the accuracy or completeness of information in this document.
[2023-11-18 21:30] VITALS: BP 131/80; PULSE 100; TEMP 36.8; O2SAT 100; BMI 19.4
--- NOTE | 2023-11-18 21:49 | ED_ITS ---
HPI - Female Genitourinary General Chief complaint: Urogenital-Female Stated complaint: hurts when urinating Time Seen by Provider: 11/18/23 21:32 Source: patient Mode of arrival: walk-in Limitations: no limitations History of Present Illness HPI Narrative: This 23-year-old female presents for evaluation of urinary frequency urgency and dysuria. The symptoms started earlier today. She denies any fevers or chills. She has no nausea or vomiting. She has not noticed any blood in her urine. She denies any abdominal pain or flank pain. She denies the possibility of because she is not currently sexually active and had her menstrual period this month already. No additional complaints. Related Data Home Medications ?Medication ?Instructions ?Recorded ?Confirmed norethindrone 1 mg-ethinyl 1 tab PO DAILY 09/09/23 11/18/23 estradiol 20 mcg (21)-iron 75 mg (7) tablet (Marybel Fe 06/19 (28)) Allergies Allergy/AdvReac Type Severity Reaction Status Date / Time No Known Drug Allergies Allergy Verified 11/18/23 21:30 Review of Systems ROS Status of ROS 10 or more systems reviewed and unremark able except as noted in history and below Exam Narrative Exam Narrative: Vital signs and Nursing Notes reviewed: Patient is afebrile with a normal pulse, normal blood pressure, she is not hypoxic with pulse ox of 100% on room air General: Awake, alert, oriented, thin female resting comfortably on the stretcher, no respiratory distress HEENT: Normocephalic atraumatic, mucous membranes are moist and pink, eyes are clear, normal conjunctiva, vision is grossly intact Neck: Supple, no meningeal signs, no anterior or posterior cervical lymphadenopathy Chest: Lungs are clear to auscultation with good air entry, there is no wheezing rhonchi or rales appreciated no accessory muscle use, patient is speaking in complete sentences-no chest wall tenderness to palpation CVS: Regular rate and rhythm S1-S2, no murmurs rubs or gallops, pulses are brisk and equal bilaterally ABD: Soft, nondistended, mild tenderness over the urinary bladder, there is no other tenderness in the abdomen including no right lower quadrant, right upper quadrant or left upper quadrant tenderness Extremities: Moving all extremities, no lower extremity tenderness or swelling noted, negative Homans' sign, pulses are brisk and equal bilaterally Skin: Normal in appearance without rash,pallor, petechiae or purpura Neuro: No focal deficits Constitutional Vital Signs, click to edit/add: Last Vital Signs Temp 98.2 F 11/18/23 21:30 Pulse 100 H 11/18/23 21:30 Resp 18 11/18/23 21:30 BP 131/80 11/18/23 21:30 Pulse Ox 100 11/18/23 21:30 O2 Del Method Room Air 11/18/23 21:30 Course Vital Signs Vital signs: Vital Signs Temperature 98.2 F 11/18/23 21:30 Pulse Rate 100 H 11/18/23 21:30 Respiratory Rate 18 11/18/23 21:30 Blood Pressure 131/80 11/18/23 21:30 Pulse Oximetry 100 11/18/23 21:30 Oxygen Delivery Method Room Air 11/18/23 21:30 Temperature 98.2 F 11/18/23 21:30 Pulse Rate 100 H 11/18/23 21:30 Respiratory Rate 18 11/18/23 21:30 Blood Pressure 131/80 11/18/23 21:30 Pulse Oximetry 100 11/18/23 21:30 Oxygen Delivery Method Room Air 11/18/23 21:30 MDM - Female Genitourinary MDM Narrative Medical decision making narrative: This 23-year-old female presents for evaluation of urinary symptoms for 1 day including urinary frequency urgency and dysuria. She denies the possibility of . She has no flank pain abdominal pain fevers chills nausea or vomiting. Her physical exam is benign with mild tenderness over her urinary bladder. Her urine is positive for leukocyte esterase. test was negative. She was medicated emergency department with a dose of Bactrim and ibuprofen and will be discharged home with prescription for Bactrim with recommendation to increase p.o. intake and return to the emergency department as needed for worsening symptoms, fever, flank pain or any concerns. Lab Data Labs: Lab Results 11/18/23 Range/Units 21:40 Urine Color Lt. yellow (YELLOW) Urine Clarity Clear (CLEAR) Urine pH 6.0 (5.0-9.0) Ur Specific [place] 1.020 (1.005-1.025) Urine Protein Negative (NEG/TRACE) mg/dL Urine Glucose (UA) Negative (NEGATIVE) mg/dL Urine Ketones Negative (NEGATIVE) mg/dL Urine Occult Blood Negative (NEGATIVE) Urine Nitrite Negative (NEGATIVE) Urine Bilirubin Negative (NEGATIVE) Urine Urobilinogen 0.2 (0.2-1.0) EU/dL Ur Leukocyte Esterase Trace A (NEGATIVE) Urine HCG, Qual Negative (NEGATIVE) Discharge Plan Discharge Stand Alone Forms: Portal Instructions Chief Complaint: Urogenital-Female Clinical Impression: UTI (urinary tract infection) Patient Disposition: Home, Self-Care Time of Disposition Decision: 22:00 Condition: Good Prescriptions / Home Meds: No Action norethindrone-e.estradiol-iron [Marybel Jarvis 06/19 ()] 1 mg-20 mcg (21)/75 mg (7) tablet 1 tab PO DAILY Print Language: Czech Instructions: Urinary Tract Infection in Women (DC) Referrals: [facility] [Primary Care Provider] - 1 week
[2023-11-18 21:52] LABS: Bilirubin Urine NEGATIVE (NEGATIVE); Blood Urine NEGATIVE (NEGATIVE); Clarity Urine CLEAR (CLEAR); Color Urine LT. YELLOW (YELLOW); Glucose Urine UA NEGATIVE (NEGATIVE); Ketones Urine NEGATIVE (NEGATIVE); Leukocyte Esterase Urine TRACE (NEGATIVE); Nitrite Urine NEGATIVE (NEGATIVE); Protein Urine NEGATIVE (NEG/TRACE); Urobilinogen Urine 0.2 EU/dL (0.2-1.0)
[2023-11-18 21:53] LABS: HCG Qualitative Urine* NEGATIVE (NEGATIVE); Internal Control Within Normal Limits
[2023-11-18 22:00] LABS: Amorphous Sediment Urine RARE; Bacteria Urine SMALL #/HPF (NONE SEEN); Cast Seen? NONE SEEN #/LPF (NONE SEEN); Crystals Seen? Seen #/HPF (None Seen); Mucus Urine NONE SEEN (NONE SEEN); RBC Urine 0-2 #/HPF (0-2); Squamous Epithelial Cell Urine FEW #/LPF (NONE/RARE); Urine Culture Indicated YES
[2023-11-18] MEDS: IBUPROFEN 600 MG TABLET PO (22:19)
[2023-11-18] MEDS: SULFAMETHOXAZOLE/TRIMETHOPRIM 800-160 MG TABLET 1 TAB PO (22:20)
== END 2023-11-18 22:22 | disposition home or self-care (01) ==
PROVIDERS: Emergency Provider Emergency Medicine
DX: N39.0 Urinary tract infection, site not specified (principal)
CPT/HCPCS: 81001; 84703; 87086; 99283

== ENCOUNTER 2023-12-13 11:20 | Outpatient (OUT) | payer OTHER, SELFPAY ==
--- NOTE | 2023-12-13 | XR_ITS ---
The [address] [address] Patient Name: NIRAJ CLIFFORD MRN: [id number] date: 2000 Sex: F Assigned Patient Location: Current Patient Location: Accession/Order Number: [id number] Exam Date: 12/13/2023 11:25 Report Date: 12/14/2023 15:11 At the request of: LOREN PATRICIA Procedure: XR wrist RT min 3V PROCEDURE: XR wrist RT min 3V COMPARISON: 10/28/2023 HISTORY: RIGHT WRIST PAIN FINDINGS: BONES:No fracture, acute abnormality, or significant arthropathy. SOFT TISSUES:Negative. No visible soft tissue swelling. EFFUSION:None visible. OTHER: Negative. XR/XR wrist RT min 3V IMPRESSION: No acute radiographic abnormality Electronically authenticated by: JOHN MARTINEZ Date: 12/14/2023 15:11
== END 2023-12-13 11:21 | disposition home or self-care (01) ==
LOC: EC 11:20
PROVIDERS: Visit Provider Orthopaedic Surgery
DX: M25.531 Pain in right wrist (principal)
CPT/HCPCS: 73110

== ENCOUNTER 2024-11-03 20:14 | Emergency (ER) | payer MEDICARE, MEDICAID, SELFPAY ==
--- OUTSIDE RECORDS SUMMARY | 2024-05-29 03:40 | XMS_ITS ---
Author Organization [facility] Address [address] [place] [address] Care Team Providers Care Kinesiologist Name Role Phone Frankie Werner Unavailable [phone] REASON FOR VISIT RIGHT WRIST PAIN Medications Medication SIG (Take, Route, Frequency, Duration) Notes Start Date End Date Status Mobic 15 mg 1 tab(s) orally once a day for 45 days 04/17/2024 Active Mobic 15 mg 1 tab(s) orally once a day for 45 days 12/13/2023 Unknown Encounters Encounter Location Date Provider Diagnosis [facility] [address] [place] [address] [address] [place] [address] 05/29/2024 Frankie Werner Plan Of Treatment No Information Progress Notes * NIRAJ CLIFFORD LDOB:[birth year] (24 yo F)Acc No.[id number]:05/29/2024 Patient: NIRAJ FAUSTIN Provider: Brennan Werner MD :2000 A ge:23 Y S ex:Female Date:05/29/2024 Address:[address] [place], [place] [id number] Subjective: * Chief Complaints: * 1 . RIGHT WRIST PAIN. * Medical History: * Medications: T aking Mobic 15 mg tablet 1 tab(s) orally once a day , Unknown Mobic 15 mg tablet 1 tab(s) orally once a day Objective: * Vitals: Assessment: Plan: * Treatment: Forms: * Images: * Electronic signature of Ricky Werner MD on 11/03/2024 at 08:23 PM EDT Sign off status: Pending * Provider: Brennan Werner MD Date: 1 Generated for Kan james/German/Sangita on: 0 11/03/2024 08:23 PM EDT
--- OUTSIDE RECORDS SUMMARY | 2024-06-12 04:50 | XMS_ITS ---
Author Organization [facility] Address [address] [place] [address] Care Team Providers Care Integration Manager Name Role Phone Frankie Werner Unavailable [phone] REASON FOR VISIT RIGHT WRIST PAIN Encounters Encounter Location Date Provider Diagnosis [facility] [address] [place] [address] [place] [address] 06/12/2024 Frankie Werner Plan Of Treatment No Information Progress Notes * NIRAJ CLIFFORD LDOB:[birth year] (24 yo F)Acc No.[id number]:06/12/2024 Patient: NIRAJ FAUSTIN Provider: Brennan Werner MD :2000 A ge:23 Y S ex:Female Date:06/12/2024 Address:[address] [place], [place] [id number] Subjective: * Chief Complaints: * 1 . RIGHT WRIST PAIN. * Medical History: Objective: * Vitals: Assessment: Plan: * Treatment: Forms: * Images: * Electronic signature of Ricky Werner MD on 11/03/2024 at 08:22 PM EDT Sign off status: Pending * Provider: Brennan Werner MD Date: 0 06/12/2024 Generated for Kan james/German/Preethiitting on: 0 11/03/2024 08:22 PM EDT
--- OUTSIDE RECORDS SUMMARY | 2024-06-19 05:20 | XMS_ITS ---
Author Organization [facility] Address [address] [place] [address] Care Team Providers Care Cable Former Name Role Phone Frankie Werner [facility] [phone] Allergies No Known Allergies REASON FOR VISIT RIGHT WRIST PAIN Medications Medication SIG (Take, Route, Frequency, Duration) Notes Start Date End Date Status Mobic 15 mg 1 tab(s) orally once a day for 45 days 04/17/2024 Active Mobic 15 mg 1 tab(s) orally once a day for 45 days 12/13/2023 Unknown Social History Tobacco Use: Social History Observation Description Date Details (start date - stop date) Never Smoker NA - NA AUDIT-C (Standard) Question Answer Notes Did you have a drink containing alcohol in the p ast year? No Points 0 Interpretation Negative Tobacco Control (Standard) Question Answer Notes Tobacco use: Nonsmoker Encounters Encounter Location Date Provider Diagnosis [facility] [address] [place] [address] [place] [address] 06/19/2024 Frankie Werner Right wrist pain M25.531 Assessments Encounter Date Diagnosis (ICD Code) Assessment Notes Treatment Notes Treatment Clinical Notes Section Notes 06/19/2024 Right wrist pain (ICD-10 - M25.531) 06/19/2024 Other Patient is doing well. She no longer has wrist pain. She will follow-up on an as-needed basis. Import medication Plan Of Treatment Treatment Notes Assessment Notes Other Patient is doing well. She no longer has wrist pain. She will follow-up on an as-needed basis. Import medication Next Appt Details Follow Up: prn, Reason: Progress Notes * NIRAJ CLIFFORD LDOB:[birth year] (23 yo F)Acc No.[id number]:06/19/2024 Patient: NIRAJ FAUSTIN Provider: Brennan Werner MD :2000 A ge:23 Y S ex:Female Date:06/19/2024 Address:[address] [place] [address] [place] [id number] Subjective: * Chief Complaints: * R IGHT WRIST PAIN * HPI: G eneral Follow Up Information: Patient presents today for follow-up of her wrist pain. She reports with physical therapy her right wrist pain is completely resolved. * Medical History: * Surgical History: N o Surgical History documented. * Family History: N o Family History documented.. * Social History: A KARO-C (Standard) D id you have a drink containing alcohol in the past year? N o,?Points 0 , I nterpretation N egative. T obacco Control (Standard) T obacco use: N onsmoker. * Medications: T akingMobic 15 mg tablet 1 tab(s) orally once a day Taking Mobic 15 mg tablet 1 tab(s) orally once a day UnknownMobic 15 mg tablet 1 tab(s) orally once a day Medication List reviewed and reconciled with the patientUnknown Mobic 15 mg tablet 1 tab(s) orally once a day Medication List reviewed and reconciled with the patient * Allergies: N .K.D.A.no[Allergies Verified] Objective: * Vitals: * Examination: eneral examination: R ight wrist today has no swelling. No tenderness to palpation. Full finger and wrist range of motion. X -ray Imaging Studies: M RI Imaging Studies: Assessment: * Assessment: 1. R ight wrist pain - M25.531 (Primary) Plan: * Treatment: * Procedure Codes: * Follow Up: p rn Forms: * Images: * Sign off status: Completed true * Provider: Brennan Werner MD Date: 06/19/2024 Generated for Kan james/German/Preethiitting on: 0 11/03/2024 08:23 PM EDT History and Physical Notes * HPI (History of Present Illness) Category Sub-Category Detail Notes Category Not es General Follow Up Information Patient presents tod ay for follow-up of her wrist pain. She reports with physical therapy her right wrist pain is completely resolved. Examination Category Sub-Category Detail Notes Category Not es General examination Right wr ist today has no swelling. No tenderness to palpation. Full finger and wrist range of motion. X-ray Imaging Studies MRI Imaging Studies
--- OUTSIDE RECORDS SUMMARY | 2024-09-26 11:15 | XMS_ITS ---
Author Organization [facility] Address [address] [place] [address] Care Team Providers Care Gas Treater Name Role Phone Ruby Matt Primary Care Provider REASON FOR VISIT passing out Encounters Encounter Location Date Provider Diagnosis [facility] [address] [facility] [place] [address] 09/26/2024 Ruby Matt Plan Of Treatment Next Appt Details Provider Name:Otto meza, 11/20/2024 01:45:00 PM, [address] [place], [address], Provider Name:Lisa Mcdaniel , 04/20/2025 01:40:00 PM, [address], [place], [address], Progress Notes * NIRAJ CLIFFORD LDOB:[birth year] (24 yo F)Acc No.[id number]:09/26/2024 Progress Notes Patient: NIRAJ FAUSTIN Provider: TARIQ Martinez :2000 A ge:23 Y S ex:Female Date:09/26/2024 Address:[address] [facility] [place], [id number] Subjective: * Chief Complaints: * 1 . Passing out. * Medical History: Objective: * Vitals: Assessment: Plan: * Treatment: * Images: * Electronic signature of Gracie Matt CNP on 11/03/2024 at 08:22 PM EDT Sign off status: Pending * Provider: TARIQ Martinez Date: 0 09/26/2024 Generated for Kan james/German/Sangita on: 0 11/03/2024 08:22 PM EDT
--- OUTSIDE RECORDS SUMMARY | 2024-10-20 06:49 | XMS_ITS | Continuity of Care Document ---
Author Organization [facility] Address [address] [place] [address] Phone Care Team Providers Care Solar Maintenance Technician Name Role Phone [facility] Primary Care Prov ider Ruby Melgoza AIR DRILL OPERATOR-C Attending Pr ovider Wagner Rosario DPM Attending Provider Ruby Matt AIR DRILL OPERATOR-C Attending Provider Liu Wheatley PA-C Emergency Provider Care Teams Patient Care Team Team Status: Active Member Role Status Dates Cuco Nails MD Senior Financial Accountant Active Services [facility] Primary Care Provider Ac tive Visit Care Team Team Status: Inactive Member Role Status Dates Services [facility] Primary Care Provider Ac tive Start: August 04, 2024 End: August 04, 2024 Ruby shipley AIR DRILL OPERATOR-C Attending Provider Active Start: August 04 End: August 04, 2024 Visit Care Team Team Status: Inactive Member Role Status Dates Services [facility] Primary Care Provider Ac tive Start: August 14, 2024 End: August 14, 2024 Wagner Rosario DPM Attending Provider Active Start: August 14, 2024 End: August 14, 2024 Visit Care Team Team Status: Inactive Member Role Status Dates Services [facility] Primary Care Provider Ac tive Start: September 18, 2024 End: September 18, 2024 Wagner Rosario DPM Attending Provider Active Start: September 18, 2024 End: September 18, 2024 Visit Care Team Team Status: Inactive Member Role Status Dates Services [facility] Care Provider Ac tive Start: September 20, 2024 End: September 20, 2024 TARIQ Fournier Attending Provider Active Start: September 20, 2024 End: September 20, 2024 Patient Care Team Team Status: Inactive Member Role Status Dates Services [facility] Provider Ac tive Start: October 17, 2024 End: October 17, 2024 Liu Wheatley PA-C Emergency Provider Active Start: October 17, 2024 End: October 17, 2024 Chief Complaint and Reason for Visit Chief Complaint Admit Date R07.9 R06.02 August 04, 2024 9:25 am B35.1 August 14, 2024 10: 38am B35.1 September 18, 2024 12: 15pm m79.671 September 20, 2024 9:4 3am headache October 17, 2024 9:09p m Allergies, Adverse Reactions, Alerts No known allergies Social History Smoking Status Status Start Date End Date Date of Observa tion Never smoked tobacco (finding) October 17, 2024 10:55pm Observation Status Observation Response Date of Response Patient Sex Female October 17, 2024 1 1:20pm Assigned Sex Female October 10, 9 Family History Relationship Condition Age at Onset Recorded Date/T mario mother Hypertension Unknown Gout Unknown Vertigo Unknown father Heart disease Unknown Problems Active Problems Medical Problem Onset Date Status COVID-19 Active Status post vaginal delivery Act kevin Orthostatic hypotension Active Diarrhea Active Headache Active Pre-syncope Active Inactive/Resolved Problems Medical Problem Onset Date Status Nausea, vomiting, and diarrhea R esolved Contusion of foot Resolved Vasovagal syncope Resolved Bleeding per rectum Resolved Near syncope Resolved Viral illness Resolved Nausea and vomiting Resolved Abdominal pain Resolved Medications Medication Status Dose Units Route Directions Qty Days St art Date Stop Date End Date Instructions Dicyclomine 10 mg capsule Discont inued 10 MG PO Twice daily 2021 1:00am September 19, 2022 10:16 am No.144-Folic Acid () 400 mcg Tablet,Chewa ble Discont inued TAB PO September 24, 2022 12:00a m November 19, 2022 8:21p m Docusate Sodium 100 mg Capsule Discont inued 100 MG PO Bedtime October 01, 2022 12:00a m November 19, 2022 8:21p m Ibuprofen 600 mg Tablet Discont inued 600 MG PO Q6H October 01, 2022 12:00a m November 19, 2022 8:21p m Ferrous Sulfate 325 mg (65 mg iron) tablet Discont inued 325 MG PO Daily 30 October 03, 2022 12:00a m Octob er 2022 11:06 pm Ibuprofen 600 mg tablet Discont inued 600 MG PO Every 6 hours as needed for pain October 03, 2022 12:00a m November 19, 2022 8:21p m do not exceed 4 doses in a 24 hour period Famotidine (Pepcid) 20 mg tablet Discont inued 20 MG PO Twice daily August 24, 2023 12:00a m September 22, 2023 9:16a m Ondansetron 4 mg tablet,disin tegrating Discont inued 4 MG PO Q8H as needed for nausea and vomiting August 24, 2023 12:00a m September 22, 2023 9:17a m Norethindron e-E.Estradio l-Iron 1 mg-20 mcg (21)/75 mg (7) tablet Active 1 TAB PO Daily Octobe r 2022 12:00a m Ondansetron Hcl 4 mg tablet Discont inued 4 MG PO Every 8 hours as needed for nausea and vomiting 12 4 Novemb er 2023 12:00a m Mayua ry 2024 8:24p m Ondansetron Hcl 4 mg tablet Discont inued 4 MG PO every 6 to 8 hours as needed for nausea and vomiting y 2024 1:00am Febru mike 2024 11:38 am Cyanocobalam in (Vitamin B-12) 1,000 mcg tablet Active 1000 MCG PO Daily 2024 1:00am Procedures Procedure Date Performed Status XR foot RT min 3V* September 20, 2024 9:59am compl eted CT chest wo con August 04, 2024 10:27am complete d CT sinus wo con August 04, 2024 10:29am complete d Relevant Diagnostic Tests and/or Laboratory Data Laboratory Results Test Date/Time Result Interpretation Reference Range Result Comment Performing Site Aspartate Amino Transf (AST/SGOT) August 14, 2024 10:45am 14 U/L 39 [facility] [id number] [address] [facility] [address] Aspartate Amino Transf (AST/SGOT) September 18, 2024 12:22pm 17 U/L 39 [facility] [id number] [address] [facility] [address] Alanine Aminotransferase (ALT/SGPT) August 14, 2024 10:45am 14 U/L [facility] [id number] [address] [facility] [address] Alanine Aminotransferase (ALT/SGPT) September 18, 2024 12:22pm 24 U/L [facility] [id number] [address] [place] [address] Diagnostic Imaging Reports Author Rodriguez Cox [facility] Authored August 04, 2024 11:4 3am Report Dictated Date/Time Dictated By Status Radiology Report August 04, 2024 11:43am Rodriguez Cox MD completed [facility] Main [place] [address] [place] [address] CT Scan Report Signed Patient: Bradley Jensen MR#: [id number] : 2000 Acct:[id number] Age/Sex: 23 / F ADM Date: 5 Loc: CT Room: Type: [facility] Attending Dr: Ruby Melgoza AIR DRILL OPERATOR-C Copies to: Ruby Melgoza~ Ordering Provider: Ruby Melgoza Date of Service: 08/04/24 CT/CT sinus wo con: Other infective acute otitis externa of right ear;Dizziness; CT PARANASAL SINUSES WITHOUT CONTRAST: CLINICAL HISTORY: Acute right-sided of the otitis externa, cerebral abscess, dizziness COMPARISON: None TECHNIQUE: Contiguous axial unenhanced images were obtained through the paranasal sinuses. Coronal reconstructions were also performed. This CT exam was performed using one or more following dose reduction techniques: Automated exposure control, adjustment of the mA and/or kV according to patient size, or use of iterative reconstruction technique. FINDINGS: There is appropriate development and pneumatization. There is no mucosal thickening or air-fluid levels. The ostiomeatal complexes are patent. There is no bony destruction. Underpneumatized right mastoid. Left mastoid is clear. CT/CT sinus wo con IMPRESSION: NO CT FINDINGS OF ACUTE BACTERIAL SINUSITIS. Impression dictated by: Rodriguez Cox M.D.08/04/2024 11:45 AM Dictation Location: [place] [address] Transcribed By: [facility] 08/04/24 1145 Dictated By: Rodriguez Cox MD 08/04/24 1143 Signed By: <Electronically signed by Rodriguez Cox MD in [place]> 08/04/24 1145 Author Rodriguez Cox [facility] Authored August 04, 2024 11:4 5am Report Dictated Date/Time Dictated By Status Radiology Report August 04, 2024 11:45am Rodriguez Cox MD completed [facility] [place] [address] CT Scan Report Signed Patient: Bradley Jensen MR#: [id number] : 2000 Acct:[id number] Age/Sex: 23 / F ADM Date: 5 Loc: CT Room: Type: [facility] Attending Dr: Ruby Melgoza AIR DRILL OPERATOR-C Copies to: Ruby Melgoza~ Ordering Provider: Ruby Melgoza Date of Service: 08/04/24 CT/CT chest wo con: Left-sided chest pain;Shortness of breath CT CHEST WITHOUT IV CONTRAST: CLINICAL HISTORY: Syncopal episodes, dizziness, shortness breath left-sided chest pain intermittently COMPARISON: [facility]BS 07/17/2024 TECHNIQUE: Spiral images were obtained through the chest without IV contrast. This CT exam was performed using one or more following dose reduction techniques: Automated exposure control, adjustment of the mA and/or kV according to patient size, or use of iterative reconstruction technique. FINDINGS: Mediastinum:Heart is normal size without pericardial effusion. No suspicious mediastinal or hilar adenopathy Lungs:No airspace opacity, pleural effusion or pneumothorax. No suspicious nodularity. Abd:Unremarkable Soft tissues/Bones: Thoracic vertebral heights maintained. No rib fractures identified. CT/CT chest wo con IMPRESSION: Unremarkable noncontrast CT of the chest Impression dictated by: Rodriguez Cox M.D.08/04/2024 11:57 AM Dictation Location: [facility]23 Transcribed By: [facility] 08/04/24 1157 Dictated By: Rodriguez Cox MD 08/04/24 1145 Signed By: <Electronically signed by Rodriguez Cox MD in OV> 08/04/24 1157 Author Rodriguez Cox [facility] Authored September 20, 2024 5:2 2pm Report Dictated Date/Time Dictated By Status Radiology Report September 20, 2024 5:22pm Rodriguez Cox MD completed [facility] [place] [address] XRay Report Signed Patient: Bradley Jensen MR#: [id number] : 2000 Acct:[id number] Age/Sex: 23 / F ADM Date: 5 Loc: XD Room: Type: [facility] Attending Dr: Ruby POTTER Copies to: TARIQ Fournier~ Ordering Provider: TARIQ Fournier Date of Service: 09/20/24 XR/XR foot RT min 3V*: Acute pain of right foot RIGHT FOOT - 3 views CLINICAL HISTORY: Right foot pain laterally, heel pain for 3 days COMPARISON: None FINDINGS: No fracture or dislocation. Joint spaces preserved. Soft tissues unremarkable. XR/XR foot RT min 3V* IMPRESSION: NO ACUTE PLAIN FILM FINDINGS. Impression dictated by: Rodriguez Cox M.D.09/20/2024 5:23 PM Dictation Location: [place] [address] Transcribed By: [facility] 09/20/241722 Dictated By: Rodriguez Cox MD 09/20/241721 Signed By: <Electronically signed by Rodriguez Cox MD in OV> 09/20/24 172 Vital Signs Vital Reading Result Reference Range Collection Date/Time Height 66 [in_i] October 17, 2024 9:22pm Weight 53.30 kg October 17, 2024 9:22pm Body Temperature 98.6 [degF] 97.6-99.0 October 17, 2 025 9:22pm Heart Rate 79 /min 60-100 October 17, 2024 9:22pm Respiratory rate 18 /min 12-24 October 17, 2 025 9:22pm Oxygen saturation by Pulse oximetry 99 % 95-10 0 October 17, 2024 9:22pm BP Systolic 157 mm[Hg] 100-140 October 17, 2024 9:22pm BP Diastolic 83 mm[Hg] 60-100 October 17, 2024 9:22pm Advance Directives Advance Directive Response Recorded Date/ Time Advance Directives No November 18 3:38pm Insurance Providers Guarantor Bradley Jensen Address [address] [facility] [address] Contact Info. Home Phone: Payer Policy Id Coverage Id Subscriber's Name Subscriber Id Effective Date Expiration Date Medicaid [id number] Bradley Jensen [id number] [facility] Medicaid [id number] Bradleyjacobo Jensen [id number] Encounters Encounter Location(s) Arrival/Admit Date Discharge/Depart Date Provider(s) [facility] Scan [facility] August 04, 2024 10:25am August 04, 2024 10:26am [facility] August 14, 2024 10:38am August 14, 2024 10:39am Wagner Rosario DPM Departed [facility]Lab [facility] September 18, 2024 12:15pm September 18, 2024 12:16pm Wagner Rosario DPM Departed [facility]-XRay [facility] September 20, 2024 9:43am September 20, 2024 9:44am TARIQ Fournier Departed Emergency [facility]-Emergency Room October 17, 2024 9:09pm October 17, 2024 11:01pm null Plan of Treatment Future Tests Future scheduled test information is unavailable Pending Tests Pending diagnostic test information is unavailable Future Visits Future appointment information is unavailable Referrals to Other Providers Reason for Referral Referral Start Date Provider Provider Contact Information Provider Address [facility] Senior Work Phone: [phone] [facility] [id number] Future Procedures Future procedure information is unavailable Future Medications Future medication information is unavailable Patient Instructions Instruction Admit Date Headache in adults - ED discharge instru ctions October 17, 2024 9:09pm
--- OUTSIDE RECORDS SUMMARY | 2024-10-26 07:30 | XMS_ITS ---
Author Organization [facility] Address [address] [place] [address] Care Team Providers Care Storeroom Supervisor Name Role Phone Ruby Matt Primary Care Provider REASON FOR VISIT TIGHTNESS ON HEAD Medications Medication SIG (Take, Route, Frequency, Duration) Notes Start Date End Date Status Terbinafine HCl 250 MG Oral for 30 Days Active Polyethylene Glycol 3350 17 GM/SCOOP 1 scoop mixed with 8 ounces of fluid Orally Once a day for 30 days 09/27/2024 11/26/2024 Active Vitamin B-12 ER 1000 MCG 1 tablet Orally Once a day for 30 days 09/19/2024 11/01/2024 Active Albuterol Sulfate HFA 108 (90 Base) MCG/ACT 2 puff as needed Inhalation every 4-6 hrs for 30 days As needed PRN 04/03/2024 Not-Taking Ondansetron 4 MG 1 tablet on the tong ue and allow to dissolve Orally every 4-6 hours PRN for 10 days PRN 01/04/2024 Not-Taking Marybel FE 06/19 1-20 MG-MCG Oral for 84 Days Active Social History Sexual Hx: Question Answer Notes Had sex in the last 12 months (vaginal, oral, or anal)? Yes Have you ever had an STD? No AUDIT-C (Standard) Question Answer Notes Did you have a drink containing alcohol in the p ast year? No Points 0 Interpretation Negative Problems Problem Type SNOMED Code ICD Code Onset Dates Problem Status W/U Status Risk Notes Problem [id number] Migraine without status migrainosus, not intractable, unspecified migraine type (G43.909) Active confirmed Vital Signs Height 66 in 10/26/2024 Weight 117 lbs 10/26/2024 BMI 18.88 kg/m2 10/26/2024 Temperature 98.2 degrees Fahrenheit 10/27/19 25 Blood pressure systolic 124 mm Hg 10/27/19 25 Blood pressure diastolic 74 mm Hg 025 Oximetry 98 % 10/26/2024 Heart Rate 95 /min 10/26/2024 Respiratory Rate 18 /min 10/26/2024 Encounters Encounter Location Date Provider Diagnosis [facility] [address] [place] [address] 10/26/2024 Ruby Matt Migraine without status migrainosus, not intractable, unspecified migraine type G43.909 Assessments Encounter Date Diagnosis (ICD Code) Assessment Notes Treatment Notes Treatment Clinical Notes Section Notes 10/26/2024 Migraine without status migrainosus, not intractable, unspecified migraine type (ICD-10 - G43.909) New onset migraine x1 episode. Instructed patient to document triggers for furture migraines. Instructed to use tylenol and or motrin for future migraines. Nurtec samples given and instructed on use for migraine not responsive to tylenol and or motrin. All questions and concerns addressed. Follow up as needed. 10/26/2024 Other Body Mass Index : Care Instructions material was printed Plan Of Treatment Treatment Notes Assessment Notes Migraine without status migr ainosus, not intractable, unspecified migraine type New onset migraine x1 episode. Instructe d patient to document triggers for furture migraines. Instructed to use tylenol and or motrin for future migraines. Nurtec samples given and instructed on use for migraine not responsive to tylenol and or motrin. All questions and concerns addressed. Follow up as needed. Other Body Mass Index: Car e Instructions material was printed Next Appt Details Follow Up: prn, Reason: Provider Name:Otto meza, 11/20/2024 01:45:00 PM, [address] [facility], [place], [address], Provider Name:Lisa Mcdaniel , 04/20/2025 01:40:00 PM, [address], [place], [address], Progress Notes * NIRAJ CLIFFORD LDOB:[birth year] (24 yo F)Acc No.[id number]:10/26/2024 PROGRESS NOTES Patient: NIRAJ FAUSTIN Provider: TARIQ Martinez :2000 A ge:24 Y S ex:Female Date:10/26/2024 Address:[address] [place] [address], [id number] Subjective: * Chief Complaints: * 1 . TIGHTNESS ON HEAD. * HPI: C onstitutional: 24 year old female presents for ER follow up, 10/17/24 for a migraine, she stated she was given 3 shots, stated it felt your head was tightenend. She stated bright lights hurts her eyes. * ROS: G eneral Review of Systems: General D enies fever, chills, weight loss. E yes D enies vision changes, no double vision or blurry vision. . H EENT D enies sore throat, ear pain., Denies fevers , chills, Denies nasal congestion, or pressure, Denies hoarseness, change in voice, difficulty swallowing. C ardiovascular D enies chest pain, palpitations, exertional dyspnea. R espiratory p t stated coughing. G astrointestinal D enies abdominal pain, nausea, vomiting, diarrhea, or constipation. Denies blood in stool or changes in bowel habits.. G enitourinary D enies urgency, frequency, dysuria, hematuria. M usculoskeletal D enies joint pain, myalgias. D ermatology D enies rashes or lesions. N eurological p t stated lighthheaded and dizzy. * Medical History: I nsomnia, GERD, Amenorrhea, Vasovagal Syncope. * Surgical History: F oot Surgery as Infant . * Hospitalization/Major Diagno stic Procedure: rodri amezquita . * Family History: F ather: alive. S on(s): alive. M other: alive, diagnosed with Hypertension. 1 sister(s) . 1 son(s) - healthy. . * Social History: G eneral: T ransition of Care E R/UC/hospital since last office visit? N o S pecialist seen since last office visit? N o Behaviors affecting health P oor/Risky Behaviors: D enies- Substance abuse/mental health issues of patient/family P atient - D enies Social/Support Concerns P atient: N o Ability to understand healthcare/treatment P atient: G ood Communication Barrier L anguage Barrier?: N o Sexual Hx H ad sex in the last 12 months (vaginal, oral, or anal)? Y es H ave you ever had an STD? N o D rug/Alcohol: A KARO-C (Standard) D id you have a drink containing alcohol in the past year? N o P oints 0 I nterpretation N egative * Medications: T iris No FE 06/19 1-20 MG-MCG Tablet Oral , Taking Terbinafine HCl 250 MG Tablet Oral , Taking Polyethylene Glycol 3350 17 GM/SCOOP Powder 1 scoop mixed with 8 ounces of fluid Orally Once a day , stop date 11/26/2024, Taking Vitamin B-12 ER 1000 MCG Tablet Extended Release 1 tablet Orally Once a day , stop date 11/01/2024, Not-Taking/PRN Albuterol Sulfate HFA 108 (90 Base) MCG/ACT Aerosol Solution 2 puff as needed Inhalation every 4-6 hrs As needed, Notes to Pharmacist: PRN, Not- Taking/PRN Ondansetron 4 MG Tablet Disintegrating 1 tablet on the tongue and allow to dissolve Orally every 4-6 hours PRN , Notes to Pharmacist: PRN, Medication List reviewed and reconciled with the patient Objective: * Vitals: H t: 66 in, Wt: 117 lbs, BMI:18.88Index, Temp: 98.2 F, BP: 124/74 mm Hg, SaO2:98%, HR: 95 /min, RR: 18 /min. * Examination: G eneral Examination: GENERAL APPEARANCE: A lert and oriented, pleasant. FACE: s ymmetrical. EYES: c onjunctiva clear. NECK/THYROID: t rachea is midline. CARDIOVASCULAR: R egular rate and rhythm, S1/S2 are normal.? CHEST: n ormal shape and expansion.. RESPIRATORY: c lear to auscultation bilaterally. GASTROINTESTINAL: A bdomen distended firm but nontender.? Worse left lower quadrant. Bowel sounds active.. NEUROLOGIC EXAM: C N's II-XII grossly intact , alert and oriented x 3 , normal gait. SKIN: m oist, warm. EXTREMITIES: b ilaterally no clubbing, cyanosis, or edema.? MUSCULOSKELETAL: R ight foot no obvious deformity, swelling or injury. Full active ROM of foot and ankle. Tenderness on palpation ot the right heal and arch.. PSYCH a ppropriate for age. Assessment: * Assessment: 1. M igraine without status migrainosus, not intractable, unspecified migraine type - G43.909 (Primary) Plan: * Treatment: 2. O thers Notes: Body Mass Index: Care Instructions material was printed * Procedure Codes: 3 078F DIAST BP < 80 MM HG, 3074F SYST BP LT 130 MM HG, 1160F RVW MEDS BY RX/ IN [facility], [id number] [facility] PPS EST PT * Preventive Medicine: COUNSELING: C ommunication to patient: Counseling for Nutrition Provided Y es Counseling for Physical Activity Provided Y es BMI management provided Y es Nutrition/Dietary Counseling provided?Yes * Follow Up: p rn * Images: * Sign off status: Completed true * Provider: TARIQ Martinez Date: 0 10/26/2024 Generated for Kan james/German/Preethiitting on: 0 11/03/2024 08:22 PM EDT History and Physical Notes * HPI (History of Present Illness) Category Sub-Category Detail Notes Category Not es Constitutional 24 year old barb pandya presents for ER follow up, 10/17/24 for a migraine, she stated she was given 3 shots, stated it felt your head was tightenend. She stated bright lights hurts her eyes Examination Category Sub-Category Detail Notes Category Not es General Examination NECK/THYROID: trachea is midline CARDIOVASCULAR: Regular rate and rhy thm, S1/S2 are normal RESPIRATORY: clear to auscultatio n bilaterally GASTROINTESTINAL: Abdomen distended fi rm but nontender. Worse left lower quadrant. Bowel sounds active. EXTREMITIES: bilaterally no clubb ing, cyanosis, or edema GENERAL APPEARANCE: Alert and oriented, pleasant SKIN: moist, warm NEUROLOGIC EXAM: CN's II-XII grossly intact , alert and oriented x 3 , normal gait CHEST: normal shape and exp ansion. MUSCULOSKELETAL: Right foot no obviou s deformity, swelling or injury. Full active ROM of foot and ankle. Tenderness on palpation ot the right heal and arch. PSYCH appropriate for age FACE: symmetrical EYES: conjunctiva clear
[2024-11-03 20:17] VITALS: BP 123/68; PULSE 92; TEMP 36.4; O2SAT 100; BMI 19.4
--- OUTSIDE RECORDS SUMMARY | 2024-11-03 20:22 | XMS_ITS | Patient Health Record ---
Author Organization [facility] Address [address] [place] [address] Care Team Providers Care Supervisor S[employer] Name Role Phone Frankie Werner Unavailable [phone] Maryse Addison Unavailable [phone] Allergies No Known Allergies Results Component Value Reference Range Notes SCC- PT/OT EVAL AND TREAT 3X /WEEK FOR 6 WEEKS Reviewed date:06/21/2024 02:18:04 PM Interpretation: Performing Lab: Notes/Report: Reason For Referral No Information Medications Medication SIG (Take, Route, Frequency, Duration) [...] (Standard) Question Answer Notes Tobacco use: Nonsmoker Problems Problem Type SNOMED Code ICD Code Onset Dates Problem Status W/U Status Risk Notes Problem [id number] Right wrist pain (M25.531) Active confirmed Vital Signs Height 5'6 in 12/13/2023 Weight 125 lbs 12/13/2023 BMI 20.17 12/13/2023 Encounters Encounter Location Date Provider Diagnosis [facility] [address] [place] [address] 11/08/2023 Frankie Werner Right wrist pain M25.531 [facility] [address] [place] [address] 12/13/2023 Maryse Addison Right wrist pain M25.531 [facility] [address] [place] [address] [place] [address] 01/17/2024 Frankie Werner Right wrist pain M25.531 [facility] [address] [place] [address] [place] [address] 04/17/2024 Maryse Addison Right wrist pain M25.531 [facility] [address] [place] [address] [place] [address] 06/19/2024 Frankie Werner Right wrist pain M25.531 Assessments Encounter Date Diagnosis (ICD Code) Assessment Notes Treatment Notes Treatment Clinical Notes Section Notes 11/08/2023 Right wrist pain (ICD-10 - M25.531) 12/13/2023 Right wrist pain (ICD-10 - M25.531) 01/17/2024 Right wrist pain (ICD-10 - M25.531) 04/17/2024 Right wrist pain (ICD-10 - M25.531) Right wrist pain-possib le TFCC tear 06/19/2024 Right wrist pain (ICD-10 - M25.531) 11/08/2023 Other Patient's right wrist pain is resolved. No additional treatment is needed at this time. She will follow-up if her symptoms return. Import medication 12/13/2023 Other For her right wrist pain I recommended symptomatic treatment with the Velcro brace which she has at home Mobic. I reviewed precautions of this medication. She will follow-up in 6 weeks to reassess her progress. Import medication 01/17/2024 Other Patient no longer has wrist pain and is doing well. Will follow-up on an as-needed basis. Import medication 04/17/2024 Other For the patient 's persistent wrist pain she has been using a wrist brace and NSAIDs on and off since October. I will represcribe her Mobic and have ordered physical therapy. We will see her back in 6 weeks for reevaluation and consider MRI if not improved. Right wrist pain-possib le TFCC tear 06/19/2024 Other Patient is doing well. She no longer has wrist pain. She will follow-up on an as-needed basis. Import medication Plan Of Treatment Pending Test Test Name Order Date SCC- WRIST 3 VIEW RIGHT [id number] 12/13/2023 Insurance Providers Payer Name Payer Address Payer Phone Subscriber Number Group Number Insured Name Patient Relationship to Insured Coverage Start Date Coverage End Date Medicaid [employer] [place] [address] [place] [address] [id number] NIRAJ CLIFFORD Self - patient is the insured
--- OUTSIDE RECORDS SUMMARY | 2024-11-03 20:23 | XMS_ITS | Clinical Summary ---
Author Organization [facility] Address [address] [place] [address] Phone Care Team Providers Care Retail Assistant Name Role Phone Unavailable Primary Care Provider Unavailabl e Social History Tobacco Use Types Packs/Day Years Used Date Smoking Tobacco: Never Assessed Comments Unknown Sex and Gender Information Value Date Recorded Sex Assigned at Not on file Legal Sex Female 10:16 AM EDT Gender Identity Not on file Sexual Orientation Not on file Plan of Treatment Health Maintenance Due Date Last Done Comments HIV Screening 1998 Lipid Panel 1998 Yearly Adult Physical 1998 MMR Vaccines (1 of 1 - Stand karen series) 10/11/1999 Varicella Vaccines (1 of 2 - 13+ 2-dose series) 10/11/2011 HPV Vaccines (1 - 3-dose series) 2013 Hepatitis C Screening 2016 Hepatitis B Vaccines (1 of 3 - 19+ 3-dose series) 2017 Cervical Cancer Screening 10/11/2019 HPV/Cotest 10/11/2019 Pap Smear 10/11/2019 DTaP/Tdap/Td Vaccines (1 - Tdap) 2020 COVID-19 Vaccine (1 - 2023-2 5 season) 2024 Influenza Vaccine (Season Ended) 2025 Zoster Vaccines (1 of 2) 2048 HIB Vaccines Aged Out No longer eligi ble based on patient's age to complete this topic Hepatitis A Vaccines Aged Out No long er eligible based on patient's age to complete this topic IPV Vaccines Aged Out No longer eligi ble based on patient's age to complete this topic Meningococcal Vaccine Aged Out No obey danisha eligible based on patient's age to complete this topic Pneumococcal Vaccine: Pediat rics and At-Risk Adult Patients Aged Out No longer mikaela gible based on patient's age to complete this topic Rotavirus Vaccines Aged Out No longer eligible based on patient's age to complete this topic
--- OUTSIDE RECORDS SUMMARY | 2024-11-03 20:23 | XMS_ITS | CCD ---
Author Organization [facility] Informat ion Partnership [facility] Care Team Providers Care Batch Attendant Name Role Phone ALEXANDRIA QUEZADA Admitting Unavailable [...] NON STAFF Primary Care Provider Unavailabl e [facility] Services Primary Care Provider MD Boy Ritter Attending Provider MD Dariana Richey Referring Provider [phone] DO Celeste Alanis Attending Provider DO Meghan Rizvi Admit Provider MD Dariana Richey Attending Provider [phone] CALI Blanc Attending Provider DO Pool Diaz Emergency Provider DO Abhay Hendricks Emergency Provider [phone] [facility] Primary Care Provider [phone] DO Pool Diaz Emergency Provider [facility] Primary Care Provider MD Cuco Nails Attending Provider MD Sergio Zepeda Jr Emergency Provider MD Cuco Nails Referring Provider MD Dannielle Addison Attending Provider [facility] Services Primary Care Provider MD Liz Roman Emergency Provider TARIQ Love Attending Provider [facility] Primary Care Provider DO Maryellen Colunga Emergency Provider Rodrigo navarrete Unavailable Primary Care Provider Unavailabl e [facility] Primary Care Provider [phone] Maryellen Colunga DO Emergency Provider Merylvai Frankie Herrera Attending Provider [facility] Primary Care Prov ider Abad VIRAMONTESCRuby Attending Pr ovider Terry Snowden DO Emergency Provider [facility] Primary Care Provider [facility] Primary Care Provider Frankie Werner Attending Provider [facility] Care Prov ider Abad STERN-Ruby Harp Attending Pr ovider Terry Snowden DO Emergency Provider Wagner Rosario DPM Attending Provider Sandee Love NP Unavailable [phone] Unallocated , [place] Provider Primary Care Provi tom WAGNER ROSARIO Attending Unavailable RUBY STARKEY Referring Unavailable WAGNER ROSARIO Attending Unavailable SANDEE LOVE Attending Unavailable SANDEE LOVE Attending Unavailable CELESTE ALANIS Attending Unavailable [facility] Primary Care Prov ider Abad VIRAMONTESCRuby Attending Pr ovider Vernell POTTER, Ruby Renteria Attending Provider [facility] Primary Care Unavaila ble Liz Roman Admitting Unavailable Liz Roman Attending Unavailable [facility] Care Unavaila ble Maryellen Colunga Admitting Unavailable Maryellen Colunga Attending Unavailable Terry Snowden Attending Unavailable [facility] Primary Care [facility] Terry Snowden Admitting Unavailable [facility] Wagner Rosario A Admitting Unavailable Wagner Rosario Attending Unavailable [facility] Care [facility] Wagner Rosario Admitting Unavailable Wagner Rosario Attending Unavailable [facility] Ruby Matt Admitting Unavailable Ruby Matt Attending [facility] Care [facility] Ruby Starkey Admitting [facility] Ruby Starkey Attending [facility] Primary Care Unavaila ble Windnataina Sandee C Admitting Unavailable Windnagel Sandee C Attending [facility] Care Unavaila ble Frankie Werner Admitting Unavailable Frankie Werner Attending [facility] Care [facility] StarkeyRuby ahmadi Admitting [facility] Ruby Starkey Attending [facility] Care [facility] StarkeyRuby ahmadi Admitting [facility] Ruby Starkey Attending [facility] Primary Care [facility] Liu Wheatley Admitting Unavailable Liu Wheatley Attending Unavailable Medications Current Medications Medication Drug Class(es) Dates Sig (Normalized) Sig (Original) Ethinyl Estradiol / Ferrous fumarate / Norethindrone (20 sources) Estrogen Start: 01-18-2024 End: 01-17-2025 norethindrone-ethiny l estradiol ([facility] 06/19) 1-20 MG-MCG tablet Indications: Encounter for surveillance of contraceptive pills Take 1 tablet by mouth in the morning. 84 tablet 3 01/18/2024 01/17/2025 Active Start: 10-13-2023 End: 01-18-2024 take 1 tablet by mouth once daily in the morning Marybel FE 06/19 1-20 MG-MCG tablet Indications: Family planning counseling , Oral contraception initial prescription TAKE 1 TABLET BY MOUTH EVERY MORNING 28 tablet 12 10/13/2023 01/18/2024 Discontinued (Reorder) Start: 03-18-2023 take 1 tablet by pennie th once daily Norethindrone-E.Estradiol-Iron 1 mg-20 mcg (21)/75 mg (7) tablet Active 1 TAB PO Daily March 18, 2023 12:00am Start: 03-18-2023 take 1 tablet by pennie th once daily Norethindrone-E.Estradiol-Iron 1 mg-20 mcg (21)/75 mg (7) tablet Active 1 TAB PO Daily March 17, 2023 11:00pm Start: 03-18-2023 take 1 tablet by pennie th once daily Norethindrone-E.Estradiol-Iron Active 1 TAB PO Daily March 18, 2023 12:00am terbinafine 250 mg oral tablet (4 sources) Allylamine Antifungal Start: 09-15-2024 End: 10-15-2024 take 1 tablet by mouth once daily terbinafine (LamISIL) 250 MG tablet Indications: Onychomycosis of Toenails Take 1 tablet (250 mg) by mouth Daily 30 tablet 1 09/15/2024 10/15/2024 Active Start: 08-11-2024 End: 09-06-2024 take 1 tablet by mouth once daily terbinafine (LamISIL) 250 MG tablet Indications: Onychomycosis of Toenails Take 1 tablet (250 mg) by mouth Daily 30 tablet 08/11/2024 09/06/2024 Discontinued (Therapy completed) vitamin b12 1 mg oral tablet (6 sources) Vitamin B12 Start: 07-10-2024 take 1 tablet by mouth once daily Cyanocobalamin (Vitamin B-12) 1,000 mcg tablet Active 1000 MCG PO Daily July 10, 2024 1:00am Completed/Discontinued Medications Medication Drug Class(es) Dates Sig (Normalized) Sig (Original) dicyclomine hydrochloride 10 mg oral capsule (20 sources) Anticholinergic Start: 07-12-2021 End: 09-19-2022 take 1 capsule by mouth twice daily Dicyclomine 10 mg capsule Discontinued 10 MG PO Twice daily July 12, 2021 1:00am September 19, 2022 10:16am docusate sodium 100 mg oral capsule (20 sources) Start: 10-01-2022 End: 11-19-2022 take 1 capsule by mouth at bedtime Docusate Sodium 100 mg Capsule Discontinued 100 MG PO Bedtime October 01, 2022 12:00am November 19, 2022 8:21pm famotidine 20 mg oral tablet (16 sources) Histamine-2 Receptor Antagonist Start: 08-24-2023 End: 09-22-2023 take 1 tablet by mouth twice daily Famotidine (Pepcid) 20 mg tablet Discontinued 20 MG PO Twice daily August 24, 2023 12:00am September 22, 2023 9:16am ferrous sulfate 325 mg oral tablet (20 sources) Start: 10-03-2022 End: 03-18-2023 take 1 tablet by mouth once daily Ferrous Sulfate 325 mg (65 mg iron) tablet Discontinued 325 MG PO Daily October 03, 2022 12:00am March 18, 2023 11:06pm ibuprofen 600 mg oral tablet (20 sources) Nonsteroidal Anti-inflammatory Drug Start: 10-03-2022 End: 11-19-2022 take 4 tablets by mouth every twenty-four hours for pain Ibuprofen 600 mg tablet Discontinued 600 MG PO Every 6 hours as needed for pain October 03, 2022 12:00am November 19, 2022 8:21pm do not exceed 4 doses in a 24 hour period Start: 10-01-2022 End: 11-19-2022 take 1 tablet by mouth every six hours Ibuprofen 600 mg Tablet Discontinued 600 MG PO Q6H October 01, 2022 12:00am November 19, 2022 8:21pm ondansetron 4 mg oral tablet (20 sources) Serotonin-3 Receptor Antagonist Start: 04-01-2024 End: 07-10-2024 Ondansetron Hcl 4 mg tablet Discontinued 4 MG PO every 6 to 8 hours as needed for nausea and vomiting June 16, 2024 1:00am July 10, 2024 11:38am Start: 08-24-2023 End: 09-22-2023 take 1 tablet by mouth every eight hours as needed for nausea and vomiting Ondansetron 4 mg tablet,disintegrating Discontinued 4 MG PO Q8H as needed for nausea and vomiting August 24, 2023 12:00am September 22, 2023 9:17am No.144-Folic Acid () 400 mcg Tablet,Chewable (20 sources) Start: 09-24-2022 End: 11-19-2022 No.144-Folic Acid () 400 mcg Tablet,Chewable Discontinued TAB PO September 23, 2022 11:00pm November 19, 2022 7:21pm Start: 09-24-2022 End: 11-19-2022 No.144-Folic Acid ( ) 400 mcg Tablet,Chewable Discontinued TAB PO September [...] NO FALL INIT] Onset: 01-23-2020 Gastrointestinal hemorrhage (16 sources) Rectal hemorrhage; Translations: [Hemorrhage of anus and rectum] 08-24-2023 Episodic Headache; including migraine (1 source) Other headache syndrome; Translations: [Other headache syndrome] Onset: 08-04-2024 Episodic Immunizations and screening for infectious disease (1 source) Encounter for immunization; Translations: [ENCOUNTER FOR IMMUNIZATION] Onset: 01-23-2020 Episodic Mycoses (3 sources) Onychomycosis; Translations: [Tinea unguium] Onset: 08-14-2024 09-06-2024 Episodic Open wounds of extremities (1 source) Laceration without foreign body of right great toe without damage to nail, initial encounter; Translations: [LAC NO FB RT GRT TOE NO DMG NL INIT] Onset: 01-23-2020 Episodic Other circulatory disease (17 sources) Orthostatic hypotension; Translations: [Orthostatic hypotension] 08-10-2023 Episodic Other circulatory disease (14 sources) Orthostatic hypotension; Translations: [Orthostatic hypotension] 08-10-2023 Episodic Other connective tissue disease (2 sources) Pain of toe of left foot; Translations: [Pain in left toe(s)] 09-06-2024 Episodic Other connective tissue disease (1 source) Pain in right foot; Translations: [Pain in right foot] Onset: 09-20-2024 Episodic Other ear and sense organ disorders (1 source) Unspecified hearing loss, right ear; Translations: [Unspecified hearing loss, right ear] Onset: 08-04-2024 Chronic Other ear and sense organ disorders (4 sources) Otalgia, right ear; Translations: [OTALGIA RIGHT EAR] Onset: 07-30-2019 Episodic Other ear and sense organ disorders (1 source) Other infective otitis externa, right ear; Translations: [Other infective otitis externa, right ear] Onset: 08-04-2024 Episodic Other female genital disorders (20 sources) History of past delivery; Translations: [Status post vaginal delivery] 10-17-2022 Episodic Other gastrointestinal disorders (20 sources) Diarrhea; Translations: [Diarrhea, unspecified] 07-12-2021 Episodic Other injuries and conditions due to external causes (3 sources) Unspecified injury of right foot, initial encounter; Translations: [UNSPECIFIED INJURY RT FOOT INITIAL] Onset: 01-20-2020 Episodic Other lower respiratory disease (1 source) Shortness of breath; Translations: [Shortness of breath] Onset: 08-04-2024 Episodic Superficial injury; contusion (19 sources) Contusion of right great toe without damage to nail, initial encounter; Translations: [Contusion of foot] Onset: 01-23-2020 03-18-2023 Episodic Viral infection (20 sources) Disease caused by 2019-nCoV; Translations: [COVID-19] 01-01-2024 Episodic Past or Other Problems Problem Classification Problem Date Documented Date Episodic/Chronic Abdominal pain (11 sources) Abdominal pain; Translations: [Unspecified abdominal pain] Onset: 04-01-2024 04-01-2024 Episodic Conditions associated with dizziness or vertigo (1 source) Dizziness and giddiness; Translations: [Dizziness and giddiness] Onset: 02-05-2024 Episodic Contraceptive and procreative management (2 sources) Oral contraception; Translations: [Encounter for surveillance of contraceptive pills] 01-07-2024 Episodic Nausea and vomiting (20 sources) Nausea, vomiting and diarrhea; Translations: [Nausea with vomiting, unspecified] Onset: 06-16-2024 08-24-2023 Episodic Nonspecific chest pain (1 source) Chest pain, unspecified; Translations: [Chest pain, unspecified] Onset: 01-01-2024 Episodic Nutritional deficiencies (1 source) Iron deficiency; Translations: [Iron deficiency] Onset: 06-12-2024 Episodic Other ear and sense organ disorders (1 source) Impacted cerumen, right ear; Translations: [IMPACTED CERUMEN RIGHT EAR] Onset: 08-01-2019 Episodic Other lower respiratory disease (1 source) Pleurodynia; Translations: [Pleurodynia] Onset: 07-17-2024 Episodic Other non-traumatic joint disorders (1 source) Pain in right wrist; Translations: [Pain in right wrist] Onset: 05-18-2024 Episodic Other screening for suspected conditions (not mental disorders or infectious disease) (2 sources) Cancer cervix screening status; Translations: [Encounter for screening for malignant neoplasm of cervix] 01-07-2024 Episodic Syncope (20 sources) Vasovagal syncope; Translations: [Syncope and collapse] Onset: 09-29-2023 11-19-2022 Episodic Results Test Name Value Interpretation Reference Range Facility X-ray reportOrdered By: Ariel Cox on 09-20-2024 Study report [facility] [place] [address] XRay Report Signed Patient: Bradley Jensen MR#: [id number] : 2000 Acct:[id number] Age/Sex: 23 / F ADM Date: 5 Loc: XD Room: Type: [facility] Attending Dr: Ruby POTTER Copies to: TARIQ [...] Rodriguez Cox M.D.09/20/2024 5:23 PM Dictation Location: [facility] Transcribed By: FATOUMATA 09/20/241722 Dictated By: Rodriguez Cox MD 09/20/241721 Signed By: 09/20/241722 [facility] Work Phone: XR foot RT min 3V*on 025 XR foot RT min 3V* [facility] Main [place] [address] [place] [address] XRay Report Signed Patient: Bradley Jensen MR#: [id number] : 2000 Acct:[id number] Age/Sex: 23 / F ADM Date: 09/20/24 Loc: XD Room: Type: [facility] Attending Dr: Ruby POTTER Copies to: TARIQ Fournier Ordering Provider: TARIQ Fournier Date of Service: [...] Rodriguez Cox M.D.09/20/2024 5:23 PM Dictation Location: [facility]- Transcribed By: FATOUMATA 09/20/241722 Dictated By: Rodriguez Cox MD 09/20/241721 Signed By: 09/20/241722 Normal [facility] Alanine Aminotransferaseon 0 09-18-2024 ALT [Catalytic activity/Vol] 24 U/L Normal 7-52 [facility] Comment on above: Result Comment: PERF ORMED BY: [address] [id number] PATHOLOGIST SERVICE TECH/WELDER JAGDEEP ROTHMAN M.D. Performed By: #### B MP, LIPASE, HEPATIC, CBC #### [facility] [address] [place] [address] [place] Alanine aminotransferase [En zymatic activity/volume] in Serum or PlasmaOrdered By: Wagner Rosario on 09-18-2024 ALT [Catalytic activity/Vol] Alanine aminotransferase [Enzymatic activity/volume] in Serum or Plasma [facility] Aspartate Amino Transferaseo n 09-18-2024 AST [Catalytic activity/Vol] 17 U/L Normal [facility] Comment on above: Performed By: #### U HCG, ADDONUAPLUS #### [facility] [address] [place] [address] [place] Aspartate aminotransferase [ Enzymatic activity/volume] in Serum or PlasmaOrdered By: Wagner Rosario on 09-18-2024 AST [Catalytic activity/Vol] Aspartate aminotransferase [Enzymatic activity/volume] in Serum or Plasma [facility] Alanine Aminotransferaseon 0 08-14-2024 ALT [Catalytic activity/Vol] 14 U/L Normal [facility] Comment on above: Result Comment: PERF ORMED BY: [place] [address] PATHOLOGIST SERVICE TECH/WELDER JAGDEEP ROTHMAN M.D. Performed By: #### B MP, LIPASE, HEPATIC, CBC #### [facility] [address] [place] [address] [place] Alanine aminotransferase [En zymatic activity/volume] in Serum or PlasmaOrdered By: Wagner Rosario on 08-14-2024 ALT [Catalytic activity/Vol] Alanine aminotransferase [Enzymatic activity/volume] in Serum or Plasma [facility] Aspartate Amino Transferaseo n 08-14-2024 AST [Catalytic activity/Vol] 14 U/L Normal [facility] Comment on above: Performed By: #### B MP, LIPASE, HEPATIC, CBC #### [facility] [address] [place] [address] [place] Aspartate aminotransferase [ Enzymatic activity/volume] in Serum or PlasmaOrdered By: Wagner Rosario on 08-14-2024 AST [Catalytic activity/Vol] Aspartate aminotransferase [Enzymatic activity/volume] in Serum or Plasma 13-39 [facility] CT chest wo conon 08-04-2024 CT chest wo con [facility] Main [place] [id number] CT Scan Report Signed Patient: Bradley Jensen MR#: [id number] : 2000 Acct:[id number] Age/Sex: 23 / F ADM Date: 08/04/24 Loc: CT Room: Type: [facility] Attending Dr: Ruby Starkey PRODUCT DESIGN SPECIALIST-C Copies to: Ruby Starkey Ordering Provider: Ruby Starkey Date of Service: 08/04/24 CT/CT chest wo [...] Rodriguez Cox M.D.08/04/2024 11:57 AM Dictation Location: [place] [address] Transcribed By: [facility] 08/04/24 1157 Dictated By: Rodriguez Cox MD 08/04/24 1145 Signed By: 08/04/24 1157 Normal [facility] CT sinus wo conon 08-04-2024 CT sinus wo con [facility] Main [address] [address] [address] Scan Report Signed Patient: Bradley Jensen MR#: [id number] : 2000 Acct:[id number] Age/Sex: 23 / F ADM Date: 08/04/24 Loc: CT Room: Type: [facility] Attending Dr: Ruby Starkey PRODUCT DESIGN SPECIALIST-C Copies to: Ruby Starkey Ordering Provider: Ruby Starkey Date of Service: 08/04/24 CT/CT sinus wo [...] Rodriguez Cox M.D.08/04/2024 11:45 AM Dictation Location: [place] [address] Transcribed By: [facility] 08/04/24 1145 Dictated By: Rodriguez Cox MD 08/04/24 1143 Signed By: 08/04/24 1145 Normal [facility] X-ray reportOrdered By: Trevon Ellington on 07-17-2024 Study report [facility] [place] [address] XRay Report Signed Patient: Bradley Jensen MR#: [id number] : 2000 Acct:[id number] Age/Sex: 23 / F ADM Date: 5 Loc: XD Room: Type: [facility] Attending Dr: Ruby Starkey PRODUCT DESIGN SPECIALIST-C Copies to: Ruby Starkey~ Ordering Provider: Ruby Starkey Date of Service: 07/17/24 XR/XR ribs LT min 3V w CXR1V*: Rib pain on left side Left Rib series with Single View Chest HISTORY: Left-sided rib pain. No history trauma. COMPARISON: 01/01/2024 MEDIASTINUM: Cardiac, mediastinal hilar silhouettes are within normal limits. LUNGS AND PLEURA: No acute lung process, pleural effusion or pneumothorax identified. ACUTE FINDINGS: No displaced rib fracture identified. DEGENERATIVE CHANGE: Unremarkable SOFT TISSUE: Unremarkable POSTOP CHANGES: None XR/XR ribs LT min 3V w CXR1V* IMPRESSION: No displaced rib fracture. No acute chest findings. Impression dictated by: Dwight Ellington M.D.07/17/2024 3:10 PM Dictation Location: [facility] Transcribed By: FATOUMATA 07/17/24 1510 Dictated By: Dwight Ellington DO 07/17/24 1509 Signed By: 07/17/24 1510 [facility] XR ribs LT min 3V w CXR1V*on 07-17-2024 XR ribs LT min 3V w CXR1V* [facility] Main [place] [address] [place] [address] XRay Report Signed Patient: Bradley Jensen MR#: [id number] : 2000 Acct:[id number] Age/Sex: 23 / F ADM Date: 07/17/24 Loc: XD Room: Type: [facility] Attending Dr: Ruby Starkey PRODUCT DESIGN SPECIALIST-C Copies to: Ruby Starkey Ordering Provider: Ruby Starkey Date of Service: 07/17/24 XR/XR ribs LT min 3V w CXR1V*: Rib pain on left side Left Rib series with Single View Chest HISTORY: Left-sided rib pain. No history trauma. COMPARISON: 01/01/2024 MEDIASTINUM: Cardiac, mediastinal hilar silhouettes are within normal limits. LUNGS AND PLEURA: No acute lung process, pleural effusion or pneumothorax identified. ACUTE FINDINGS: No displaced rib fracture identified. DEGENERATIVE CHANGE: Unremarkable SOFT TISSUE: Unremarkable POSTOP CHANGES: None XR/XR ribs LT min 3V w CXR1V* IMPRESSION: No displaced rib fracture. No acute chest findings. Impression dictated by: Dwight Ellington M.D.07/17/2024 3:10 PM Dictation Location: [place] [address] Transcribed By: [facility] 07/17/24 1510 Dictated By: Dwight Ellington DO 07/17/24 1509 Signed By: 07/17/24 1510 Normal [facility] Alanine aminotransferase [En zymatic activity/volume] in Serum or PlasmaOrdered By: Terry Snowden on 06-16-2024 ALT [Catalytic activity/Vol] Alanine aminotransferase [Enzymatic activity/volume] in Serum or Plasma 752 [facility] Albumin [Mass/volume] in Ser um or Plasma by Bromocresol green (BCG) dye binding methoOrdered By: Terry Snowden on 06-16-2024 Albumin BCG dye [Mass/Vol] Albumin [Mass/volume] in Serum or Plasma by Bromocresol green (BCG) dye binding metho 3.5-5.7 [facility] Alkaline phosphatase [Enzyma tic activity/volume] in Serum or PlasmaOrdered By: Terry Snowden on 06-16-2024 ALP [Catalytic activity/Vol] Alkaline phosphatase [Enzymatic activity/volume] in Serum or Plasma Low 34-104 [facility] Appearance of UrineOrdered B y: Terry Snowden on 06-16-2024 Appearance (U) Urine appearance [facility] Aspartate aminotransferase [ Enzymatic activity/volume] in Serum or PlasmaOrdered By: Terry Snowden on 06-16-2024 AST [Catalytic activity/Vol] Aspartate aminotransferase [Enzymatic activity/volume] in Serum or Plasma 13-39 [facility] Basic Metabolic Panelon 05-31 Anion gap [Moles/Vol] 12.4 mmol/L Normal 6.0-15.0 [facility] Comment on above: Performed By: #### B MP, LIPASE, HEPATIC, CBC #### [facility] [address] [place] [address] Calcium [Mass/Vol] 9.4 mg/dL Normal 8.6-10.3 [facility] Comment on above: Performed By: #### B MP, LIPASE, HEPATIC, CBC #### [facility] [address] [place] [address] [place] Chloride [Moles/Vol] 106 mmol/L Normal 98-107 [facility] Comment on above: Performed By: #### B MP, LIPASE, HEPATIC, CBC #### [facility] [address] CO2 [Moles/Vol] 25.3 mmol/L Normal 21.0-31.0 [facility] Comment on above: Performed By: #### B MP, LIPASE, HEPATIC, CBC #### [facility] [address] Creatinine [Mass/Vol] 0.87 mg/dL Normal 0.60-1.20 [facility] Comment on above: Performed By: #### B MP, LIPASE, HEPATIC, CBC #### [facility] [address] Creatinine Clr Calc Pharmacy 84.27 Normal [facility] Comment on above: Performed By: #### B MP, LIPASE, HEPATIC, CBC #### [facility] [address] [place] [address] [place] GFR/1.73 sq M.predicted MDRD (S/P/Bld) [Vol rate/Area] mL/min/{1.73_m2} Normal [facility] Comment on above: Performed By: #### B MP, LIPASE, HEPATIC, CBC #### [facility] [address] [place] [address] [place] Glucose [Mass/Vol] 112 mg/dL High 70-100 [facility] Comment on above: Result Comment: [place] Glucose Reference Range is dependent on time and content of last meal. Glucose of more than 200 mg/dL in a nonstressed, ambulatory subject supports the diagnosis of Diabetes Mellitus. ADA recommended reference range Performed By: #### B MP, LIPASE, HEPATIC, CBC #### [facility] [address] Potassium [Moles/Vol] 3.7 mmol/L Normal 3.5-5.1 [facility] Comment on above: Performed By: #### B MP, LIPASE, HEPATIC, CBC #### [facility] [address] Sodium [Moles/Vol] 140 mmol/L Normal 136-145 [facility] Comment on above: Performed By: #### B MP, LIPASE, HEPATIC, CBC #### [facility] [address] Urea nitrogen [Mass/Vol] 7 mg/dL Normal 7-25 [facility] Comment on above: Performed By: #### B MP, LIPASE, HEPATIC, CBC #### [facility] [address] Basophils Auto (Bld) [#/Vol] Ordered By: Terry Snowden on 06-16-2024 Basophils (Bld) [#/Vol] Automated basoph il count 0.0-0.2 [facility] Basophils/100 WBC Auto (Bld) Ordered By: Terry Snowden on 06-16-2024 Basophils/100 WBC (Bld) Automated basoph il % . [facility] Bilirubin Test strip Ql (U)O rdered By: Terry Snowden on 06-16-2024 Bilirubin Ql (U) Bilirubin.total [Presence] in Urine by Test strip Negative [facility] Bilirubin.direct [Mass/volum e] in Serum or PlasmaOrdered By: Terry Snowden on 06-16-2024 Bilirubin.direct [Mass/Vol] Bilirubin.direct [Mass/volume] in Serum or Plasma Low 0.03-0.18 [facility] Comment on above: If the DBIL is less than 0.1, IBIL is not able to becalculated. Bilirubin.total [Mass/volume ] in Serum or PlasmaOrdered By: Terry Snowden on 06-16-2024 Bilirubin [Mass/Vol] Bilirubin.total [Mass/volume] in Serum or Plasma 0.3-1.0 [facility] Calcium [Mass/volume] in Ser um or PlasmaOrdered By: Terry Snowden on 06-16-2024 Calcium [Mass/Vol] Calcium [Mass/volume] in Serum or Plasma 8.6-10.3 [facility] Carbon dioxide, total [Moles /volume] in Serum or PlasmaOrdered By: Terry Snowden on 06-16-2024 CO2 [Moles/Vol] Carbon dioxide, total [Moles/volume] in Serum or Plasma 21.0-31.0 [facility] Chloride [Moles/volume] in S di or PlasmaOrdered By: Terry Isi on 06-16-2024 Chloride [Moles/Vol] Chloride [Moles/volume] in Serum or Plasma 98-107 [facility] Color Auto (U)Ordered By: Artur Snowden on 06-16-2024 Color (U) Color of Urine by Auto Yellow [facility] Complete Blood Count Auto Di ffon 06-16-2024 Basophils (Bld) [#/Vol] 0.1 10*3/uL Normal 0.0-0.2 [facility] Comment on above: Result Comment: PERF ORMED BY: [place] [address] PATHOLOGIST SERVICE TECH/WELDER JAGDEEP ROTHMAN M.D. Performed By: #### B MP, LIPASE, HEPATIC, CBC #### [address] Basophils/100 WBC (Bld) 1.3 % Normal . [facility] Comment on above: Performed By: #### B MP, LIPASE, HEPATIC, CBC #### [address] Eosinophils (Bld) [#/Vol] 0.0 10*3/uL Normal 0.0-0.45 [facility] Comment on above: Performed By: #### B MP, LIPASE, HEPATIC, CBC #### [address] Eosinophils/100 WBC (Bld) 0.6 % Normal . [facility] Comment on above: Performed By: #### B MP, LIPASE, HEPATIC, CBC #### [address] Erythrocyte distribution width (RBC) [Ratio] 13.6 % Normal 11.9-15.3 [facility] Comment on above: Performed By: #### B MP, LIPASE, HEPATIC, CBC #### [address] Hematocrit (Bld) [Volume fraction] 39.6 % Normal 34.0-46.4 [facility] Comment on above: Performed By: #### B MP, LIPASE, HEPATIC, CBC #### [address] Hemoglobin (Bld) [Mass/Vol] 13.3 g/dL Normal 11.8-15.4 [facility] Comment on above: Performed By: #### B MP, LIPASE, HEPATIC, CBC #### [address] Lymphocytes (Bld) [#/Vol] 2.2 10*3/uL Normal 1.00-4.8 [facility] Comment on above: Performed By: #### B MP, LIPASE, HEPATIC, CBC #### [address] Lymphocytes/100 WBC (Bld) 29.3 % Normal . [facility] Comment on above: Performed By: #### B MP, LIPASE, HEPATIC, CBC #### [address] MCH (RBC) [Entitic mass] 29.8 pg Normal 24.7-34.3 [facility] Comment on above: Performed By: #### B MP, LIPASE, HEPATIC, CBC #### [address] MCV (RBC) [Entitic vol] 88.7 fL Normal 80-100 [facility] Comment on above: Performed By: #### B MP, LIPASE, HEPATIC, CBC #### [address] Mean Corpuscular HGB Conc 33.6 g/dL Normal 32.0-35.0 [facility] Comment on above: Performed By: #### B MP, LIPASE, HEPATIC, CBC #### [address] Monocytes (Bld) [#/Vol] 0.6 10*3/uL Normal 0.0-0.8 [facility] Comment on above: Performed By: #### B MP, LIPASE, HEPATIC, CBC #### [facility] [address] Monocytes/100 WBC (Bld) 16.96 % Normal 0.00-20.00 [facility] Comment on above: Performed By: #### B MP, LIPASE, HEPATIC, CBC #### [address] Monocytes/100 WBC (Bld) 8.8 % Normal . [facility] Comment on above: Performed By: #### B MP, LIPASE, HEPATIC, CBC #### [address] Neutrophils (Bld) [#/Vol] 4.4 10*3/uL Normal 1.8-7.7 [facility] Comment on above: Performed By: #### B MP, LIPASE, HEPATIC, CBC #### [address] Neutrophils/100 WBC (Bld) 60.0 % Normal . [facility] Comment on above: Performed By: #### B MP, LIPASE, HEPATIC, CBC #### [address] NRBC% 0.1 /100{WBC} Normal 0-0.5 [facility] Comment on above: Performed By: #### B MP, LIPASE, HEPATIC, CBC #### [address] Platelet mean volume (Bld) [Entitic vol] 9.7 fL Normal 6.3-10.7 [facility] Comment on above: Performed By: #### B MP, LIPASE, HEPATIC, CBC #### [place] [address] [place] Platelets (Bld) [#/Vol] 231 10*3/uL Normal 150-450 [facility] Comment on above: Performed By: #### B MP, LIPASE, HEPATIC, CBC #### [place] [address] [place] RBC (Bld) [#/Vol] 4.47 10*6/uL Normal 3.60-5.00 [facility] Comment on above: Performed By: #### B MP, LIPASE, HEPATIC, CBC #### [facility] [address] WBC (Bld) [#/Vol] 7.4 10*3/uL Normal 3.8-11.6 [facility] Comment on above: Performed By: #### B MP, LIPASE, HEPATIC, CBC #### [facility] [address] Creatinine [Mass/volume] in Serum or PlasmaOrdered By: Terry Snowden on 06-16-2024 Creatinine [Mass/Vol] Creatinine [Mass/volume] in Serum or Plasma 0.60-1.20 [facility] Eosinophils Auto (Bld) [#/Vo l]Ordered By: Terry Snowden on 06-16-2024 Eosinophils (Bld) [#/Vol] Automated eosinophil count 0.0-0.45 [facility] Eosinophils/100 WBC Auto (Bl d)Ordered By: Terry Snowden on 06-16-2024 Eosinophils/100 WBC (Bld) Automated eosinophil % . [facility] Erythrocyte distribution wid th Auto (RBC) [Ratio]Ordered By: Terry Snowden on 06-16-2024 Erythrocyte distribution width (RBC) [Ratio] Erythrocyte distribution width [Ratio] by Automated count 11.9-15.3 [facility] Globulin Calc (S) [Mass/Vol] Ordered By: Terry Snowden on 06-16-2024 Globulin (S) [Mass/Vol] Serum globulin measurement by calculation (mass/volume) [facility] Glucose [Mass/volume] in Ser um or PlasmaOrdered By: Terry Snowden on 06-16-2024 Glucose [Mass/Vol] Glucose [Mass/volume] in Serum or Plasma High 70-100 [facility] Comment on above: ADA recommended refe rence rangeRandom Glucose Reference Range is dependent on time and content of last meal. Glucose of more than 200 mg/dL in a nonstressed, ambulatory subject supports the diagnosis of Diabetes Mellitus. Glucose [Mass/volume] in Uri ne by Test stripOrdered By: Terry Snowden on 06-16-2024 Glucose Test strip (U) [Mass/Vol] Glucose [Mass/volume] in Urine by Test strip Normal [facility] HCG ( test) IA.rapi d Ql (U)Ordered By: Terry Snowden on 06-16-2024 HCG ( test) Ql (U) Urine human chorionic gonadotropin (hCG) detection by immunoassay [facility] HCG,Urineon 06-16-2024 Beta HCG ( test) Ql (U) Negative Normal [facility] Comment on above: Order Comment: Name Collection Type:: Clean-Voided Midstream Result Comment: PERF ORMED BY: [place] [address] PATHOLOGIST SERVICE TECH/WELDER JAGDEEP ROTHMAN M.D. Performed By: #### U HCG, UA #### [address] Hematocrit Auto (Bld) [Volum e fraction]Ordered By: Terry Snowden on 06-16-2024 Hematocrit (Bld) [Volume fraction] Hematocrit [Volume Fraction] of Blood by Automated count 34.0-46.4 [facility] Hemoglobin Test strip Ql (U) Ordered By: Terry Snowden on 06-16-2024 Hemoglobin Ql (U) Hemoglobin [Presence] in Urine by Test strip Negative [facility] Hemoglobin [Mass/volume] in BloodOrdered By: Terry Snowden on 06-16-2024 Hemoglobin (Bld) [Mass/Vol] Hemoglobin [Mass/volume] in Blood 11.8-15.4 [facility] Hepatic Panelon 06-16-2024 Albumin [Mass/Vol] 4.6 g/dL Normal 3.5-5.7 [facility] Comment on above: Performed By: #### B MP, LIPASE, HEPATIC, CBC #### [address] Albumin/Globulin [Mass ratio] 1.4 {ratio} Normal [facility] Comment on above: Performed By: #### B MP, LIPASE, HEPATIC, CBC #### [facility] [address] ALP [Catalytic activity/Vol] 27 U/L Low 34-104 [facility] Comment on above: Performed By: #### B MP, LIPASE, HEPATIC, CBC #### [address] ALT [Catalytic activity/Vol] 18 U/L Normal 7-52 [facility] Comment on above: Performed By: #### B MP, LIPASE, HEPATIC, CBC #### [address] AST [Catalytic activity/Vol] 17 U/L Normal 13-39 [facility] Comment on above: Performed By: #### B MP, LIPASE, HEPATIC, CBC #### [address] Bilirubin [Mass/Vol] 0.3 mg/dL Normal 0.3-1.0 [facility] Comment on above: Performed By: #### B MP, LIPASE, HEPATIC, CBC #### [address] Bilirubin,Indirect 0.3 mg/dL Normal [facility] Comment on above: Performed By: #### B MP, LIPASE, HEPATIC, CBC #### [address] Bilirubin.indirect [Mass/Vol] 0.00 mg/dL Low 0.03-0.18 [facility] Comment on above: Result Comment: If t DBIL is less than 0.1, IBIL is not able to be calculated. Performed By: #### B MP, LIPASE, HEPATIC, CBC #### [address] Globulin (S) [Mass/Vol] 3.3 g/dL Normal [facility] Comment on above: Performed By: #### B MP, LIPASE, HEPATIC, CBC #### [address] Protein [Mass/Vol] 7.9 g/dL Normal 6.4-8.9 [facility] Comment on above: Performed By: #### B MP, LIPASE, HEPATIC, CBC #### [facility] [address] Ketones Test strip Ql (U)Ord ered By: Terry Snowden on 06-16-2024 Ketones Ql (U) Ketones [Presence] in Urine by Test strip Negative [facility] Leukocyte esterase [Presence ] in Urine by Test stripOrdered By: Terry Snowden on 06-16-2024 Leukocyte esterase Test strip Ql (U) Leukocyte esterase [Presence] in Urine by Test strip Negative [facility] Leukocytes [#/volume] correc maryam for nucleated erythrocytes in Blood by Automated counOrdered By: Terry Snowden on 06-16-2024 WBC corrected for nucl RBC Auto (Bld) [#/Vol] Leukocytes [#/volume] corrected for nucleated erythrocytes in Blood by Automated coun 3.8-11.6 [facility] Lipaseon 06-16-2024 Lipase [Catalytic activity/Vol] 33.0 U/L Normal 11.0-82.0 [facility] Comment on above: Result Comment: PERF ORMED BY: [place] [address] PATHOLOGIST SERVICE TECH/WELDER JAGDEEP ROTHMAN M.D. Performed By: #### B MP, LIPASE, HEPATIC, CBC #### [facility] [address] Lipase [Enzymatic activity/v olume] in Serum or PlasmaOrdered By: Terry Snowden on 06-16-2024 Lipase [Catalytic activity/Vol] Lipase [Enzymatic activity/volume] in Serum or Plasma 11.0-82.0 [facility] Lymphocytes Auto (Bld) [#/Vo l]Ordered By: Terry Snowden on 06-16-2024 Lymphocytes (Bld) [#/Vol] Lymphocytes [#/volume] in Blood by Automated count 1.00-4.8 [facility] Lymphocytes/100 WBC Auto (Bl d)Ordered By: Terry Snowden on 06-16-2024 Lymphocytes/100 WBC (Bld) Lymphocytes/100 leukocytes in Blood by Automated count . [facility] MCH Auto (RBC) [Entitic mass ]Ordered By: Terry Snowden on 06-16-2024 MCH (RBC) [Entitic mass] MCH [Entitic ma ss] by Automated count 24.7-34.3 [facility] MCHC Auto (RBC) [Mass/Vol]Or dered By: Terry Snowden on 06-16-2024 MCHC (RBC) [Mass/Vol] MCHC [Mass/volume] by Automated count 32.0-35.0 [facility] MCV Auto (RBC) [Entitic vol] Ordered By: Terry Snowden on 06-16-2024 MCV (RBC) [Entitic vol] MCV [Entitic volume] by Automated count 80-100 [facility] Monocyte distribution width [Entitic volume] in Blood by AutomatedOrdered By: Terry Snowden on 06-16-2024 Monocyte distribution width Auto (Bld) [Entitic vol] Monocyte distribution width [Entitic volume] in Blood by Automated 0.00-20.00 [facility] Monocytes Auto (Bld) [#/Vol] Ordered By: Terry Snowden on 06-16-2024 Monocytes (Bld) [#/Vol] Automated blood monocyte count 0.0-0.8 [facility] Monocytes/100 WBC Auto (Bld) Ordered By: Terry Snowden on 06-16-2024 Monocytes/100 WBC (Bld) Automated monocy te % . [facility] Neutrophils Auto (Bld) [#/Vo l]Ordered By: Terry Snowden on 06-16-2024 Neutrophils (Bld) [#/Vol] Neutrophils [#/volume] in Blood by Automated count 1.8-7.7 [facility] Neutrophils/100 WBC Auto (Bl d)Ordered By: Terry Snowden on 06-16-2024 Neutrophils/100 WBC (Bld) Automated neutrophil % . [facility] Nitrite Test strip Ql (U)Ord ered By: Terry Snowden on 06-16-2024 Nitrite Ql (U) Nitrite [Presence] in Urine by Test strip Negative [facility] No Panel InformationOrdered By: Terry Snowden on 06-16-2024 Estimated GFR (CKD-EPI) > 60.0 mL/Min [facility] Creatinine Clearance (Chem 84.27 [facility] Nucleated erythrocytes [Pres ence] in Blood by Automated countOrdered By: Terry Snowden on 06-16-2024 Nucleated RBC Auto Ql (Bld) Nucleated erythrocytes [Presence] in Blood by Automated count 0-0.5 [facility] Platelet mean volume Auto (B ld) [Entitic vol]Ordered By: Terry Snowden on 06-16-2024 Platelet mean volume (Bld) [Entitic vol] Platelet mean volume [Entitic volume] in Blood by Automated count 6.3-10.7 [facility] Platelets Auto (Bld) [#/Vol] Ordered By: Terry Snowden on 06-16-2024 Platelets (Bld) [#/Vol] Platelets [#/volume] in Blood by Automated count 150-450 [facility] Potassium [Moles/volume] in Serum or PlasmaOrdered By: Terry Snowden on 06-16-2024 Potassium [Moles/Vol] Potassium [Moles/volume] in Serum or Plasma 3.5-5.1 [facility] Protein Test strip (U) [Mass /Vol]Ordered By: Terry Snowden on 06-16-2024 Protein (U) [Mass/Vol] Protein [Mass/volume] in Urine by Test strip Negative [facility] Protein [Mass/volume] in Ser um or PlasmaOrdered By: Terry Snowden on 06-16-2024 Protein [Mass/Vol] Protein [Mass/volume] in Serum or Plasma 6.4-8.9 [facility] RBC Auto (Bld) [#/Vol]Ordere d By: Terry Snowden on 06-16-2024 RBC (Bld) [#/Vol] Erythrocytes [#/volume] in Blood by Automated count 3.60-5.00 [facility] Serum or plasma albumin/glob ulin mass ratioOrdered By: Terry Snowden on 06-16-2024 Albumin/Globulin [Mass ratio] Serum or plasma albumin/globulin mass ratio [facility] Serum or plasma anion gap de terminationOrdered By: Terry Snowden on 06-16-2024 Anion gap [Moles/Vol] Serum or plasma anion gap determination 6.0-15.0 [facility] Serum or plasma non-glucuron idated bilirubin measurement (mass/volume)Ordered By: Terry Snowden on 06-16-2024 Bilirubin.indirect [Mass/Vol] Serum or plasma non-glucuronidated bilirubin measurement (mass/volume) [facility] Sodium [Moles/volume] in Ser um or PlasmaOrdered By: Terry Snowden on 06-16-2024 Sodium [Moles/Vol] Sodium [Moles/volume] in Serum or Plasma 136-145 [facility] Specific gravity Test strip (U) [Rel density]Ordered By: Terry Snowden on 06-16-2024 Specific gravity (U) [Rel density] Specific gravity of Urine by Test strip 1.001-1.030 [facility] Urea nitrogen [Mass/volume] in Serum or PlasmaOrdered By: Terry Snowden on 06-16-2024 Urea nitrogen [Mass/Vol] Urea nitrogen [Mass/volume] in Serum or Plasma 7-25 [facility] Urinalysison 06-16-2024 Appearance (U) Clear Normal Clear [facility] Comment on above: Order Comment: Name Collection Type:: Clean-Voided Midstream Performed By: #### U HCG, UA #### [facility] [address] [place] [address] [place] Bilirubin,Urine Negative Normal Negative [facility] Comment on above: Order Comment: Name Collection Type:: Clean-Voided Midstream Performed By: #### U HCG, UA #### [facility] [address] [place] [address] [place] Color (U) Light-Yellow Normal Yellow [facility] Comment on above: Order Comment: Name Collection Type:: Clean-Voided Midstream Performed By: #### U HCG, UA #### [facility] [address] [place] [address] [place] Glucose Ql (U) Normal Normal Normal [facility] Comment on above: Order Comment: Name Collection Type:: Clean-Voided Midstream Performed By: #### U HCG, UA #### [facility] [address] [place] [address] [place] Ketones Ql (U) Negative Normal Negative [facility] Comment on above: Order Comment: Name Collection Type:: Clean-Voided Midstream Performed By: #### U HCG, UA #### [address] Leukocyte esterase Test strip Ql (U) Negative Normal Negative [facility] Comment on above: Order Comment: Name Collection Type:: Clean-Voided Midstream Performed By: #### U HCG, UA #### [place] [address] [place] Nitrite,Urine Negative Normal Negative [facility] Comment on above: Order Comment: Name Collection Type:: Clean-Voided Midstream Performed By: #### U HCG, UA #### [address] Occult Blood,Urine Negative Normal Negative [facility] Comment on above: Order Comment: Name Collection Type:: Clean-Voided Midstream Performed By: #### U HCG, UA #### [place] [address] [place] pH (U) 7.0 [pH] Normal 5.0-9.0 [facility] Comment on above: Order Comment: Name Collection Type:: Clean-Voided Midstream Performed By: #### U HCG, UA #### [place] [address] [place] Protein,Urine Negative Normal Negative [facility] Comment on above: Order Comment: Name Collection Type:: Clean-Voided Midstream Performed By: #### U HCG, UA #### [place] [address] [place] Specificy [place],Urine 1.013 Normal 1.001-1.030 [facility] Comment on above: Order Comment: Name Collection Type:: Clean-Voided Midstream Performed By: #### U HCG, UA #### [place] [address] [place] Urobilinogen,Urine Normal Normal Normal [facility] Comment on above: Order Comment: Name Collection Type:: Clean-Voided Midstream Performed By: #### U HCG, UA #### [address] Urobilinogen Test strip (U) [Mass/Vol]Ordered By: Terry Snowden on 06-16-2024 Urobilinogen (U) [Mass/Vol] Urobilinogen [Mass/volume] in Urine by Test strip Normal [facility] WBC Auto (Bld) [#/Vol]Ordere d By: Terry Snowden on 06-16-2024 WBC (Bld) [#/Vol] Leukocytes [#/volume] in Blood by Automated count 3.8-11.6 [facility] pH Test strip (U)Ordered By: Terry Snowden on 06-16-2024 pH (U) pH of Urine by Test strip 5.0-9.0 [facility] A1C with Estimated Average Ella lang 06-12-2024 Glucose [Mass/Vol] 97 mg/dL Normal [facility] Comment on above: Order Comment: Name Collection Type:: Clean-Voided Midstream Result Comment: PERF ORMED BY: [place] [address] PATHOLOGIST SERVICE TECH/WELDER JAGDEEP ROTHMAN M.D. Performed By: #### U HCG, ADDONUAPLUS #### [facility] [address] [place] [address] HbA1c (Bld) [Mass fraction] 5.0 % Normal 4.3-5.6 [facility] Comment on above: Order Comment: Name Collection Type:: Clean-Voided Midstream Result Comment: Incr eased risk for diabetes: 5.7 - 6.4 diabetes: >6.4 glycemic control for adults with diabetes: <7.0 Performed By: #### U HCG, ADDONUAPLUS #### [facility] [address] [place] [address] [place] Alanine aminotransferase [En zymatic activity/volume] in Serum or PlasmaOrdered By: Ruby Starkey on 06-12-2024 ALT [Catalytic activity/Vol] Alanine aminotransferase [Enzymatic activity/volume] in Serum or Plasma [facility] Albumin [Mass/volume] in Ser um or Plasma by Bromocresol green (BCG) dye binding methoOrdered By: Ruby Starkey on 06-12-2024 Albumin BCG dye [Mass/Vol] Albumin [Mass/volume] in Serum or Plasma by Bromocresol green (BCG) dye binding metho 3.5-5.7 [facility] Alkaline phosphatase [Enzyma tic activity/volume] in Serum or PlasmaOrdered By: Ruby Starkey on 06-12-2024 ALP [Catalytic activity/Vol] Alkaline phosphatase [Enzymatic activity/volume] in Serum or Plasma Low 34-104 [facility] Appearance of UrineOrdered B y: Ruby Satrkey on 06-12-2024 Appearance (U) Urine appearance Clear [facility] Aspartate aminotransferase [ Enzymatic activity/volume] in Serum or PlasmaOrdered By: Ruby Starkey on 06-12-2024 AST [Catalytic activity/Vol] Aspartate aminotransferase [Enzymatic activity/volume] in Serum or Plasma 13-39 [facility] Bacteria [Presence] in Urine by AutomatedOrdered By: Ruby Starkey on 06-12-2024 Bacteria Auto Ql (U) Bacteria [Presence] in Urine by Automated None Seen [facility] Basophils Auto (Bld) [#/Vol] Ordered By: Ruby Starkey on 06-12-2024 Basophils (Bld) [#/Vol] Automated basoph il count 0.0-0.2 [facility] Basophils/100 WBC Auto (Bld) Ordered By: Ruby Starkey on 06-12-2024 Basophils/100 WBC (Bld) Automated basoph il % . [facility] Bilirubin Test strip Ql (U)O rdered By: Ruby Starkey on 06-12-2024 Bilirubin Ql (U) Bilirubin.total [Presence] in Urine by Test strip Negative [facility] Bilirubin.total [Mass/volume ] in Serum or PlasmaOrdered By: Ruby Starkey on 06-12-2024 Bilirubin [Mass/Vol] Bilirubin.total [Mass/volume] in Serum or Plasma 0.3-1.0 [facility] Blood estimated average gluc ose determination by estimation from glycated hemoglobinOrdered By: Ruby Starkey on 06-12-2024 Average glucose Estimated from glycated hemoglobin (Bld) [Mass/Vol] Glucose mean value [Mass/volume] in Blood Estimated from glycated hemoglobin [facility] Calcium [Mass/volume] in Ser um or PlasmaOrdered By: Ruby Starkey on 06-12-2024 Calcium [Mass/Vol] Calcium [Mass/volume] in Serum or Plasma 8.6-10.3 [facility] Carbon dioxide, total [Moles /volume] in Serum or PlasmaOrdered By: Ruby Starkey on 06-12-2024 CO2 [Moles/Vol] Carbon dioxide, total [Moles/volume] in Serum or Plasma 21.0-31.0 [facility] Chloride [Moles/volume] in S di or PlasmaOrdered By: Ruby Starkey on 06-12-2024 Chloride [Moles/Vol] Chloride [Moles/volume] in Serum or Plasma 98-107 [facility] Color Auto (U)Ordered By: Jonathan Starkey on 06-12-2024 Color (U) Color of Urine by Auto Yellow [facility] Complete Blood Count Auto Di ffon 06-12-2024 Basophils (Bld) [#/Vol] 0.1 10*3/uL Normal 0.0-0.2 [facility] Comment on above: Order Comment: Name Collection Type:: Clean-Voided Midstream Result Comment: PERF ORMED BY: [place] [address] PATHOLOGIST SERVICE TECH/WELDER JAGDEEP ROTHMAN M.D. Performed By: #### U HCG, ADDONUAPLUS #### [facility] [address] [place] [address] Basophils/100 WBC (Bld) 1.0 % Normal . [facility] Comment on above: Order Comment: Name Collection Type:: Clean-Voided Midstream Performed By: #### U HCG, ADDONUAPLUS #### [facility] [address] [place] [address] Eosinophils (Bld) [#/Vol] 0.1 10*3/uL Normal 0.0-0.45 [facility] Comment on above: Order Comment: Name Collection Type:: Clean-Voided Midstream Performed By: #### U HCG, ADDONUAPLUS #### [address] [place] [address] [place] Eosinophils/100 WBC (Bld) 1.1 % Normal . [facility] Comment on above: Order Comment: Name Collection Type:: Clean-Voided Midstream Performed By: #### U HCG, ADDONUAPLUS #### [address] Erythrocyte distribution width (RBC) [Ratio] 13.7 % Normal 11.9-15.3 [facility] Comment on above: Order Comment: Name Collection Type:: Clean-Voided Midstream Performed By: #### U HCG, ADDONUAPLUS #### [address] Hematocrit (Bld) [Volume fraction] 40.6 % Normal 34.0-46.4 [facility] Comment on above: Order Comment: Name Collection Type:: Clean-Voided Midstream Performed By: #### U HCG, ADDONUAPLUS #### [address] Hemoglobin (Bld) [Mass/Vol] 13.5 g/dL Normal 11.8-15.4 [facility] Comment on above: Order Comment: Name Collection Type:: Clean-Voided Midstream Performed By: #### U HCG, ADDONUAPLUS #### [address] Lymphocytes (Bld) [#/Vol] 2.3 10*3/uL Normal 1.00-4.8 [facility] Comment on above: Order Comment: Name Collection Type:: Clean-Voided Midstream Performed By: #### U HCG, ADDONUAPLUS #### [place] [address] [place] Lymphocytes/100 WBC (Bld) 40.0 % Normal . [facility] Comment on above: Order Comment: Name Collection Type:: Clean-Voided Midstream Performed By: #### U HCG, ADDONUAPLUS #### [address] MCH (RBC) [Entitic mass] 29.9 pg Normal 24.7-34.3 [facility] Comment on above: Order Comment: Name Collection Type:: Clean-Voided Midstream Performed By: #### U HCG, ADDONUAPLUS #### [address] MCV (RBC) [Entitic vol] 89.7 fL Normal 80-100 [facility] Comment on above: Order Comment: Name Collection Type:: Clean-Voided Midstream Performed By: #### U HCG, ADDONUAPLUS #### [address] Mean Corpuscular HGB Conc 33.4 g/dL Normal 32.0-35.0 [facility] Comment on above: Order Comment: Name Collection Type:: Clean-Voided Midstream Performed By: #### U HCG, ADDONUAPLUS #### [address] Monocytes (Bld) [#/Vol] 0.5 10*3/uL Normal 0.0-0.8 [facility] Comment on above: Order Comment: Name Collection Type:: Clean-Voided Midstream Performed By: #### U HCG, ADDONUAPLUS #### [place] [address] [place] Monocytes/100 WBC (Bld) 8.0 % Normal . [facility] Comment on above: Order Comment: Name Collection Type:: Clean-Voided Midstream Performed By: #### U HCG, ADDONUAPLUS #### [place] [address] [place] Neutrophils (Bld) [#/Vol] 2.8 10*3/uL Normal 1.8-7.7 [facility] Comment on above: Order Comment: Name Collection Type:: Clean-Voided Midstream Performed By: #### U HCG, ADDONUAPLUS #### [place] [address] [place] Neutrophils/100 WBC (Bld) 49.9 % Normal . [facility] Comment on above: Order Comment: Name Collection Type:: Clean-Voided Midstream Performed By: #### U HCG, ADDONUAPLUS #### [address] NRBC% 0.1 /100{WBC} Normal 0-0.5 [facility] Comment on above: Order Comment: Name Collection Type:: Clean-Voided Midstream Performed By: #### U HCG, ADDONUAPLUS #### [facility] [address] [place] [address] Platelet mean volume (Bld) [Entitic vol] 9.9 fL Normal 6.3-10.7 [facility] Comment on above: Order Comment: Name Collection Type:: Clean-Voided Midstream Performed By: #### U HCG, ADDONUAPLUS #### [address] Platelets (Bld) [#/Vol] 226 10*3/uL Normal 150-450 [facility] Comment on above: Order Comment: Name Collection Type:: Clean-Voided Midstream Performed By: #### U HCG, ADDONUAPLUS #### [address] RBC (Bld) [#/Vol] 4.52 10*6/uL Normal 3.60-5.00 [facility] Comment on above: Order Comment: Name Collection Type:: Clean-Voided Midstream Performed By: #### U HCG, ADDONUAPLUS #### [address] WBC (Bld) [#/Vol] 5.7 10*3/uL Normal 3.8-11.6 [facility] Comment on above: Order Comment: Name Collection Type:: Clean-Voided Midstream Performed By: #### U HCG, ADDONUAPLUS #### [address] Comprehensive Metabolic Pane obey 06-12-2024 Albumin [Mass/Vol] 4.7 g/dL Normal 3.5-5.7 [facility] Comment on above: Order Comment: Name Collection Type:: Clean-Voided Midstream Performed By: #### U HCG, ADDONUAPLUS #### [facility] [address] [place] [address] Albumin/Globulin [Mass ratio] 1.7 {ratio} Normal [facility] Comment on above: Order Comment: Name Collection Type:: Clean-Voided Midstream Performed By: #### U HCG, ADDONUAPLUS #### [address] ALP [Catalytic activity/Vol] 29 U/L Low 34-104 [facility] Comment on above: Order Comment: Name Collection Type:: Clean-Voided Midstream Performed By: #### U HCG, ADDONUAPLUS #### [address] ALT [Catalytic activity/Vol] 15 U/L Normal 7-52 [facility] Comment on above: Order Comment: Name Collection Type:: Clean-Voided Midstream Performed By: #### U HCG, ADDONUAPLUS #### [address] Anion gap [Moles/Vol] 12.2 mmol/L Normal 6.0-15.0 [facility] Comment on above: Order Comment: Name Collection Type:: Clean-Voided Midstream Performed By: #### U HCG, ADDONUAPLUS #### [address] AST [Catalytic activity/Vol] 16 U/L Normal 13-39 [facility] Comment on above: Order Comment: Name Collection Type:: Clean-Voided Midstream Performed By: #### U HCG, ADDONUAPLUS #### [facility] [address] [place] [address] [place] Bilirubin [Mass/Vol] 0.6 mg/dL Normal 0.3-1.0 [facility] Comment on above: Order Comment: Name Collection Type:: Clean-Voided Midstream Performed By: #### U HCG, ADDONUAPLUS #### [facility] [address] [place] [address] Calcium [Mass/Vol] 9.6 mg/dL Normal 8.6-10.3 [facility] Comment on above: Order Comment: Name Collection Type:: Clean-Voided Midstream Performed By: #### U HCG, ADDONUAPLUS #### [place] [address] [place] Chloride [Moles/Vol] 106 mmol/L Normal 98-107 [facility] Comment on above: Order Comment: Name Collection Type:: Clean-Voided Midstream Performed By: #### U HCG, ADDONUAPLUS #### [address] CO2 [Moles/Vol] 26.2 mmol/L Normal 21.0-31.0 [facility] Comment on above: Order Comment: Name Collection Type:: Clean-Voided Midstream Performed By: #### U HCG, ADDONUAPLUS #### [address] Creatinine [Mass/Vol] 0.98 mg/dL Normal 0.60-1.20 [facility] Comment on above: Order Comment: Name Collection Type:: Clean-Voided Midstream Performed By: #### U HCG, ADDONUAPLUS #### [place] [address] [place] GFR/1.73 sq M.predicted MDRD (S/P/Bld) [Vol rate/Area] mL/min/{1.73_m2} Normal [facility] Comment on above: Order Comment: Name Collection Type:: Clean-Voided Midstream Performed By: #### U HCG, ADDONUAPLUS #### [address] Globulin (S) [Mass/Vol] 2.8 g/dL Normal T [facility] Comment on above: Order Comment: Name Collection Type:: Clean-Voided Midstream Performed By: #### U HCG, ADDONUAPLUS #### [address] Glucose [Mass/Vol] 89 mg/dL Normal 70-100 [facility] Comment on above: Order Comment: Name Collection Type:: Clean-Voided Midstream Result Comment: [place] Glucose Reference Range is dependent on time and content of last meal. Glucose of more than 200 mg/dL in a nonstressed, ambulatory subject supports the diagnosis of Diabetes Mellitus. ADA recommended reference range Performed By: #### U HCG, ADDONUAPLUS #### [facility] [address] Potassium [Moles/Vol] 4.4 mmol/L Normal 3.5-5.1 [facility] Comment on above: Order Comment: Name Collection Type:: Clean-Voided Midstream Performed By: #### U HCG, ADDONUAPLUS #### [address] Protein [Mass/Vol] 7.5 g/dL Normal 6.4-8.9 [facility] Comment on above: Order Comment: Name Collection Type:: Clean-Voided Midstream Performed By: #### U HCG, ADDONUAPLUS #### [place] [address] [place] Sodium [Moles/Vol] 140 mmol/L Normal 136-145 [facility] Comment on above: Order Comment: Name Collection Type:: Clean-Voided Midstream Performed By: #### U HCG, ADDONUAPLUS #### [place] [address] [place] Urea nitrogen [Mass/Vol] 8 mg/dL Normal 7-25 [facility] Comment on above: Order Comment: Name Collection Type:: Clean-Voided Midstream Performed By: #### U HCG, ADDONUAPLUS #### [place] [address] [place] Creatinine [Mass/volume] in Serum or PlasmaOrdered By: uRby Starkey on 06-12-2024 Creatinine [Mass/Vol] Creatinine [Mass/volume] in Serum or Plasma 0.60-1.20 [facility] Dipstick and Microscopicon 0 06-12-2024 Appearance (U) Clear Normal Clear [facility] Comment on above: Order Comment: Name Collection Type:: Clean-Voided Midstream Performed By: #### U HCG, ADDONUAPLUS #### [facility] [address] [place] [address] [place] Bacteria,Urine Rare Normal None Seen [facility] Comment on above: Order Comment: Name Collection Type:: Clean-Voided Midstream Performed By: #### U HCG, ADDONUAPLUS #### [facility] [address] [place] [address] [place] Bilirubin,Urine Negative Normal Negative [facility] Comment on above: Order Comment: Name Collection Type:: Clean-Voided Midstream Performed By: #### U HCG, ADDONUAPLUS #### [place] [address] [place] Color (U) Light-Yellow Normal Yellow [facility] Comment on above: Order Comment: Name Collection Type:: Clean-Voided Midstream Performed By: #### U HCG, ADDONUAPLUS #### [address] Glucose Ql (U) Normal Normal Normal [facility] Comment on above: Order Comment: Name Collection Type:: Clean-Voided Midstream Performed By: #### U HCG, ADDONUAPLUS #### [place] [address] [place] Hyaline Casts,Urine None Normal 0-8 [facility] Comment on above: Order Comment: Name Collection Type:: Clean-Voided Midstream Performed By: #### U HCG, ADDONUAPLUS #### [address] Ketones Ql (U) Negative Normal Negative [facility] Comment on above: Order Comment: Name Collection Type:: Clean-Voided Midstream Performed By: #### U HCG, ADDONUAPLUS #### [place] [address] [place] Leukocyte esterase Test strip Ql (U) 2+ High Negative [facility] Comment on above: Order Comment: Name Collection Type:: Clean-Voided Midstream Performed By: #### U HCG, ADDONUAPLUS #### [place] [address] [place] Nitrite,Urine Negative Normal Negative [facility] Comment on above: Order Comment: Name Collection Type:: Clean-Voided Midstream Performed By: #### U HCG, ADDONUAPLUS #### [address] Occult Blood,Urine Negative Normal Negative [facility] Comment on above: Order Comment: Name Collection Type:: Clean-Voided Midstream Performed By: #### U HCG, ADDONUAPLUS #### [address] pH (U) 6.0 [pH] Normal 5.0-9.0 [facility] Comment on above: Order Comment: Name Collection Type:: Clean-Voided Midstream Performed By: #### U HCG, ADDONUAPLUS #### [address] Protein,Urine Negative Normal Negative [facility] Comment on above: Order Comment: Name Collection Type:: Clean-Voided Midstream Performed By: #### U HCG, ADDONUAPLUS #### [address] RBC,Urine 1 [HPF] Normal 0-4 [facility] Comment on above: Order Comment: Name Collection Type:: Clean-Voided Midstream Performed By: #### U HCG, ADDONUAPLUS #### [address] Specificy [place],Urine 1.008 Normal 1.001-1.030 [facility] Comment on above: Order Comment: Name Collection Type:: Clean-Voided Midstream Performed By: #### U HCG, ADDONUAPLUS #### [place] [address] [place] Squamous Epithelial Cell,Urine 5 [HPF] High 0-2 [facility] Comment on above: Order Comment: Name Collection Type:: Clean-Voided Midstream Performed By: #### U HCG, ADDONUAPLUS #### [address] Urobilinogen,Urine Normal Normal Normal [facility] Comment on above: Order Comment: Name Collection Type:: Clean-Voided Midstream Performed By: #### U HCG, ADDONUAPLUS #### [facility] [address] WBC,Urine 5 [HPF] High 0-4 [facility] Comment on above: Order Comment: Name Collection Type:: Clean-Voided Midstream Performed By: #### U HCG, ADDONUAPLUS #### [facility] [address] [place] [address] [place] Eosinophils Auto (Bld) [#/Vo l]Ordered By: Ruby Starkey on 06-12-2024 Eosinophils (Bld) [#/Vol] Automated eosinophil count 0.0-0.45 [facility] Eosinophils/100 WBC Auto (Bl d)Ordered By: Ruby Starkey on 06-12-2024 Eosinophils/100 WBC (Bld) Automated eosinophil % . [facility] Epithelial cells.squamous [# /area] in Urine sediment by Automated countOrdered By: Ruby Starkey on 06-12-2024 Epithelial cells.squamous Auto (Urine sed) [#/Area] Epithelial cells.squamous [#/area] in Urine sediment by Automated count High 0-2 [facility] Erythrocyte distribution wid th Auto (RBC) [Ratio]Ordered By: Ruby Starkey on 06-12-2024 Erythrocyte distribution width (RBC) [Ratio] Erythrocyte distribution width [Ratio] by Automated count 11.9-15.3 [facility] Erythrocytes [#/area] in Uri ne sediment by Automated countOrdered By: Ruby Starkey on 06-12-2024 RBC Auto (Urine sed) [#/Area] Erythrocytes [#/area] in Urine sediment by Automated count 0-4 [facility] Ferritinon 06-12-2024 Ferritin [Mass/Vol] 49.9 ng/mL Normal 11.0-306.8 [facility] Comment on above: Order Comment: Name Collection Type:: Clean-Voided Midstream Performed By: #### U HCG, ADDONUAPLUS #### [facility] [address] [place] [address] Ferritin [Mass/volume] in Se rum or PlasmaOrdered By: Ruby Starkey on 06-12-2024 Ferritin [Mass/Vol] Ferritin [Mass/volume] in Serum or Plasma 11.0-306.8 [facility] Folate [Mass/volume] in Seru m or PlasmaOrdered By: Ruby Starkey on 06-12-2024 Folate [Mass/Vol] Folate [Mass/volume] in Serum or Plasma >5.9 [facility] Comment on above: Folate reference ran ge: >5.9 ng/mlThe WHO technical consultation on folate and vitamin [id number] has determined that folate concentrations lessthan 4 ng/ml are considered deficient. Free T4 (Free Thyroxine)on 0 06-12-2024 Free T4 [Mass/Vol] 0.79 ng/dL Normal 0.61-1.12 [facility] Comment on above: Order Comment: Name Collection Type:: Clean-Voided Midstream Performed By: #### U HCG, ADDONUAPLUS #### [facility] [address] Globulin Calc (S) [Mass/Vol] Ordered By: Ruby Starkey on 06-12-2024 Globulin (S) [Mass/Vol] Serum globulin measurement by calculation (mass/volume) [facility] Glucose [Mass/volume] in Ser um or PlasmaOrdered By: Ruby Starkey on 06-12-2024 Glucose [Mass/Vol] Glucose [Mass/volume] in Serum or Plasma 70-100 [facility] Comment on above: ADA recommended refe rence rangeRandom Glucose Reference Range is dependent on time and content of last meal. Glucose of more than 200 mg/dL in a nonstressed, ambulatory subject supports the diagnosis of Diabetes Mellitus. Glucose [Mass/volume] in Uri ne by Test stripOrdered By: Ruby Starkey on 06-12-2024 Glucose Test strip (U) [Mass/Vol] Glucose [Mass/volume] in Urine by Test strip Normal [facility] HCG ( test) IA.rapi d Ql (U)Ordered By: Ruby Starkey on 06-12-2024 HCG ( test) Ql (U) Urine human chorionic gonadotropin (hCG) detection by immunoassay [facility] HCG,Urineon 06-12-2024 Beta HCG ( test) Ql (U) Negative Normal [facility] Comment on above: Order Comment: Name Collection Type:: Clean-Voided Midstream Result Comment: PERF ORMED BY: [place] [address] PATHOLOGIST SERVICE TECH/WELDER JAGDEEP ROTHMAN M.D. Performed By: #### U HCG, ADDONUAPLUS #### [address] Hematocrit Auto (Bld) [Volum e fraction]Ordered By: Ruby Starkey on 06-12-2024 Hematocrit (Bld) [Volume fraction] Hematocrit [Volume Fraction] of Blood by Automated count 34.0-46.4 [facility] Hemoglobin A1c/Hemoglobin.to osbaldo in BloodOrdered By: Ruby Starkey on 06-12-2024 HbA1c (Bld) [Mass fraction] Hemoglobin A1c percentage 4.3-5.6 [facility] Comment on above: Increased risk for d iabetes: 5.7 - 6.4diabetes: >6.4glycemic control for adults with diabetes: <7.0 Hemoglobin Test strip Ql (U) Ordered By: Ruby Starkey on 06-12-2024 Hemoglobin Ql (U) Hemoglobin [Presence] in Urine by Test strip Negative [facility] Hemoglobin [Mass/volume] in BloodOrdered By: Ruby Starkey on 06-12-2024 Hemoglobin (Bld) [Mass/Vol] Hemoglobin [Mass/volume] in Blood 11.8-15.4 [facility] Hyaline casts [#/area] in Ur ine sediment by Automated countOrdered By: Ruby Starkey on 06-12-2024 Hyaline casts Auto (Urine sed) [#/Area] Hyaline casts [#/area] in Urine sediment by Automated count 0-8 [facility] Iron [Mass/volume] in Serum or PlasmaOrdered By: Ruby Starkey on 06-12-2024 Iron [Mass/Vol] Iron [Mass/volume] in Serum or Plasma 50-212 [facility] Iron and TIBC Profileon 05-31 % Iron Saturation 53.8 % High 20-50 [facility] Comment on above: Order Comment: Name Collection Type:: Clean-Voided Midstream Performed By: #### U HCG, ADDONUAPLUS #### [facility] [address] [place], [place] [id number] [place] Iron [Mass/Vol] 205 ug/dL Normal 50-[address] [facility] Comment on above: Order Comment: Name Collection Type:: Clean-Voided Midstream Performed By: #### U HCG, ADDONUAPLUS #### [facility] [address] [place], [place] [id number] [facility] Total Iron Binding Capacity 381 ug/dL Normal 255-450 [facility] Comment on above: Order Comment: Name Collection Type:: Clean-Voided Midstream Performed By: #### U HCG, ADDONUAPLUS #### [facility] [address] [place], [place] [id number] [facility] Transferrin [Mass/Vol] 272 mg/dL Normal 203-362 [facility] Comment on above: Order Comment: Name Collection Type:: Clean-Voided Midstream Performed By: #### U HCG, ADDONUAPLUS #### [facility] [address] [place], [place] [id number] [facility] Ketones Test strip Ql (U)Ord ered By: Ruby Starkey on 06-12-2024 Ketones Ql (U) Ketones [Presence] in Urine by Test strip Negative [facility] Leukocyte esterase [Presence ] in Urine by Test stripOrdered By: Ruby Starkey on 06-12-2024 Leukocyte esterase Test strip Ql (U) Leukocyte esterase [Presence] in Urine by Test strip High Negative [facility] Leukocytes [#/area] in Urine sediment by Automated countOrdered By: Ruby Starkey on 06-12-2024 WBC Auto (Urine sed) [#/Area] Leukocytes [#/area] in Urine sediment by Automated count High 0-4 [facility] Leukocytes [#/volume] correc maryam for nucleated erythrocytes in Blood by Automated counOrdered By: Ruby Starkey on 06-12-2024 WBC corrected for nucl RBC Auto (Bld) [#/Vol] Leukocytes [#/volume] corrected for nucleated erythrocytes in Blood by Automated coun 3.8-11.6 [facility] Lymphocytes Auto (Bld) [#/Vo l]Ordered By: Ruby Starkey on 06-12-2024 Lymphocytes (Bld) [#/Vol] Lymphocytes [#/volume] in Blood by Automated count 1.00-4.8 [facility] Lymphocytes/100 WBC Auto (Bl d)Ordered By: Ruby Starkey on 06-12-2024 Lymphocytes/100 WBC (Bld) Lymphocytes/100 leukocytes in Blood by Automated count . [facility] MCH Auto (RBC) [Entitic mass ]Ordered By: Ruby Starkey on 06-12-2024 MCH (RBC) [Entitic mass] MCH [Entitic ma ss] by Automated count 24.7-34.3 [facility] MCHC Auto (RBC) [Mass/Vol]Or dered By: Ruby Starkey on 06-12-2024 MCHC (RBC) [Mass/Vol] MCHC [Mass/volume] by Automated count 32.0-35.0 [facility] MCV Auto (RBC) [Entitic vol] Ordered By: Ruby Starkey on 06-12-2024 MCV (RBC) [Entitic vol] MCV [Entitic volume] by Automated count 80-100 [facility] Monocytes Auto (Bld) [#/Vol] Ordered By: Ruby Starkey on 06-12-2024 Monocytes (Bld) [#/Vol] Automated blood monocyte count 0.0-0.8 [facility] Monocytes/100 WBC Auto (Bld) Ordered By: Ruby Starkey on 06-12-2024 Monocytes/100 WBC (Bld) Automated monocy te % . [facility] Neutrophils Auto (Bld) [#/Vo l]Ordered By: Ruby Starkey on 06-12-2024 Neutrophils (Bld) [#/Vol] Neutrophils [#/volume] in Blood by Automated count 1.8-7.7 [facility] Neutrophils/100 WBC Auto (Bl d)Ordered By: Ruby Starkey on 06-12-2024 Neutrophils/100 WBC (Bld) Automated neutrophil % . [facility] Nitrite Test strip Ql (U)Ord ered By: Ruby Starkey on 06-12-2024 Nitrite Ql (U) Nitrite [Presence] in Urine by Test strip Negative [facility] No Panel InformationOrdered By: Ruby Starkey on 06-12-2024 Estimated GFR (CKD-EPI) > 60.0 mL/Min [facility] Creatinine Clearance (Chem N/A [facility] Nucleated erythrocytes [Pres ence] in Blood by Automated countOrdered By: Ruby Starkey on 06-12-2024 Nucleated RBC Auto Ql (Bld) Nucleated erythrocytes [Presence] in Blood by Automated count 0-0.5 [facility] Platelet mean volume Auto (B ld) [Entitic vol]Ordered By: Ruby Starkey on 06-12-2024 Platelet mean volume (Bld) [Entitic vol] Platelet mean volume [Entitic volume] in Blood by Automated count 6.3-10.7 [facility] Platelets Auto (Bld) [#/Vol] Ordered By: Ruby Starkey on 06-12-2024 Platelets (Bld) [#/Vol] Platelets [#/volume] in Blood by Automated count 150-450 [facility] Potassium [Moles/volume] in Serum or PlasmaOrdered By: Ruby Starkey on 06-12-2024 Potassium [Moles/Vol] Potassium [Moles/volume] in Serum or Plasma 3.5-5.1 [facility] Protein Test strip (U) [Mass /Vol]Ordered By: Ruby Starkey on 06-12-2024 Protein (U) [Mass/Vol] Protein [Mass/volume] in Urine by Test strip Negative [facility] Protein [Mass/volume] in Ser um or PlasmaOrdered By: Ruby Starkey on 06-12-2024 Protein [Mass/Vol] Protein [Mass/volume] in Serum or Plasma 6.4-8.9 [facility] RBC Auto (Bld) [#/Vol]Ordere d By: Ruby Starkey on 06-12-2024 RBC (Bld) [#/Vol] Erythrocytes [#/volume] in Blood by Automated count 3.60-5.00 [facility] Serum or plasma albumin/glob ulin mass ratioOrdered By: Ruby Starkey on 06-12-2024 Albumin/Globulin [Mass ratio] Serum or plasma albumin/globulin mass ratio [facility] Serum or plasma anion gap de terminationOrdered By: Ruby Starkey on 06-12-2024 Anion gap [Moles/Vol] Serum or plasma anion gap determination 6.0-15.0 [facility] Serum or plasma iron binding capacity measurement (mass/volume)Ordered By: Ruby Starkey on 06-12-2024 Iron binding capacity [Mass/Vol] Iron binding capacity [Mass/volume] in Serum or Plasma 255-450 [facility] Serum or plasma iron saturat ion measurement (mass fraction)Ordered By: Ruby Starkey on 06-12-2024 Iron saturation [Mass fraction] Iron saturation [Mass Fraction] in Serum or Plasma High 20-50 [facility] Sodium [Moles/volume] in Ser um or PlasmaOrdered By: Ruby Starkey on 06-12-2024 Sodium [Moles/Vol] Sodium [Moles/volume] in Serum or Plasma 136-145 [facility] Specific gravity Test strip (U) [Rel density]Ordered By: Ruby Starkey on 06-12-2024 Specific gravity (U) [Rel density] Specific gravity of Urine by Test strip 1.001-1.030 [facility] Thyroid Stimulating Hormoneo n 06-12-2024 TSH Qn 2.41 m[IU]/L Normal 0.45-5.33 [facility] Comment on above: Order Comment: Name Collection Type:: Clean-Voided Midstream Result Comment: PERF ORMED BY: [place] [address] PATHOLOGIST SERVICE TECH/WELDER JAGDEEP ROTHMAN M.D. Performed By: #### U HCG, ADDONUAPLUS #### [address] Thyrotropin [Units/volume] i n Serum or PlasmaOrdered By: Ruby Starkey on 06-12-2024 TSH Qn Thyrotropin [Units/volume] in Serum or Plasma 0.45-5.33 [facility] Thyroxine (T4) free [Mass/vo lume] in Serum or PlasmaOrdered By: Ruby Starkey on 06-12-2024 Free T4 [Mass/Vol] Thyroxine (T4) free [Mass/volume] in Serum or Plasma 0.61-1.12 [facility] Transferrin [Mass/volume] in Serum or PlasmaOrdered By: Ruby Starkey on 06-12-2024 Transferrin [Mass/Vol] Transferrin [Mass/volume] in Serum or Plasma 203-362 [facility] Triiodothyronine (T3) Freeon 06-12-2024 Triiodothyronine (T3) Free 3.32 pg/mL Normal 2.50-3.90 [facility] Comment on above: Order Comment: Name Collection Type:: Clean-Voided Midstream Result Comment: PERF ORMED BY: [place] [address] PATHOLOGIST SERVICE TECH/WELDER JAGDEEP ROTHMAN M.D. Performed By: #### U HCG, ADDONUAPLUS #### [facility] [address] [place] [address] Triiodothyronine (T3) Free [ Mass/volume] in Serum or PlasmaOrdered By: Ruby Starkey on 06-12-2024 Free T3 [Mass/Vol] Triiodothyronine (T3) Free [Mass/volume] in Serum or Plasma 2.50-3.90 [facility] Urea nitrogen [Mass/volume] in Serum or PlasmaOrdered By: Ruby Starkey on 06-12-2024 Urea nitrogen [Mass/Vol] Urea nitrogen [Mass/volume] in Serum or Plasma 7-25 [facility] Urine Cultureon 06-12-2024 Bacteria identified Cx Nom (U) Reason for Exam Pre-syncope Urine 20,000 colonies/ml mixed bacterial skin contaminants 2 Days PERFORMED BY: [place] [address] PATHOLOGIST SERVICE TECH/WELDER JAGDEEP ROTHMAN M.D. Normal [facility] Comment on above: Performed By: #### U HCG, ADDONUAPLUS #### [facility] [address] [place] [address] Urine cultureOrdered By: Marzena Starkey on 06-12-2024 Bacteria identified Cx Nom (U) Urine culture [facility] Bacteria identified Cx Nom (U) Urine culture [facility] Urobilinogen Test strip (U) [Mass/Vol]Ordered By: Ruby Starkey on 06-12-2024 Urobilinogen (U) [Mass/Vol] Urobilinogen [Mass/volume] in Urine by Test strip Normal [facility] Vit. B12/Folate Profileon Cobalamin (Vitamin B12) [Mass/Vol] 212 pg/mL Normal 180-914 [facility] Comment on above: Order Comment: Name Collection Type:: Clean-Voided Midstream Performed By: #### U HCG, ADDONUAPLUS #### [facility] [address] [place] [address] Folate 8.2 ng/mL Normal >5.9 [facility] Comment on above: Order Comment: Name Collection Type:: Clean-Voided Midstream Result Comment: Cyndee te reference range: >5.9 ng/ml The WHO technical consultation on folate and vitamin b12 deficiencies has determined that folate concentrations less than 4 ng/ml are considered deficient. Performed By: #### U HCG, ADDONUAPLUS #### [facility] [address] [place] [address] Vitamin B12 ser/plasOrdered By: Ruby Starkey on 06-12-2024 Cobalamin (Vitamin B12) [Mass/Vol] Vitamin B12 ser/plas 180-914 [facility] WBC Auto (Bld) [#/Vol]Ordere d By: Ruby Starkey on 06-12-2024 WBC (Bld) [#/Vol] Leukocytes [#/volume] in Blood by Automated count 3.8-11.6 [facility] pH Test strip (U)Ordered By: Ruby Starkey on 06-12-2024 pH (U) pH of Urine by Test strip 5.0-9.0 [facility] Alanine aminotransferase [En zymatic activity/volume] in Serum or PlasmaOrdered By: Maryellen Colunga on 04-01-2024 ALT [Catalytic activity/Vol] 9 U/L Normal 7-52 [facility] Comment on above: Performed By: #### B MP, LIPASE, HEPATIC, CBC #### [facility] [address] [place] [address] [place] ALT [Catalytic activity/Vol] Alanine aminotransferase [Enzymatic activity/volume] in Serum or Plasma [facility] Albumin [Mass/volume] in Ser um or Plasma by Bromocresol green (BCG) dye binding methoOrdered By: Maryellen Colunga on 04-01-2024 Albumin BCG dye [Mass/Vol] 4.5 g/dL 3.5-5.7 [facility] Albumin BCG dye [Mass/Vol] Albumin [Mass/volume] in Serum or Plasma by Bromocresol green (BCG) dye binding metho 3.5-5.7 [facility] Alkaline phosphatase [Enzyma tic activity/volume] in Serum or PlasmaOrdered By: Maryellen Colunga on 04-01-2024 ALP [Catalytic activity/Vol] 31 U/L Low 34-104 [facility] Comment on above: Performed By: #### B MP, LIPASE, HEPATIC, CBC #### [facility] [address] ALP [Catalytic activity/Vol] Alkaline phosphatase [Enzymatic activity/volume] in Serum or Plasma Low 34-104 [facility] Appearance of UrineOrdered B y: Maryellen Colunga on 04-01-2024 Appearance (U) Urine appearance Clear [facility] Aspartate aminotransferase [ Enzymatic activity/volume] in Serum or PlasmaOrdered By: Maryellen Colunga on 04-01-2024 AST [Catalytic activity/Vol] 13 U/L Normal [facility] Comment on above: Performed By: #### B MP, LIPASE, HEPATIC, CBC #### [facility] [address] [place] [address] [place] AST [Catalytic activity/Vol] Aspartate aminotransferase [Enzymatic activity/volume] in Serum or Plasma [facility] Automated basophil %Ordered By: Maryellen Colunga on 04-01-2024 Basophils/100 WBC (Bld) 0.9 % Normal . [facility] Comment on above: Performed By: #### B MP, LIPASE, HEPATIC, CBC #### [address] Automated basophil countOrde red By: Maryellen Colunga on 04-01-2024 Basophils (Bld) [#/Vol] 0.1 10*3/uL Normal 0.0-0.2 [facility] Comment on above: Result Comment: PERF ORMED BY: [place] [address] PATHOLOGIST SERVICE TECH/WELDER KISHA CHING M.D. Performed By: #### B MP, LIPASE, HEPATIC, CBC #### [address] Automated blood monocyte cou ntOrdered By: Maryellen Colunga on 04-01-2024 Monocytes (Bld) [#/Vol] 1.0 10*3/uL High 0.0-0.8 [facility] Comment on above: Performed By: #### B MP, LIPASE, HEPATIC, CBC #### [address] Automated eosinophil %Ordere d By: Maryellen Colunga on 04-01-2024 Eosinophils/100 WBC (Bld) 0.3 % Normal . [facility] Comment on above: Performed By: #### B MP, LIPASE, HEPATIC, CBC #### [address] Automated eosinophil countOr dered By: Maryellen Colunga on 04-01-2024 Eosinophils (Bld) [#/Vol] 0.0 10*3/uL Normal 0.0-0.45 [facility] Comment on above: Performed By: #### B MP, LIPASE, HEPATIC, CBC #### [address] Automated monocyte %Ordered By: Maryellen Colunga on 04-01-2024 Monocytes/100 WBC (Bld) 8.8 % Normal . [facility] Comment on above: Performed By: #### B MP, LIPASE, HEPATIC, CBC #### [address] Automated neutrophil %Ordere d By: Maryellen Colunga on 04-01-2024 Neutrophils/100 WBC (Bld) 76.0 % Normal . [facility] Comment on above: Performed By: #### B MP, LIPASE, HEPATIC, CBC #### [facility] [address] Bacteria [Presence] in Urine by AutomatedOrdered By: Maryellen Colunga on 04-01-2024 Bacteria Auto Ql (U) Rare [HPF] None Seen [facility] Bacteria Auto Ql (U) Bacteria [Presence] in Urine by Automated None Seen [facility] Basic Metabolic Panelon Creatinine Clr Calc Pharmacy 86.43 Normal [facility] Comment on above: Performed By: #### B MP, LIPASE, HEPATIC, CBC #### [facility] [address] [place] [address] GFR/1.73 sq M.predicted MDRD (S/P/Bld) [Vol rate/Area] mL/min/{1.73_m2} Normal [facility] Comment on above: Performed By: #### B MP, LIPASE, HEPATIC, CBC #### [facility] [address] [place] [address] Basophils Auto (Bld) [#/Vol] Ordered By: Maryellen Colunga on 04-01-2024 Basophils (Bld) [#/Vol] Automated basoph il count 0.0-0.2 [facility] Basophils/100 WBC Auto (Bld) Ordered By: Maryellen Colunga on 04-01-2024 Basophils/100 WBC (Bld) Automated basoph il % . [facility] Bilirubin Test strip Ql (U)O rdered By: Maryellen Colunga on 04-01-2024 Bilirubin Ql (U) Negative Negative [facility] Bilirubin Ql (U) Bilirubin.total [Presence] in Urine by Test strip Negative [facility] Bilirubin.direct [Mass/volum e] in Serum or PlasmaOrdered By: Maryellen Colunga on 04-01-2024 Bilirubin.direct [Mass/Vol] 0.10 mg/dL 0.03-0.18 [facility] Bilirubin.direct [Mass/Vol] Bilirubin.direct [Mass/volume] in Serum or Plasma 0.03-0.18 [facility] Bilirubin.total [Mass/volume ] in Serum or PlasmaOrdered By: Maryellenbrent Colunga on 04-01-2024 Bilirubin [Mass/Vol] 0.5 mg/dL Normal 0.3-1.0 [facility] Comment on above: Performed By: #### B MP, LIPASE, HEPATIC, CBC #### [facility] [address] Bilirubin [Mass/Vol] Bilirubin.total [Mass/volume] in Serum or Plasma 0.3-1.0 [facility] COVID CepheidOrdered By: Doc Colunga on 04-01-2024 SARS-CoV-2 (COVID-19) Ab IA Ql Negative Negative [facility] Comment on above: This is a duplicate Cepheid Xpert Xpress CoV-2/Flu/RSV Plus RNA by RT-PCR result to be used for statistical tracking purpose only. SARS-CoV-2 (COVID-19) RNA KENAN+probe Ql (Unsp spec) [facility] COVID Cepheid NegativeOrdere d By: Maryellen Colunga on 04-01-2024 SARS-CoV-2 (COVID-19) Ab IA Ql COVID Cepheid Negative [facility] Comment on above: This is a duplicate Cepheid Xpert Xpress CoV-2/Flu/RSV Plus RNA by RT-PCR result to be used for statistical tracking purpose only. COVID-19 / Flu A/B / RSV PCR on 04-01-2024 SARS-CoV-2 (COVID-19) RNA KENAN+probe Ql (Unsp spec) COVID-19 Cepheid Result Negative for SARS-CoV-2 RNA by RT-PCR Flu A Cepheid Result Negative for Flu A RNA by RT-PCR Flu B Cepheid Result Negative for Flu B RNA by RT-PCR RSV Cepheid Result Negative for RSV RNA by RT-PCR COVID19 Blank Space Reference: Negative COVID19 Blank Space Cepheid Disclaimer The Cepheid Xpert Xpress CoV-2/Flu/RSV Plus has Cepheid Disclaimer not been FDA cleared or approved; this test has Cepheid Disclaimer been authorized by FDA under an EUA for use by Cepheid Disclaimer authorized laboratories; this test has been Cepheid Disclaimer authorized only for the simultaneous qualitative Cepheid Disclaimer detection and differentiation of nucleic acids from Cepheid Disclaimer SARS-CoV-2, influenza A, influenza B, and Cepheid Disclaimer respiratory syncytial virus (RSV), and not for any Cepheid Disclaimer other viruses or pathogens; and this test is only Cepheid Disclaimer authorized for the duration of the declaration that Cepheid Disclaimer circumstances exist justifying the authorization of Cepheid Disclaimer emergency use of in vitro diagnostic tests for Cepheid Disclaimer detection and/or diagnosis of COVID-19 under Cepheid Disclaimer Section 564(b)(1) of the Act, 21 U.S.C. 360bbb- Cepheid Disclaimer 3(b)(1), unless the authorization is terminated or Cepheid Disclaimer revoked sooner. PERFORMED BY: [place] [address] PATHOLOGIST SERVICE TECH/WELDER KISHA CHING M.D. Normal [facility] Comment on above: Performed By: #### U HCG, ADDONUAPLUS #### [address] abdomen pelvis w rosana CT abdomen pelvis w [facility] [place] [address] CT Scan Report Signed Patient: Bradley Jensen MR#: [id number] : 2000 Acct:[id number] Age/Sex: 23 / F ADM Date: 04/01/24 Loc: ER Room: Type: [facility] ER Attending Dr: Copies to: Maryellen Colunga DO Ordering Provider: Maryellen Colunga DO Date of Service: 04/01/24 CT/CT abdomen pelvis w con: r/o appendicitis CT ABDOMEN AND PELVIS WITH INTRAVENOUS CONTRAST: CLINICAL HISTORY: Right lower quadrant pain since this morning. COMPARISON: None TECHNIQUE: Spiral images were obtained through the abdomen and pelvis following the administration of intravenous contrast. This CT exam was performed using one or more following dose reduction techniques: Automated exposure control, adjustment of the mA and/or kV according to patient size, or use of iterative reconstruction technique. FINDINGS: Lung Bases: [No acute process.] Organs:Liver gallbladder portal vein pancreas spleen adrenal glands kidneys and aorta all appear unremarkable.[ GI: Stomach is grossly unremarkable. Small bowel appears nondilated. No acute colonic abnormality. Visualized portions of the appendix appear normal.[ Pelvis:[Urinary bladder is grossly unremarkable. Uterus is grossly unremarkable. No adnexal mass.] Peritoneum/Retroper itoneum:Small amount of free fluid is noted. No free air. No lymphadenopathy.[ Abd wall/Bones:Abdomina l wall demonstrates no acute findings. Osseous structures demonstrate no acute findings.[ CT/CT abdomen pelvis w con IMPRESSION: No acute process. Impression dictated by: Marc Dumont Jr., D.O.04/01/2024 4:48 PM Dictation Location: [place] [address] Transcribed By: [facility] 04/01/24 1648 Dictated By: Marc Dumont Jr, DO 04/01/24 1643 Signed By: 04/01/248 Normal [facility] Calcium [Mass/volume] in Ser um or PlasmaOrdered By: Maryellen Colunga on 04-01-2024 Calcium [Mass/Vol] 9.7 mg/dL Normal 8.6-10.3 [facility] Comment on above: Performed By: #### B MP, LIPASE, HEPATIC, CBC #### [address] Calcium [Mass/Vol] Calcium [Mass/volume] in Serum or Plasma 8.6-10.3 [facility] Carbon dioxide, total [Moles /volume] in Serum or PlasmaOrdered By: Maryellen Colunga on 04-01-2024 CO2 [Moles/Vol] 22.8 mmol/L Normal 21.0-31.0 [facility] Comment on above: Performed By: #### B MP, LIPASE, HEPATIC, CBC #### [place] [id number] [facility] CO2 [Moles/Vol] Carbon dioxide, total [Moles/volume] in Serum or Plasma 21.0-31.0 [facility] Cepheid COVID PCR Negativeon 04-01-2024 SARS-CoV-2 (COVID-19) RNA KENAN+probe Ql (Unsp spec) Negative Normal Negative [facility] Comment on above: Result Comment: This is a duplicate Cepheid Xpert Xpress CoV-2/Flu/RSV Plus RNA by RT-PCR result to be used for statistical tracking purpose only. PERFORMED BY: [place] [address] PATHOLOGIST SERVICE TECH/WELDER KISHA CHING M.D. Performed By: #### U HCG, ADDONUAPLUS #### [place] [address] [place] Chloride [Moles/volume] in S di or PlasmaOrdered By: Maryellen Colunga on 04-01-2024 Chloride [Moles/Vol] 107 mmol/L Normal 98-107 [facility] Comment on above: Performed By: #### B MP, LIPASE, HEPATIC, CBC #### [place] [id number] [place] Chloride [Moles/Vol] Chloride [Moles/volume] in Serum or Plasma 98-107 [facility] Color Auto (U)Ordered By: Korin Colunga on 04-01-2024 Color (U) Color of Urine by Auto Yellow [facility] Color of Urine by AutoOrdere d By: Maryellen Colunga on 04-01-2024 Color (U) Colorless Normal [facility] Comment on above: Order Comment: Name Collection Type:: Clean-Voided Midstream Performed By: #### U HCG, ADDONUAPLUS #### [address] Complete Blood Count Auto Di ffon 04-01-2024 Mean Corpuscular HGB Conc 33.3 g/dL Normal 32.0-35.0 [facility] Comment on above: Performed By: #### B MP, LIPASE, HEPATIC, CBC #### [facility] [address] [place] [address] [place] Monocytes/100 WBC (Bld) 18.73 % Normal 0.00-20.00 [facility] Comment on above: Performed By: #### B MP, LIPASE, HEPATIC, CBC #### [facility] [address] [place] [address] [place] NRBC% 0.1 /100{WBC} Normal 0-0.5 [facility] Comment on above: Performed By: #### B MP, LIPASE, HEPATIC, CBC #### [place] [address] [place] Creatinine [Mass/volume] in Serum or PlasmaOrdered By: Maryellen Colunga on 04-01-2024 Creatinine [Mass/Vol] 0.86 mg/dL Normal 0.60-1.20 [facility] Comment on above: Performed By: #### B MP, LIPASE, HEPATIC, CBC #### [place] [address] [place] Creatinine [Mass/Vol] Creatinine [Mass/volume] in Serum or Plasma 0.60-1.20 [facility] Dipstick and Microscopicon 1 06-01-2023 Bacteria,Urine Rare Normal None Seen [facility] Comment on above: Order Comment: Name Collection Type:: Clean-Voided Midstream Performed By: #### U HCG, ADDONUAPLUS #### [place] [address] [place] Bilirubin,Urine Negative Normal Negative [facility] Comment on above: Order Comment: Name Collection Type:: Clean-Voided Midstream Performed By: #### U HCG, ADDONUAPLUS #### [place] [address] [place] Glucose Ql (U) Normal Normal Normal [facility] Comment on above: Order Comment: Name Collection Type:: Clean-Voided Midstream Performed By: #### U HCG, ADDONUAPLUS #### [place] [address] [place] Hyaline Casts,Urine None Normal 0-8 [facility] Comment on above: Order Comment: Name Collection Type:: Clean-Voided Midstream Performed By: #### U HCG, ADDONUAPLUS #### [place] [address] [place] Mucus,Urine Rare Normal [facility] Comment on above: Order Comment: Name Collection Type:: Clean-Voided Midstream Performed By: #### U HCG, ADDONUAPLUS #### [place] [address] [place] Nitrite,Urine Negative Normal Negative [facility] Comment on above: Order Comment: Name Collection Type:: Clean-Voided Midstream Performed By: #### U HCG, ADDONUAPLUS #### [place] [address] [place] Occult Blood,Urine Trace High Negative [facility] Comment on above: Order Comment: Name Collection Type:: Clean-Voided Midstream Performed By: #### U HCG, ADDONUAPLUS #### [place] [address] [place] Protein,Urine Negative Normal Negative [facility] Comment on above: Order Comment: Name Collection Type:: Clean-Voided Midstream Performed By: #### U HCG, ADDONUAPLUS #### [place] [address] [place] RBC,Urine 1-2 Normal 0-4 [facility] Comment on above: Order Comment: Name Collection Type:: Clean-Voided Midstream Performed By: #### U HCG, ADDONUAPLUS #### [place] [address] [place] Specificy [place],Urine 1.008 Normal 1.001-1.030 [facility] Comment on above: Order Comment: Name Collection Type:: Clean-Voided Midstream Performed By: #### U HCG, ADDONUAPLUS #### [address] [place] [address] [place] Squamous Epithelial Cell,Urine 1-2 Normal 0-2 [facility] Comment on above: Order Comment: Name Collection Type:: Clean-Voided Midstream Performed By: #### U HCG, ADDONUAPLUS #### [facility] [address] Urobilinogen,Urine Normal Normal Normal [facility] Comment on above: Order Comment: Name Collection Type:: Clean-Voided Midstream Performed By: #### U HCG, ADDONUAPLUS #### [facility] [address] [place] [address] WBC,Urine 1-2 Normal 0-4 [facility] Comment on above: Order Comment: Name Collection Type:: Clean-Voided Midstream Performed By: #### U HCG, ADDONUAPLUS #### [facility] [address] [place] [address] Eosinophils Auto (Bld) [#/Vo l]Ordered By: Maryellen Colunga on 04-01-2024 Eosinophils (Bld) [#/Vol] Automated eosinophil count 0.0-0.45 [facility] Eosinophils/100 WBC Auto (Bl d)Ordered By: Maryellen Colunga on 04-01-2024 Eosinophils/100 WBC (Bld) Automated eosinophil % . [facility] Epithelial cells.squamous [# /area] in Urine sediment by Automated countOrdered By: Maryellen Colunga on 04-01-2024 Epithelial cells.squamous Auto (Urine sed) [#/Area] 1-2 [HPF] 0-2 [facility] Epithelial cells.squamous Auto (Urine sed) [#/Area] Epithelial cells.squamous [#/area] in Urine sediment by Automated count 0-2 [facility] Erythrocyte distribution wid th Auto (RBC) [Ratio]Ordered By: Maryellen Colunga on 04-01-2024 Erythrocyte distribution width (RBC) [Ratio] Erythrocyte distribution width [Ratio] by Automated count 11.9-15.3 [facility] Erythrocyte distribution wid th [Ratio] by Automated countOrdered By: Maryellen Colunga on 04-01-2024 Erythrocyte distribution width (RBC) [Ratio] 13.1 % Normal 11.9-15.3 [facility] Comment on above: Performed By: #### B MP, LIPASE, HEPATIC, CBC #### [facility] [address] Erythrocytes [#/area] in Uri ne sediment by Automated countOrdered By: Maryellen Colunga on 04-01-2024 RBC Auto (Urine sed) [#/Area] 1-2 [HPF] 0-4 [facility] RBC Auto (Urine sed) [#/Area] Erythrocytes [#/area] in Urine sediment by Automated count 0-4 [facility] Erythrocytes [#/volume] in B lood by Automated countOrdered By: Maryellen Colunga on 04-01-2024 RBC (Bld) [#/Vol] 4.73 10*6/uL Normal 3.60-5.[address] [facility] Comment on above: Performed By: #### B MP, LIPASE, HEPATIC, CBC #### [facility] [address] Globulin Calc (S) [Mass/Vol] Ordered By: Maryellen Colunga on 04-01-2024 Globulin (S) [Mass/Vol] Serum globulin measurement by calculation (mass/volume) [facility] Glucose [Mass/volume] in Ser um or PlasmaOrdered By: Maryellen Colunga on 04-01-2024 Glucose [Mass/Vol] 90 mg/dL Normal 70-100 [facility] Comment on above: ADA recommended refe rence rangeRandom Glucose Reference Range is dependent on time and content of last meal. Glucose of more than 200 mg/dL in a nonstressed, ambulatory subject supports the diagnosis of Diabetes Mellitus. Result Comment: [place] om Glucose Reference Range is dependent on time and content of last meal. Glucose of more than 200 mg/dL in a nonstressed, ambulatory subject supports the diagnosis of Diabetes Mellitus. ADA recommended reference range Performed By: #### B MP, LIPASE, HEPATIC, CBC #### [facility] [address] Glucose [Mass/Vol] Glucose [Mass/volume] in Serum or Plasma 70-100 [facility] Comment on above: ADA recommended refe rence rangeRandom Glucose Reference Range is dependent on time and content of last meal. Glucose of more than 200 mg/dL in a nonstressed, ambulatory subject supports the diagnosis of Diabetes Mellitus. Glucose [Mass/volume] in Uri ne by Test stripOrdered By: Maryellen Colunga on 04-01-2024 Glucose Test strip (U) [Mass/Vol] Normal mg/dL Normal [facility] Glucose Test strip (U) [Mass/Vol] Glucose [Mass/volume] in Urine by Test strip Normal [facility] HCG ( test) IA.rapi d Ql (U)Ordered By: Maryellen Colunga on 04-01-2024 HCG ( test) Ql (U) Negative [facility] HCG ( test) Ql (U) Urine human chorionic gonadotropin (hCG) detection by immunoassay [facility] HCG,Urineon 04-01-2024 Beta HCG ( test) Ql (U) Negative Normal [facility] Comment on above: Order Comment: Name Collection Type:: Clean-Voided Midstream Result Comment: PERF ORMED BY: [place] [address] PATHOLOGIST SERVICE TECH/WELDER KISHA CHING M.D. Performed By: #### U HCG, ADDONUAPLUS #### [address] Hematocrit Auto (Bld) [Volum e fraction]Ordered By: Maryellen Colunga on 04-01-2024 Hematocrit (Bld) [Volume fraction] Hematocrit [Volume Fraction] of Blood by Automated count 34.0-46.4 [facility] Hematocrit [Volume Fraction] of Blood by Automated countOrdered By: Maryellen Colunga on 04-01-2024 Hematocrit (Bld) [Volume fraction] 41.7 % Normal 34.0-46.4 [facility] Comment on above: Performed By: #### B MP, LIPASE, HEPATIC, CBC #### [facility] [address] [place] [address] Hemoglobin Test strip Ql (U) Ordered By: Maryellen Colunga on 04-01-2024 Hemoglobin Ql (U) Trace High Negative [facility] Hemoglobin Ql (U) Hemoglobin [Presence] in Urine by Test strip High Negative [facility] Hemoglobin [Mass/volume] in BloodOrdered By: Maryellen Colunga on 04-01-2024 Hemoglobin (Bld) [Mass/Vol] 13.9 g/dL Normal 11.8-15.4 [facility] Comment on above: Performed By: #### B MP, LIPASE, HEPATIC, CBC #### [address] Hemoglobin (Bld) [Mass/Vol] Hemoglobin [Mass/volume] in Blood 11.8-15.4 [facility] Hepatic Panelon 04-01-2024 Albumin [Mass/Vol] 4.5 g/dL Normal 3.5-5.7 [facility] Comment on above: Performed By: #### B MP, LIPASE, HEPATIC, CBC #### [address] Bilirubin,Indirect 0.4 mg/dL Normal [facility] Comment on above: Performed By: #### B MP, LIPASE, HEPATIC, CBC #### [facility] [address] Bilirubin.indirect [Mass/Vol] 0.10 mg/dL Normal 0.03-0.18 [facility] Comment on above: Performed By: #### B MP, LIPASE, HEPATIC, CBC #### [address] Hyaline casts [#/area] in Ur ine sediment by Automated countOrdered By: Maryellen Colunga on 04-01-2024 Hyaline casts Auto (Urine sed) [#/Area] None [LPF] 0-8 [facility] Hyaline casts Auto (Urine sed) [#/Area] Hyaline casts [#/area] in Urine sediment by Automated count 0-8 [facility] Ketones Test strip Ql (U)Ord ered By: Maryellen Colunga on 04-01-2024 Ketones Ql (U) Ketones [Presence] in Urine by Test strip Negative [facility] Ketones [Presence] in Urine by Test stripOrdered By: Maryellen Colunga on 04-01-2024 Ketones Ql (U) Negative Normal Negative [facility] Comment on above: Order Comment: Name Collection Type:: Clean-Voided Midstream Performed By: #### U HCG, ADDONUAPLUS #### [facility] [address] [place] [address] [place] Leukocyte esterase [Presence ] in Urine by Test stripOrdered By: Maryellen Colunga on 04-01-2024 Leukocyte esterase Test strip Ql (U) Negative Normal Negative [facility] Comment on above: Order Comment: Name Collection Type:: Clean-Voided Midstream Performed By: #### U HCG, ADDONUAPLUS #### [facility] [address] Leukocyte esterase Test strip Ql (U) Leukocyte esterase [Presence] in Urine by Test strip Negative [facility] Leukocytes [#/area] in Urine sediment by Automated countOrdered By: Maryellen Colunga on 04-01-2024 WBC Auto (Urine sed) [#/Area] 1-2 [HPF] 0-4 [facility] WBC Auto (Urine sed) [#/Area] Leukocytes [#/area] in Urine sediment by Automated count 0-4 [facility] Leukocytes [#/volume] correc maryam for nucleated erythrocytes in Blood by Automated counOrdered By: Maryellen Colunga on 04-01-2024 WBC corrected for nucl RBC Auto (Bld) [#/Vol] 11.3 10*3/uL 3.8-11.6 [facility] WBC corrected for nucl RBC Auto (Bld) [#/Vol] Leukocytes [#/volume] corrected for nucleated erythrocytes in Blood by Automated coun 3.8-11.6 [facility] Leukocytes [#/volume] in Blo od by Automated countOrdered By: Maryellen Colunga on 04-01-2024 WBC (Bld) [#/Vol] 11.3 10*3/uL Normal 3.8-11.[address] [facility] Comment on above: Performed By: #### B MP, LIPASE, HEPATIC, CBC #### [facility] [address] [place] [address] [place] Lipase [Enzymatic activity/v olume] in Serum or PlasmaOrdered By: Maryellen Colunga on 04-01-2024 Lipase [Catalytic activity/Vol] 22.0 U/L Normal 11.0-82.0 [facility] Comment on above: Result Comment: PERF ORMED BY: [place] [address] PATHOLOGIST SERVICE TECH/WELDER KISHA CHING M.D. Performed By: #### B MP, LIPASE, HEPATIC, CBC #### [address] Lipase [Catalytic activity/Vol] Lipase [Enzymatic activity/volume] in Serum or Plasma 11.0-82.0 [facility] Lymphocytes Auto (Bld) [#/Vo l]Ordered By: Maryellen Colunga on 04-01-2024 Lymphocytes (Bld) [#/Vol] Lymphocytes [#/volume] in Blood by Automated count 1.00-4.8 [facility] Lymphocytes [#/volume] in Bl ood by Automated countOrdered By: Maryellen Colunga on 04-01-2024 Lymphocytes (Bld) [#/Vol] 1.6 10*3/uL Normal 1.00-4.8 [facility] Comment on above: Performed By: #### B MP, LIPASE, HEPATIC, CBC #### [address] Lymphocytes/100 WBC Auto (Bl d)Ordered By: Maryellen Colunga on 04-01-2024 Lymphocytes/100 WBC (Bld) Lymphocytes/100 leukocytes in Blood by Automated count . [facility] Lymphocytes/100 leukocytes i n Blood by Automated countOrdered By: Maryellen Colunga on 04-01-2024 Lymphocytes/100 WBC (Bld) 14.0 % Normal . [facility] Comment on above: Performed By: #### B MP, LIPASE, HEPATIC, CBC #### [facility] [address] [place] [address] MCH Auto (RBC) [Entitic mass ]Ordered By: Maryellen Colunga on 04-01-2024 MCH (RBC) [Entitic mass] MCH [Entitic ma ss] by Automated count 24.7-34.3 [facility] MCH [Entitic mass] by Automa maryam countOrdered By: Maryellen Colunga on 04-01-2024 MCH (RBC) [Entitic mass] 29.4 pg Normal 24.7-34.3 [facility] Comment on above: Performed By: #### B MP, LIPASE, HEPATIC, CBC #### [facility] [address] MCHC Auto (RBC) [Mass/Vol]Or dered By: Maryellen Colunga on 04-01-2024 MCHC (RBC) [Mass/Vol] 33.3 g/dL 32.0-35.0 [facility] MCHC (RBC) [Mass/Vol] MCHC [Mass/volume] by Automated count 32.0-35.0 [facility] MCV Auto (RBC) [Entitic vol] Ordered By: Maryellen Colunga on 04-01-2024 MCV (RBC) [Entitic vol] MCV [Entitic volume] by Automated count 80-100 [facility] MCV [Entitic volume] by Auto mated countOrdered By: Maryellen Colunga on 04-01-2024 MCV (RBC) [Entitic vol] 88.2 fL Normal 80-100 [facility] Comment on above: Performed By: #### B MP, LIPASE, HEPATIC, CBC #### [facility] [address] [place] [address] Monocyte distribution width [Entitic volume] in Blood by AutomatedOrdered By: Maryellen Colunga on 04-01-2024 Monocyte distribution width Auto (Bld) [Entitic vol] 18.73 % 0.00-20.00 [facility] Monocyte distribution width Auto (Bld) [Entitic vol] Monocyte distribution width [Entitic volume] in Blood by Automated 0.00-20.00 [facility] Monocytes Auto (Bld) [#/Vol] Ordered By: Maryellen Colunga on 04-01-2024 Monocytes (Bld) [#/Vol] Automated blood monocyte count High 0.0-0.8 [facility] Monocytes/100 WBC Auto (Bld) Ordered By: Maryellen Colunga on 04-01-2024 Monocytes/100 WBC (Bld) Automated monocy te % . [facility] Mucus [Presence] in Urine by AutomatedOrdered By: Maryellen Colunga on 04-01-2024 Mucus Auto Ql (U) Rare [LPF] [facility] Mucus Auto Ql (U) Mucus [Presence] in Urine by Automated [facility] Neutrophils Auto (Bld) [#/Vo l]Ordered By: Maryellen Colunga on 04-01-2024 Neutrophils (Bld) [#/Vol] Neutrophils [#/volume] in Blood by Automated count High 1.8-7.7 [facility] Neutrophils [#/volume] in Bl ood by Automated countOrdered By: Maryellen Colunga on 04-01-2024 Neutrophils (Bld) [#/Vol] 8.6 10*3/uL High 1.8-7.7 [facility] Comment on above: Performed By: #### B MP, LIPASE, HEPATIC, CBC #### [facility] [address] Neutrophils/100 WBC Auto (Bl d)Ordered By: Maryellen Colunga on 04-01-2024 Neutrophils/100 WBC (Bld) Automated neutrophil % . [facility] Nitrite Test strip Ql (U)Ord ered By: Maryellen Colunga on 04-01-2024 Nitrite Ql (U) Negative Negative [facility] Nitrite Ql (U) Nitrite [Presence] in Urine by Test strip Negative [facility] No Panel InformationOrdered By: Maryellen Colunga on 04-01-2024 Estimated GFR (CKD-EPI) > 60.0 mL/Min [facility] Creatinine Clearance (Chem 86.43 [facility] Nucleated erythrocytes [Pres ence] in Blood by Automated countOrdered By: Maryellen Colunga on 04-01-2024 Nucleated RBC Auto Ql (Bld) 0.1 /100{WBC} 0-0.5 [facility] Nucleated RBC Auto Ql (Bld) Nucleated erythrocytes [Presence] in Blood by Automated count 0-0.5 [facility] Platelet mean volume Auto (B ld) [Entitic vol]Ordered By: Maryellen Colunga on 04-01-2024 Platelet mean volume (Bld) [Entitic vol] Platelet mean volume [Entitic volume] in Blood by Automated count 6.3-10.7 [facility] Platelet mean volume [Entiti c volume] in Blood by Automated countOrdered By: Maryellen Colunga on 04-01-2024 Platelet mean volume (Bld) [Entitic vol] 9.3 fL Normal 6.3-10.7 [facility] Comment on above: Performed By: #### B MP, LIPASE, HEPATIC, CBC #### [facility] [address] Platelets Auto (Bld) [#/Vol] Ordered By: Maryellen Colunga on 04-01-2024 Platelets (Bld) [#/Vol] Platelets [#/volume] in Blood by Automated count 150-450 [facility] Platelets [#/volume] in Bloo d by Automated countOrdered By: Maryellen Colunga on 04-01-2024 Platelets (Bld) [#/Vol] 245 10*3/uL Normal 150-450 [facility] Comment on above: Performed By: #### B MP, LIPASE, HEPATIC, CBC #### [facility] [address] [place] [address] [place] Potassium [Moles/volume] in Serum or PlasmaOrdered By: Maryellen Colunga on 04-01-2024 Potassium [Moles/Vol] 3.8 mmol/L Normal 3.5-5.1 [facility] Comment on above: Performed By: #### B MP, LIPASE, HEPATIC, CBC #### [facility] [address] Potassium [Moles/Vol] Potassium [Moles/volume] in Serum or Plasma 3.5-5.1 [facility] Protein Test strip (U) [Mass /Vol]Ordered By: Maryellen Colunga on 04-01-2024 Protein (U) [Mass/Vol] Negative Negative [facility] Protein (U) [Mass/Vol] Protein [Mass/volume] in Urine by Test strip Negative [facility] Protein [Mass/volume] in Ser um or PlasmaOrdered By: Maryellen Colunga on 04-01-2024 Protein [Mass/Vol] 7.5 g/dL Normal 6.4-8.9 [facility] Comment on above: Performed By: #### B MP, LIPASE, HEPATIC, CBC #### [address] Protein [Mass/Vol] Protein [Mass/volume] in Serum or Plasma 6.4-8.9 [facility] RBC Auto (Bld) [#/Vol]Ordere d By: Maryellen Colunga on 04-01-2024 RBC (Bld) [#/Vol] Erythrocytes [#/volume] in Blood by Automated count 3.60-5.00 [facility] Respiratory specimen influen za A virus, influenza B virus, respiratory syncytical virOrdered By: Maryellen Colunga on 04-01-2024 SARS-CoV-2 (COVID-19) RNA KENAN+probe Ql (Unsp spec) Respiratory specimen influenza A virus, influenza B virus, respiratory syncytical vir [facility] Serum globulin measurement b y calculation (mass/volume)Ordered By: Maryellen Colunga on 04-01-2024 Globulin (S) [Mass/Vol] 3.0 g/dL Normal [facility] Comment on above: Performed By: #### B MP, LIPASE, HEPATIC, CBC #### [address] Serum or plasma albumin/glob ulin mass ratioOrdered By: Maryellen Colunga on 04-01-2024 Albumin/Globulin [Mass ratio] 1.5 {ratio} Normal [facility] Comment on above: Performed By: #### B MP, LIPASE, HEPATIC, CBC #### [facility] [address] [place] [address] Albumin/Globulin [Mass ratio] Serum or plasma albumin/globulin mass ratio [facility] Serum or plasma anion gap de terminationOrdered By: Maryellen Colunga on 04-01-2024 Anion gap [Moles/Vol] 13.0 mmol/L Normal 6.0-15.0 [facility] Comment on above: Performed By: #### B MP, LIPASE, HEPATIC, CBC #### [facility] [address] Anion gap [Moles/Vol] Serum or plasma anion gap determination 6.0-15.0 [facility] Serum or plasma non-glucuron idated bilirubin measurement (mass/volume)Ordered By: Maryellen Colunga on 04-01-2024 Bilirubin.indirect [Mass/Vol] 0.4 mg/dL [facility] Bilirubin.indirect [Mass/Vol] Serum or plasma non-glucuronidated bilirubin measurement (mass/volume) [facility] Sodium [Moles/volume] in Ser um or PlasmaOrdered By: Maryellen Colunga on 04-01-2024 Sodium [Moles/Vol] 139 mmol/L Normal 136-145 [facility] Comment on above: Performed By: #### B MP, LIPASE, HEPATIC, CBC #### [address] Sodium [Moles/Vol] Sodium [Moles/volume] in Serum or Plasma 136-145 [facility] Specific gravity Test strip (U) [Rel density]Ordered By: Maryellen Colunga on 04-01-2024 Specific gravity (U) [Rel density] 1.008 1.001-1.030 [facility] Specific gravity (U) [Rel density] Specific gravity of Urine by Test strip 1.001-1.030 [facility] Urea nitrogen [Mass/volume] in Serum or PlasmaOrdered By: Maryellen Colunga on 04-01-2024 Urea nitrogen [Mass/Vol] 8 mg/dL Normal 7-25 [facility] Comment on above: Performed By: #### B MP, LIPASE, HEPATIC, CBC #### [facility] [address] [place], [place] [id number] [facility] Urea nitrogen [Mass/Vol] Urea nitrogen [Mass/volume] in Serum or Plasma - [facility] Urine appearanceOrdered By: Maryellen Colunga on 04-01-2024 Appearance (U) Clear Normal Clear [facility] Comment on above: Order Comment: Name Collection Type:: Clean-Voided Midstream Performed By: #### U HCG, ADDONUAPLUS #### [facility] [address] [place] [address] Urobilinogen Test strip (U) [Mass/Vol]Ordered By: Maryellen Colunga on 04-01-2024 Urobilinogen (U) [Mass/Vol] Normal mg/dL Normal [facility] Urobilinogen (U) [Mass/Vol] Urobilinogen [Mass/volume] in Urine by Test strip Normal [facility] WBC Auto (Bld) [#/Vol]Ordere d By: Maryellen Colunga on 04-01-2024 WBC (Bld) [#/Vol] Leukocytes [#/volume] in Blood by Automated count 3.8-11.6 [facility] pH Test strip (U)Ordered By: Maryellen Colunga on 04-01-2024 pH (U) pH of Urine by Test strip 5.0-9.0 [facility] pH of Urine by Test stripOrd ered By: Maryellen Colunga on 04-01-2024 pH (U) 6.5 [pH] Normal 5.0-9.0 [facility] Comment on above: Order Comment: Name Collection Type:: Clean-Voided Midstream Performed By: #### U HCG, ADDONUAPLUS #### [facility] [address] [place] [address] MR head/brain wo conon 02-04 MR head/brain wo con [facility] [address] MRI Report Signed Patient: Bradley Jensen MR#: [id number] : 2000 Acct:[id number] Age/Sex: 23 / F ADM Date: 02/05/24 Loc: MR Room: Type: [facility] Attending Dr: Sandee POTTER Copies to: TARIQ Lawton Ordering Provider: TARIQ Lawton Date of Service: 02/05/24 MR/MR head/brain wo con: R42 R29.2 R55 EXAMINATION: MRI OF THE BRAIN WITHOUT CONTRAST CLINICAL HISTORY: Dizziness, syncopal episodes and hyperreflexia COMPARISON: None TECHNIQUE: Multiecho, multiplanar imaging of the brain was performed without enhancement. Patient refuses contrast. The ventricles are normal in size and position. There are no areas of abnormal signal intensity within the supra- or infratentorial brain. No restricted diffusion is seen. There are no extra- axial collections or mass effect. The imaged paranasal sinuses are clear. There is asymmetric increased T2 signal in the mastoid region on the right where inflammation is is not excluded. MR/MR head/brain wo con IMPRESSION: NO ACUTE INTRACRANIAL FINDINGS. Impression dictated by: Joan Jaimes M.D.02/05/2024 10:56 AM Dictation Location: [place] [address] Transcribed By: [facility] 02/05/24 1056 Dictated By: Joan Jaimes MD 02/05/24 1052 Signed By: 02/05/24 1056 Normal [facility] IGP,rfx Aptima HPV all pthon 01-24-2024 . Comment [facility] Comment on above: The HPV DNA reflex c opal were not met with this specimen result therefore, no HPV testing was performed. Ash Conveyor Operator Cyto stain Nom (Cvx/Vag) [ID] Comment [facility] Comment on above: Courtney yoon, Professional Security Officer (ASCP) Cytology report Cyto stain Doc (Cvx/Vag) Comment [facility] Comment on above: NEGATIVE FOR INTRAEP ITHELIAL LESION OR MALIGNANCY. Cytology report Cyto stain.thin prep Doc (Cvx/Vag) Comment [facility] Comment on above: This liquid based Th inPrep(R) pap test was screened with the use of an image guided system. Diagnosis ICD code [Identifier] Comment [facility] Comment on above: Z01.419 Z12.4 Microscopic observation Other stain Nom (Unsp spec) . [facility] Note: Comment [facility] Comment on above: The Pap smear is a s creening test designed to aid in the detection of premalignant and malignant conditions of the uterine cervix. It is not a diagnostic procedure and should not be used as the sole means of detecting cervical cancer. Both false-positive and false-negative reports do occur. Statement of adequacy Cyto stain (Cvx/Vag) [Interp] Comment [facility] Comment on above: Satisfactory for margie luation. Endocervical and/or squamous metaplastic cells (endocervical component) are present. Performed at: 01 - [facility] [place] [id number] Veterinary Assistant Technician: uMlu Gardner MD, Phone: [phone] Specimen Comment: No. of containers..01 ThinPrep Vial [facility] XR chest 2V*on 01-02-2024 XR chest 2V* [facility] [place] [address] [place] [address] XRay Report Signed Patient: Bradley Jensen MR#: [id number] : 2000 Acct:[id number] Age/Sex: 23 / F ADM Date: 01/01/24 Loc: ER Room: Type: [facility] ER Attending Dr: Copies to: Liz Roman MD Ordering Provider: Liz Roman MD Date of Service: 01/01/24 XR/XR chest 2V*: Chest Pain Plain film chest 2 view HISTORY: Midsternal chest pain. Dizziness. COMPARISON: None FINDINGS: SUPPORT DEVICES: None POSTSURGICAL CHANGES: None HEART: Within normal limits PULMONARY CURTIS: Within normal limits MEDIASTINUM: Unremarkable LUNGS AND PLEURA: No acute lung process, pleural effusion or pneumothorax identified. BONY STRUCTURES: Intact ADDITIONAL FINDINGS None XR/XR chest 2V* IMPRESSION: No acute process. Impression dictated by: Dwight Ellington M.D.01/02/2024 8:45 AM Dictation Location: [place] [address] Transcribed By: [facility] 01/02/2445 Dictated By: Dwight Ellington DO 01/02/2445 Signed By: 01/02/2445 Normal [facility] Alanine aminotransferase [En zymatic activity/volume] in Serum or PlasmaOrdered By: Liz Roman on 01-01-2024 ALT [Catalytic activity/Vol] 12 U/L Normal [facility] Comment on above: Performed By: #### U HCG, ADDONUAPLUS #### [address] Albumin [Mass/volume] in Ser um or Plasma by Bromocresol green (BCG) dye binding methoOrdered By: Liz Roman on 01-01-2024 Albumin BCG dye [Mass/Vol] 4.6 g/dL 3.5-5.7 [facility] Alkaline phosphatase [Enzyma tic activity/volume] in Serum or PlasmaOrdered By: Liz Roman on 01-01-2024 ALP [Catalytic activity/Vol] 31 U/L Low 34-104 [facility] Comment on above: Performed By: #### U HCG, ADDONUAPLUS #### [address] Aspartate aminotransferase [ Enzymatic activity/volume] in Serum or PlasmaOrdered By: Liz Roman on 01-01-2024 AST [Catalytic activity/Vol] 15 U/L Normal 13-39 [facility] Comment on above: Performed By: #### U HCG, ADDONUAPLUS #### [address] Automated basophil %Ordered By: Liz Roman on 01-01-2024 Basophils/100 WBC (Bld) 0.7 % Normal . [facility] Comment on above: Performed By: #### U HCG, ADDONUAPLUS #### [address] Automated basophil countOrde red By: Liz Roman on 01-01-2024 Basophils (Bld) [#/Vol] 0.1 10*3/uL Normal 0.0-0.2 [facility] Comment on above: Result Comment: PERF ORMED BY: [place] [address] PATHOLOGIST SERVICE TECH/WELDER KISHA CHING M.D. Performed By: #### U HCG, ADDONUAPLUS #### [address] Automated blood monocyte cou ntOrdered By: Liz Roman on 01-01-2024 Monocytes (Bld) [#/Vol] 0.9 10*3/uL High 0.0-0.8 [facility] Comment on above: Performed By: #### U HCG, ADDONUAPLUS #### [address] Automated eosinophil %Ordere d By: Liz Roman on 01-01-2024 Eosinophils/100 WBC (Bld) 0.1 % Normal . [facility] Comment on above: Performed By: #### U HCG, ADDONUAPLUS #### [facility] [address] [place] [address] Automated eosinophil countOr dered By: Liz Roman on 01-01-2024 Eosinophils (Bld) [#/Vol] 0.0 10*3/uL Normal 0.0-0.45 [facility] Comment on above: Performed By: #### U HCG, ADDONUAPLUS #### [facility] [address] [place] [address] Automated monocyte %Ordered By: Liz Roman on 01-01-2024 Monocytes/100 WBC (Bld) 6.9 % Normal . [facility] Comment on above: Performed By: #### U HCG, ADDONUAPLUS #### [facility] [address] [place] [address] Automated neutrophil %Ordere d By: Liz Roman on 01-01-2024 Neutrophils/100 WBC (Bld) 89.7 % Normal . [facility] Comment on above: Performed By: #### U HCG, ADDONUAPLUS #### [facility] [address] [place] [address] Bacteria [Presence] in Urine by AutomatedOrdered By: Liz Roman on 01-01-2024 Bacteria Auto Ql (U) 1+ [HPF] High None Seen [facility] Bilirubin Test strip Ql (U)O rdered By: Liz Roman on 01-01-2024 Bilirubin Ql (U) Negative Negative [facility] Bilirubin.total [Mass/volume ] in Serum or PlasmaOrdered By: Liz Roman on 01-01-2024 Bilirubin [Mass/Vol] 0.6 mg/dL Normal 0.3-1.0 [facility] Comment on above: Performed By: #### U HCG, ADDONUAPLUS #### [facility] [address] [place] [address] COVID CepheidOrdered By: Atilio Roman on 01-01-2024 SARS-CoV-2 (COVID-19) Ab IA Ql Positive Abnormal Negative [facility] Comment on above: This is a duplicate Cepheid Xpert Xpress CoV-2/Flu/RSV Plus RNA by RT-PCR result to be used for statistical tracking purpose only. SARS-CoV-2 (COVID-19) RNA KENAN+probe Ql (Unsp spec) [facility] COVID-19 / Flu A/B / RSV PCR on 01-01-2024 SARS-CoV-2 (COVID-19) RNA KENAN+probe Ql (Unsp spec) COVID-19 Cepheid Result Positive for SARS-CoV-2 RNA by RT-PCR Flu A Cepheid Result Negative for Flu A RNA by RT-PCR Flu B Cepheid Result Negative for Flu B RNA by RT-PCR RSV Cepheid Result Negative for RSV RNA by RT-PCR COVID19 Blank Space Reference: Negative COVID19 Blank Space Cepheid Disclaimer The Cepheid Xpert Xpress CoV-2/Flu/RSV Plus has Cepheid Disclaimer not been FDA cleared or approved; this test has Cepheid Disclaimer been authorized by FDA under an EUA for use by Cepheid Disclaimer authorized laboratories; this test has been Cepheid Disclaimer authorized only for the simultaneous qualitative Cepheid Disclaimer detection and differentiation of nucleic acids from Cepheid Disclaimer SARS-CoV-2, influenza A, influenza B, and Cepheid Disclaimer respiratory syncytial virus (RSV), and not for any Cepheid Disclaimer other viruses or pathogens; and this test is only Cepheid Disclaimer authorized for the duration of the declaration that Cepheid Disclaimer circumstances exist justifying the authorization of Cepheid Disclaimer emergency use of in vitro diagnostic tests for Cepheid Disclaimer detection and/or diagnosis of COVID-19 under Cepheid Disclaimer Section 564(b)(1) of the Act, 21 U.S.C. 360bbb- Cepheid Disclaimer 3(b)(1), unless the authorization is terminated or Cepheid Disclaimer revoked sooner. PERFORMED BY: [place] [address] PATHOLOGIST SERVICE TECH/WELDER KISHA CHING M.D. Normal [facility] Comment on above: Performed By: #### U HCG, ADDONUAPLUS #### [facility] [address] [place] [address] Calcium [Mass/volume] in Ser um or PlasmaOrdered By: Liz Roman on 01-01-2024 Calcium [Mass/Vol] 9.6 mg/dL Normal 8.6-10.3 [facility] Comment on above: Performed By: #### U HCG, ADDONUAPLUS #### [facility] [address] [place] [address] Carbon dioxide, total [Moles /volume] in Serum or PlasmaOrdered By: Liz Roman on 01-01-2024 CO2 [Moles/Vol] 24.2 mmol/L Normal 21.0-31.0 [facility] Comment on above: Performed By: #### U HCG, ADDONUAPLUS #### [place] [id number] [facility] Cepheid COVID PCR Positiveon 01-01-2024 SARS-CoV-2 (COVID-19) RNA KENAN+probe Ql (Unsp spec) Positive Critically abnormal Negative [facility] Comment on above: Result Comment: This is a duplicate Cepheid Xpert Xpress CoV-2/Flu/RSV Plus RNA by RT-PCR result to be used for statistical tracking purpose only. PERFORMED BY: [address] [place] [address] PATHOLOGIST SERVICE TECH/WELDER KISHA CHING M.D. Performed By: #### U HCG, ADDONUAPLUS #### [facility] [address] [place], [place] [id number] [place] Chloride [Moles/volume] in S di or PlasmaOrdered By: Liz Roman on 01-01-2024 Chloride [Moles/Vol] 104 mmol/L Normal 98-107 [facility] Comment on above: Performed By: #### U HCG, ADDONUAPLUS #### [address] Color of Urine by AutoOrdere d By: Liz Roman on 01-01-2024 Color (U) Light-yellow Normal Yellow [facility] Comment on above: Order Comment: Name Collection Type:: Voided Performed By: #### U HCG, ADDONUAPLUS #### [address] Complete Blood Count Auto Di ffon 01-01-2024 Mean Corpuscular HGB Conc 33.0 g/dL Normal 32.0-35.0 [facility] Comment on above: Performed By: #### U HCG, ADDONUAPLUS #### [place] [address] [place] Monocytes/100 WBC (Bld) 18.95 % Normal 0.00-20.00 [facility] Comment on above: Performed By: #### U HCG, ADDONUAPLUS #### [address] NRBC% 0.0 /100{WBC} Normal 0-0.5 [facility] Comment on above: Performed By: #### U HCG, ADDONUAPLUS #### [address] Comprehensive Metabolic Pane obey 01-01-2024 Albumin [Mass/Vol] 4.6 g/dL Normal 3.5-5.7 [facility] Comment on above: Performed By: #### U HCG, ADDONUAPLUS #### [place] [address] [place] Creatinine Clr Calc Pharmacy 88.17 Normal [facility] Comment on above: Result Comment: PERF ORMED BY: [place] [address] PATHOLOGIST SERVICE TECH/WELDER KISHA CHING M.D. Performed By: #### U HCG, ADDONUAPLUS #### [facility] [address] [place] [address] [place] GFR/1.73 sq M.predicted MDRD (S/P/Bld) [Vol rate/Area] mL/min/{1.73_m2} Normal [facility] Comment on above: Performed By: #### U HCG, ADDONUAPLUS #### [place] [address] [place] Creatinine [Mass/volume] in Serum or PlasmaOrdered By: Liz Roman on 01-01-2024 Creatinine [Mass/Vol] 0.84 mg/dL Normal 0.60-1.20 [facility] Comment on above: Performed By: #### U HCG, ADDONUAPLUS #### [place] [address] [place] Dipstick and Microscopicon 0 01-01-2024 Bacteria,Urine 1+ High None Seen [facility] Comment on above: Order Comment: Name Collection Type:: Voided Performed By: #### U HCG, ADDONUAPLUS #### [place] [address] [place] Bilirubin,Urine Negative Normal Negative [facility] Comment on above: Order Comment: Name Collection Type:: Voided Performed By: #### U HCG, ADDONUAPLUS #### [address] Glucose Ql (U) Normal Normal Normal [facility] Comment on above: Order Comment: Name Collection Type:: Voided Performed By: #### U HCG, ADDONUAPLUS #### [place] [address] [place] Hyaline Casts,Urine None Normal 0-8 [facility] Comment on above: Order Comment: Name Collection Type:: Voided Performed By: #### U HCG, ADDONUAPLUS #### [place] [address] [place] Mucus,Urine Rare Normal [facility] Comment on above: Order Comment: Name Collection Type:: Voided Performed By: #### U HCG, ADDONUAPLUS #### [facility] [address] [place] [address] [place] Nitrite,Urine Negative Normal Negative [facility] Comment on above: Order Comment: Name Collection Type:: Voided Performed By: #### U HCG, ADDONUAPLUS #### [place] [address] [place] Occult Blood,Urine 1+ High Negative [facility] Comment on above: Order Comment: Name Collection Type:: Voided Performed By: #### U HCG, ADDONUAPLUS #### [place] [address] [place] Protein,Urine Negative Normal Negative [facility] Comment on above: Order Comment: Name Collection Type:: Voided Performed By: #### U HCG, ADDONUAPLUS #### [place] [address] [place] RBC,Urine 3-4 Normal 0-4 [facility] Comment on above: Order Comment: Name Collection Type:: Voided Performed By: #### U HCG, ADDONUAPLUS #### [place] [address] [place] Specificy [place],Urine 1.018 Normal 1.001-1.030 [facility] Comment on above: Order Comment: Name Collection Type:: Voided Performed By: #### U HCG, ADDONUAPLUS #### [place] [address] [place] Squamous Epithelial Cell,Urine 1-2 Normal 0-2 [facility] Comment on above: Order Comment: Name Collection Type:: Voided Performed By: #### U HCG, ADDONUAPLUS #### [place] [address] [place] Urobilinogen,Urine Normal Normal Normal [facility] Comment on above: Order Comment: Name Collection Type:: Voided Performed By: #### U HCG, ADDONUAPLUS #### [place] [address] [place] WBC,Urine 3-4 Normal 0-4 [facility] Comment on above: Order Comment: Name Collection Type:: Voided Performed By: #### U HCG, ADDONUAPLUS #### [facility] [address] [place] [address] ECG 12 lead ECGon 01-01-2024 ECG 12 lead ECG [facility] [place] [address] [place] [address] Electrocardiograph Report Signed Patient: Bradley Jensen MR#: [id number] : 2000 Acct:[id number] Age/Sex: 23 / F ADM Date: 01/01/24 Loc: ER Room: Type: [facility] ER Attending Dr: Ordering Provider: Liz Roman MD Date of Service: 01/01/2408/21/2129 ECG/ECG 12 lead ECG: Chest Pain Copies to: Test Reason : Blood Pressure : 147/77 mmHG Vent. Rate : 112 BPM Atrial Rate : 112 BPM P-R Int : 118 ms QRS Dur : 80 ms QT Int : 324 ms P-R-T Axes : 83 93 44 degrees QTcB Int : 442 ms Sinus tachycardia Right atrial enlargement Rightward axis Pulmonary disease pattern Nonspecific ST abnormality Abnormal ECG When compared with ECG of 10-Aug-2023 09:58, Vent. rate has increased by 37 bpm Confirmed by LIZ ROMAN MD ([id number]) on 01/02/2024 1:29:57 AM Referred By: Electronically Signed By: LIZ ROMAN MD Transcribed By: MUS Signed By Liz Roman MD 09/21 0130 Normal [facility] Epithelial cells.squamous [# /area] in Urine sediment by Automated countOrdered By: Liz Roman on 01-01-2024 Epithelial cells.squamous Auto (Urine sed) [#/Area] 1-2 [HPF] 0-2 [facility] Erythrocyte distribution wid th [Ratio] by Automated countOrdered By: Liz Roman on 01-01-2024 Erythrocyte distribution width (RBC) [Ratio] 13.2 % Normal 11.9-15.3 [facility] Comment on above: Performed By: #### U HCG, ADDONUAPLUS #### [facility] [address] [place] [address] Erythrocytes [#/area] in Uri ne sediment by Automated countOrdered By: Liz Roman on 01-01-2024 RBC Auto (Urine sed) [#/Area] 3-4 [HPF] 0-4 [facility] Erythrocytes [#/volume] in B lood by Automated countOrdered By: Liz Roman on 01-01-2024 RBC (Bld) [#/Vol] 4.54 10*6/uL Normal 3.60-5.[address] [facility] Comment on above: Performed By: #### U HCG, ADDONUAPLUS #### [facility] [address] [place] [address] [place] Glucose [Mass/volume] in Ser um or PlasmaOrdered By: Liz Roman on 01-01-2024 Glucose [Mass/Vol] 99 mg/dL Normal 70-100 [facility] Comment on above: ADA recommended refe rence rangeRandom Glucose Reference Range is dependent on time and content of last meal. Glucose of more than 200 mg/dL in a nonstressed, ambulatory subject supports the diagnosis of Diabetes Mellitus. Result Comment: [place] om Glucose Reference Range is dependent on time and content of last meal. Glucose of more than 200 mg/dL in a nonstressed, ambulatory subject supports the diagnosis of Diabetes Mellitus. ADA recommended reference range Performed By: #### U HCG, ADDONUAPLUS #### [facility] [address] [place] [address] [place] Glucose [Mass/volume] in Uri ne by Test stripOrdered By: Liz Roman on 01-01-2024 Glucose Test strip (U) [Mass/Vol] Normal mg/dL Normal [facility] HCG ( test) IA.rapi d Ql (U)Ordered By: Liz Roman on 01-01-2024 HCG ( test) Ql (U) Negative [facility] HCG,Urineon 01-01-2024 Beta HCG ( test) Ql (U) Negative Normal [facility] Comment on above: Order Comment: Name Collection Type:: Clean-Voided Midstream Result Comment: PERF ORMED BY: [place] [address] PATHOLOGIST SERVICE TECH/WELDER KISHA CHING M.D. Performed By: #### U HCG, ADDONUAPLUS #### [place] [id number] [place] Hematocrit [Volume Fraction] of Blood by Automated countOrdered By: Liz Roman on 01-01-2024 Hematocrit (Bld) [Volume fraction] 40.4 % Normal 34.0-46.4 [facility] Comment on above: Performed By: #### U HCG, ADDONUAPLUS #### [facility] [address] [place] [address] Hemoglobin Test strip Ql (U) Ordered By: Liz Roman on 01-01-2024 Hemoglobin Ql (U) 1+ High Negative [facility] Hemoglobin [Mass/volume] in BloodOrdered By: Liz Roman on 01-01-2024 Hemoglobin (Bld) [Mass/Vol] 13.3 g/dL Normal 11.8-15.4 [facility] Comment on above: Performed By: #### U HCG, ADDONUAPLUS #### [address] Hyaline casts [#/area] in Ur ine sediment by Automated countOrdered By: Liz Roman on 01-01-2024 Hyaline casts Auto (Urine sed) [#/Area] None [LPF] 0-8 [facility] Ketones [Presence] in Urine by Test stripOrdered By: Liz Roman on 01-01-2024 Ketones Ql (U) Trace High Negative [facility] Comment on above: Order Comment: Name Collection Type:: Voided Performed By: #### U HCG, ADDONUAPLUS #### [facility] [address] [place] [address] Leukocyte esterase [Presence ] in Urine by Test stripOrdered By: Liz Roman on 01-01-2024 Leukocyte esterase Test strip Ql (U) Negative Normal Negative [facility] Comment on above: Order Comment: Name Collection Type:: Voided Performed By: #### U HCG, ADDONUAPLUS #### [facility] [address] [place] [address] [place] Leukocytes [#/area] in Urine sediment by Automated countOrdered By: Liz Roman on 01-01-2024 WBC Auto (Urine sed) [#/Area] 3-4 [HPF] 0-4 [facility] Leukocytes [#/volume] correc maryam for nucleated erythrocytes in Blood by Automated counOrdered By: Liz Roman on 01-01-2024 WBC corrected for nucl RBC Auto (Bld) [#/Vol] 13.5 10*3/uL High 3.8-11.6 [facility] Leukocytes [#/volume] in Blo od by Automated countOrdered By: Liz Roman on 01-01-2024 WBC (Bld) [#/Vol] 13.5 10*3/uL High 3.8-11.[address] [facility] Comment on above: Performed By: #### U HCG, ADDONUAPLUS #### [facility] [address] [place] [address] [place] Lymphocytes [#/volume] in Bl ood by Automated countOrdered By: Liz Roman on 01-01-2024 Lymphocytes (Bld) [#/Vol] 0.4 10*3/uL Low 1.00-4.8 [facility] Comment on above: Performed By: #### U HCG, ADDONUAPLUS #### [facility] [address] [place] [address] Lymphocytes/100 leukocytes i n Blood by Automated countOrdered By: Liz Roman on 01-01-2024 Lymphocytes/100 WBC (Bld) 2.6 % Normal . [facility] Comment on above: Performed By: #### U HCG, ADDONUAPLUS #### [facility] [address] [place] [address] MCH [Entitic mass] by Automa maryam countOrdered By: Liz Roman on 01-01-2024 MCH (RBC) [Entitic mass] 29.3 pg Normal 24.7-34.3 [facility] Comment on above: Performed By: #### U HCG, ADDONUAPLUS #### [facility] [address] [place] [address] MCHC Auto (RBC) [Mass/Vol]Or dered By: Liz Roman on 01-01-2024 MCHC (RBC) [Mass/Vol] 33.0 g/dL 32.0-35.0 [facility] MCV [Entitic volume] by Auto mated countOrdered By: Liz Roman on 01-01-2024 MCV (RBC) [Entitic vol] 88.9 fL Normal 80-100 [facility] Comment on above: Performed By: #### U HCG, ADDONUAPLUS #### [facility] [address] [place] [address] Monocyte distribution width [Entitic volume] in Blood by AutomatedOrdered By: Liz Roman on 01-01-2024 Monocyte distribution width Auto (Bld) [Entitic vol] 18.95 % 0.00-20.00 [facility] Mucus [Presence] in Urine by AutomatedOrdered By: Liz Roman on 01-01-2024 Mucus Auto Ql (U) Rare [LPF] [facility] Neutrophils [#/volume] in Bl ood by Automated countOrdered By: Liz oRman on 01-01-2024 Neutrophils (Bld) [#/Vol] 12.1 10*3/uL High 1.8-7.7 [facility] Comment on above: Performed By: #### U HCG, ADDONUAPLUS #### [facility] [address] [place] [address] Nitrite Test strip Ql (U)Ord ered By: Liz Roman on 01-01-2024 Nitrite Ql (U) Negative Negative [facility] No Panel InformationOrdered By: Liz Roman on 01-01-2024 Estimated GFR (CKD-EPI) > 60.0 mL/Min [facility] Creatinine Clearance (Chem 88.17 [facility] Nucleated erythrocytes [Pres ence] in Blood by Automated countOrdered By: Liz Roman on 01-01-2024 Nucleated RBC Auto Ql (Bld) 0.0 /100{WBC} 0-0.5 [facility] Platelet mean volume [Entiti c volume] in Blood by Automated countOrdered By: Liz Roman on 01-01-2024 Platelet mean volume (Bld) [Entitic vol] 9.2 fL Normal 6.3-10.7 [facility] Comment on above: Performed By: #### U HCG, ADDONUAPLUS #### [facility] [address] [place] [address] [place] Platelets [#/volume] in Bloo d by Automated countOrdered By: Liz Roman on 01-01-2024 Platelets (Bld) [#/Vol] 249 10*3/uL Normal 150-450 [facility] Comment on above: Performed By: #### U HCG, ADDONUAPLUS #### [facility] [address] [place] [address] Potassium [Moles/volume] in Serum or PlasmaOrdered By: Liz Roman on 01-01-2024 Potassium [Moles/Vol] 3.6 mmol/L Normal 3.5-5.1 [facility] Comment on above: Performed By: #### U HCG, ADDONUAPLUS #### [facility] [address] [place] [address] Protein Test strip (U) [Mass /Vol]Ordered By: Liz Roman on 01-01-2024 Protein (U) [Mass/Vol] Negative Negative [facility] Protein [Mass/volume] in Ser um or PlasmaOrdered By: Liz Roman on 01-01-2024 Protein [Mass/Vol] 7.9 g/dL Normal 6.4-8.9 [facility] Comment on above: Performed By: #### U HCG, ADDONUAPLUS #### [facility] [address] [place] [address] Serum globulin measurement b y calculation (mass/volume)Ordered By: Liz Roman on 01-01-2024 Globulin (S) [Mass/Vol] 3.3 g/dL Normal [facility] Comment on above: Performed By: #### U HCG, ADDONUAPLUS #### [facility] [address] [place] [address] Serum or plasma albumin/glob ulin mass ratioOrdered By: Liz Roman on 01-01-2024 Albumin/Globulin [Mass ratio] 1.4 {ratio} Normal [facility] Comment on above: Performed By: #### U HCG, ADDONUAPLUS #### [address] Serum or plasma anion gap de terminationOrdered By: Liz Roman on 01-01-2024 Anion gap [Moles/Vol] 12.4 mmol/L Normal 6.0-15.0 [facility] Comment on above: Performed By: #### U HCG, ADDONUAPLUS #### [address] Sodium [Moles/volume] in Ser um or PlasmaOrdered By: Liz Roman on 01-01-2024 Sodium [Moles/Vol] 137 mmol/L Normal 136-145 [facility] Comment on above: Performed By: #### U HCG, ADDONUAPLUS #### [address] Specific gravity Test strip (U) [Rel density]Ordered By: Liz Roman on 01-01-2024 Specific gravity (U) [Rel density] 1.018 1.001-1.030 [facility] Urea nitrogen [Mass/volume] in Serum or PlasmaOrdered By: Liz Roman on 01-01-2024 Urea nitrogen [Mass/Vol] 13 mg/dL Normal 7-25 [facility] Comment on above: Performed By: #### U HCG, ADDONUAPLUS #### [address] Urine appearanceOrdered By: Liz Roman on 01-01-2024 Appearance (U) Clear Normal Clear [facility] Comment on above: Order Comment: Name Collection Type:: Voided Performed By: #### U HCG, ADDONUAPLUS #### [address] Urobilinogen Test strip (U) [Mass/Vol]Ordered By: Liz Roman on 01-01-2024 Urobilinogen (U) [Mass/Vol] Normal mg/dL Normal [facility] pH of Urine by Test stripOrd ered By: Liz Roman on 01-01-2024 pH (U) 5.5 [pH] Normal 5.0-9.0 [facility] Comment on above: Order Comment: Name Collection Type:: Voided Performed By: #### U HCG, ADDONUAPLUS #### [address] Alanine aminotransferase [En zymatic activity/volume] in Serum or PlasmaOrdered By: Terry Snowden on 08-24-2023 ALT [Catalytic activity/Vol] 11 U/L 7-52 [facility] Albumin [Mass/volume] in Ser um or Plasma by Bromocresol green (BCG) dye binding methoOrdered By: Terry Snowden on 08-24-2023 Albumin BCG dye [Mass/Vol] 4.5 g/dL 3.5-5.7 [facility] Alkaline phosphatase [Enzyma tic activity/volume] in Serum or PlasmaOrdered By: Terry Snowden on 08-24-2023 ALP [Catalytic activity/Vol] 33 U/L 34-104 [facility] Aspartate aminotransferase [ Enzymatic activity/volume] in Serum or PlasmaOrdered By: Terry Snowden on 08-24-2023 AST [Catalytic activity/Vol] 15 U/L 13-39 [facility] Automated erythrocytes count in urine sediment (number/area)Ordered By: Terry Snowden on 08-24-2023 RBC Auto (Urine sed) [#/Area] 50-100 [HPF] 0-4 [facility] Automated leukocytes count i n urine sediment (number/area)Ordered By: Terry Snowden on 08-24-2023 WBC Auto (Urine sed) [#/Area] 10-19 [HPF] 0-4 [facility] Basophils Auto (Bld) [#/Vol] Ordered By: Terry Snowden on 08-24-2023 Basophils (Bld) [#/Vol] 0.2 10*3/uL 0.0-0.2 [facility] Basophils/100 WBC Auto (Bld) Ordered By: Terry Snowden on 08-24-2023 Basophils/100 WBC (Bld) 1.7 % . [facility] Bilirubin Test strip Ql (U)O rdered By: Terry Snowden on 08-24-2023 Bilirubin Ql (U) 1+ Negative [facility] Bilirubin.direct [Mass/volum e] in Serum or PlasmaOrdered By: Terry Snowden on 08-24-2023 Bilirubin.direct [Mass/Vol] 0.10 mg/dL 0.03-0.18 [facility] Bilirubin.total [Mass/volume ] in Serum or PlasmaOrdered By: Terry Snowden on 08-24-2023 Bilirubin [Mass/Vol] 0.7 mg/dL 0.3-1.0 [facility] Calcium [Mass/volume] in Ser um or PlasmaOrdered By: Terry Snowden on 08-24-2023 Calcium [Mass/Vol] 9.8 mg/dL 8.6-10.3 [facility] Carbon dioxide, total [Moles /volume] in Serum or PlasmaOrdered By: Terry Snowden on 08-24-2023 CO2 [Moles/Vol] 20.4 mmol/L 21.0-31.0 [facility] Chloride [Moles/volume] in S di or PlasmaOrdered By: Terry Snowden on 08-24-2023 Chloride [Moles/Vol] 106 mmol/L 98-107 [facility] Color Auto (U)Ordered By: Artur red Isi on 08-24-2023 Color (U) Dark yellow Yellow [facility] Creatinine [Mass/volume] in Serum or PlasmaOrdered By: Terry Snowden on 08-24-2023 Creatinine [Mass/Vol] 1.00 mg/dL 0.60-1.20 [facility] Eosinophils Auto (Bld) [#/Vo l]Ordered By: Terry Snowden on 08-24-2023 Eosinophils (Bld) [#/Vol] 0.0 10*3/uL 0.0-0.45 [facility] Eosinophils/100 WBC Auto (Bl d)Ordered By: Terry Snowden on 08-24-2023 Eosinophils/100 WBC (Bld) 0.2 % . [facility] Erythrocyte distribution wid th Auto (RBC) [Ratio]Ordered By: Terry Snowden on 08-24-2023 Erythrocyte distribution width (RBC) [Ratio] 14.1 % 11.9-15.3 [facility] Globulin Calc (S) [Mass/Vol] Ordered By: Terry Snowden on 08-24-2023 Globulin (S) [Mass/Vol] 3.2 g/dL [facility] Glucose [Mass/volume] in Ser um or PlasmaOrdered By: Terry Snowden on 08-24-2023 Glucose [Mass/Vol] 78 mg/dL 70-100 [facility] Comment on above: ADA recommended refe rence rangeRandom Glucose Reference Range is dependent on time and content of last meal. Glucose of more than 200 mg/dL in a nonstressed, ambulatory subject supports the diagnosis of Diabetes Mellitus. HCG ( test) IA.rapi d Ql (U)Ordered By: Terry Snowden on 08-24-2023 HCG ( test) Ql (U) Negative [facility] Hematocrit Auto (Bld) [Volum e fraction]Ordered By: Terry Snowden on 08-24-2023 Hematocrit (Bld) [Volume fraction] 39.8 % 34.0-46.4 [facility] Hemoglobin [Mass/volume] in BloodOrdered By: Terry Snowden on 08-24-2023 Hemoglobin (Bld) [Mass/Vol] 13.1 g/dL 11.8-15.4 [facility] Ketones Auto test strip (U) [Mass/Vol]Ordered By: Terry Snowden on 08-24-2023 Ketones (U) [Mass/Vol] 2+ Negative [facility] Laboratory - UrinalysisOrder ed By: Terry Snowden on 08-24-2023 Hyaline casts LM Ql (Urine sed) 0-8 [LPF] 0-8 [facility] Leukocytes [#/volume] correc maryam for nucleated erythrocytes in Blood by Automated counOrdered By: Terry Snowden on 08-24-2023 WBC corrected for nucl RBC Auto (Bld) [#/Vol] 9.0 10*3/uL 3.8-11.6 [facility] Lipase [Enzymatic activity/v olume] in Serum or PlasmaOrdered By: Terry Snowden on 08-24-2023 Lipase [Catalytic activity/Vol] 21.0 U/L 11.0-82.0 [facility] Lymphocytes Auto (Bld) [#/Vo l]Ordered By: Terry Snowden on 08-24-2023 Lymphocytes (Bld) [#/Vol] 3.1 10*3/uL 1.00-4.8 [facility] Lymphocytes/100 WBC Auto (Bl d)Ordered By: Terry Snowden on 08-24-2023 Lymphocytes/100 WBC (Bld) 34.7 % . [facility] MCH Auto (RBC) [Entitic mass ]Ordered By: Terry Snowden on 08-24-2023 MCH (RBC) [Entitic mass] 29.0 pg 24.7-34.3 [facility] MCHC Auto (RBC) [Mass/Vol]Or dered By: Terry Snowden on 08-24-2023 MCHC (RBC) [Mass/Vol] 32.8 g/dL 32.0-35.0 [facility] MCV Auto (RBC) [Entitic vol] Ordered By: Terry Snowden on 08-24-2023 MCV (RBC) [Entitic vol] 88.3 fL 80-100 [facility] Monocyte distribution width [Entitic volume] in Blood by AutomatedOrdered By: Terry Snowden on 08-24-2023 Monocyte distribution width Auto (Bld) [Entitic vol] 16.99 % 0.00-20.00 [facility] Monocytes Auto (Bld) [#/Vol] Ordered By: Terry Snowden on 08-24-2023 Monocytes (Bld) [#/Vol] 0.9 10*3/uL 0.0-0.8 [facility] Monocytes/100 WBC Auto (Bld) Ordered By: Terry Snowden on 08-24-2023 Monocytes/100 WBC (Bld) 9.8 % . [facility] Neutrophils Auto (Bld) [#/Vo l]Ordered By: Terry Snowden on 08-24-2023 Neutrophils (Bld) [#/Vol] 4.8 10*3/uL 1.8-7.7 [facility] Neutrophils/100 WBC Auto (Bl d)Ordered By: Terry Snowden on 08-24-2023 Neutrophils/100 WBC (Bld) 53.6 % . [facility] Nitrite Test strip Ql (U)Ord ered By: Terry Snowden on 08-24-2023 Nitrite Ql (U) Negative Negative [facility] No Panel InformationOrdered By: Terry Snowden on 08-24-2023 Estimated GFR (CKD-EPI) > 60.0 mL/Min [facility] Creatinine Clearance (Chem 72.44 [facility] Nucleated erythrocytes [Pres ence] in Blood by Automated countOrdered By: Terry Snowden on 08-24-2023 Nucleated RBC Auto Ql (Bld) 0.1 /100{WBC} 0-0.5 [facility] Platelet mean volume Auto (B ld) [Entitic vol]Ordered By: Terry Snowden on 08-24-2023 Platelet mean volume (Bld) [Entitic vol] 9.9 fL 6.3-10.7 [facility] Platelets Auto (Bld) [#/Vol] Ordered By: Terry Snowden on 08-24-2023 Platelets (Bld) [#/Vol] 258 10*3/uL 150-450 [facility] Potassium [Moles/volume] in Serum or PlasmaOrdered By: Terry Snowden on 08-24-2023 Potassium [Moles/Vol] 4.4 mmol/L 3.5-5.1 [facility] Protein Auto test strip (U) [Mass/Vol]Ordered By: Terry Snowden on 08-24-2023 Protein (U) [Mass/Vol] 100 mg/dL Negative [facility] Protein [Mass/volume] in Ser um or PlasmaOrdered By: Terry Snowden on 08-24-2023 Protein [Mass/Vol] 7.7 g/dL 6.4-8.9 [facility] RBC Auto (Bld) [#/Vol]Ordere d By: Terry Snowden on 08-24-2023 RBC (Bld) [#/Vol] 4.51 10*6/uL 3.60-5.[address] [facility] Serum or plasma albumin/glob ulin mass ratioOrdered By: Terry Snowden on 08-24-2023 Albumin/Globulin [Mass ratio] 1.4 {ratio} [facility] Serum or plasma anion gap de terminationOrdered By: Terry Snowden on 08-24-2023 Anion gap [Moles/Vol] 15.0 mmol/L 6.0-15.0 [facility] Serum or plasma non-glucuron idated bilirubin measurement (mass/volume)Ordered By: Terry Snowden on 08-24-2023 Bilirubin.indirect [Mass/Vol] 0.6 mg/dL [facility] Sodium [Moles/volume] in Ser um or PlasmaOrdered By: Terry Snowden on 08-24-2023 Sodium [Moles/Vol] 137 mmol/L 136-145 [facility] Specific gravity Auto test s trip (U) [Rel density]Ordered By: Terry Snowden on 08-24-2023 Specific gravity (U) [Rel density] 1.033 1.001-1.030 [facility] Squamous epithelial cells de tection in urine sediment by light microscopyOrdered By: Terry Snowden on 08-24-2023 Epithelial cells.squamous LM Ql (Urine sed) 0-1 [HPF] 0-2 [facility] Urea nitrogen [Mass/volume] in Serum or PlasmaOrdered By: Terry Snowden on 08-24-2023 Urea nitrogen [Mass/Vol] 13 mg/dL 7-25 [facility] Urine bacteria detection by automated methodOrdered By: Terry Snowden on 08-24-2023 Bacteria Auto Ql (U) None seen None Seen [facility] Urine clarity by refractomet ry automatedOrdered By: Terry Snowden on 08-24-2023 Clarity Refractometry automated (U) Clear Clear [facility] Urine culture routineOrdered By: Terry Snowden on 08-24-2023 Bacteria identified Cx Nom (U) 2 Days [facility] Urine glucose measurement by automated test strip (mass/volume)Ordered By: Terry Snowden on 08-24-2023 Glucose Auto test strip (U) [Mass/Vol] Normal mg/dL Normal [facility] Urine hemoglobin detection b y automated test stripOrdered By: Terry Snowden on 08-24-2023 Hemoglobin Auto test strip Ql (U) 3+ Negative [facility] Urine leukocyte esterase det ection by automated test stripOrdered By: Terry Snowden on 08-24-2023 Leukocyte esterase Auto test strip Ql (U) 1+ Negative [facility] Urobilinogen Auto test strip (U) [Mass/Vol]Ordered By: Terry Snowden on 08-24-2023 Urobilinogen (U) [Mass/Vol] Normal mg/dL Normal [facility] WBC Auto (Bld) [#/Vol]Ordere d By: Terry Snowden on 08-24-2023 WBC (Bld) [#/Vol] 9.0 10*3/uL 3.8-11.6 [facility] pH Auto test strip (U)Ordere d By: Terry Snowden on 08-24-2023 pH (U) 6.0 [pH] 5.0-9.0 [facility] Alanine aminotransferase [En zymatic activity/volume] in Serum or PlasmaOrdered By: Cuco Nails on 08-11-2023 ALT [Catalytic activity/Vol] 14 U/L 7-52 [facility] Albumin [Mass/volume] in Ser um or Plasma by Bromocresol green (BCG) dye binding methoOrdered By: Cuco Nails on 08-11-2023 Albumin BCG dye [Mass/Vol] 4.5 g/dL 3.5-5.7 [facility] Alkaline phosphatase [Enzyma tic activity/volume] in Serum or PlasmaOrdered By: Cuco Nails on 08-11-2023 ALP [Catalytic activity/Vol] 35 U/L 34-104 [facility] Aspartate aminotransferase [ Enzymatic activity/volume] in Serum or PlasmaOrdered By: Cuco Nails on 08-11-2023 AST [Catalytic activity/Vol] 12 U/L 13-39 [facility] Bilirubin.total [Mass/volume ] in Serum or PlasmaOrdered By: Cuco Nails on 08-11-2023 Bilirubin [Mass/Vol] 0.7 mg/dL 0.3-1.0 [facility] Calcium [Mass/volume] in Ser um or PlasmaOrdered By: Cuco Nails on 08-11-2023 Calcium [Mass/Vol] 9.9 mg/dL 8.6-10.3 [facility] Carbon dioxide, total [Moles /volume] in Serum or PlasmaOrdered By: Cuco Nails on 08-11-2023 CO2 [Moles/Vol] 28.0 mmol/L 21.0-31.0 [facility] Chloride [Moles/volume] in S di or PlasmaOrdered By: Cuco Nails on 08-11-2023 Chloride [Moles/Vol] 105 mmol/L 98-107 [facility] Creatinine [Mass/volume] in Serum or PlasmaOrdered By: Cuco Nails on 08-11-2023 Creatinine [Mass/Vol] 0.89 mg/dL 0.60-1.20 [facility] Globulin Calc (S) [Mass/Vol] Ordered By: Cuco Nails on 08-11-2023 Globulin (S) [Mass/Vol] 3.3 g/dL [facility] Glucose [Mass/volume] in Ser um or PlasmaOrdered By: Cuco Nails on 08-11-2023 Glucose [Mass/Vol] 76 mg/dL 70-100 [facility] Comment on above: ADA recommended refe rence rangeRandom Glucose Reference Range is dependent on time and content of last meal. Glucose of more than 200 mg/dL in a nonstressed, ambulatory subject supports the diagnosis of Diabetes Mellitus. No Panel InformationOrdered By: Cuco Nails on 08-11-2023 Estimated GFR (CKD-EPI) > 60.0 mL/Min [facility] Creatinine Clearance (Chem N/A [facility] Potassium [Moles/volume] in Serum or PlasmaOrdered By: Cuco Nails on 08-11-2023 Potassium [Moles/Vol] 4.2 mmol/L 3.5-5.1 [facility] Protein [Mass/volume] in Ser um or PlasmaOrdered By: Cuco Nails on 08-11-2023 Protein [Mass/Vol] 7.8 g/dL 6.4-8.9 [facility] Serum or plasma albumin/glob ulin mass ratioOrdered By: Cuco Nails on 08-11-2023 Albumin/Globulin [Mass ratio] 1.4 {ratio} [facility] Serum or plasma anion gap de terminationOrdered By: Cuco Nails on 08-11-2023 Anion gap [Moles/Vol] 11.2 mmol/L 6.0-15.0 [facility] Sodium [Moles/volume] in Ser um or PlasmaOrdered By: Cuco Nails on 08-11-2023 Sodium [Moles/Vol] 140 mmol/L 136-145 [facility] Thyrotropin [Units/volume] i n Serum or PlasmaOrdered By: Cuco Nails on 08-11-2023 TSH Qn 1.72 m[IU]/L 0.45-5.33 [facility] Thyroxine (T4) free [Mass/vo lume] in Serum or PlasmaOrdered By: Cuco Nails on 08-11-2023 Free T4 [Mass/Vol] 0.91 ng/dL 0.61-1.12 [facility] Urea nitrogen [Mass/volume] in Serum or PlasmaOrdered By: Cuco Nails on 08-11-2023 Urea nitrogen [Mass/Vol] 12 mg/dL 12-22 [facility] Alanine aminotransferase [En zymatic activity/volume] in Serum or PlasmaOrdered By: Abhay Hendricks on 11-24-2022 ALT [Catalytic activity/Vol] 12 U/L [facility] Albumin [Mass/volume] in Ser um or Plasma by Bromocresol green (BCG) dye binding methoOrdered By: Abhay Hendricks on 11-24-2022 Albumin BCG dye [Mass/Vol] 4.7 g/dL 3.5-5.7 [facility] Alkaline phosphatase [Enzyma tic activity/volume] in Serum or PlasmaOrdered By: Abhay Hendricks on 11-24-2022 ALP [Catalytic activity/Vol] 40 U/L 34-104 [facility] Aspartate aminotransferase [ Enzymatic activity/volume] in Serum or PlasmaOrdered By: Abhay Hendricks on 11-24-2022 AST [Catalytic activity/Vol] 15 U/L 13-39 [facility] Automated erythrocytes count in urine sediment (number/area)Ordered By: Abhay Hendricks on 11-24-2022 RBC Auto (Urine sed) [#/Area] 20-49 [HPF] 0-4 [facility] Automated leukocytes count i n urine sediment (number/area)Ordered By: Abhay Hendricks on 11-24-2022 WBC Auto (Urine sed) [#/Area] 5-9 [HPF] 0-4 [facility] Basophils Auto (Bld) [#/Vol] Ordered By: Abhay Hendricks on 11-24-2022 Basophils (Bld) [#/Vol] 0.1 10*3/uL 0.0-0.2 [facility] Basophils/100 WBC Auto (Bld) Ordered By: Abhay Hendricks on 11-24-2022 Basophils/100 WBC (Bld) 1.1 % . [facility] Bilirubin Test strip Ql (U)O rdered By: Abhay Hendricks on 11-24-2022 Bilirubin Ql (U) Negative Negative [facility] Bilirubin.total [Mass/volume ] in Serum or PlasmaOrdered By: Abhay Hendricks on 11-24-2022 Bilirubin [Mass/Vol] 0.2 mg/dL 0.3-1.0 [facility] Calcium [Mass/volume] in Ser um or PlasmaOrdered By: Abhay Hendricks on 11-24-2022 Calcium [Mass/Vol] 9.3 mg/dL 8.6-10.3 [facility] Carbon dioxide, total [Moles /volume] in Serum or PlasmaOrdered By: Abhay Hendricks on 11-24-2022 CO2 [Moles/Vol] 22.1 mmol/L 21.0-31.0 [facility] Chloride [Moles/volume] in S di or PlasmaOrdered By: Abhay Hendricks on 11-24-2022 Chloride [Moles/Vol] 110 mmol/L 98-107 [facility] Color Auto (U)Ordered By: Fernando Hendricks on 11-24-2022 Color (U) Yellow Yellow [facility] Creatine kinase [Enzymatic a ctivity/volume] in Serum or PlasmaOrdered By: Abhay Hendricks on 11-24-2022 CK [Catalytic activity/Vol] 50 U/L 30-223 [facility] Creatinine [Mass/volume] in Serum or PlasmaOrdered By: Abhay Hendricks on 11-24-2022 Creatinine [Mass/Vol] 0.89 mg/dL 0.60-1.20 [facility] Eosinophils Auto (Bld) [#/Vo l]Ordered By: Abhay Hendricks on 11-24-2022 Eosinophils (Bld) [#/Vol] 0.0 10*3/uL 0.0-0.45 [facility] Eosinophils/100 WBC Auto (Bl d)Ordered By: Abhay Hendricks on 11-24-2022 Eosinophils/100 WBC (Bld) 0.4 % . [facility] Erythrocyte distribution wid th Auto (RBC) [Ratio]Ordered By: Abhay Hendricks on 11-24-2022 Erythrocyte distribution width (RBC) [Ratio] 13.0 % 11.9-15.3 [facility] Globulin Calc (S) [Mass/Vol] Ordered By: Abhay Hendricks on 11-24-2022 Globulin (S) [Mass/Vol] 2.5 g/dL [facility] Glucose [Mass/volume] in Ser um or PlasmaOrdered By: Abhay Hendricks on 11-24-2022 Glucose [Mass/Vol] 114 mg/dL 70-100 [facility] Comment on above: ADA recommended refe rence rangeRandom Glucose Reference Range is dependent on time and content of last meal. Glucose of more than 200 mg/dL in a nonstressed, ambulatory subject supports the diagnosis of Diabetes Mellitus. HCG ( test) IA.rapi d Ql (U)Ordered By: Abhay Hendricks on 11-24-2022 HCG ( test) Ql (U) Negative [facility] Hematocrit Auto (Bld) [Volum e fraction]Ordered By: Abhay Hendricks on 11-24-2022 Hematocrit (Bld) [Volume fraction] 37.4 % 34.0-46.4 [facility] Hemoglobin [Mass/volume] in BloodOrdered By: Abhay Hendricks on 11-24-2022 Hemoglobin (Bld) [Mass/Vol] 12.5 g/dL 11.8-15.4 [facility] Ketones Auto test strip (U) [Mass/Vol]Ordered By: Abhay Hendricks on 11-24-2022 Ketones (U) [Mass/Vol] Trace Negative [facility] Laboratory - UrinalysisOrder ed By: Abhay Hendricks on 11-24-2022 Hyaline casts LM Ql (Urine sed) None seen [LPF] 0-8 [facility] Leukocytes [#/volume] correc maryam for nucleated erythrocytes in Blood by Automated counOrdered By: Abhay Hendricks on 11-24-2022 WBC corrected for nucl RBC Auto (Bld) [#/Vol] 9.0 10*3/uL 3.8-11.6 [facility] Lymphocytes Auto (Bld) [#/Vo l]Ordered By: Abhay Hendricks on 11-24-2022 Lymphocytes (Bld) [#/Vol] 1.1 10*3/uL 1.00-4.8 [facility] Lymphocytes/100 WBC Auto (Bl d)Ordered By: Abhay Hendricks on 11-24-2022 Lymphocytes/100 WBC (Bld) 12.4 % . [facility] MCH Auto (RBC) [Entitic mass ]Ordered By: Abhay Hendricks on 11-24-2022 MCH (RBC) [Entitic mass] 29.7 pg 24.7-34.3 [facility] MCHC Auto (RBC) [Mass/Vol]Or dered By: Abhay Hendricks on 11-24-2022 MCHC (RBC) [Mass/Vol] 33.3 g/dL 32.0-35.0 [facility] MCV Auto (RBC) [Entitic vol] Ordered By: Abhay Hendrikcs on 11-24-2022 MCV (RBC) [Entitic vol] 89.4 fL 80-100 [facility] Monocyte distribution width [Entitic volume] in Blood by AutomatedOrdered By: Abhay Hendricks on 11-24-2022 Monocyte distribution width Auto (Bld) [Entitic vol] 18.86 % 0.00-20.00 [facility] Monocytes Auto (Bld) [#/Vol] Ordered By: Abhay Hendricks on 11-24-2022 Monocytes (Bld) [#/Vol] 0.9 10*3/uL 0.0-0.8 [facility] Monocytes/100 WBC Auto (Bld) Ordered By: Abhay Hendricks on 11-24-2022 Monocytes/100 WBC (Bld) 9.7 % . [facility] Neutrophils Auto (Bld) [#/Vo l]Ordered By: Abhay Hendricks on 11-24-2022 Neutrophils (Bld) [#/Vol] 6.9 10*3/uL 1.8-7.7 [facility] Neutrophils/100 WBC Auto (Bl d)Ordered By: Abhay Hendricks on 11-24-2022 Neutrophils/100 WBC (Bld) 76.4 % . [facility] Nitrite Test strip Ql (U)Ord ered By: Abhay Hendricks on 11-24-2022 Nitrite Ql (U) Negative Negative [facility] No Panel InformationOrdered By: Abhay Hendricks on 11-24-2022 Estimated GFR (CKD-EPI) > 60.0 mL/Min [facility] Creatinine Clearance (Chem 90.32 [facility] Nucleated erythrocytes [Pres ence] in Blood by Automated countOrdered By: Abhay Hendricks on 11-24-2022 Nucleated RBC Auto Ql (Bld) 0.1 /100{WBC} 0-0.5 [facility] Platelet mean volume Auto (B ld) [Entitic vol]Ordered By: Abhay Hendricks on 11-24-2022 Platelet mean volume (Bld) [Entitic vol] 9.3 fL 6.3-10.7 [facility] Platelets Auto (Bld) [#/Vol] Ordered By: Abhay Hendricks on 11-24-2022 Platelets (Bld) [#/Vol] 271 10*3/uL 150-450 [facility] Potassium [Moles/volume] in Serum or PlasmaOrdered By: Abhay Hendricks on 11-24-2022 Potassium [Moles/Vol] 4.2 mmol/L 3.5-5.1 [facility] Protein Auto test strip (U) [Mass/Vol]Ordered By: Abhay Hendricks on 11-24-2022 Protein (U) [Mass/Vol] Trace mg/dL Negative [facility] Protein [Mass/volume] in Ser um or PlasmaOrdered By: Abhay Hendricks on 11-24-2022 Protein [Mass/Vol] 7.2 g/dL 6.4-8.9 [facility] RBC Auto (Bld) [#/Vol]Ordere d By: Abhay Hendricks on 11-24-2022 RBC (Bld) [#/Vol] 4.19 10*6/uL 3.60-5.[address] [facility] Serum or plasma albumin/glob ulin mass ratioOrdered By: Abhay Hendricks on 11-24-2022 Albumin/Globulin [Mass ratio] 1.9 {ratio} [facility] Serum or plasma anion gap de terminationOrdered By: Abhay Hendricks on 11-24-2022 Anion gap [Moles/Vol] 13.1 mmol/L 6.0-15.0 [facility] Sodium [Moles/volume] in Ser um or PlasmaOrdered By: Abhay Hendricks on 11-24-2022 Sodium [Moles/Vol] 141 mmol/L 136-145 [facility] Specific gravity Auto test s trip (U) [Rel density]Ordered By: Abhay Hendricks on 11-24-2022 Specific gravity (U) [Rel density] 1.028 1.001-1.030 [facility] Squamous epithelial cells de tection in urine sediment by light microscopyOrdered By: Abhay Hendricks on 11-24-2022 Epithelial cells.squamous LM Ql (Urine sed) 0-1 [HPF] 0-2 [facility] Troponin I.cardiac [Mass/vol ume] in Serum or Plasma by Detection limit <= 0.01 ng/Ordered By: Abhay Hendricks on 11-24-2022 Troponin I.cardiac DL <= 0.01 ng/mL [Mass/Vol] 3.9 pg/mL 0.0-15.0 [facility] Urea nitrogen [Mass/volume] in Serum or PlasmaOrdered By: Abhay Hendricks on 11-24-2022 Urea nitrogen [Mass/Vol] 13 mg/dL 7-25 [facility] Urine bacteria detection by automated methodOrdered By: Abhay Hendricks on 11-24-2022 Bacteria Auto Ql (U) None seen None Seen [facility] Urine clarity by refractomet ry automatedOrdered By: Abhay Hendricks on 11-24-2022 Clarity Refractometry automated (U) Clear Clear [facility] Urine glucose measurement by automated test strip (mass/volume)Ordered By: Abhay Hendricks on 11-24-2022 Glucose Auto test strip (U) [Mass/Vol] Normal mg/dL Normal [facility] Urine hemoglobin detection b y automated test stripOrdered By: Abhay Hendricks on 11-24-2022 Hemoglobin Auto test strip Ql (U) 3+ Negative [facility] Urine leukocyte esterase det ection by automated test stripOrdered By: Abhay Hendricks on 11-24-2022 Leukocyte esterase Auto test strip Ql (U) 1+ Negative [facility] Urobilinogen Auto test strip (U) [Mass/Vol]Ordered By: Abhay Hendricks on 11-24-2022 Urobilinogen (U) [Mass/Vol] Normal mg/dL Normal [facility] WBC Auto (Bld) [#/Vol]Ordere d By: Abhay Hendricks on 11-24-2022 WBC (Bld) [#/Vol] 9.0 10*3/uL 3.8-11.6 [facility] pH Auto test strip (U)Ordere d By: Abhay Hendricks on 11-24-2022 pH (U) 5.5 [pH] 5.0-9.0 [facility] Alanine aminotransferase [En zymatic activity/volume] in Serum or PlasmaOrdered By: Pool Diaz on 11-19-2022 ALT [Catalytic activity/Vol] 12 U/L 7-52 [facility] Albumin [Mass/volume] in Ser um or Plasma by Bromocresol green (BCG) dye binding methoOrdered By: Pool Diaz on 11-19-2022 Albumin BCG dye [Mass/Vol] 4.9 g/dL 3.5-5.7 [facility] Alkaline phosphatase [Enzyma tic activity/volume] in Serum or PlasmaOrdered By: Pool Diaz on 11-19-2022 ALP [Catalytic activity/Vol] 43 U/L 34-104 [facility] Aspartate aminotransferase [ Enzymatic activity/volume] in Serum or PlasmaOrdered By: Pool Diaz on 11-19-2022 AST [Catalytic activity/Vol] 14 U/L 13-39 [facility] Automated erythrocytes count in urine sediment (number/area)Ordered By: Pool Diaz on 11-19-2022 RBC Auto (Urine sed) [#/Area] 50-100 [HPF] 0-4 [facility] Automated leukocytes count i n urine sediment (number/area)Ordered By: Pool Diaz on 11-19-2022 WBC Auto (Urine sed) [#/Area] 10-19 [HPF] 0-4 [facility] Basophils Auto (Bld) [#/Vol] Ordered By: Pool Diaz on 11-19-2022 Basophils (Bld) [#/Vol] 0.1 10*3/uL 0.0-0.2 [facility] Basophils/100 WBC Auto (Bld) Ordered By: Pool Diaz on 11-19-2022 Basophils/100 WBC (Bld) 1.3 % . [facility] Bilirubin Auto test strip Ql (U)Ordered By: Pool Diaz on 11-19-2022 Bilirubin Ql (U) Negative Negative [facility] Bilirubin.total [Mass/volume ] in Serum or PlasmaOrdered By: Pool Diaz on 11-19-2022 Bilirubin [Mass/Vol] 0.4 mg/dL 0.3-1.0 [facility] Calcium [Mass/volume] in Ser um or PlasmaOrdered By: Pool Diaz on 11-19-2022 Calcium [Mass/Vol] 9.7 mg/dL 8.6-10.3 [facility] Carbon dioxide, total [Moles /volume] in Serum or PlasmaOrdered By: Pool Diaz on 11-19-2022 CO2 [Moles/Vol] 23.6 mmol/L 21.0-31.0 [facility] Chloride [Moles/volume] in S di or PlasmaOrdered By: Pool Diaz on 11-19-2022 Chloride [Moles/Vol] 107 mmol/L 98-107 [facility] Creatine kinase [Enzymatic a ctivity/volume] in Serum or PlasmaOrdered By: Pool Diaz on 11-19-2022 CK [Catalytic activity/Vol] 61 U/L 30-223 [facility] Creatinine [Mass/volume] in Serum or PlasmaOrdered By: Pool Diaz on 11-19-2022 Creatinine [Mass/Vol] 0.88 mg/dL 0.60-1.20 [facility] Eosinophils Auto (Bld) [#/Vo l]Ordered By: Pool Diaz on 11-19-2022 Eosinophils (Bld) [#/Vol] 0.1 10*3/uL 0.0-0.45 [facility] Eosinophils/100 WBC Auto (Bl d)Ordered By: Pool Diaz on 11-19-2022 Eosinophils/100 WBC (Bld) 0.6 % . [facility] Erythrocyte distribution wid th Auto (RBC) [Ratio]Ordered By: Pool Diaz on 11-19-2022 Erythrocyte distribution width (RBC) [Ratio] 13.2 % 11.9-15.3 [facility] Globulin Calc (S) [Mass/Vol] Ordered By: Pool Diaz on 11-19-2022 Globulin (S) [Mass/Vol] 2.7 g/dL [facility] Glucose [Mass/volume] in Ser um or PlasmaOrdered By: Pool Diaz on 11-19-2022 Glucose [Mass/Vol] 87 mg/dL 70-100 [facility] Comment on above: ADA recommended refe rence rangeRandom Glucose Reference Range is dependent on time and content of last meal. Glucose of more than 200 mg/dL in a nonstressed, ambulatory subject supports the diagnosis of Diabetes Mellitus. HCG ( test) IA.rapi d Ql (U)Ordered By: Pool Diaz on 11-19-2022 HCG ( test) Ql (U) Negative [facility] Hematocrit Auto (Bld) [Volum e fraction]Ordered By: Pool Diaz on 11-19-2022 Hematocrit (Bld) [Volume fraction] 39.6 % 34.0-46.4 [facility] Hemoglobin [Mass/volume] in BloodOrdered By: Pool Diaz on 11-19-2022 Hemoglobin (Bld) [Mass/Vol] 13.2 g/dL 11.8-15.4 [facility] Ketones Auto test strip (U) [Mass/Vol]Ordered By: Pool Diaz on 11-19-2022 Ketones (U) [Mass/Vol] Negative Negative Fi [facility] Laboratory - UrinalysisOrder ed By: Pool Diaz on 11-19-2022 Hyaline casts LM Ql (Urine sed) None seen [LPF] 0-8 [facility] Leukocytes [#/volume] correc maryam for nucleated erythrocytes in Blood by Automated counOrdered By: Pool Diaz on 11-19-2022 WBC corrected for nucl RBC Auto (Bld) [#/Vol] 9.4 10*3/uL 3.8-11.6 [facility] Lymphocytes Auto (Bld) [#/Vo l]Ordered By: Pool Diaz on 11-19-2022 Lymphocytes (Bld) [#/Vol] 2.0 10*3/uL 1.00-4.8 [facility] Lymphocytes/100 WBC Auto (Bl d)Ordered By: Pool Diaz on 11-19-2022 Lymphocytes/100 WBC (Bld) 21.4 % . [facility] MCH Auto (RBC) [Entitic mass ]Ordered By: Pool Diaz on 11-19-2022 MCH (RBC) [Entitic mass] 29.7 pg 24.7-34.3 [facility] MCHC Auto (RBC) [Mass/Vol]Or dered By: Pool Diaz on 11-19-2022 MCHC (RBC) [Mass/Vol] 33.3 g/dL 32.0-35.0 [facility] MCV Auto (RBC) [Entitic vol] Ordered By: Pool Diaz on 11-19-2022 MCV (RBC) [Entitic vol] 89.0 fL 80-100 [facility] Monocyte distribution width [Entitic volume] in Blood by AutomatedOrdered By: Pool Diaz on 11-19-2022 Monocyte distribution width Auto (Bld) [Entitic vol] 17.34 % 0.00-20.00 [facility] Monocytes Auto (Bld) [#/Vol] Ordered By: Pool Diaz on 11-19-2022 Monocytes (Bld) [#/Vol] 0.9 10*3/uL 0.0-0.8 [facility] Monocytes/100 WBC Auto (Bld) Ordered By: Pool Diaz on 11-19-2022 Monocytes/100 WBC (Bld) 9.6 % . [facility] Neutrophils Auto (Bld) [#/Vo l]Ordered By: Pool Diaz on 11-19-2022 Neutrophils (Bld) [#/Vol] 6.3 10*3/uL 1.8-7.7 [facility] Neutrophils/100 WBC Auto (Bl d)Ordered By: Pool Diaz on 11-19-2022 Neutrophils/100 WBC (Bld) 67.1 % . [facility] No Panel InformationOrdered By: Pool Diaz on 11-19-2022 Estimated GFR (CKD-EPI) > 60.0 mL/Min [facility] Creatinine Clearance (Chem 90.26 [facility] Nucleated erythrocytes [Pres ence] in Blood by Automated countOrdered By: Pool Diaz on 11-19-2022 Nucleated RBC Auto Ql (Bld) 0.1 /100{WBC} 0-0.5 [facility] Platelet mean volume Auto (B ld) [Entitic vol]Ordered By: Pool Diaz on 11-19-2022 Platelet mean volume (Bld) [Entitic vol] 9.4 fL 6.3-10.7 [facility] Platelets Auto (Bld) [#/Vol] Ordered By: Pool Diaz on 11-19-2022 Platelets (Bld) [#/Vol] 319 10*3/uL 150-450 [facility] [facility] Potassium [Moles/volume] in Serum or PlasmaOrdered By: Pool Diaz on 11-19-2022 Potassium [Moles/Vol] 4.1 mmol/L 3.5-5.1 [facility] Protein Auto test strip (U) [Mass/Vol]Ordered By: Pool Diaz on 11-19-2022 Protein (U) [Mass/Vol] Negative Negative [facility] Protein [Mass/volume] in Ser um or PlasmaOrdered By: Pool Diaz on 11-19-2022 Protein [Mass/Vol] 7.6 g/dL 6.4-8.9 [facility] RBC Auto (Bld) [#/Vol]Ordere d By: Pool Diaz on 11-19-2022 RBC (Bld) [#/Vol] 4.45 10*6/uL 3.60-5.[address] [facility] Serum or plasma albumin/glob ulin mass ratioOrdered By: Pool Diaz on 11-19-2022 Albumin/Globulin [Mass ratio] 1.8 {ratio} [facility] Serum or plasma anion gap de terminationOrdered By: Pool Diaz on 11-19-2022 Anion gap [Moles/Vol] 14.5 mmol/L 6.0-15.0 [facility] Sodium [Moles/volume] in Ser um or PlasmaOrdered By: Pool Diaz on 11-19-2022 Sodium [Moles/Vol] 141 mmol/L 136-145 [facility] Squamous epithelial cells de tection in urine sediment by light microscopyOrdered By: Pool Diaz on 11-19-2022 Epithelial cells.squamous LM Ql (Urine sed) 1-2 [HPF] 0-2 [facility] Troponin I.cardiac [Mass/vol ume] in Serum or Plasma by Detection limit <= 0.01 ng/Ordered By: Pool Diaz on 11-19-2022 Troponin I.cardiac DL <= 0.01 ng/mL [Mass/Vol] < 2.3 pg/mL 0.0-15.0 [facility] Urea nitrogen [Mass/volume] in Serum or PlasmaOrdered By: Pool Diaz on 11-19-2022 Urea nitrogen [Mass/Vol] 14 mg/dL 7-25 [facility] Urine appearanceOrdered By: Pool Diaz on 11-19-2022 Appearance (U) Clear Clear [facility] Urine bacteria detection by automated methodOrdered By: Pool Diaz on 11-19-2022 Bacteria Auto Ql (U) None seen None Seen [facility] Urine colorOrdered By: Pool Diaz on 11-19-2022 Color (U) Yellow Yellow [facility] Urine culture routineOrdered By: Pool Diaz on 11-19-2022 Bacteria identified Cx Nom (U) 2 Days [facility] Urine glucose measurement by automated test strip (mass/volume)Ordered By: Pool Diaz on 11-19-2022 Glucose Auto test strip (U) [Mass/Vol] Normal mg/dL Normal [facility] Urine hemoglobin detection b y automated test stripOrdered By: Pool Diaz on 11-19-2022 Hemoglobin Auto test strip Ql (U) 3+ Negative [facility] Urine leukocyte esterase det ection by automated test stripOrdered By: Pool Diaz on 11-19-2022 Leukocyte esterase Auto test strip Ql (U) 2+ Negative [facility] Urine nitrite detection by a utomated test stripOrdered By: Pool Diaz on 11-19-2022 Nitrite Auto test strip Ql (U) Negative Negative [facility] Urobilinogen Auto test strip (U) [Mass/Vol]Ordered By: Pool Diaz on 11-19-2022 Urobilinogen (U) [Mass/Vol] Normal mg/dL Normal [facility] WBC Auto (Bld) [#/Vol]Ordere d By: Pool Diaz on 11-19-2022 WBC (Bld) [#/Vol] 9.4 10*3/uL 3.8-11.6 [facility] pH Auto test strip (U)Ordere d By: Pool Diaz on 11-19-2022 pH (U) 1.010 [pH] 1.001-1.030 [facility] pH (U) 6.5 [pH] 5.0-9.0 [facility] Alanine aminotransferase [En zymatic activity/volume] in Serum or PlasmaOrdered By: Calli Blanc on 11-10-2022 ALT [Catalytic activity/Vol] 11 U/L 7-52 [facility] Albumin [Mass/volume] in Ser um or Plasma by Bromocresol green (BCG) dye binding methoOrdered By: Calli Blanc on 11-10-2022 Albumin BCG dye [Mass/Vol] 4.9 g/dL 3.5-5.7 [facility] Alkaline phosphatase [Enzyma tic activity/volume] in Serum or PlasmaOrdered By: Calli Blanc on 11-10-2022 ALP [Catalytic activity/Vol] 45 U/L 34-104 [facility] Aspartate aminotransferase [ Enzymatic activity/volume] in Serum or PlasmaOrdered By: Calli Blanc on 11-10-2022 AST [Catalytic activity/Vol] 14 U/L 13-39 [facility] Basophils Auto (Bld) [#/Vol] Ordered By: Calli Blanc on 11-10-2022 Basophils (Bld) [#/Vol] 0.1 10*3/uL 0.0-0.2 [facility] Basophils/100 WBC Auto (Bld) Ordered By: Calli Blanc on 11-10-2022 Basophils/100 WBC (Bld) 2.1 % . [facility] Bilirubin.total [Mass/volume ] in Serum or PlasmaOrdered By: Calli Blanc on 11-10-2022 Bilirubin [Mass/Vol] 0.4 mg/dL 0.3-1.0 [facility] Calcium [Mass/volume] in Ser um or PlasmaOrdered By: Calli Blanc on 11-10-2022 Calcium [Mass/Vol] 9.9 mg/dL 8.6-10.3 [facility] Carbon dioxide, total [Moles /volume] in Serum or PlasmaOrdered By: Calli Blanc on 11-10-2022 CO2 [Moles/Vol] 25.7 mmol/L 21.0-31.0 [facility] Chloride [Moles/volume] in S di or PlasmaOrdered By: Calli Blanc on 11-10-2022 Chloride [Moles/Vol] 107 mmol/L 98-107 [facility] Creatinine [Mass/volume] in Serum or PlasmaOrdered By: Calli Blanc on 11-10-2022 Creatinine [Mass/Vol] 0.86 mg/dL 0.60-1.20 [facility] Eosinophils Auto (Bld) [#/Vo l]Ordered By: Calli Blanc on 11-10-2022 Eosinophils (Bld) [#/Vol] 0.1 10*3/uL 0.0-0.45 [facility] Eosinophils/100 WBC Auto (Bl d)Ordered By: Calli Blanc on 11-10-2022 Eosinophils/100 WBC (Bld) 1.3 % . [facility] Erythrocyte distribution wid th Auto (RBC) [Ratio]Ordered By: Calli Blanc on 11-10-2022 Erythrocyte distribution width (RBC) [Ratio] 13.7 % 11.9-15.3 [facility] Globulin Calc (S) [Mass/Vol] Ordered By: Calli Blanc on 11-10-2022 Globulin (S) [Mass/Vol] 2.4 g/dL [facility] Glucose [Mass/volume] in Ser um or PlasmaOrdered By: Calli Blanc on 11-10-2022 Glucose [Mass/Vol] 70 mg/dL 70-100 [facility] Comment on above: ADA recommended refe rence rangeRandom Glucose Reference Range is dependent on time and content of last meal. Glucose of more than 200 mg/dL in a nonstressed, ambulatory subject supports the diagnosis of Diabetes Mellitus. Hematocrit Auto (Bld) [Volum e fraction]Ordered By: Calli Blanc on 11-10-2022 Hematocrit (Bld) [Volume fraction] 39.8 % 34.0-46.4 [facility] Hemoglobin [Mass/volume] in BloodOrdered By: Calli Blanc on 11-10-2022 Hemoglobin (Bld) [Mass/Vol] 13.0 g/dL 11.8-15.4 [facility] Leukocytes [#/volume] correc maryam for nucleated erythrocytes in Blood by Automated counOrdered By: Calli Blanc on 11-10-2022 WBC corrected for nucl RBC Auto (Bld) [#/Vol] 7.2 10*3/uL 3.8-11.6 [facility] Lymphocytes Auto (Bld) [#/Vo l]Ordered By: Calli Blanc on 11-10-2022 Lymphocytes (Bld) [#/Vol] 2.0 10*3/uL 1.00-4.8 [facility] Lymphocytes/100 WBC Auto (Bl d)Ordered By: Calli Blanc on 11-10-2022 Lymphocytes/100 WBC (Bld) 28.2 % . [facility] MCH Auto (RBC) [Entitic mass ]Ordered By: Calli Blanc on 11-10-2022 MCH (RBC) [Entitic mass] 29.7 pg 24.7-34.3 [facility] MCHC Auto (RBC) [Mass/Vol]Or dered By: Calli Blanc on 11-10-2022 MCHC (RBC) [Mass/Vol] 32.8 g/dL 32.0-35.0 [facility] MCV Auto (RBC) [Entitic vol] Ordered By: Calli Blanc on 11-10-2022 MCV (RBC) [Entitic vol] 90.5 fL 80-100 [facility] Monocytes Auto (Bld) [#/Vol] Ordered By: Calli Blanc on 11-10-2022 Monocytes (Bld) [#/Vol] 0.7 10*3/uL 0.0-0.8 [facility] Monocytes/100 WBC Auto (Bld) Ordered By: Calli Blanc on 11-10-2022 Monocytes/100 WBC (Bld) 9.3 % . [facility] Neutrophils Auto (Bld) [#/Vo l]Ordered By: Calli Blanc on 11-10-2022 Neutrophils (Bld) [#/Vol] 4.2 10*3/uL 1.8-7.7 [facility] Neutrophils/100 WBC Auto (Bl d)Ordered By: Calli Blanc on 11-10-2022 Neutrophils/100 WBC (Bld) 59.1 % . [facility] No Panel InformationOrdered By: Calli Blanc on 11-10-2022 Estimated GFR (CKD-EPI) > 60.0 mL/Min [facility] Creatinine Clearance (Chem N/A [facility] Nucleated erythrocytes [Pres ence] in Blood by Automated countOrdered By: Calli Blanc on 11-10-2022 Nucleated RBC Auto Ql (Bld) 0.2 /100{WBC} 0-0.5 [facility] Platelet mean volume Auto (B ld) [Entitic vol]Ordered By: Calli Blanc on 11-10-2022 Platelet mean volume (Bld) [Entitic vol] 10.3 fL 6.3-10.7 [facility] Platelets Auto (Bld) [#/Vol] Ordered By: Calli Blanc on 11-10-2022 Platelets (Bld) [#/Vol] 267 10*3/uL 150-450 [facility] Potassium [Moles/volume] in Serum or PlasmaOrdered By: Calli Blanc on 11-10-2022 Potassium [Moles/Vol] 4.5 mmol/L 3.5-5.1 [facility] Protein [Mass/volume] in Ser um or PlasmaOrdered By: Calli Blanc on 11-10-2022 Protein [Mass/Vol] 7.3 g/dL 6.4-8.9 [facility] RBC Auto (Bld) [#/Vol]Ordere d By: Calli Blanc on 11-10-2022 RBC (Bld) [#/Vol] 4.39 10*6/uL 3.60-5.[address] [facility] Serum or plasma albumin/glob ulin mass ratioOrdered By: Calli Blanc on 11-10-2022 Albumin/Globulin [Mass ratio] 2.0 {ratio} [facility] Serum or plasma anion gap de terminationOrdered By: Calli Blanc on 11-10-2022 Anion gap [Moles/Vol] 11.8 mmol/L 6.0-15.0 [facility] Sodium [Moles/volume] in Ser um or PlasmaOrdered By: Calli Blanc on 11-10-2022 Sodium [Moles/Vol] 140 mmol/L 136-145 [facility] Thyrotropin [Units/volume] i n Serum or PlasmaOrdered By: Calli Blanc on 11-10-2022 TSH Qn 1.20 m[IU]/L 0.45-5.33 [facility] Urea nitrogen [Mass/volume] in Serum or PlasmaOrdered By: Calli Blanc on 11-10-2022 Urea nitrogen [Mass/Vol] 13 mg/dL 7-25 [facility] WBC Auto (Bld) [#/Vol]Ordere d By: Calli Blanc on 11-10-2022 WBC (Bld) [#/Vol] 7.2 10*3/uL 3.8-11.6 [facility] Basophils Auto (Bld) [#/Vol] Ordered By: MEGHAN RIZVI on 10-02-2022 Basophils (Bld) [#/Vol] 0.1 10*3/uL 0.0-0.2 [facility] Basophils/100 WBC Auto (Bld) Ordered By: MEGHAN RIZVI on 10-02-2022 Basophils/100 WBC (Bld) 0.5 % . [facility] Eosinophils Auto (Bld) [#/Vo l]Ordered By: MEGHAN RIZVI on 10-02-2022 Eosinophils (Bld) [#/Vol] 0.1 10*3/uL 0.0-0.45 [facility] Eosinophils/100 WBC Auto (Bl d)Ordered By: MEGHAN RIZVI on 05-05-2023 Eosinophils/100 WBC (Bld) 0.3 % . [facility] Erythrocyte distribution wid th Auto (RBC) [Ratio]Ordered By: MEGHAN RIZVI on 10-02-2022 Erythrocyte distribution width (RBC) [Ratio] 13.8 % 11.9-15.3 [facility] Hematocrit Auto (Bld) [Volum e fraction]Ordered By: MEGHAN RIZVI on 10-02-2022 Hematocrit (Bld) [Volume fraction] 28.9 % 34.0-46.4 [facility] Hemoglobin [Mass/volume] in BloodOrdered By: MEGHAN RIZVI on 10-02-2022 Hemoglobin (Bld) [Mass/Vol] 9.8 g/dL 11.8-15.4 [facility] Leukocytes [#/volume] correc maryam for nucleated erythrocytes in Blood by Automated counOrdered By: MEGHAN RIZVI on 10-02-2022 WBC corrected for nucl RBC Auto (Bld) [#/Vol] 17.8 10*3/uL 3.8-11.6 [facility] Lymphocytes Auto (Bld) [#/Vo l]Ordered By: MEGHAN RIZVI on 10-02-2022 Lymphocytes (Bld) [#/Vol] 2.4 10*3/uL 1.00-4.8 [facility] Lymphocytes/100 WBC Auto (Bl d)Ordered By: MEGHAN RIZVI on 10-02-2022 Lymphocytes/100 WBC (Bld) 13.8 % . [facility] MCH Auto (RBC) [Entitic mass ]Ordered By: MEGHAN RIZVI on 10-02-2022 MCH (RBC) [Entitic mass] 30.0 pg 24.7-34.3 [facility] MCHC Auto (RBC) [Mass/Vol]Or dered By: MEGHAN RIZVI on 10-02-2022 MCHC (RBC) [Mass/Vol] 33.8 g/dL 32.0-35.0 [facility] MCV Auto (RBC) [Entitic vol] Ordered By: MEGHAN RIZVI on 10-02-2022 MCV (RBC) [Entitic vol] 88.6 fL 80-100 [facility] Monocytes Auto (Bld) [#/Vol] Ordered By: MEGHAN RIZVI on 10-02-2022 Monocytes (Bld) [#/Vol] 1.7 10*3/uL 0.0-0.8 [facility] Monocytes/100 WBC Auto (Bld) Ordered By: MEGHAN RIZVI on 10-02-2022 Monocytes/100 WBC (Bld) 9.5 % . [facility] Neutrophils Auto (Bld) [#/Vo l]Ordered By: MEGHAN RIZVI on 10-02-2022 Neutrophils (Bld) [#/Vol] 13.5 10*3/uL 1.8-7.7 [facility] Neutrophils/100 WBC Auto (Bl d)Ordered By: MEGHAN RIZVI on 10-02-2022 Neutrophils/100 WBC (Bld) 75.9 % . [facility] Nucleated erythrocytes [Pres ence] in Blood by Automated countOrdered By: MEGHAN RIZVI on 10-02-2022 Nucleated RBC Auto Ql (Bld) 0.1 /100{WBC} 0-0.5 [facility] Platelet mean volume Auto (B ld) [Entitic vol]Ordered By: MEGHAN RIZVI on 10-02-2022 Platelet mean volume (Bld) [Entitic vol] 8.2 fL 6.3-10.7 [facility] Platelets Auto (Bld) [#/Vol] Ordered By: MEGHAN RIZVI on 10-02-2022 Platelets (Bld) [#/Vol] 200 10*3/uL 150-450 [facility] Comment on above: Delta: 254 on RBC Auto (Bld) [#/Vol]Ordere d By: MEGHAN RIZVI on 10-02-2022 RBC (Bld) [#/Vol] 3.26 10*6/uL 3.60-5.[address] [facility] WBC Auto (Bld) [#/Vol]Ordere d By: MEGHAN RIZVI on 10-02-2022 WBC (Bld) [#/Vol] 17.8 10*3/uL 3.8-11.[address] [facility] Reagin Ab [Presence] in Seru m by RPROrdered By: MEGHAN RIZVI on 10-01-2022 Reagin Ab RPR Ql (S) Non-Reactive Non Reactive [facility] Comment on above: Performed at: - [address] [id number] Director: Pancho Beasley PhD, Phone: [phone] Amphetamine Screen Ql (U)Ord ered By: Celeste Alanis on 09-28-2022 Amphetamines Ql (U) Negative Negative [facility] Automated erythrocytes count in urine sediment (number/area)Ordered By: Celeste Alanis on 09-28-2022 RBC Auto (Urine sed) [#/Area] 10-19 [HPF] 0-4 [facility] Automated leukocytes count i n urine sediment (number/area)Ordered By: Celeste Alanis on 09-28-2022 WBC Auto (Urine sed) [#/Area] 20-49 [HPF] 0-4 [facility] Barbiturates [Presence] in U rine by Screen methodOrdered By: Celeste Alanis on 09-28-2022 Barbiturates Screen Ql (U) Negative Negative [facility] Benzodiazepines Screen Ql (U )Ordered By: Celeste Alanis on 09-28-2022 Benzodiazepines Ql (U) Negative Negative [facility] Benzoylecgonine [Presence] i n Urine by Screen methodOrdered By: Celeste Alanis on 09-28-2022 Benzoylecgonine Screen Ql (U) Negative Negative [facility] Bilirubin Test strip Ql (U)O rdered By: Celeste Alanis on 09-28-2022 Bilirubin Ql (U) Negative Negative [facility] Color Auto (U)Ordered By: Mikey Alanis on 09-28-2022 Color (U) Yellow Yellow [facility] Ketones Auto test strip (U) [Mass/Vol]Ordered By: Celeste Alanis on 09-28-2022 Ketones (U) [Mass/Vol] Negative Negative [facility] Laboratory - UrinalysisOrder ed By: Celeste Alanis on 09-28-2022 Hyaline casts LM Ql (Urine sed) None seen [LPF] 0-8 [facility] Nitrite Test strip Ql (U)Ord ered By: Celeste Alanis on 09-28-2022 Nitrite Ql (U) Negative Negative [facility] Opiates [Presence] in Urine by Screen methodOrdered By: Celeste Alanis on 09-28-2022 Opiates Screen Ql (U) Negative Negative [facility] Phencyclidine Screen Ql (U)O rdered By: Celeste Alanis on 09-28-2022 Phencyclidine Ql (U) Negative Negative [facility] Comment on above: These are unconfirme d results and should not be used for legal purposes. Drug Cut-Off Concentration: AMPH 1000 ng/mL FAVIAN 200 ng/mL KIM 200 ng/mL COCM 300 ng/mL OP 300 ng/mL PCP 25 ng/mL Protein Auto test strip (U) [Mass/Vol]Ordered By: Celeste Alanis on 09-28-2022 Protein (U) [Mass/Vol] Negative Negative [facility] Specific gravity Auto test s trip (U) [Rel density]Ordered By: Celeste Alanis on 09-28-2022 Specific gravity (U) [Rel density] 1.015 1.001-1.030 [facility] Squamous epithelial cells de tection in urine sediment by light microscopyOrdered By: Celeste Alanis on 09-28-2022 Epithelial cells.squamous LM Ql (Urine sed) 1-2 [HPF] 0-2 [facility] Urine bacteria detection by automated methodOrdered By: Celeste Alanis on 09-28-2022 Bacteria Auto Ql (U) None seen None Seen [facility] Urine clarity by refractomet ry automatedOrdered By: Celeste Alanis on 09-28-2022 Clarity Refractometry automated (U) Clear Clear [facility] Urine culture routineOrdered By: Celeste Alanis on 09-28-2022 Bacteria identified Cx Nom (U) 2 Days [facility] Urine glucose measurement by automated test strip (mass/volume)Ordered By: Celeste Alanis on 09-28-2022 Glucose Auto test strip (U) [Mass/Vol] Normal mg/dL Normal [facility] Urine hemoglobin detection b y automated test stripOrdered By: Celeste Alanis on 09-28-2022 Hemoglobin Auto test strip Ql (U) 1+ Negative [facility] Urine leukocyte esterase det ection by automated test stripOrdered By: Celeste Alanis on 09-28-2022 Leukocyte esterase Auto test strip Ql (U) 3+ Negative [facility] Urobilinogen Auto test strip (U) [Mass/Vol]Ordered By: Celeste Alanis on 09-28-2022 Urobilinogen (U) [Mass/Vol] Normal mg/dL Normal [facility] pH Auto test strip (U)Ordere d By: Celeste Alanis on 09-28-2022 pH (U) 7.0 [pH] 5.0-9.0 [facility] Amphetamine Screen Ql (U)Ord ered By: BOY RITTER on 09-16-2022 Amphetamines Ql (U) Negative Negative [facility] Automated erythrocytes count in urine sediment (number/area)Ordered By: BOY RITTER on 09-16-2022 RBC Auto (Urine sed) [#/Area] 0-1 [HPF] 0-4 [facility] Automated leukocytes count i n urine sediment (number/area)Ordered By: BOY RITTER on 09-16-2022 WBC Auto (Urine sed) [#/Area] 3-4 [HPF] 0-4 [facility] Barbiturates [Presence] in U rine by Screen methodOrdered By: BOY RITTER on 09-16-2022 Barbiturates Screen Ql (U) Negative Negative [facility] Benzodiazepines Screen Ql (U )Ordered By: BOY RITTER on 09-16-2022 Benzodiazepines Ql (U) Negative Negative [facility] Benzoylecgonine [Presence] i n Urine by Screen methodOrdered By: BOY RITTER on 09-16-2022 Benzoylecgonine Screen Ql (U) Negative Negative [facility] Bilirubin Test strip Ql (U)O rdered By: BOY RITTER on 09-16-2022 Bilirubin Ql (U) Negative Negative [facility] Color Auto (U)Ordered By: KELVIN RITTER on 09-16-2022 Color (U) Yellow Yellow [facility] Ketones Auto test strip (U) [Mass/Vol]Ordered By: BOY RITTER on 09-16-2022 Ketones (U) [Mass/Vol] Negative Negative [facility] Laboratory - UrinalysisOrder ed By: BOY RITTER on 09-16-2022 Hyaline casts LM Ql (Urine sed) 0-8 [LPF] 0-8 [facility] Nitrite Test strip Ql (U)Ord ered By: BOY RITTER on 09-16-2022 Nitrite Ql (U) Negative Negative [facility] Opiates [Presence] in Urine by Screen methodOrdered By: BOY RITTER on 09-16-2022 Opiates Screen Ql (U) Negative Negative [facility] Phencyclidine Screen Ql (U)O rdered By: BOY RITTER on 09-16-2022 Phencyclidine Ql (U) Negative Negative [facility] Comment on above: These are unconfirme d results and should not be used for legal purposes. Drug Cut-Off Concentration: AMPH 1000 ng/mL FAVIAN 200 ng/mL KIM 200 ng/mL COCM 300 ng/mL OP 300 ng/mL PCP 25 ng/mL Protein Auto test strip (U) [Mass/Vol]Ordered By: BOY RITTER on 09-16-2022 Protein (U) [Mass/Vol] Negative Negative [facility] Specific gravity Auto test s trip (U) [Rel density]Ordered By: BOY RITTER on 09-16-2022 Specific gravity (U) [Rel density] 1.008 1.001-1.030 [facility] Squamous epithelial cells de tection in urine sediment by light microscopyOrdered By: BOY RITTER on 09-16-2022 Epithelial cells.squamous LM Ql (Urine sed) None seen [HPF] 0-2 [facility] Urine bacteria detection by automated methodOrdered By: BOY RITTER on 09-16-2022 Bacteria Auto Ql (U) None seen None Seen [facility] Urine clarity by refractomet ry automatedOrdered By: BOY RITTER on 09-16-2022 Clarity Refractometry automated (U) Clear Clear [facility] Urine glucose measurement by automated test strip (mass/volume)Ordered By: BOY RITTER on 09-16-2022 Glucose Auto test strip (U) [Mass/Vol] Normal mg/dL Normal [facility] Urine hemoglobin detection b y automated test stripOrdered By: BOY RITTER on 09-16-2022 Hemoglobin Auto test strip Ql (U) Trace Negative [facility] Urine leukocyte esterase det ection by automated test stripOrdered By: BOY RITTER on 09-16-2022 Leukocyte esterase Auto test strip Ql (U) 1+ Negative [facility] Urobilinogen Auto test strip (U) [Mass/Vol]Ordered By: BOY RITTER on 09-16-2022 Urobilinogen (U) [Mass/Vol] Normal mg/dL Normal [facility] pH Auto test strip (U)Ordere d By: BOY RITTER on 09-16-2022 pH (U) 7.5 [pH] 5.0-9.0 [facility] Group B Streptococcus cultur eOrdered By: MEGHAN RIZVI on 09-09-2022 S. agalactiae Org specific cx Ql (Unsp spec) [facility] Choriogonadotropin.beta subu nit [Units/volume] in Serum or PlasmaOrdered By: MEGHAN RIZVI on 07-17-2022 [place] [address].00 m[IU]/mL [facility] Comment on above: Approximate Approxim ate [...] WELCH Date: 2020-01-20 19:15 Normal [facility] Vital Signs Date Time Vital Sign Value Performing Clinician Mariah menard 09-15-2024 09:44-0400 Body height 167.6 cm Wagner Rosario DPM Work Phone: [facility] 09-15-2024 09:44-0400 Body mass index (BMI) [Ratio] 25.18 kg/m2 Wagner Rosario DPM Work Phone: [facility] 09-15-2024 09:44-0400 Body weight 70.76 kg Wagner Rosario DPM Work Phone: [facility] 09-15-2024 09:44-0400 Respiratory rate 16 /min Wagner Abraham DPM Work Phone: [facility] 07-10-2024 10:43-0500 Body height 167.64 cm [employer] Work Phone: [facility] 07-10-2024 10:43-0500 Body mass index (BMI) [Ratio] 18.7 kg/m2 [employer] Work Phone: [facility] 07-10-2024 10:43-0500 Body weight 52.61 kg [employer] Work Phone: [facility] 07-10-2024 10:43-0500 Diastolic blood pressure 64 mm[Hg] [employer] Work Phone: [facility] 07-10-2024 10:43-0500 Heart rate 78 /min [employer] Work Phone: [facility] 07-10-2024 10:43-0500 Respiratory rate 18 /min [employer] Work Phone: [facility] 07-10-2024 10:43-0500 SaO2% (BldA) [Mass fraction] 99 % [employer] Work Phone: [facility] 07-10-2024 10:43-0500 Systolic blood pressure 108 mm[Hg] [employer] Work Phone: [facility] 06-16-2024 21:17-0500 Diastolic blood pressure 60 mm[Hg] [facility] Work Phone: [facility] 06-16-2024 21:17-0500 Heart rate 80 /min [facility] Work Phone: [facility] 06-16-2024 21:17-0500 Respiratory rate 18 /min [facility] Work Phone: [facility] 06-16-2024 21:17-0500 SaO2% (BldA) [Mass fraction] 99 % [facility] Work Phone: [facility] 06-16-2024 21:17-0500 Systolic blood pressure 132 mm[Hg] [facility] Work Phone: [facility] 06-16-2024 18:56-0500 Body height 167.64 cm [facility] Work Phone: [facility] 06-16-2024 18:56-0500 Body temperature 98.4 [degF] [facility] Work Phone: [facility] 06-16-2024 18:56-0500 Body weight 54 kg [facility] Work Phone: [facility] 04-01-2024 16:20-0400 Diastolic blood pressure 78 mm[Hg] [facility] Work Phone: [facility] 04-01-2024 16:20-0400 Heart rate 79 /min [facility] Work Phone: [facility] 04-01-2024 16:20-0400 Respiratory rate 18 /min [facility] Work Phone: [facility] 04-01-2024 16:20-0400 SaO2% (BldA) [Mass fraction] 99 % [facility] Work Phone: [facility] 04-01-2024 16:20-0400 Systolic blood pressure 118 mm[Hg] [facility] Work Phone: [facility] 04-01-2024 14:33-0400 Body height 167.64 cm [facility] Work Phone: [facility] 04-01-2024 14:33-0400 Body temperature 98.6 [degF] [facility] Work Phone: [facility] 04-01-2024 14:33-0400 Body weight 54.75 kg [facility] Work Phone: [facility] 01-24-2024 13:48-0400 Body height 167.64 cm [facility] Work Phone: [facility] 01-24-2024 13:48-0400 Body mass index (BMI) [Ratio] 18.8 kg/m2 Services [email or web address] Work Phone: [facility] 01-24-2024 13:48-0400 Body weight 53.07 kg [email or web address] Work Phone: [facility] 01-24-2024 13:48-0400 Diastolic blood pressure 60 mm[Hg] [facility] Work Phone: [facility] 01-24-2024 13:48-0400 Heart rate 85 /min Services [employer] Work Phone: [facility] 01-24-2024 13:48-0400 Respiratory rate 18 /min Services [employer] Work Phone: [facility] 01-24-2024 13:48-0400 SaO2% (BldA) [Mass fraction] 99 % [facility] Work Phone: [facility] 01-24-2024 13:48-0400 Systolic blood pressure 104 mm[Hg] [email or web address] Work Phone: [facility] 01-18-2024 10:09-0400 Body mass index (BMI) [Ratio] 18.43 kg/m2 Celeste Rinkes DO Work Phone: [facility] 01-18-2024 10:09-0400 Body weight 51.8 kg Celeste Rinkes DO Work Phone: [facility] 01-18-2024 10:09-0400 Diastolic blood pressure 64 mm[Hg] Celeste Rinkes DO Work Phone: [facility] 01-18-2024 10:09-0400 Systolic blood pressure 112 mm[Hg] Celeste Rinkes DO Work Phone: [facility] 01-01-2024 21:26-0400 Body temperature 98.4 [degF] [facility] Work Phone: [facility] 01-01-2024 21:26-0400 Diastolic blood pressure 78 mm[Hg] [facility] Work Phone: [facility] 01-01-2024 21:26-0400 Heart rate 101 /min [facility] Work Phone: [facility] 01-01-2024 21:26-0400 Respiratory rate 21 /min [facility] Work Phone: [facility] 01-01-2024 21:26-0400 SaO2% (BldA) [Mass fraction] 96 % [facility] Work Phone: [facility] 01-01-2024 21:26-0400 Systolic blood pressure 114 mm[Hg] [facility] Work Phone: [facility] 01-01-2024 19:20-0400 Body height 167.64 cm [facility] Work Phone: [facility] 01-01-2024 19:20-0400 Body weight 54.55 kg [facility] Work Phone: [facility] 09-22-2023 09:19-0400 Body height 167.64 cm [facility] Work Phone: [facility] 09-22-2023 09:19-0400 Body mass index (BMI) [Ratio] 18.1 kg/m2 [facility] Work Phone: [facility] 09-22-2023 09:19-0400 Body weight 50.8 kg [facility] Work Phone: [facility] 09-22-2023 09:19-0400 Diastolic blood pressure 64 mm[Hg] [facility] Work Phone: [facility] 09-22-2023 09:19-0400 Heart rate 86 /min [facility] Work Phone: [facility] 09-22-2023 09:19-0400 Respiratory rate 18 /min [facility] Work Phone: [facility] 09-22-2023 09:19-0400 SaO2% (BldA) [Mass fraction] 94 % [facility] Work Phone: [facility] 09-22-2023 09:19-0400 Systolic blood pressure 102 mm[Hg] [facility] Work Phone: [facility] 09-08-2023 15:37-0400 Body height 167.64 cm [facility] Work Phone: [facility] 09-08-2023 15:37-0400 Body weight 53.97 kg [facility] Work Phone: [facility] 09-08-2023 14:29-0400 Diastolic blood pressure 68 mm[Hg] [facility] Work Phone: [facility] 09-08-2023 14:29-0400 Heart rate 90 /min [facility] Work Phone: [facility] 09-08-2023 14:29-0400 Systolic blood pressure 130 mm[Hg] [facility] Work Phone: [facility] 08-25-2023 00:52-0400 Diastolic blood pressure 73 mm[Hg] [facility] Work Phone: [facility] 08-25-2023 00:52-0400 Heart rate 87 /min [facility] Work Phone: [facility] 08-25-2023 00:52-0400 Respiratory rate 20 /min [facility] Work Phone: [facility] 08-25-2023 00:52-0400 SaO2% (BldA) [Mass fraction] 99 % [facility] Work Phone: [facility] 08-25-2023 00:52-0400 Systolic blood pressure 114 mm[Hg] [facility] Work Phone: [facility] 08-24-2023 19:07-0400 Body height 167.64 cm [facility] Work Phone: [facility] 08-24-2023 19:07-0400 Body temperature 98.2 [degF] Services [facility] Work Phone: [facility] 08-24-2023 19:07-0400 Body weight 52.9 kg Services [email or web address] Work Phone: [facility] 08-10-2023 11:06-0400 Diastolic blood pressure 50 mm[Hg] [facility] Work Phone: [facility] 08-10-2023 11:06-0400 Heart rate 93 /min [email or web address] Work Phone: [facility] 08-10-2023 11:06-0400 Systolic blood pressure 84 mm[Hg] [email or web address] Work Phone: [facility] 08-10-2023 11:05-0400 Body height 167.64 cm [email or web address] Work Phone: [facility] 08-10-2023 11:05-0400 Body mass index (BMI) [Ratio] 19.2 kg/m2 [facility] Work Phone: [facility] 08-10-2023 11:05-0400 Body weight 53.97 kg [email or web address] Work Phone: [facility] 08-10-2023 11:05-0400 Respiratory rate 18 /min [facility] Work Phone: [facility] 08-10-2023 11:05-0400 SaO2% (BldA) [Mass fraction] 99 % Services [employer] Work Phone: [facility] 03-18-2023 23:02-0400 Body height 167.64 cm Services [employer] Work Phone: [facility] 03-18-2023 23:02-0400 Body temperature 99.1 [degF] Services [employer] Work Phone: [facility] 03-18-2023 23:02-0400 Body weight 54.4 kg Services [employer] Work Phone: [facility] 03-18-2023 23:02-0400 Diastolic blood pressure 84 mm[Hg] Services [employer] Work Phone: [facility] 03-18-2023 23:02-0400 Heart rate 110 /min Services [facility] Work Phone: [facility] 03-18-2023 23:02-0400 Respiratory rate 18 /min Services [employer] Work Phone: [facility] 03-18-2023 23:02-0400 SaO2% (BldA) [Mass fraction] 95 % Services [facility] Work Phone: [facility] 03-18-2023 23:02-0400 Systolic blood pressure 143 mm[Hg] Services [employer] Work Phone: [facility] 11-24-2022 21:55-0400 Heart rate 98 /min DO Meghan Nataprawira Work Phone: [facility] 11-24-2022 21:55-0400 Respiratory rate 18 /min DO Meghan Nataprawira Work Phone: [facility] 11-24-2022 21:55-0400 SaO2% (BldA) [Mass fraction] 98 % DO Meghan Nataprawira Work Phone: [facility] 11-24-2022 19:38-0400 Body height 167.64 cm DO Meghan Nataprawira Work Phone: [facility] 11-24-2022 19:38-0400 Body temperature 98.6 [degF] DO Meghan Nataprawira Work Phone: [facility] 11-24-2022 19:38-0400 Body weight 58.7 kg DO Meghan Nataprawira Work Phone: [facility] 11-24-2022 19:38-0400 Diastolic blood pressure 86 mm[Hg] DO Meghan Nataprawira Work Phone: [facility] 11-24-2022 19:38-0400 Systolic blood pressure 154 mm[Hg] DO Meghan Nataprawira Work Phone: [facility] 11-19-2022 23:42-0400 Diastolic blood pressure 74 mm[Hg] DO Meghan Nataprawira Work Phone: [facility] 11-19-2022 23:42-0400 Heart rate 89 /min DO Meghan Nataprawira Work Phone: [facility] 11-19-2022 23:42-0400 Respiratory rate 16 /min DO Meghan Nataprawira Work Phone: [facility] 11-19-2022 23:42-0400 SaO2% (BldA) [Mass fraction] 98 % DO Meghan Nataprawira Work Phone: [facility] 11-19-2022 23:42-0400 Systolic blood pressure 122 mm[Hg] DO Meghan Nataprawira Work Phone: [facility] 11-19-2022 20:24-0400 Body height 167.64 cm DO Meghan Nataprawira Work Phone: [facility] 11-19-2022 20:24-0400 Body temperature 98.9 [degF] DO Meghan Nataprawira Work Phone: [facility] 11-19-2022 20:24-0400 Body weight 58 kg DO Meghan Nataprawira Work Phone: [facility] 10-03-2022 15:55-0400 Body temperature 96.8 [degF] GENERAL ACCOUNTING CLERK Calli Myerholtz Work Phone: [facility] 10-03-2022 15:55-0400 Diastolic blood pressure 80 mm[Hg] GENERAL ACCOUNTING CLERK Calli Myerholtz Work Phone: [facility] 10-03-2022 15:55-0400 Heart rate 96 /min GENERAL ACCOUNTING CLERK Calli Myerholtz Work Phone: [facility] 10-03-2022 15:55-0400 Respiratory rate 18 /min GENERAL ACCOUNTING CLERK Calli Myerholtz Work Phone: [facility] 10-03-2022 15:55-0400 SaO2% (BldA) [Mass fraction] 98 % GENERAL ACCOUNTING CLERK Calli Myerholtz Work Phone: [facility] 10-03-2022 15:55-0400 Systolic blood pressure 120 mm[Hg] GENERAL ACCOUNTING CLERK Calli Myerholtz Work Phone: [facility] 10-01-2022 07:15-0400 Body height 170.18 cm GENERAL ACCOUNTING CLERK Calli Myerholtz Work Phone: [facility] 10-01-2022 07:15-0400 Body weight 63.95 kg GENERAL ACCOUNTING CLERK Calli Myerholtz Work Phone: [facility] 09-28-2022 15:41-0400 Body temperature 98.1 [degF] GENERAL ACCOUNTING CLERK Calli Myerholtz Work Phone: [facility] 09-28-2022 15:40-0400 Diastolic blood pressure 90 mm[Hg] GENERAL ACCOUNTING CLERK Calli Myerholtz Work Phone: [facility] 09-28-2022 15:40-0400 Heart rate 105 /min GENERAL ACCOUNTING CLERK Calli Myerholtz Work Phone: [facility] 09-28-2022 15:40-0400 Systolic blood pressure 137 mm[Hg] GENERAL ACCOUNTING CLERK Calli Myerholtz Work Phone: [facility] 09-28-2022 13:02-0400 Body temperature 97.2 [degF] GENERAL ACCOUNTING CLERK Calli Myerholtz Work Phone: [facility] 09-28-2022 13:02-0400 Diastolic blood pressure 85 mm[Hg] GENERAL ACCOUNTING CLERK Calli Myerholtz Work Phone: [facility] 09-28-2022 13:02-0400 Heart rate 92 /min GENERAL ACCOUNTING CLERK Calli Myerholtz Work Phone: [facility] 09-28-2022 13:02-0400 Respiratory rate 16 /min GENERAL ACCOUNTING CLERK Calli Myerholtz Work Phone: [facility] 09-28-2022 13:02-0400 SaO2% (BldA) [Mass fraction] 97 % GENERAL ACCOUNTING CLERK Calli Myerholtz Work Phone: [facility] 09-28-2022 13:02-0400 Systolic blood pressure 135 mm[Hg] GENERAL ACCOUNTING CLERK Calli Myerholtz Work Phone: [facility] 09-28-2022 11:51-0400 Body height 167.64 cm GENERAL ACCOUNTING CLERK Calli Myerholtz Work Phone: [facility] 09-28-2022 11:51-0400 Body weight 63.5 kg GENERAL ACCOUNTING CLERK Calli Myerholtz Work Phone: [facility] 09-24-2022 10:32-0400 Respiratory rate 16 /min GENERAL ACCOUNTING CLERK Calli Myerholtz Work Phone: [facility] 09-24-2022 10:23-0400 Body weight 63.5 kg GENERAL ACCOUNTING CLERK Calli Myerholtz Work Phone: [facility] 09-24-2022 10:18-0400 Body height 166.37 cm GENERAL ACCOUNTING CLERK Calli Myerholtz Work Phone: [facility] 09-24-2022 10:16-0400 Body temperature 97.2 [degF] GENERAL ACCOUNTING CLERK Calli Myerholtz Work Phone: [facility] 09-24-2022 10:16-0400 Diastolic blood pressure 79 mm[Hg] GENERAL ACCOUNTING CLERK Calli Myerholtz Work Phone: [facility] 09-24-2022 10:16-0400 Heart rate 92 /min GENERAL ACCOUNTING CLERK Calli Myerholtz Work Phone: [facility] 09-24-2022 10:16-0400 SaO2% (BldA) [Mass fraction] 97 % GENERAL ACCOUNTING CLERK Calli Myerholtz Work Phone: [facility] 09-24-2022 10:16-0400 Systolic blood pressure 134 mm[Hg] GENERAL ACCOUNTING CLERK Calli Myerholtz Work Phone: [facility] 09-19-2022 11:00-0400 Respiratory rate 18 /min GENERAL ACCOUNTING CLERK Calli Myerholtz Work Phone: [facility] 09-19-2022 10:53-0400 Body height 167.64 cm GENERAL ACCOUNTING CLERK Calli Myerholtz Work Phone: [facility] 09-19-2022 10:53-0400 Body weight 63.5 kg GENERAL ACCOUNTING CLERK Calli Myerholtz Work Phone: [facility] 09-19-2022 10:36-0400 Diastolic blood pressure 82 mm[Hg] GENERAL ACCOUNTING CLERK Calli Myerholtz Work Phone: [facility] 09-19-2022 10:36-0400 Heart rate 104 /min GENERAL ACCOUNTING CLERK Calli Myerholtz Work Phone: [facility] 09-19-2022 10:36-0400 Systolic blood pressure 125 mm[Hg] GENERAL ACCOUNTING CLERK Calli Myerholtz Work Phone: [facility] 09-19-2022 10:19-0400 Body temperature 97.5 [degF] CALI Mccurdy Mypattholtz Work Phone: [facility] 09-16-2022 20:00-0400 Body temperature 96.6 [degF] CAIL Mccurdy Myerholtz Work Phone: [facility] 09-16-2022 19:59-0400 Diastolic blood pressure 78 mm[Hg] CALI Mccurdy Myerholtz Work Phone: [facility] 09-16-2022 19:59-0400 Heart rate 70 /min CALI Mccurdy Myerholtz Work Phone: [facility] 09-16-2022 19:59-0400 Respiratory rate 16 /min CALI Mccurdy Mypattholtz Work Phone: [facility] 09-16-2022 19:59-0400 SaO2% (BldA) [Mass fraction] 99 % CLAI Suarezerholtz Work Phone: [facility] 09-16-2022 19:59-0400 Systolic blood pressure 133 mm[Hg] CALI Suarezerholtz Work Phone: [facility] Encounters Encounter Date Encounter Type Care Provider Facility Start: 10-17-2024 End: 10-17-2024 Emergency department [facility] Start: 09-20-2024 End: 09-20-2024 ambulatory [facility] Work Phone: [facility] Work Phone: Start: 09-20-2024 End: 09-20-2024 Patient encounter procedure Services [facility] Work Phone: [facility] [place] Work Phone: Start: 09-18-2024 End: 09-18-2024 Patient encounter procedure [facility] Work Phone: [facility] [place] Work Phone: Start: 09-18-2024 End: 09-18-2024 ambulatory Services [facility] Work Phone: [facility] Work Phone: Start: 09-15-2024 End: 09-15-2024 Bamboo flowsheet Wagner Rosario DPM Work Phone: [facility] Start: 09-15-2024 End: 09-15-2024 Bamboo flowsheet Wagner Rosario DPM Work Phone: [facility] Start: 09-15-2024 End: 09-15-2024 ambulatory WAGNER ROSARIO Not Available Start: 09-15-2024 End: 09-15-2024 Office outpatient visit 25 minutes Wagner Rosario DPM Work Phone: [facility] Comment on above: Onychomycosis (Prima ry Dx); Toe pain, left Start: 08-14-2024 End: 08-14-2024 Patient encounter procedure [facility] Work Phone: [facility] [place] Work Phone: Start: 08-14-2024 End: 08-14-2024 ambulatory [facility] Work Phone: [facility] Work Phone: Start: 08-11-2024 End: 08-11-2024 ambulatory WAGNER ROSARIO Not Available Start: 08-04-2024 End: 08-04-2024 Patient encounter procedure [facility] Work Phone: [facility]CT [facility] [place] Work Phone: Start: 08-04-2024 End: 08-04-2024 ambulatory [facility] Work Phone: [facility] Work Phone: Start: 07-17-2024 End: 07-17-2024 Patient encounter procedure [facility] Work Phone: [facility] [place] Work Phone: Start: 07-17-2024 End: 07-17-2024 ambulatory Services [facility] Work Phone: [facility] Work Phone: Start: 07-10-2024 End: 07-10-2024 ambulatory [facility] Work Phone: [facility] Work Phone: Start: 07-10-2024 End: 07-10-2024 Patient encounter procedure [facility] Work Phone: [facility] Work Phone: Start: 06-16-2024 End: 06-16-2024 Emergency department patient visit [facility] Work Phone: [facility] Work Phone: Start: 06-12-2024 End: 06-12-2024 Patient encounter procedure Services [facility] Work Phone: [facility] [place] Work Phone: Start: 06-12-2024 End: 06-12-2024 ambulatory [facility] Work Phone: [facility] Work Phone: Start: 05-18-2024 End: 05-18-2024 ambulatory [facility] Work Phone: [facility] Work Phone: Start: 05-18-2024 End: 05-18-2024 Discharged Recurring Services [facility] Work Phone: [facility] [facility] Start: 05-18-2024 Registered Recurring Services [facility] Work Phone: [facility] [facility] Start: 04-01-2024 End: 04-01-2024 Emergency department patient visit [facility] Work Phone: [facility] Work Phone: Start: 02-05-2024 End: 02-05-2024 Patient encounter procedure [facility] Work Phone: [facility] [place] Work Phone: Start: 02-05-2024 End: 02-05-2024 ambulatory [facility] Work Phone: [facility] Work Phone: Start: 01-24-2024 End: 01-24-2024 ambulatory [facility] Work Phone: [facility] Work Phone: Start: 01-24-2024 End: 01-24-2024 Patient encounter procedure [facility] Work Phone: [facility] Work Phone: Start: 01-18-2024 End: 01-24-2024 Orders Only Celeste Santiago Alanis DO Work Phone: [facility] External Department Unsolicited Start: 01-18-2024 End: 01-18-2024 Patient encounter status Celeste Alanis DO Work Phone: [facility] Healthcare Work Phone: Start: 01-18-2024 End: 01-18-2024 Periodic preventive med est patient 18-39 yrs Celeste Henderson Joannasheri DO Work Phone: [facility] Comment on above: Encounter for gyneco logical examination without abnormal finding (Primary Dx); Screening for malignant neoplasm of cervix; Encounter for surveillance of contraceptive pills Start: 01-18-2024 End: 01-18-2024 ambulatory CELESTE ALANIS Not Available Start: 01-01-2024 End: 01-01-2024 Emergency department patient visit Services [facility] Work Phone: [facility] Work Phone: Start: 12-23-2023 End: 12-23-2023 ambulatory SANDEE C WINDNAGEL Not Available Start: 09-29-2023 End: 09-29-2023 ambulatory SANDEE Harp HERBGEL Not Available Start: 09-22-2023 End: 09-22-2023 ambulatory [facility] Work Phone: [facility] Work Phone: Start: 09-22-2023 End: 09-22-2023 Patient encounter procedure Services [facility] Work Phone: [facility] Work Phone: Start: 09-08-2023 End: 09-08-2023 ambulatory [facility] Work Phone: [facility] Work Phone: Start: 09-08-2023 End: 09-08-2023 Patient encounter procedure Services [facility] Work Phone: [facility] Work Phone: Start: 08-24-2023 End: 08-25-2023 Emergency department patient visit Services [facility] Work Phone: [facility] Work Phone: Start: 08-11-2023 End: 08-11-2023 ambulatory [facility] Work Phone: [facility] Work Phone: Start: 08-11-2023 End: 08-11-2023 Patient encounter procedure [facility] Work Phone: [facility] [place] Work Phone: Start: 08-10-2023 End: 08-10-2023 Patient encounter procedure [facility] Work Phone: [facility] Work Phone: Start: 03-18-2023 End: 03-19-2023 Emergency department patient visit Services [facility] Work Phone: [facility] Work Phone: Start: 12-25-2022 ambulatory Facility:[facility] Start: 12-22-2022 ambulatory Facility:[id number] Start: 11-24-2022 End: 11-24-2022 Emergency department patient visit DO Meghan Rizvi Work Phone: [facility] Work Phone: Start: 11-21-2022 End: 11-21-2022 ambulatory NON STAFF [facility] Work Phone: Start: 11-21-2022 End: 11-21-2022 Patient encounter procedure DO Meghan Rizvi Work Phone: [facility] Work Phone: Start: 11-19-2022 End: 11-19-2022 Emergency department patient visit DO Meghan Rizvi Work Phone: [facility] Work Phone: Start: 11-10-2022 End: 11-10-2022 Patient encounter procedure DO Meghan Rizvi Work Phone: [facility] [place] Work Phone: Start: 10-04-2022 End: 10-04-2022 ambulatory GENERAL ACCOUNTING CLERK Calli Blanc Work Phone: [facility] Work Phone: Start: 10-04-2022 End: 10-04-2022 Patient encounter procedure GENERAL ACCOUNTING CLERK Calli Blanc Work Phone: [facility] [place] Work Phone: Start: 10-01-2022 End: 10-03-2022 Evaluation and management of inpatient GENERAL ACCOUNTING CLERK Calli Blanc Work Phone: [facility] [place] Work Phone: Start: 09-28-2022 End: 09-28-2022 ambulatory GENERAL ACCOUNTING CLERK Calli Blanc Work Phone: [facility] Work Phone: Start: 09-28-2022 End: 09-28-2022 Patient encounter procedure GENERAL ACCOUNTING CLERK Calli Myerholtz Work Phone: [facility] - [facility] Start: 09-28-2022 End: 09-28-2022 ambulatory GENERAL ACCOUNTING CLERK Calli K Myerholtz Work Phone: [facility] Work Phone: Start: 09-28-2022 End: 09-28-2022 Patient encounter procedure GENERAL ACCOUNTING CLERK Calli Myerholtz Work Phone: [facility] - [facility] Start: 09-24-2022 End: 09-24-2022 ambulatory GENERAL ACCOUNTING CLERK Calli K Myerholtz Work Phone: [facility] Work Phone: Start: 09-24-2022 End: 09-24-2022 Patient encounter procedure GENERAL ACCOUNTING CLERK Calli Myerholtz Work Phone: [facility] - [facility]P Start: 09-19-2022 End: 09-19-2022 ambulatory GENERAL ACCOUNTING CLERK Calli K Myerholtz Work Phone: [facility] Work Phone: Start: 09-19-2022 End: 09-19-2022 Patient encounter procedure GENERAL ACCOUNTING CLERK Calli Myerholtz Work Phone: [facility] - [facility]P Start: 09-16-2022 End: 09-16-2022 ambulatory GENERAL ACCOUNTING CLERK Calli K Myerholtz Work Phone: [facility] Work Phone: Start: 09-16-2022 End: 09-16-2022 Patient encounter procedure GENERAL ACCOUNTING CLERK Calli Myerholtz Work Phone: [facility] [facility]P Start: 09-09-2022 End: 09-09-2022 ambulatory CALI Alba Janiaisaac Work Phone: [facility] Work Phone: Start: 09-09-2022 End: 09-09-2022 Departed Referred CALI Mccurdy Jayashree Work Phone: [facility] [place] Work Phone: Start: 07-17-2022 End: 07-17-2022 ambulatory CALI Alba Jayashree Work Phone: [facility] Work Phone: Start: 07-17-2022 End: 07-17-2022 Patient encounter procedure CALI Mccurdy Jayashree Work Phone: [facility] [place] Work Phone: Start: 01-20-2020 End: 01-20-2020 Patient encounter procedure [facility] Facility:H1 Start: 07-30-2019 End: 07-30-2019 Patient encounter procedure [facility] Facility: Procedures Date Procedure Procedure Detail Performing Clinician Start: 09-20-2024 X-ray of right foot Ser vices [facility] Work Phone: Start: 08-04-2024 CT of paranasal sinu s without contrast Services [facility] Work Phone: Start: 08-04-2024 CT of chest without contrast Services [facility] Work Phone: Start: 07-17-2024 Plain chest X-ray Servi danuta [email or web address] [facility] Work Phone: Start: 06-12-2024 Urine culture Services [facility] Work Phone: Start: 04-01-2024 Computed tomography of abdomen and pelvis with contrast Services [facility] [employer] Phone: Start: 04-01-2024 SARS-CoV-2, Influenz a & RSV (PCR) Services [facility] Work Phone: Start: 04-01-2024 Viral nucleic acid assay Services [facility] Work Phone: Start: 02-05-2024 MRI of head Services [facility] Work Phone: Start: 01-18-2024 Cytp c/v auto thin l yr prepj scr mnl rescr phys Celeste Alanis DO Work Phone: Start: 01-01-2024 Plain chest X-ray Servi danuta [employer] Work Phone: Start: 01-01-2024 SARS-CoV-2, Influenz a & RSV (PCR) Services [employer] Work Phone: Start: 08-24-2023 Urine culture Services [email or web address] [facility] [employer] Phone: Start: 11-19-2022 Urine culture DO Meghan jung Work Phone: Start: 09-28-2022 Urine culture GENERAL ACCOUNTING CLERK Ronit Blanc Work Phone: Start: 09-09-2022 Streptococcus agalac tiae culture GENERAL ACCOUNTING CLERK Calli Blanc Work Phone: Plan of Treatment Date Care Activity Detail Author Start: 01-31-2025 End: 01-31-2025 Patient encounter procedure 01/31/2025 11:30 AM EDT Office Visit [facility] [address] [place] [address] Celeste Alanis, DO [address] [place] [address] [facility] Start: 01-17-2025 Medicare Annual Wellness (AWV) Medicare Annual Wellness (AWV) [facility] Start: 09-15-2024 End: 10-06-2024 Alanine aminotransferase [Enzymatic activity/volume] in Serum or Plasma ALANINE AMINOTRANSFERASE Lab Routine Onychomycosis Expected: 09/15/2024 (Approximate), Expires: 10/06/2024 [facility] Comment on above: Expected: 09/15/2024 (Approximate), Expi res: 10/06/2024 Start: 09-15-2024 End: 10-06-2024 Aspartate aminotransferase [Enzymatic activity/volume] in Serum or Plasma ASPARTATE AMINO TRANSFERASE Lab Routine Onychomycosis Expected: 09/15/2024 (Approximate), Expires: 10/06/[address] [facility] Work Phone: Comment on above: Expected: 09/15/2024 (Approximate), Expi res: 10/06/2024 Start: 06-12-2024 Bacteria identified in Urine by Culture Urine Culture [facility] Start: 01-30-2024 Influenza vaccination Influenza Vaccine (#1) [facility] Start: 01-01-2024 Plain chest X-ray XR chest 2V* [facility] Start: 01-01-2024 XR Chest 2 Views [facility] Start: 08-24-2023 Bacteria identified in Urine by Culture [facility] Start: 03-18-2023 X-ray of right ankle XR ankle RT min 3V* [facility] Start: 03-18-2023 X-ray of right foot XR foot RT min 3V* [facility] Start: 03-18-2023 XR Ankle - right GE 3 Views [facility] Start: 03-18-2023 XR Foot - right GE 3 Views [facility] Start: 11-24-2022 CT angiography of thorax CT angio chest PE protocol [facility] Start: 11-24-2022 CT Chest [facility] Start: 11-24-2022 Bacteria identified in Urine by Culture [facility] Start: 11-19-2022 Bacteria identified in Urine by Culture [facility] Start: 11-19-2022 Urine culture Urine Culture [facility] Start: 10-04-2022 [facility] Start: 10-03-2022 [facility] Start: 10-02-2022 Referral to Corn Cooker [facility] Start: 10-01-2022 Division of Female Perineum, External Approach Division of Female Perineum, External Approach [facility] Start: 10-01-2022 Drainage of Amniotic Fluid, Therapeutic from Products of Conception, Via Natural or Artificial Opening Drainage of Amniotic Fluid, Therapeutic from Products of Conception, Via Natural or Artificial Opening [facility] Start: 10-01-2022 Extraction of Products of Conception, Low Forceps, Via Natural or Artificial Opening Extraction of Products of Conception, Low Forceps, Via Natural or Artificial Opening [facility] Start: 10-01-2022 Repair Perineum Skin, External Approach Repair Perineum Skin, External Approach [facility] Start: 09-28-2022 Hospital admission [facility] Start: 09-28-2022 End: 09-28-2022 [facility] Start: 09-28-2022 Bacteria identified in Urine by Culture Urine Culture [facility] Start: 09-28-2022 [facility] Start: 09-28-2022 Hospital admission [facility] Start: 09-24-2022 [facility] Start: 09-19-2022 [facility] Start: 09-16-2022 [facility] Start: 09-16-2022 Hospital admission [facility] Start: 09-09-2022 Group B Streptococcus Culture Group B Streptococcus Culture [facility] Comprehensive metabo lic 2000 panel - Serum or Plasma [facility] PAP IG, RFX HPV ALL PTH ([facility]) PAP IG, RFX HPV ALL PTH ([facility]) Lab Routine Encounter for gynecological examination without abnormal finding Screening for malignant neoplasm of cervix Ordered: 01/18/2024 [facility] Work Phone: Comment on above: Ordered: 01/18/2024 Patient Education [facility] Work Phone: Patient referral [facility] Work Phone: Tilt table test [facility] Urine culture [facility] Immunizations Immunization Date Immunization Notes Care Provider Fa [facility] 03-23-2019 influenza virus vacc ine, unspecified formulation Celeste Alanis DO Work Phone: [facility] Payers Date Payer Category Payer Medicare MEDICARE [id number] 2024 Medicare [id number] 2024 Self-pay [id number] 2016 Medicaid [id number] 2016 Medicaid [id number] 1998 Unknown [id number] [id number] 1998 Unknown [id number] 2.16840.1.814797.3.579.2.593 1998 Unknown [id number] 2.16840.1.556223.3.579.2.356 1998 Unknown [id number] 2.16840.1.685222.3.579.2.1258 1998 Unknown [id number] 2.16.840.1.728735.3.579.2.1258 1998 Unknown [id number] 2.16840.1.221686.3.579.2.1258 1998 Unknown [id number] 2.16.840.1.861101.3.579.2.9 1998 Unknown [id number] 2.16.840.1.061766.3.579.2.1259 1959 Unknown [id number] Unknown [id number] 2.16.840.1.710714.3.579.2.531 Unknown [id number] 2.16.840.1.710695.3.579.2.531 Unknown [id number] 2.16.840.1.411858.3.579.2.531 Unknown [id number] 2.16.840.1.058269.3.579.2.531 Unknown [id number] 2.16.840.1.031688.3.579.2.531 Unknown [id number] 2.16.840.1.872257.3.579.2.531 Unknown [id number] 2.16.840.1.800035.3.579.2.531 Unknown [id number] 2.16.840.1.539054.3.579.2.531 Unknown [id number] 2.16.840.1.113549.3.579.2.531 Unknown [id number] 2.16.840.1.084131.3.579.2.531 Unknown [id number] 2.16.840.1.918638.3.579.2.531 Unknown [id number] 2.16.840.1.807653.3.579.2.531 Social History Date Type Detail Facility Start: 07-12-2021 End: 06-16-2024 Tobacco smoking status NHIS Never smoked tobacco (finding) [facility] Start: 2000 Sex Assigned At Female [facility] Start: 11-23-2022 Tobacco use and exposure Smokeless tobacco non-user [facility] Start: 01-18-2024 End: 09-15-2024 Alcoholic beverage intake Ex-drinker (finding) [facility] Start: 12-22-2022 End: 01-18-2024 History of Social function [facility] Start: 12-22-2022 End: 01-18-2024 Tobacco use panel [facility] The thought of harming myself has occurred to me Never [facility] Start: 12-24-2022 Alcohol Comment caffeine intak e : soda/pop occasionally [facility] Start: 2000 Sex assigned at Not on file [facility] Start: 06-13-2024 End: 09-21-2024 Sex Female (finding) [facility] NEGATED: Highlighted row [facility] Goals Date Patient Goal Desired Activity /State Functional Status Date Assessment Result Facility 10-03-2022 Functional status Patient is Pro gressing Toward Baseline [facility] Work Phone: Mental Status Date Assessment Result Facility 10-03-2022 Cognitive function Cognitive Sta tus Patient is Progressing Toward Baseline [facility] Work Phone: Clinical Notes 10-01-2022 to 09-15-2024 Wagner Rosario, SHANA - 09/15/2024 9:30 AM EDT Note Date & Type Note Facility 09-15-2024 History of Present illness Narrative Patient: Bradley Jensen : 2000 PCP: Gayla Perry MD SUBJECTIVE This is a 23 y.o. female that presents today with a CC of elongated, thick yellow left 2nd digit nail Patient has been taking Lamisil tablets and states negative issues with medication and states slight improvement to the nail Allergies: No Known Allergies Past Medical History: Past Medical History: Diagnosis Date Anemia Intellectual disability ([facility]) Varicella zoster Medications: Current Outpatient Medications: norethindrone-ethinyl estradiol ([facility] 06/19) 1-20 MG-MCG tablet, Take 1 tablet by mouth in the morning., Disp: 84 tablet, Rfl: 3 terbinafine (LamISIL) 250 MG tablet, Take 1 tablet (250 mg) by mouth Daily, Disp: 30 tablet, Rfl: 0 Social History: Social History Socioeconomic History Marital status: Unmarried Spouse name: Not on file Number of children: Not on file Years of education: Not on file Highest education level: Not on file Occupational History Not on file Tobacco Use Smoking status: Never Smokeless tobacco: Never Vaping Use Vaping status: Never Used Substance and Sexual Activity Alcohol use: Not Currently Comment: caffeine intake : soda/pop occasionally Drug use: Never Sexual activity: Not Currently control/protection: None Other Topics Concern Not on file Social History Narrative Not on file Social Drivers of Health Financial Resource Strain: Not on file Food Insecurity: Not on file Transportation Needs: Not on file Physical Activity: Not on file Stress: Not on file Social Connections: Not on file Intimate Partner Violence: Not on file Housing Stability: Not on file ROS: General: denies fever, chills, fatigue, malaise GI: negative stomach complaints with taking of lamisil tablet with negative complaints of yellowing of skin or eyes. OBJECTIVE LE EXAM: DERM: Elongated thick yellow crumbly nail to the left 2nd digit with minimal lunula clearing. Positive hair growth b/l feet. VASC: Positive palpable pedal pulses bilaterally NEURO: Gross sensation intact to bilateral feet ORTHO: Positive pain on palpation to toenails of the left 2nd toenail LFTs ALT 14 AST 14 ASSESSMENT 1. Onychomycosis 2. Toe pain, left PLAN Patient education today with discussing diagnosis and treatment options for patient including risks and benefits of lamisil medication including liver interactions, side effects, and possible non resolution of nail fungus. Rx for lamisil x 60d Rx for lfts today Pt to contact podiatry if any problems RTC 2 months Wagner Rosario DPM documented in this encounter [facility] 08-04-2024 Radiology Diagnostic study note [facility] [place] [address] [place] [address] CT Scan Report Signed Patient: Bradley Jensen MR#: [id number] : 2000 Acct:[id number] Age/Sex: 23 / F ADM Date: 5 Loc: CT Room: Type: [facility] Attending Dr: Ruby Starkey PRODUCT DESIGN SPECIALIST-C Copies to: Ruby Starkey~ Ordering Provider: Ruby Starkey Date of Service: 08/04/24 CT/CT chest wo [...] control, adjustment of the mA and/or kV accordingto patient size, or use of iterative reconstruction [...] Rodriguez Cox M.D.08/04/2024 11:57 AM Dictation Location: RADIO-PC-23 Transcribed By: FATOUMATA 08/04/24 1157 Dictated By: Rodriguez Cox MD 08/04/24 1145 Signed By: 08/04/24 1157 [facility] Work Phone: 08-04-2024 Radiology Diagnostic study note [facility] [place] [address] [place] [address] CT Scan Report Signed Patient: Bradley Jensen MR#: [id number] : 2000 Acct:[id number] Age/Sex: 23 / F ADM Date: 5 Loc: CT Room: Type: [facility] Attending Dr: Ruby Starkey PRODUCT DESIGN SPECIALIST-C Copies to: Ruby Starkey~ Ordering Provider: Ruby Starkey Date of Service: 08/04/24 CT/CT sinus wo [...] Rodriguez Cox M.D.08/04/2024 11:45 AM Dictation Location: RADIO-PC-23 Transcribed By: FATOUMATA 08/04/24 1145 Dictated By: Rodriguez Cox MD 08/04/24 1143 Signed By: 08/04/24 1145 [facility] Work Phone: 07-10-2024 Evaluation note Diagnosis Onset Date Resolution Orthostatic hypotension acute F ebruary 2024 10:35am Pre-syncope acute July 10:35am [facility] Work Phone: 1(446) 644-148411-02-2024 Hospital Discharge instructions Additional Instructions Take Motrin dialysate for aches and pains increase your intake of fluids. Take Zofran as prescribed for nausea vomiting. Follow-up with PCP for recheck in 5 to 7 days.[facility] Work Phone: 1(691) 644-174708-20-2024 History of Present illness Narrative* Celeste Alanis, DO - 01/18/2024 10:15 AM EDT Images from the original note were not included. Celeste Alanis D.O. Obstetrics and Gynecology Patient: Bradley Jensen : 2000 (23 y.o.) Yearly Wellness Exam Date: 01/18/2024 Reason for Visit - Chief Complaint Patient presents with Gynecologic Exam LMP: pt cannot recall the date, states this month already Periods regular moderate bleeding lasts 6 days control: Marybel Jarvis pt would like refills Denies bowel/ urinary concerns. Denies breast concerns. Visit Vitals BP 112/64 Wt 114 lb 3.2 oz LMP (LMP Unknown) Comment: pt states this month BMI 18.43 kg/m OB Status Having periods Smoking Status Never BSA 1.55 m No Known Allergies History of Present Illness, Associated Treatments and Results - OB History Para Term AB Living 1 1 1 0 0 1 SAB IAB Ectopic Multiple Live Births 0 0 0 0 1 # Outcome Date GA Lbr Dale/2nd Weight Sex Type Anes PTL Lv 1 Term 10/01/22 39w2d 7 lb 1 oz M Vag-Spont EPI N MEDHAT Obstetric Comments Pap smear 08/05/22 ASCUS Negative HPV Review of Systems - General: Chills denies. Allergy/Immunology: Rash Denies. ENT: Denies Difficulty swallowing. Endocrine: Denies Cold intolerance denies. Heat intolerance denied. Respiratory: Denies Chest pain denies. Shortness of breath denies. Breast: Denies Bloody nipple discharge denies. Breast lump denies. Cardiovascular: Denies Chest pain. Gastrointestinal: Abdominal pain denies. Blood in stool denies. Hematology: Easy bruising denies. Prolonged bleeding denies. Women Only: Breast lump denies. Vaginal bleeding between periods is denied. Vaginal discharge/itching denied. Genitourinary: Blood in urine denies. Painful urination denies. Incontinence denies. Skin: Hair changes. Neurologic: Seizures denied. Stroke denies. Psychiatric: Anxiety denies. Depressed mood denies. Medication Documentation Review Audit Reviewed by Ruby Mills LPN (Licensed Nurse) on 01/18/24 at 1012 Medication Order Taking? Sig Documenting Provider Last Dose Status Marybel 06/19 1-20 MG-MCG tablet [id number] TAKE 1 TABLET BY MOUTH EVERY MORNING Meghan Rizvi DO Active Past Medical History: Diagnosis Date Anemia Intellectual disability (CMS/HCC) Varicella zoster Past Surgical History: Procedure Laterality Date VAGINAL DELIVERY 10/01/2022 Family History Problem Relation Name Age of Onset Gout Mother Arthritis Mother Thyroid disease Mother Hypertension Mother Other (illicit drug use) Father No Known Problems Sister Asthma Other Heart disease Other Cancer Other Diabetes Other Hypertension Other Physical Exam - General appearance, mentation, extraocular movements, facial strength and movement, hearing, upper and lower extremity strength and tone, sensation to gross testing, coordination, and gait are normalor at baseline unless noted below. General Examination: GENERAL APPEARANCE: alert oriented well developed, well nourished. HEAD: normocephalic atraumatic. EYES: sclera anicteric. EARS: no obvious hearing deficit. SKIN: warm and dry. HEART: regular rate and rhythm. LUNGS: clear to auscultation bilaterally. CHEST: axillary nodes grossly normal. BREASTS: no masses palpable bilaterally, normal nipples bilaterally. ABDOMEN: soft, nontender, nondistended, no masses palpable. BACK: no costovertebral angle tenderness, no obvious scoliosis/kyphosis. FEMALE GENITOURINARY: normal vaginal mucosa, cervix absent of lesions, nontender, uterus AV, mobile, ovaries nonpalpable and nontender. EXTREMITIES: no edema. NEUROLOGIC: alert and oriented. PSYCH: cooperative with exam. Diagnoses and all orders for this visit: Encounter for gynecological examination without abnormal finding - PAP IG, RFX HPV ALL PTH ([facility]) Screening for malignant neoplasm of cervix - PAP IG, RFX HPV ALL PTH ([facility]) Encounter for surveillance of contraceptive pills - norethindrone-ethinyl estradiol ([facility] 06/19) 1-20 MG-MCG tablet; Take 1 tablet by mouth in the morning. Pap, pelvic and breast exam completed. Findings of today's exam discussed with the patient. Continue MSBE. Ca/Vit D recommendations reviewed with the patient. The patient is to contact the office with any changes to her gynecological condition. The patient is to return in 1 year or as needed ICD-10-CM 1. Encounter for gynecological examination without abnormal finding Z01.419 PAP IG, RFX HPV ALL PTH([facility]) 2. Screening for malignant neoplasm of cervix Z12.4 PAP IG, RFX HPV ALL PTH ([facility]) 3. Encounter for surveillance of contraceptive pills Z30.41 [id number] Progress note Author Bernardino Prajapati [facility] October 03, 2022 11:33am Note Date/Time October 03, 2022 11:33a m [facility] [address] [place] [address] CUTTING PRESSMAN Progress Note Signed Patient: Bradley Jensen MR#: [id number] : 2000 Acct:[id number] Age/Sex: 21 / F Adm Date: 3 Loc: 3S Room: [address] [place] [address] Type: ADM IN Attending Dr: Meghan Rizvi DO Copies to: ~ Date of Service: 10/03/2022 OB - PN: Subj Subjective Post Delivery Day #: Day 2 Patient comments: no complaints and pain well controlled baby status: doing well feeding status: exclusively [...] signed by Bernardino Prajapati DO> 10/03/22 1133 [facility] Work Phone: 1(655) 454-528005-05-2023 Progress note Author PETERSON Richey [facility] October 02, 2022 9:59am Note Date/Time October 02, 2022 9:59am [facility] [address] [place] [address] CUTTING PRESSMAN Progress Note Signed Patient: Bradley Jensen MR#: [id number] : 2000 Acct:[id number] Age/Sex: 21 / F Adm Date: 3 Loc: Room: [address] [place] [address] Type: ADM IN Attending Dr: Meghan Rizvi DO Copies to: ~ Date of Service: 10/02/2022 OB - PN: Subj Subjective Post Delivery Day #: Day 1 Patient comments: no complaints (per RN-Pt is nonverbal to me) baby status: doing well [place] feeding status: exclusively breast feeding OB - [...] % (Auto) 75.9, Lymph % (Auto) 13.8, Snyder %(Auto) 9.5, Eos % (Auto) 0.3, Baso % (Auto) 0.5, Nucleat RBC Rel Count 0.1, Neut# (Auto) 13.5 H, Lymph # (Auto) 2.4, Snyder # (Auto) 1.7 H, Eos # (Auto) 0.1, Baso# (Auto) 0.1 10/01/22 09:38: Blood Type Recheck A Positive 10/01/22 06:30: RPR w/Rflx to Titer Non reactive Assessment/Plan Plan day: 1 Vaginal delivery plan (if applicable): routine care Documented By: PETERSON Phillips 10/02/22 09 58 Signed By: <Electronically signed by PETERSON Richey> 10/02/22 0959 [facility] Work Phone: 1(133) 890-562605-04-2023 [facility] noteNo assessment information availableGalion Hospital Work Phone: evaluation note* Diagnosis Onset Date Resolution Status Status post vaginal delivery acute [facility] Work Phone: evaluation note* Diagnosis Onset Date Resolution Status Orthostatic hypotension acut e Pre-syncope acute [facility] Work Phone: evaluation note* Diagnosis Onset Date Resolution Status Orthostatic hypotension acut e Pre-syncope acute Orthostatic hypotension acut e Pre-syncope [facility] Work Phone: evaluation note* Diagnosis Encounter for gynecological examination without abnormal finding- Primary Screening for malignant neoplasm of cervix Screening for malignant neoplasm of the cervix Encounter for surveillance of contraceptive pills documented in this encounter [facility] HealthcareEvaluation note* Diagnosis Onset Date Resolution Status Admit Date Orthostatic hypotension acute F ebruary 2024 10:35am Pre-syncope acute July 10:35am [facility] Work Phone: Evaluation note* Diagnosis Onychomycosis- Primary Dermatophytosis of nail Toe pain, left Pain in soft tissues of limb documented in this encounter [facility] HealthcareHospital Discharge instructions Additional Instructions Please return 09/19 at 10:00 for Non-stress test at [facility] Work Phone: Hospital Discharge instructions Additional Instructions If your symptoms return/worsen or you develop any further concerns or symptoms please see your doctor or return to the emergency department immediately.[facility] Work Phone: Hospital Discharge instructions Additional Instructions Follow-up with your primary care doctor. You may need to be referred to the video game tester. We are happy to see you if there are any significant problems or concerns. The most likely cause for the bleeding with bowel movements is bleeding from internal hemorrhoids. If this persists, you may need specialist referral for endoscopy.[facility] Work Phone: Hospital Discharge instructions Additional Instructions Follow-up with your primary care doctor Return to ED if develop worsening symptoms or concernsGal[facility] Work Phone: Summary Purpose Family History No Family History Records Found Relationship Condition Age at Onset Recorded Date/T mario Not Specified Hypertension Unknown Gout Unknown Vertigo Unknown father Heart disease Unknown Relationship Condition Age at Onset Recorded Date/T [...] Orthostatic hypotens ion Pre-syncope Orthostatic hypotension Pre-syncope Chief Complaint lightheaded, chest p ain, sore throat Chief Complaint lightheaded, chest p ain, sore throat 6 Months Reason for Visit Orthostatic hypotens ion Pre-syncope Chief Complaint lightheaded, chest p ain, sore throat 6 Months r42 r55 r29.2 Reason for Visit Orthostatic hypotens ion Pre-syncope Chief Complaint 6 Months r42 r55 r29.2 vomiting Reason for Visit Orthostatic hypotens ion Pre-syncope Chief Complaint Admit Date vomiting April 01, 2024 1 :58pm R wrist pain May 18, 2024 10:30am R55 E61.1 June 12, 2024 1 1:44am Chief Complaint Admit Date vomiting April 01, 2024 1 :58pm R wrist pain May 18, 2024 10:30am R55 E61.1 June 12, 2024 1 1:44am vomiting,diarrhea June 16, 2024 6 :46pm Chief Complaint Admit Date R wrist pain May 18, 2024 10:30am R55 E61.1 June 12, 2024 1 1:44am vomiting,diarrhea June 16, 2024 6 :46pm 6 months July 10, 2024 10:35am Reason for Visit Admit Date Orthostatic hypotension July 10 10:35am Pre-syncope July 10, 2024 10:35am Chief Complaint Admit Date R wrist pain May 18, 2024 10:30am R55 E61.1 June 12, 2024 1 1:44am vomiting,diarrhea June 16, 2024 6 :46pm 6 months July 10, 2024 10:35am [email or web address] July 17, 2024 7:22am Chief Complaint Admit Date R wrist pain May 18, 2024 10:30am R55 E61.1 June 12, 2024 1 1:44am vomiting,diarrhea June 16, 2024 6 :46pm 6 months July 10, 2024 10:35am [email or web address] July 17, 2024 7:22am R07.9 R06.02 August 04, 2024 9:25 am Chief Complaint Admit Date R wrist pain May 18, 2024 10:30am R55 E61.1 June 12, 2024 1 1:44am vomiting,diarrhea June 16, 2024 6 :46pm 6 months July 10, 2024 10:35am [email or web address] July 17, 2024 7:22am R07.9 R06.02 August 04, 2024 9:25 am B35.1 August 14, 2024 10: 38am Chief Complaint Admit Date 6 months July 10, 2024 10:35am [email or web address] July 17, 2024 7:22am R07.9 R06.02 August 04, 2024 9:25 am B35.1 August 14, 2024 10: 38am B35.1 September 18, 2024 12: 15pm Chief Complaint Admit Date 6 July 10, 2024 10:35am [email or web address] July 17, 2024 7:22am R07.9 R06.02 August 04, 2024 9:25 am B35.1 August 14, 2024 10: 38am B35.1 September 18, 2024 12: 15pm [id number] September 20, 2024 9:4 3am Additional Source Comments INFORMATION SOURCE (unrecogn ized section and content) DATE CREATED AUTHOR 01/24/2020 [facility] DATE CREATED AUTHOR AUTHOR'S ORGANIZ ATION 02/04/2023 [facility] DATE CREATED AUTHOR AUTHOR'S ORGANIZ ATION 09/17/2024 [facility] EPIC DATE CREATED AUTHOR AUTHOR'S ORGANIZ ATION 10/24/2024 [facility] Care Teams (unrecognized sec tion and content) Team Status: Inactive Member Role Status Dates Calli Blanc APRN PRODUCT DESIGN SPECIALIST-C Primary Care Provide r Active Dariana Richey MD Attending Provider Active Team Status: Active Member Role Status Dates Calli Blanc APRN PRODUCT DESIGN SPECIALIST-C Primary Care Provide r Active Team Status: [...] Services [facility] Primary Care Provider Active Boy Ritter MD Attending Provider Active Team Status: Inactive Member Role Status Dates Services [facility] Primary Care Provider Active Dariana Richey MD [facility] Active Team Status: Inactive Member Role Status Dates Services [facility] Primary Care Provider Active Meghan Rizvi DO Attending Provider Active Team Status: Inactive Member Role Status Dates Services [facility] Primary Care Provider Active Celeste Rinkes , DO Attending Provider Active Team Status: Inactive Member Role Status Dates Services [facility] Primary Care Provider Active Meghan Rizvi DO Admit Provider, Attending Provid er Active Team Status: Inactive Member Role Status Dates Services [facility] Primary Care Provider Active Calli Blanc APRN PRODUCT DESIGN SPECIALIST-C Attending Provider Wale jones Team Status: Inactive Member Role Status Dates Services [facility] Primary Care Provider Active Pool Diaz DO Emergency Provider Active Team Status: [...] Health Primary Care Provider Active Start: August 24, 2023 End: August 25, 2023 Sergio Zepeda Jr, MD Emergency Provider Active Start: August 24, 2023 End: August 25, 2023 Team Status: Inactive Member Role Status Dates Services [facility] Primary Care Provider Active Start: September 08, 2023 End: September 08, 2023 Cuco Nails MD Referring Provider Activ e Start: September 08, 2023 End: September 08, 2023 Dannielle Addison MD Attending Provider Active Sta rt: September 08, 2023 End: September 08, 2023 Team Status: Inactive Member Role Status Dates Services [facility] Primary Care Provider Active Start: September 22, 2023 End: September 22, 2023 Cuco Nails MD Attending Provider Activ e Start: September 22, 2023 End: September 22, 2023 Team Status: Active Member Role Status Dates Cuco Nails MD Chief Hospital Administrator Active Services [facility] Primary Care Provider Active Team Status: Inactive Member Role Status Dates Services [facility] Primary Care Provider Active Start: January 01, 2024 End: January 01, 2024 Liz Roman MD Emergency Provider Active St art: January 01, 2024 End: January 01, 2024 Team Status: Inactive Member Role Status Dates Services Family [facility] Primary Care Provider Active Start: January 24, 2024 End: January 24, 2024 Cuco Nails MD Attending Provider Activ e Start: January 24, 2024 End: January 24, 2024 Team Status: Inactive Member Role Status Dates Services [facility] Primary Care Provider Active Start: February 05, 2024 End: February 05, 2024 WANDER LawtonC Attending Provider Active Start: February 05, 2024 End: February 05, 2024 Team Status: Inactive Member Role Status Dates Services [facility] Primary Care Provider Active Start: April 01, 2024 End: April 01, 2024 Maryellen Colunga DO Emergency Provider Active Start: April 01, 2024 End: April 01, 2024 Team Status: Active Member Role Status Dates Cuco Nails MD Chief Hospital Administrator Active Services [facility] Primary Care Provider Ac tive Team Status: Active Member Role Status Dates Services [facility] Primary Care Provider Active Start: May 18, 2024 Frankie Werner Attending Provider Active Start: May 18, 2024 Team Status: Inactive Member Role Status Dates Services [facility] Primary Care Provider Ac tive Start: June 12, 2024 End: June 12, 2024 WANDER ArchibaldC Attending Provider Active Start: June 12, 2024 End: June 12, 2024 Team Status: Inactive Member Role Status Dates [facility] Primary Care Provider Ac tive Start: June 16, 2024 End: June 16, 2024 Terry Snowden DO Emergency Provider Active Sta rt: June 16, 2024 End: June 16, 2024 Team Status: Inactive Member Role Status Dates Services [facility] Primary Care Provider Active Start: May 18, 2024 End: May 18, 2024 Frankie Werner Attending Provider Active Start: May 18, 2024 End: May 18, 2024 Team Status: Inactive Member Role Status Dates Cuco Nails MD Attending Provider Activ e Start: July 10, 2024 End: July 10, 2024 Services [facility] Primary Care Provider Ac tive Start: July 10, 2024 End: July 10, 2024 Team Status: Inactive Member Role Status Dates Services [facility] Primary Care Provider Ac tive Start: July 17, 2024 End: July 17, 2024 Ruby shipley , PRODUCT DESIGN SPECIALIST-C Attending Provider Active Start: July End: July 17, 2024 Team Status: Inactive Member Role Status Dates [facility] Primary Care Provider Ac tive Start: August 04, 2024 End: August 04, 2024 Ruby shipley , PRODUCT DESIGN SPECIALIST-C Attending Provider Active Start: August 04 End: August 04, 2024 Team Status: Inactive Member Role Status Dates [facility] Care Provider Ac tive Start: August 14, 2024 End: August 14, 2024 Wagner Rosario DPM Attending Provider Active Start: August 14, 2024 End: August 14, 2024 Batch Attendant Relationship Specialty Start Date End Date Sandee Love NP [address], [address] [address] PCP - [facility] 05/31/24 Unallocated, Gayla Provider, [place] [address] PCP - General [facility] Medicine 08/08/24 Batch Attendant Relationship Specialty Start Date End Date Sandee Love PRODUCT DESIGN SPECIALIST [address], [address] [address] PCP - [facility] 05/31/24 Unallocated, Gayla ProviderMD [address] [place] [id number] PCP - General [facility] Medicine 08/08/24 Team Status: Inactive Member Role Status Dates [facility] Primary Care Provider Ac tive Start: September 18, 2024 End: September 18, 2024 Wagner Rosario DPM Attending Provider Active Start: September 18, 2024 End: September 18, 2024 Team Status: Inactive Member Role Status Dates [facility] Primary Care Provider Ac tive Start: September 20, 2024 End: September 20, 2024 TARIQ Fournier Attending Provider Active Start: September 20, 2024 End: September 20, 2024 Goals (unrecognized section and content) Goals may [...] may be documented in an alternate section Reason for Visit (unrecogniz ed section and content) Reason Comments Gynecologic Exam LMP: pt cannot recal l the date, states this month already Periods regular moderate bleeding lasts 6 days control: Marybel Jarvis pt would like refillsDenies bowel/ urinary concerns. Denies breast concerns. Reason Comments Follow-up 30d lamisil FOR RECORDS PERTAINING TO PATIENTS WHO ARE [...] BE BASED ON THE PRIMARY CLINICAL RECORDS. [facility]. provides no warranty or guarantee of the accuracy or completeness of information in this document.
--- OUTSIDE RECORDS SUMMARY | 2024-11-03 20:23 | XMS_ITS | Clinical Summary ---
Author Organization [facility] Healthcare Address [address] [place] [address] Care Team Providers Care Towel Folder Name Role Phone Laura Ham RN FIRST ASSISTANT Unavailable [phone] Unallocated, [facility] Provider MD Primary Care Provi tom Allergies No known active allergies Medications norethindrone-ethi nyl estradiol ([facility] 06/19) 1-20 MG-MCG tabletIndications: Encounter for surveillance of contraceptive pills Take 1 tablet by mouth in the morning. 84 tablet 3 4 01/18/20 25 Active terbinafine (LamISIL) 250 MG tabletIndications: Onychomycosis of Toenails Take 1 tablet (250 mg) by mouth Daily 30 tablet 1 5 10/16/19 25 Active Problems Problem Noted Date Diagnosed Date Vasovagal syncope 09/29/2023 Encounters Date Type Department Care Team Description 09/15/2024 9:30 AM EDT Office Visit [facility] [address] [place] [phone] Wagner Rosario DPM Onychomycosis (Primary Dx); Toe pain, left 09/15/2024 Bamboo flowsheet [facility] [address] [place] [address] Wagner Rosario DPM 08/11/2024 11:20 AM EDT Office Visit [facility] [address] [place] [address] Wagner Rosario DPM Onychomycosis (Primary Dx); Toe pain, left 08/11/2024 Bamboo flowsheet [facility] [address] [place] [phone] Wagner Rosario DPM from Last 3 Months Family History Medical History Relation Name Comments illicit drug use Father Arthritis Mother Gout Mother Hypertension Mother Thyroid disease Mother Asthma Other Cancer Other Diabetes Other Heart disease Other Hypertension Other No Known Problems Sister Relation Name Status Comments Father Alive Mother Other Sister 1 healthy Social History Tobacco Use Types Packs/Day Years Used Date Smoking Tobacco: Never Smokeless Tobacco: Never Tobacco Cessation:Counseling Given: Yes Alcohol Use Standard Drinks/Week Comments Not Currently 0 (1 standard drink = 0.6 oz pure alcohol) caffeine intake : soda/pop occasionally PHQ-2 Answer Date Recorded Patient Health Questionnaire-2 Score 0 01/18/2024 [place] Depression Scale Answer Date Recorded [place] Depression Scale Total 0 12/22/2022 The thought of harming myself has occurred to me . Never 12/22/2022 Comments No Sex and Gender Information Value Date Recorded Sex Assigned at Not on file Legal Sex Female 7:22 PM EDT Gender Identity Not on file Sexual Orientation Not on file Last Filed Vital Signs Vital Sign Reading Time Taken Comments Blood Pressure 112/64 01/18/2024 10:09 AM EDT Pulse 68 09/29/2023 8:45 AM EDT Temperature - - Respiratory Rate 16 09/15/2024 9:44 AM EDT Oxygen Saturation 97% 09/29/2023 8:45 AM EDT Inhaled Oxygen Concentration - - Weight 70.8 kg (156 lb) 09/15/2024 9:44 AM EDT Height 167.6 cm (5' 6 ) 09/15/2024 9:44 AM EDT Body Mass Index 25.18 09/15/2024 9:44 AM EDT Plan of Treatment Upcoming Encounters Date Type Department Care Team (Late st Contact Info) Description 11/17/2024 10:30 AM EDT Office Visit [facility] [address] [place] [phone] Wagner Rosario DPM [address] [address] 01/31/2025 11:30 AM EDT Office Visit [facility] [address] [place] [address] JoannaCeleste wade, DO [address] [place] [address] Health Maintenance Due Date Last Done Comments Medicare Annual Wellness (AWV) 01/17/2025 01/18/2024 Influenza Vaccine Completed 06/08/2024, 03/23/2019, 03/05/2011 Procedures Procedure Name Priority Date/Time Associated Diagnosis Comments ALANINE AMINOTRANSFERASE Routine 025 12:22 PM EDT Onychomycosis ASPARTATE AMINO TRANSFERASE Routine 09/18/2024 12:22 PM EDT Onychomycosis ALANINE AMINOTRANSFERASE Routine 025 10:45 AM EDT Onychomycosis ASPARTATE AMINO TRANSFERASE Routine 08/14/2024 10:45 AM EDT Onychomycosis from Last 3 Months Results * ALANINE AMINOTRANSFERASE (09/18/2024 12:22 PM EDT) Only the most recent of2 resultswithin the time period is included. ALANINE AMINOTRANSFERASE 24 7 - 52 U/L 09/18/2024 1:24 PM EDT [facility] Other Topography unknown / Unknown 09/18/2024 12:22 PM EDT 09/18/2024 12:22 PM EDT Wagner Rosario DPEdis LAB BLOOD ORDERABLES Final Result [facility] [address] [place] [address], [facility] [address] [place] [address] * ASPARTATE AMINO TRANSFERASE (09/18/2024 12:22 PM EDT) Only the most recent of2 resultswithin the time period is included. ASPARTATE AMINO TRANSFERASE 17 13 - 39 U/L 09/18/2024 1:24 PM EDT [facility] Other Topography unknown / Unknown 09/18/2024 12:22 PM EDT 09/18/2024 12:22 PM EDT Wagner Rosario DPM LAB BLOOD ORDERABLES Final Result Performing Organization Address City/State/[facility] Co de Phone Number [facility] [address] [place] [address], [facility] [address] [facility] [place] [address] from Last 3 Months Insurance MEDICAID [place] MEDICARE Care Teams Towel Folder Relationship Specialty Start Date End Date Laura Ham NP [address], [address] [address] PCP - [facility] 05/31/24 Unallocated, [facility] Provider, [address] [place] [address] PCP - General Family Medicine 08/08/24
--- OUTSIDE RECORDS SUMMARY | 2024-11-03 20:23 | XMS_ITS | Encounter Summary ---
Author Organization [facility] Address [address] [place] [address] Care Team Providers Care Diamond Saw Operator Name Role Phone Unallocated, [facility] Provider Primary Care Provi tom Rosa Blanc CLAIMS SERVICE ADJUSTOR Unavailable Laura Ham CLAIMS SERVICE ADJUSTOR Unavailable Unallocated, [facility] Provider Primary Care Provi tom Encounter Details Date Type Department Care Team (Late Contact Info) Description 12/22/2022 Abstract [facility] [address] [phone] Meghan Rizvi, DO [address] [address] Social History Tobacco Use Types Packs/Day Years Used Date Smoking Tobacco: Never Smokeless Tobacco: Never Tobacco Cessation:Counseling Given: Not Answered Alcohol Use Standard Drinks/Week Comments Not Currently 0 (1 standard drink = 0.6 oz pure alcohol) caffeine intake : soda/pop occasionally [place] Depression Scale Answer Date Recorded [place] Depression Scale Total 0 12/22/2022 The thought of harming myself has occurred to me . Never 12/22/2022 Comments Unknown Sex and Gender Information Value Date Recorded Sex Assigned at Not on file Legal Sex Female 7:22 PM EDT Gender Identity Not on file Sexual Orientation Not on file documented as of this encounter Plan of Treatment Upcoming Encounters Date Type Department Care Team (Late Contact Info) Description 11/17/2024 10:30 AM EDT Office Visit [facility] [address] [place] [phone] Wagner Rosario, DPM [address] [facility] [address] [place] [address] 01/31/2025 11:30 AM EDT Office Visit [facility] [address] [place] [address] Celeste Alanis DO [address] [facility] [address] [place] [address] documented as of this encounter Visit Diagnoses Not on filedocumented in this encounter Care Teams Diamond Saw Operator Relationship Specialty Start Date End Date Unallocated, Gayla Carson MD PCP - General 12/22/22 01/17/24 Laura Ham, CLAIMS SERVICE ADJUSTOR [address], [facility] [address] [place] [phone] PCP - [facility] 05/31/24 Unallocated, Gayla Carson MD [address] [place] [address] PCP - General Family Medicine 08/08/24 Rosa Blanc, LEENA [address] [place] [place] [address] Primary Care Provider Family Medicine 09/29/23 12/22/23 documented as of this encounter
--- OUTSIDE RECORDS SUMMARY | 2024-11-03 20:23 | XMS_ITS | Patient Health Record ---
[facility] Organization [facility] Address [address] [place] [address] Care Team Providers Care Contact Lens Cutter Name Role Phone Ruby Matt Primary Care Provider Calli Blanc Unavailable Otto Fowler Unavailable [phone] Ruby Melgoza Unavailable Della Villarreal Unavailable [phone] Digna Dee Unavailable [phone] Allergies No Known Allergies Results Component Value Reference Range Notes Dipstick and Microscopic Reviewed date:06/12/2024 07:49:30 PM Interpretation: Performing Lab:, [facility], [address] [place] Notes/Report: Reason for Exam Pre-syncope Name Collection Type:: Voided Color,Urine Light-Yellow Yellow Appearance,Urine Clear Clear Specificy [place],Urine 1.008 1.001-1.030 pH,Urine 6.0 5.0-9.0 Leukocyte Esterase,Urine 2+ Negative Nitrite,Urine Negative Negative Protein,Urine Negative Negative Glucose,Urine (UA) Normal Normal Ketones,Urine Negative Negative Urobilinogen,Urine Normal Normal Bilirubin,Urine Negative Negative Occult Blood,Urine Negative Negative RBC,Urine 1-2 0-4 [HPF] WBC,Urine 5-9 0-4 [HPF] Squamous Epithelial Cell,Urine 5-9 0-2 [HPF] Bacteria,Urine Rare None Seen Hyaline Casts,Urine None 0-8 RBVBP - Bronchitis (HTRx) Reviewed date:04/04/2024 11:09:57 AM Interpretation: Performing Lab: Notes/Report: Real-Time polymerase chain reaction (TaqMan qPCR) was utilized for detection for all tested organisms and resistance genes. COVID-19 testing separately performed using [employer] COVID-19 Combo kit. Initiation of antimicrobial therapy prior to testing may affect results and can lead to the detection of non-living microorganisms. Detection of microbes must be correlated with current/recent antibiotic usage and patient signs and symptoms. Microbial sensitivity testing is not performed at this lab. Rewind Operator to CFU/mL equivalent thresholds were established based on studies using known CFU/mL urine specimens performed at [facility] in [place], [place]. Testing performed by [facility] ([address], [place] [address]; CLIA# [id number]; Support [employer] Lexy Casey, PhD, [facility] This test was developed, and its performance characteristics determined by [facility]. It has not been cleared or approved by the FDA. However, such approval/clearance is not required, as the laboratory is regulated and qualified under CLIA to perform high-complexity testing. This test is used for clinical purposes and should not be regarded as investigational or for research. *Approximate copies of target nucleic acid per &micro;L (Low: <2,500 copies/&micro;L, Moderate: 2,500-50,000 copies/&micro;L, High: >50,000 copies/&micro;L) National Infectious Disease Consensus Data Potentially effective oral antibiotics, based on presence of detected microbes, antimicrobial resistance genes, and national antimicrobial sensitivity data (see Summary Antibiogram). COVID-19 Coronavirus (SARS-CoV-2) Negative COVID-19 Coronavirus (SARS-CoV-2) Not Detected Enterovirus D68 0.000 23.000 - 32.117 ppm Enterovirus D68 Not Detected 23.000 - 32.117 ppm Haemophilus influenzae 0.000 19.961 - 24.689 pp m Haemophilus influenzae Not Detected 19.961 - 24.689 pp m Human metapneumovirus 0.000 23.000 - 32.210 ppm Human metapneumovirus Not Detected 23.000 - 32.210 ppm Influenza virus B 0.000 23.000 - 30.081 ppm Influenza virus B Not Detected 23.000 - 30.081 ppm Moraxella catarrhalis 0.000 19.961 - 24.689 ppm Moraxella catarrhalis Not Detected 19.961 - 24.689 ppm Mycoplasma pneumoniae 0.000 19.961 - 24.689 ppm Mycoplasma pneumoniae Not Detected 19.961 - 24.689 ppm Parainfluenza virus (types 1, 2, 3, 4) 0.000 23.000 - 31.313 ppm Parainfluenza virus (types 1, 2, 3, 4) Not Detected 23.000 - 31.313 ppm Respiratory syncytial virus (RSVB_Vi99990015_po) 0.000 23.000 - 31.722 ppm Respiratory syncytial virus (RSVB_Vi99990015_po) Not Detected 23.000 - 31.722 ppm Streptococcus pneumoniae 0.000 19.961 - 24.689 ppm Streptococcus pneumoniae Not Detected 19.961 - 24.689 ppm Chlamydia pneumoniae 0.000 19.961 - 24.689 ppm Chlamydia pneumoniae Not Detected 19.961 - 24.689 ppm Bordetella pertussis, parapertussis, bronchiseptica 0.000 19.961 - 24.689 ppm Bordetella pertussis, parapertussis, bronchiseptica Not Detected 19.961 - 24.689 ppm Coronaviruses (229E, NL63, HKU1, OC43) (g_Betacoronavirus_1_g_coro navirus_HKU1) 0.000 23.000 - 31.416 ppm Coronaviruses (229E, NL63, HKU1, OC43) (g_Betacoronavirus_1_g_coro navirus_HKU1) Not Detected 23.000 - 31.416 ppm Rhinovirus/Enterovirus (RV_2of2_Vi99990017_po) 21.878 23.000 - 32.985 ppm Rhinovirus/Enterovirus (RV_2of2_Vi99990017_po) Detected 23.000 - 32.985 ppm Adenovirus (AdV_1of2_Vi99990001_po) 0.000 23.000 - 31.943 ppm Adenovirus (AdV_1of2_Vi99990001_po) Not Detected 23.000 - 31.943 ppm XR foot RT min 3V* Reviewed date:09/22/2024 08:25:30 AM Interpretation: Performing Lab: Notes/Report: [address] [address] XRay Report Signed Patient: Niraj Jensen MR#: [id number] 783 : 2000 Acct:[id number] Age/Sex: 23 / F ADM Date: 09/20/24 Loc: XD Room: Type: [facility] CLI Attending Dr: Ruby Matt STEAM ROOM ATTENDANT-C Copies to: TARIQ Fournier Ordering Provider: TARIQ [...] Rodriguez Cox M.D.09/20/2024 5:23 PM Dictation Location: [place] [address] Transcribed By: [facility] 09/20/24 1723 Dictated By: Rodriguez Cox MD 09/20/24 1722 Signed By: <Electronically signed by Rodriguez Cox MD in OV> 09/20/[address] sinus wo con Reviewed date:08/04/2024 12:04:35 PM Interpretation: Performing Lab: Notes/Report: [facility] Main [address] [address] [address] Scan Report Signed Patient: Niraj Jensen MR#: [id number] 783 : 2000 Acct:[id number] Age/Sex: 23 / F ADM Date: 08/04/24 Loc: CT Room: Type: [facility] CLI Attending Dr: Ruby Melgoza STEAM ROOM ATTENDANT-C Copies to: Ruby Melgoza Ordering Provider: Ruby Melgoza Date of Service: [...] Rodriguez Cox M.D.08/04/2024 11:45 AM Dictation Location: [place] [address] Transcribed By: [facility] 08/04/24 1145 Dictated By: Rodriguez Cox MD 08/04/24 1143 Signed By: <Electronically signed by Rodriguez Cox MD in OV> 08/04/24 1145 XR ribs LT min 3V w CXR1V* Reviewed date:07/17/2024 03:50:14 PM Interpretation: Performing Lab: Notes/Report: [facility] Main [place] [address] [place] [address] XRay Report Signed Patient: Niraj Jensen MR#: [id number] 783 : 2000 Acct:[id number] Age/Sex: 23 / F ADM Date: 07/17/24 Loc: XD Room: Type: [facility] Attending Dr: Ruby Melgoza STEAM ROOM ATTENDANT-C Copies to: Ruby Melgoza Ordering Provider: Ruby Melgoza Date of Service: 07/17/24 XR/XR ribs LT [...] Dwight Ellington M.D.07/17/2024 3:10 PM Dictation Location: [facility] Transcribed By: [facility] 07/17/24 1510 Dictated By: Dwight Ellington DO 07/17/24 1509 Signed By: <Electronically signed by Dwight Ellington DO in OV> 07/17/24 1510 Iron and TIBC Profile Reviewed date:06/13/2024 04:15:34 PM Interpretation: Performing Lab: Notes/Report: Reason for Exam Pre-syncope Reason for Exam Pre-syncope;Low iron Iron 205 50-212 ug/dL Total Iron Binding Capacity 381 255-450 ug/dL % Iron Saturation 53.8 20-50 % Transferrin 272 203-362 mg/dL Complete Blood Count Auto Di ff Reviewed date:06/13/2024 04:12:11 PM Interpretation: Performing Lab:, [facility], [address] [place] Notes/Report: Reason for Exam Pre-syncope;Low iron White Blood Count 5.7 3.8-11.6 10*3/uL Uncorrected WBC 5.7 3.8-11.6 10*3/uL Red Blood Count 4.52 3.60-5.00 10*6/uL Hemoglobin 13.5 11.8-15.4 g/dL Hematocrit 40.6 34.0-46.4 % Mean Corpuscular Volume 89.7 80-100 fL Mean Corpuscular Hemoglobin 29.9 24.7-34.3 pg Mean Corpuscular HGB Conc 33.4 32.0-35.0 g/dL Red Cell Distribution Width 13.7 11.9-15.3 % Platelet Count 226 150-450 10*3/uL Mean Platelet Volume 9.9 6.3-10.7 fL Neutrophils % (Auto) 49.9 . % Lymphocytes % (Auto) 40.0 . % Monocytes % (Auto) 8.0 . % Eosinophils % (Auto) 1.1 . % Basophils % (Auto) 1.0 . % NRBC% 0.1 0-0.5 /100{WBC} Neutrophils # (Auto) 2.8 1.8-7.7 10*3/uL Lymphocytes # (Auto) 2.3 1.00-4.8 10*3/uL Monocytes # (Auto) 0.5 0.0-0.8 10*3/uL Eosinophils # (Auto) 0.1 0.0-0.45 10*3/uL Basophils # (Auto) 0.1 0.0-0.2 10*3/uL Vit. B12/Folate Profile Reviewed date:06/13/2024 04:15:05 PM Interpretation: Performing Lab: Notes/Report: Reason for Exam Pre-syncope Reason for Exam Pre-syncope;Low iron Vitamin B12 212 180-914 pg/mL Folate 8.2 >5.9 ng/mL Folate reference range: >5.9 ng/ml The WHO technical consultation on folate and vitamin b12 deficiencies has determined that folate concentrations less than 4 ng/ml are considered deficient. Thyroid Stimulating Hormone Reviewed date:06/13/2024 04:12:01 PM Interpretation: Performing Lab: Notes/Report: Reason for Exam Pre-syncope Reason for Exam Pre-syncope;Low iron Thyroid Stimulating Hormone 2.41 0.45-5.33 u[i U]/mL Free T4 (Free Thyroxine) Reviewed date:06/13/2024 04:15:11 PM Interpretation: Performing Lab: Notes/Report: Reason for Exam Pre-syncope Reason for Exam Pre-syncope;Low iron Free T4 (Free Thyroxine) 0.79 0.61-1.12 ng/dL Triiodothyronine (T3) Free Reviewed date:06/13/2024 04:12:05 PM Interpretation: Performing Lab:, [facility], [address] [place] Notes/Report: Reason for Exam Pre-syncope Triiodothyronine (T3) Free 3.32 2.50-3.90 pg/m L Comprehensive Metabolic Pane l Reviewed date:06/13/2024 04:11:57 PM Interpretation: Performing Lab:, [facility], [address] [place] Notes/Report: Reason for Exam Pre-syncope Reason for Exam Pre-syncope;Low iron Glucose 89 70-100 mg/dL Random Glucose Reference Range is dependent on time and content of last meal. Glucose of more than 200 mg/dL in a nonstressed, ambulatory subject supports the diagnosis of Diabetes Mellitus. ADA recommended reference range Blood Urea Nitrogen 8 7-25 mg/dL Creatinine 0.98 0.60-1.20 mg/dL Sodium 140 136-145 mmol/L Potassium 4.4 3.5-5.1 mmol/L Chloride 106 98-107 mmol/L Carbon Dioxide 26.2 21.0-31.0 mmol/L Calcium 9.6 8.6-10.3 mg/dL Total Protein 7.5 6.4-8.9 g/dL Albumin Level 4.7 3.5-5.7 g/dL Globulin 2.8 Albumin/Globulin Ratio 1.7 Bilirubin,Total 0.6 0.3-1.0 mg/dL Aspartate Amino Transferase 16 13-39 U/L Alanine Aminotransferase 15 7-52 U/L Alkaline Phosphatase 29 34-104 U/L Estimated GFR >60.0 Anion Gap 12.2 6.0-15.0 meq/L Ferritin Reviewed date:06/13/2024 04:11:50 PM Interpretation: Performing Lab: Notes/Report: Reason for Exam Pre-syncope Reason for Exam Pre-syncope;Low iron Ferritin 49.9 11.0-306.8 ng/mL HCG,Urine Reviewed date:06/13/2024 01:05:41 PM Interpretation: Performing Lab: Notes/Report: Reason for Exam Pre-syncope Name Collection Type:: Voided HCG Qualitative,Urine Negative Urine Culture Reviewed date:06/14/2024 09:17:29 AM Interpretation: Performing Lab:, [facility], [place] Notes/Report: Reason for Exam Pre-syncope Urine A1C with Estimated Average G darrel Reviewed date:06/13/2024 04:11:38 PM Interpretation: Performing Lab:, [facility], [place] Notes/Report: Reason for Exam Pre-syncope Hemoglobin A1C 5.0 4.3-5.6 % Increased risk for diabetes: 5.7 - 6.4 diabetes: >6.4 glycemic control for adults with diabetes: <7.0 Estimated Average Glucose 97 CT chest wo con Reviewed date:08/04/2024 01:52:09 PM Interpretation: Performing Lab: Notes/Report: [facility] Main [place] [address] [place] [address] CT Scan Report Signed Patient: Niraj Jensen MR#: [id number] 783 : 2000 Acct:[id number] Age/Sex: 23 / F ADM Date: 08/04/24 Loc: CT Room: Type: [facility] Attending Dr: Ruby Melgoza STEAM ROOM ATTENDANT-C Copies to: Ruby Melgoza Ordering Provider: Ruby Melgoza Date of Service: [...] Rodriguez Cox M.D.08/04/2024 11:57 AM Dictation Location: [place] [address] Transcribed By: [facility] 08/04/24 1157 Dictated By: Rodriguez Cox MD 08/04/24 1145 Signed By: <Electronically signed by Rodriguez Cox MD in OV> 08/04/24 1157 Reason For Referral Reason *SCHEDULED 08/11 Fu ngal changes to 2nd toe nail on left foot. Needs eval and treat. Growing over into toe. *FAXED 07/26 Diagnosis 1 Toenail fungus (B35. 1) Diagnosis 2 Toenail deformity (L 60.8) Referral Organization [facility] Referring Provider First Name Ruby Referring Provider Last Name Abad Referring Provider Speciality Nurse Ayla valiente Referred Provider JAMES DAVIS Referred Provider Specialty Podiatry Referral Priority Routine Medications Medication SIG (Take, Route, Frequency, Duration) Notes Start Date End Date Status Terbinafine HCl 250 MG Oral for 30 Days Active Polyethylene Glycol 3350 17 GM/SCOOP 1 scoop mixed with 8 ounces of fluid Orally Once a day for 30 days 09/27/2024 11/26/2024 Active Albuterol Sulfate HFA 108 (90 Base) MCG/ACT 2 puff as needed Inhalation every 4-6 hrs for 30 days As needed PRN 04/03/2024 Not-Taking Ondansetron 4 MG 1 tablet on the tong ue and allow to dissolve Orally every 4-6 hours PRN for 10 days PRN 01/04/2024 Not-Taking Marybel FE 06/19 1-20 MG-MCG Oral for 84 Days Active Social History Tobacco Use: Social History Observation Description Date Details (start date - stop date) Never Smoker NA - NA Sexual Hx: Question Answer Notes Had sex [...] Problem Status W/U Status Risk Notes Problem 965803891 Other headache syndrome (G44.89) Active confirmed Problem 96680110 Amenorrhea (N91.2) Active confirmed Problem 263695244 GERD without esophagitis (K21.9) Active confirmed Problem 20206210 Migraine without status migrainosus, not intractable, unspecified migraine type (G43.909) Active confirmed Problem 176817086 Insomnia, unspecified type (G47.00) Active confirmed Problem 461929420 Decreased hearing of right ear (H91.91) Active confirmed Vital Signs Heart Rate 95 /min 10/26/2024 Temperature 98.2 degrees Fahrenheit 10/26/2024 Respiratory Rate 18 /min 10/26/2024 Blood pressure diastolic 74 mm Hg 10/26/2024 Oximetry 98 % 10/26/2024 Height 66 in 10/26/2024 Blood pressure systolic 124 mm Hg 10/26/2024 Weight 117 lbs 10/26/2024 BMI 18.88 kg/m2 10/26/2024 Encounters Encounter Location Date Provider Diagnosis [address] [address] 09/27/2024 Ruby Vernell Acute pain of right foot M79.671 ; Vaso vagal episode R55 and Chronic constipation K59.[address] [address] 01/04/2024 Otto Fowler COVID-19 U07.1 [facility] [address] [place] [address] 06/07/2024 Ruby Melgoza Pre-syncope R55 and Low iron E61.1 [facility] [address] [place] [address] 07/18/2024 Ruby Melgoza Rib pain on left side R07.81 [facility] [address] [place] [address] 07/28/2024 Ruby Melgoza Other infective acute otitis externa of right ear H60.391 ; Dizziness R42 ; Rib pain on left side R07.81 ; Right ear pain H92.01 ; Pain of right mastoid H92.01 ; Other headache syndrome G44.89 ; Near syncope R55 and Decreased hearing of right ear H91.91 [facility] [address] [place] [address] 08/23/2024 Ruby Melgoza Acute diarrhea R19.7 and Mucosal irritation of oral cavity K13.[address] [address] 09/19/2024 Ruby Matt Acute pain of right foot M79.671 and Vitamin B12 deficiency E53.8 [facility] [address] [place] [address] 09/26/2024 Digna Dee Encounter for dental examination and cleaning with abnormal findings Z01.21 ; Other dental procedure status Z98.818 ; Acute gingivitis, non-plaque induced K05.01 ; Acute gingivitis, plaque induced K05.00 and Arrested dental caries K02.3 [facility] [address] [place] [address] 04/03/2024 Ruby Abad Acute cough R05.1 and Nasal congestion R09.81 [facility] [address] [place] [address] 10/26/2024 Ruby Matt Migraine without status migrainosus, not intractable, unspecified migraine type G43.909 [place] [address] [place] [address] 11/10/2023 Calli Jayashree Right wrist pain M25.531 [facility] [address] [place] [address] 06/20/2024 Ruby Abad Vasovagal syncope R55 and Low vitamin B12 level R79.89 [facility] [address] [place] [address] 07/04/2024 Ruby Abad Vasovagal syncope R55 and Rib pain on left side R07.81 [facility] [address] [place] [address] 07/24/2024 Ruby Abad Left-sided chest pain R07.9 ; Toenail fungus B35.1 ; Toenail deformity L60.8 ; Other infective acute otitis externa of right ear H60.391 and Shortness of breath R06.02 [facility] [address] [place] [address] 08/11/2024 Ruby Abad Excessive cerumen in right ear canal H61.21 and Dizziness R42 [place] [address] [place] [address] 06/12/2024 [place] [address] [place] [address] 07/17/2024 [place] [address] [place] [address] 07/24/2024 Ruby Melgoza [place] [address] [place] [address] 08/04/2024 Ruby Melgoza [place] [address] [place] [address] 10/02/2024 Ruby Vernell Acute pain of right foot M79.671 [facility] [address] [place] [address] 10/18/2024 Rubyoksana Matt [facility] [address] [place] [address] 01/04/2024 Della Villarreal [facility] [address] [place] [address] 04/04/2024 Della Villarreal [facility] [address] [place] [address] 04/10/2024 Otto Fowler Assessments Encounter Date Diagnosis (ICD Code) Assessment Notes Treatment Notes Treatment Clinical Notes Section Notes 11/10/2023 Right wrist pain (ICD-10 - M25.531) Symptoms have resolved. F/u as needed 01/04/2024 COVID-19 (ICD-10 - U07.1) Patient with positive COVID test in the ER and this was relayed to patient today. We did discuss symptomatic therapy at this time. Patient does not need a work note states almost the time. Signs symptoms to return to clinic or go to nearest ER/call 911 were discussed. 04/03/2024 Nasal congestion (ICD-10 - R09.81) URI is likely viral in nature due to symptoms and duration. Recommend supportive care including pushing fluids, getting plenty of rest, Tylenol/NSAIDs as needed, humidifier to keep air moist. Will get healthtracks testing and send in meds to help with symptoms. Will contact patient with results. Follow up if symptoms persist beyond 7-10 days. 04/03/2024 Acute cough (ICD-10 - R05.1) Will start Bromfed, educated pt and mother on use of medication and how it has three different medications. It has a histamine melissa, decongestant, and cough suppressant. Pt should follow directions on how to take and will help with symptoms. Pt likely has virus and has to run its course. Return if worsening or not improving. 06/07/2024 Pre-syncope (ICD-10 - R55) Discussed differential with patient including dehydration, anemia, BPPV (less likely based on symptoms), low blood sugar, etc. Patient will continue to monitor symptoms, follow up if no improvement. Will check labs if so. Encouraged patient to properly hydrate, start daily multivitamin. Patient in agreement with plan 06/20/2024 Vasovagal syncope (ICD-10 - R55) Pt has had testing done by neuro and cardiology and no findings to suggest anything other than the vasovagal syncope. Labs all stable. Slightly low B12 but not likely cause. Will see if there is any other testing that has not been done. Did go over the recommendations by specialists and electrolytes/ salt in diet. 06/20/2024 Low vitamin B12 level (ICD-10 - R79.89) Patient deficient in vitamin B12. Will start oral supplementation. Periodically will monitor lab values. Strongly enc diet high in Vit B as well such as meats, fish, poultry, eggs, dairy. Pt VU. 07/04/2024 Rib pain on left side (ICD-10 - R07.81) Unknown cause, denies hitting rib area or injury. Denies constipation or diarrhea. Denies abd pain, n/v. Pt will have rib xrays to start. Can take otc meds for discomforts, ice vs heat. 07/04/2024 Vasovagal syncope (ICD-10 - R55) Has not had any further episodes. Will monitor at this time. 07/18/2024 Rib pain on left side (ICD-10 - R07.81) Pt is advised to rest, ice for 20 min TID, home stretches are also encouraged. NSAIDS such as IBU can be used for pain and take with food. May alternate with Tylenol if needed. 07/24/2024 Toenail fungus (ICD-10 - B35.1) Sending to podiatry for eval and treat possible removal vs trim and treat. 07/24/2024 Left-sided chest pain (ICD-10 - R07.9) Pt presents with atypical chest pain, did have recent ecg chest xray and labs which did not show cause of her complaints. Not improving with tylenol or motrin atc. Shortness of breath, worsening chest pain pt advised to go to the ER. Many factors can cause chest pain including indigestion, advised to take antacid and/or PPI as prescribed/needed, avoid spicy foods, caffeine, and alcoholic beverages. Pain can also be musculoskeletal but this would be reproduceable. Pt VU in POC, short term f/u. 07/28/2024 Other infective acute otitis externa of right ear (ICD-10 - H60.391) Ear appears improved and can see past the cerumen and TM not erythematous. Will stop the drops. 08/11/2024 Excessive cerumen in right ear canal (ICD-10 - H61.21) Counseled pt to get OTC Debrox drops to insert into ears several times over the next couple of weeks and to rub her ears in the shower to loosen up and remove the cerumen. Pt verbalized understanding. 08/23/2024 Acute diarrhea (ICD-10 - R19.7) After discussion pt is on terbinifine from podiatry this is likely causing complaints. Education on how to eat more bland diet, hydration and also eat when taking meds so not on empty stomach. Pt should notify podiatry if not improving also. 08/23/2024 Mucosal irritation of oral cavity (ICD-10 - K13.79) Dental hygiene encouraged, will send peridex mouth wash, use as directed. Any facial swelling, severe pain, fever go to the ER. Keep dental appt. 09/19/2024 Vitamin B12 deficiency (ICD-10 - E53.8) 09/19/2024 Acute pain of right foot (ICD-10 - M79.671) X-ray of right foot ordered. Most likely plantar fascititis or bone spur. Will call with x-ray results. Ice and elevate may use DENISE wrap as needed. Follow up as needed. 09/26/2024 Encounter for dental examination and cleaning with abnormal findings (ICD-10 - Z01.21) 09/27/2024 Vaso vagal episode (ICD-10 - R55) Extensive discussion with patient and straining to have a BM. Instructed to use miralax and increase fluid and fiber intake. Patient verbalizes understanding. All questions and concerns addressed. 09/27/2024 Acute pain of right foot (ICD-10 - M79.671) 10/02/2024 Acute pain of right foot (ICD-10 - M79.671) 10/26/2024 Migraine without status migrainosus, not intractable, unspecified migraine type (ICD-10 - G43.909) New onset migraine x1 episode. Instructed patient to document triggers for furture migraines. Instructed to use tylenol and or motrin for future migraines. Nurtec samples given and instructed on use for migraine not responsive to tylenol and or motrin. All questions and concerns addressed. Follow up as needed. 09/26/2024 Other dental procedure status (ICD-10 - Z98.818) 09/27/2024 Chronic constipation (ICD-10 - K59.09) 08/11/2024 Dizziness (ICD-10 - R42) Education on results from testing and pt did not have any significant findings for CT chest or CT sinuses. Pt denies dizziness shannan since being on med to keep BP elevated. Normal reading today. Will monitor. 07/28/2024 Dizziness (ICD-10 - R42) 07/24/2024 Toenail deformity (ICD-10 - L60.8) left 2nd toe 06/07/2024 Low iron (ICD-10 - E61.1) Will get updated iron, ferritin, cbc to eval. 07/24/2024 Other infective acute otitis externa of right ear (ICD-10 - H60.391) Patient is ordered ATB ear drops, instructed to apply to the affected ear as directed. Patient may take Ibuprofen or Tylenol for pain. May apply warm compress to ear for comfort. Avoid Qtip use and avoid submerging ear in water. Follow up with new or worsening symptoms. 07/28/2024 Rib pain on left side (ICD-10 - R07.81) Has chest CT ordered to eval her complaints of rib pain ongoing despite NSAID use, Rest, ice, heat. 09/26/2024 Acute gingivitis, non-plaque induced (ICD-10 - K05.01) 09/26/2024 Acute gingivitis, plaque induced (ICD-10 - K05.00) 07/28/2024 Right ear pain (ICD-10 - H92.01) Drops could be bothering pt so will have her stop. Pt does have cerumen appearing d/c in ear but somewhat decreased, partially can see the TM and retracted appearing. 07/24/2024 Shortness of breath (ICD-10 - R06.02) 07/28/2024 Pain of right mastoid (ICD-10 - H92.01) 09/26/2024 Arrested dental caries (ICD-10 - K02.3) 07/28/2024 Other headache syndrome (ICD-10 - G44.89) 07/28/2024 Near syncope (ICD-10 - R55) Discussed differential with patient including dehydration, anemia, BPPV (less likely based on symptoms), low blood sugar, etc. Patient will continue to monitor symptoms, follow up if no improvement. Will check labs if so. Encouraged patient to properly hydrate and take MVI. Will get imaging also. Patient in agreement with plan 07/28/2024 Decreased hearing of right ear (ICD-10 - H91.91) 11/10/2023 Other Body Mass Index : Care Instructions material was printed 10/26/2024 Other Body Mass Index : Care Instructions material was printed Plan Of Treatment Next Appt Details Provider Name:Otto meza, 11/20/2024 01:45:00 PM, [address] [facility], [place], [address], Provider Name:Lisa Mcdaniel , 04/20/2025 01:40:00 PM, [address], [place], [address], Insurance Providers Payer Name Payer Address Payer Phone Subscriber Number Group Number Insured Name Patient Relationship to Insured Coverage Start Date Coverage End Date MEDICARE CGS [address] [place] [phone] [id number] [facility] Self - patient is the insured 3 Wrap A[employer] [address] [place] [phone] [id number] [facility] Self - patient is the insured 3 5 B MEDICAID SEC TO [employer] [address] [place] [address] [id number] [facility] Self - patient is the insured 5 [employer]ter[employer] [address] [place] [address] [id number] [facility] Self - patient is the insured 3 3 zMEDICAID ABD after [employer]- termed 22 [address] [place] [address] [id number] [facility] Self - patient is the insured 9 3 [employer] [place] Medicaid [address] [place] [address] [id number] [facility] Self - patient is the insured 2 5 Wrap [facility] [address] [place] [address] [id number] [facility] Self - patient is the insured 3 3 Medical (General) History Medical History History ICD Code Insomnia GERD Amenorrhea Vasovagal Syncope Surgical History Surgery Date(Month/Year) Foot Surgery as Hospitalization History Reason Date(Month/Year) childbirth
--- NOTE | 2024-11-03 20:26 | ED.GENADUL1 ---
HPI HPI - General Adult General Chief complaint: Ear Stated complaint: PAIN IN R EAR Time Seen by Provider: 11/03/24 20:22 Source: patient Mode of arrival: walk-in Limitations: no limitations History of Present Illness HPI narrative: This 24-year-old female presents to the emergency department stating she was trying to clean her right ear out with a Q-tip today and now has diminished hearing. There is little discomfort. No other complaints are reported. She denies chills or fever or sore throat. Related Data Home Medications ?Medication ?Instructions ?Recorded ?Confirmed norethindrone 1 mg-ethinyl 1 tab PO DAILY 09/09/23 11/18/23 estradiol 20 mcg (21)-iron 75 mg (7) tablet (Marybel Fe [birth year])) Allergies Allergy/AdvReac Type Severity Reaction Status Date / Time No Known Drug Allergies Allergy Verified 11/03/24 20:23 Opioid HPI Opioid Management Most Recent Opioid Data: Last Pain Scale 5 Today, 20:17 Review of Systems ROS Status of ROS 10 or more systems reviewed and unremarkable except as noted in history and below PFSH PFSH Social History Little interest or pleasure in doing things: not at all Feeling down, depressed, or hopeless: not at all Exam Narrative Exam Narrative: Afebrile and nondistressed. Vital signs are stable and are as documented. Patient has a moderate amount of cerumen in right ear canal obscuring full visualization of the underlying tympanic membrane. There is no narrowing of the ear canal and no tenderness to manipulation of the right auricle. There is no surrounding redness or evidence of cellulitis. The left external ear, ear canal and tympanic membrane are normal. Pharynx is not injected. Lung sounds are clear to auscultation bilaterally with good air entry. Heart has regular rate and rhythm. Abdomen is soft. Constitutional Vital Signs, click to edit/add: Last Vital Signs Temp 97.5 F L 11/03/24 20:17 Pulse 92 H 11/03/24 20:17 Resp 18 11/03/24 20:17 BP 123/68 11/03/24 20:17 Pulse Ox 100 11/03/24 20:17 O2 Del Method Room Air 11/03/24 20:17 Course Vital Signs Vital signs: Vital Signs Temperature 97.5 F L 11/03/24 20:17 Pulse Rate 92 H 11/03/24 20:17 Respiratory Rate 18 11/03/24 20:17 Blood Pressure 123/68 11/03/24 20:17 Pulse Oximetry 100 11/03/24 20:17 Oxygen Delivery Method Room Air 11/03/24 20:17 Temperature 97.5 F L 11/03/24 20:17 Pulse Rate 92 H 11/03/24 20:17 Respiratory Rate 18 11/03/24 20:17 Blood Pressure 123/68 11/03/24 20:17 Pulse Oximetry 100 11/03/24 20:17 Oxygen Delivery Method Room Air 11/03/24 20:17 Medical Decision Making MDM Narrative Medical decision making narrative: Patient presents with loss of hearing in the right ear which on examination is due to cerumen in the ear canal. This was irrigated out and her hearing is restored. The tympanic membrane remains intact. There is no sign of infection. She is discharged in stable condition and is advised to return for any worsening symptoms. Discharge Plan Discharge Chief Complaint: Ear Clinical Impression: Cerumen impaction Qualifiers: Laterality: right Qualified Code(s): H61.21 - Impacted cerumen, right ear Patient Disposition: Home, Self-Care Time of Disposition Decision: 20:51 Condition: Good Mode of Transportation: Private Vehicle Prescriptions / Home Meds: No Action norethindrone-e.estradiol-iron [Marybel Jarvis 06[birth year] ([birth year])] 1 mg-20 mcg (21)/75 mg (7) tablet 1 tab PO DAILY Print Language: Citizen Of [place] Instructions: Carbamide Peroxide (Into the ear) ([place], [place],... Additional Instructions: Return for worsening symptoms. Referrals: [facility] [Primary Care Provider] - 1 week
== END 2024-11-03 21:07 | disposition home or self-care (01) ==
PROVIDERS: Emergency Provider Emergency Medicine
DX: H61.21 Impacted cerumen, right ear (principal)
CPT/HCPCS: 69209; 99284